=== PATIENT | female | born 1955 | race Caucasian/White ===

== ENCOUNTER → 2017-01-16 | Outpatient (CLI) | payer OTHER ==
[~2017-01-16] MED LIST: ASPEC81 PO; PRLSR20 PO
[2017-01-16 13:58] LABS: BASO % 0.3 %; BASO ABS # 0.02 K/uL (0-0.2); COMPLETE YES; EOS % 1.7 %; HEMATOCRIT 41.2 % (37-47); IG% 0.1 %; LYMPH % 28.3 %; MEAN CELL VOLUME 89.2 fL (80-100); MEAN CORPUSCULAR HEMOGLOBIN 29.4 pg (25-34); MEAN PLATELET VOLUME 10.7 fL (7.4-10.4); MONO % 8.8 %; NEUT % 60.8 %; PLATELET COUNT 146 K/uL (130-400); RED BLOOD COUNT 4.62 M/uL (4.2-5.4); WHITE BLOOD COUNT 7.06 K/uL (4.8-10.8)
[2017-01-16 14:14] LABS: ALT/SGPT 18 U/L (12-78); BLOOD UREA NITROGEN 13 mg/dl (7-18); BUN/CREATININE RATIO 19.7 (10-20); CALCIUM 9.4 mg/dl (8.5-10.1); CARBON DIOXIDE 29 mmol/L (21-32); CHLORIDE 108 mmol/L (98-107); CHOLESTEROL 155 mg/dl (0-200); CREATININE 0.66 mg/dl (0.60-1.20); GLUCOSE 87 mg/dl (70-99); POTASSIUM 4.2 mmol/L (3.5-5.1); SODIUM 144 mmol/L (136-145); TRIGLYCERIDES 206 mg/dl (0-150); VERY LOW DENSITY LIPOPROT CALC 41 mg/dl
[2017-01-16 14:24] LABS: ALB/GLOB RATIO 0.9 (0.9-2)
[2017-01-16 14:25] LABS: ALKALINE PHOSPHATASE 122 U/L (45-117); AST/SGOT 14 U/L (15-37); CHOLESTEROL/HDL RATIO 3.9; HDL CHOLESTEROL 40 mg/dl; LDL CHOLESTEROL CALCULATED 74 mg/dl
== END | disposition home or self-care (01) ==
LOC: C.LABBC 09:15
PROVIDERS: ATTEND Physician Assistant Medical
DX: E55.9 Vitamin D deficiency, unspecified (principal); I10 Essential (primary) hypertension; K21.9 Gastro-esophageal reflux disease without esophagitis; E78.5 Hyperlipidemia, unspecified

== ENCOUNTER → 2017-08-09 | Outpatient (CLI) | payer OTHER ==
--- NOTE | 2017-08-10 15:22 | MAMMOGRAPHY REPORT ---
BILATERAL DIGITAL SCREENING MAMMOGRAM TOMOSYNTHESIS WITH CAD: 08/09/2017 CLINICAL HISTORY: Routine screening. Patient has no complaints. TECHNIQUE: Breast tomosynthesis in addition to standard 2D mammography was performed. Current study was also evaluated with a Computer Aided Detection (CAD) system. COMPARISON: Comparison is made to exams dated: 08/05/2015 mammogram, 08/08/2016 mammogram, 4 mammogram, 07/03/2011 mammogram, 07/22/2013 mammogram, and 06/23/2010 mammogram - [facility]. BREAST COMPOSITION: There are scattered areas of fibroglandular density in both breasts. FINDINGS: No suspicious masses, calcifications, or areas of architectural distortion are noted in ei ther breast. There has been no significant interval change compared to prior exams. IMPRESSION: ACR BI-RADS CATEGORY 1: NEGATIVE There is no mammographic evidence of malignancy. A 1 year screening mammogram is recommended. The pa tient will receive written notification of the results. Approximately 10% of breast cancers are not detected with mammography. A negative mammographic report should not delay biopsy if a clinically suggestive mass is present. Kelly Maya M.D. ah/:08/09/2017 14:48:29 Performance Management Consultant: Alysia MOLINA(Dereje)(M), [facility] letter sent: Normal 1/2 BI-RADS Code: ACR BI-RADS Category 1: Negative
== END | disposition home or self-care (01) ==
LOC: C.MAMM 10:55
PROVIDERS: ATTEND Physician Assistant Medical
DX: Z12.31 Encounter for screening mammogram for malignant neoplasm of breast (principal)

== ENCOUNTER → 2017-08-09 | Outpatient (CLI) | payer OTHER ==
--- NOTE | 2017-08-09 14:19 | DIAGNOSTIC IMAGING REPORT ---
CHEST 2 VIEWS ROUTINE HISTORY: Short of breath. COMPARISON: Chest 10/31/2009. FINDINGS: The lungs are hyperexpanded with apical predominant emphysematous changes. No pleural effusions. No pneumothorax. The heart is normal in size. Bibasilar interstitial thickening may be due to vascular crowding from the emphysema. However, this is slightly progressed. No focal lung consolidations to suggest pneumonia. No evidence for pulmonary edema. IMPRESSION: 1. Emphysema. 2. Progression of the bibasilar interstitial thickening. This could be due to vascular crowding from the emphysema or possibly an atypical pneumonitis. Electronically signed by: Alexis Anderson M.D. 08/09/2017 2:18 PM Dictated Date/Time: 08/09/2017 2:15 PM
== END | disposition home or self-care (01) ==
LOC: C.RAD1850 14:00
PROVIDERS: ATTEND Internal Medicine
DX: J43.9 Emphysema, unspecified (principal); J84.9 Interstitial pulmonary disease, unspecified

== ENCOUNTER → 2017-08-20 | Outpatient (CLI) | payer OTHER ==
[2017-08-20 10:55] LABS: BLOOD UREA NITROGEN 8 mg/dl (7-18); BUN/CREATININE RATIO 12.2 (10-20); CALCIUM 9.4 mg/dl (8.5-10.1); CARBON DIOXIDE 25 mmol/L (21-32); CHLORIDE 107 mmol/L (98-107); CREATININE 0.69 mg/dl (0.60-1.20); GLUCOSE 91 mg/dl (70-99); POTASSIUM 3.7 mmol/L (3.5-5.1); SODIUM 139 mmol/L (136-145)
== END | disposition home or self-care (01) ==
LOC: C.LABBC 08:28
PROVIDERS: ATTEND Physician Assistant Medical
DX: I10 Essential (primary) hypertension (principal)

== ENCOUNTER → 2018-02-04 | Outpatient (CLI) | payer OTHER ==
[2018-02-04 14:17] LABS: ALBUMIN 3.7 gm/dl (3.4-5.0); ALT/SGPT 18 U/L (12-78); AST/SGOT 13 U/L (15-37); BLOOD UREA NITROGEN 13 mg/dl (7-18); CALCIUM 9.5 mg/dl (8.5-10.1); CARBON DIOXIDE 27 mmol/L (21-32); CHOLESTEROL 120 mg/dl (0-200); CREATININE 0.73 mg/dl (0.60-1.20); GLUCOSE 83 mg/dl (70-99); POTASSIUM 4.2 mmol/L (3.5-5.1); SODIUM 140 mmol/L (136-145)
[2018-02-04 14:20] LABS: ALKALINE PHOSPHATASE 120 U/L (45-117); LDL CHOLESTEROL CALCULATED 50 mg/dl; TOTAL PROTEIN 7.6 gm/dl (6.4-8.2)
== END | disposition home or self-care (01) ==
LOC: C.LABBC 10:41
PROVIDERS: ATTEND Nurse Practitioner Adult Health
DX: E78.5 Hyperlipidemia, unspecified (principal); I10 Essential (primary) hypertension; E55.9 Vitamin D deficiency, unspecified; R25.2 Cramp and spasm

== ENCOUNTER 2022-09-13 05:09 | Inpatient (IN) ==
--- NOTE | 2022-09-05 13:42 | Anesthesiology Consultation ---
Date of Service September 05, 2022 Assessment & Plan (1) Encounter for pre-operative examination: - COVID positive 07/25/22, now at acceptable interval to proceed with surgery. Chart Review Chart Review: Acceptable Risk for Surgery and Patient NOT seen in Pre Admission Testing History Surgery Operation Date: 09/13/22 07:30 Proposed Procedures p Femoral to Femoral Bypass Graft - Howie Anderson MD s Angiogram Left Lower Extremity - Howie Anderson MD Height/Weight Height: 5 ft 7 in Weight: 72.575 kg Allergies Allergy/AdvReac Type Severity Reaction Status Date / Time No Known Allergies Allergy Unknown Verified 09/05/22 11:18 Medications Home Medications Medication Instructions Recorded Confirmed Last Taken aspirin 81 mg tablet,delayed 81 mg PO QAM 02/07/19 09/05/22 07/21/22 08:00 release cholecalciferol (vitamin D3) 125 5,000 unit PO QAM 02/07/19 09/05/22 07/24/22 08:00 mcg (5,000 unit) tablet (Vitamin D3) hydrochlorothiazide 12.5 mg tablet 12.5 mg PO QAM 02/14/22 09/05/22 07/24/22 08:00 metoprolol succinate 50 mg 50 mg PO QAM 02/14/22 09/05/22 07/24/22 08:00 tablet,extended release 24 hr omeprazole 20 mg capsule,delayed 20 mg PO QAM 02/14/22 09/05/22 07/25/22 06:00 release telmisartan 40 mg tablet (Micardis) 40 mg PO QAM 02/14/22 09/05/22 07/24/22 08:00 atorvastatin 10 mg tablet 10 mg PO HS #90 tabs 07/14/22 09/05/22 07/24/22 21:00 albuterol sulfate 90 mcg/actuation 1 inh inhalation QID PRN Shortness 07/25/22 09/05/22 Unknown aerosol inhaler (Ventolin HFA) Of Breath fluticasone 500 mcg-salmeterol 50 1 inh inhalation BID 07/25/22 09/05/22 07/25/22 06:00 mcg/dose blistr powdr for inhalation (Advair Diskus) Past Medical History Medical History (Updated 09/05/22 @ 11:40 by Felicia L [place], RN) Carotid bruit < 50% stenosis ICAs bilat 06/2021 doppler COPD (chronic obstructive pulmonary disease) maintenance inhaler use daily; rescue inhaler prn GERD (gastroesophageal reflux disease) controlled, stable per pt History of angiography 05/12/22 @ [facility] Dr. Rosario History of COVID-19 07/25/22 PCR @ [facility] (tested for procedure)--asymptomatic--no symptoms now Hyperlipidemia Hypertension controlled, stable per pt Tobacco dependence due to cigarettes Tubular adenoma of colon removed Past Family History Family History Sister Colonic polyp Mother Lung cancer, Onset Age: 82 Father No problems noted. Other No family history of adverse response to anesthesia Denies family history of Ovarian cancer Prostate cancer Myocardial infarction Breast cancer Colorectal cancer Past Surgical History Surgical History (Updated 09/05/22 @ 11:39 by Felicia Teran RN) History of appendectomy History of bilateral tubal ligation History of colonoscopy last 02/2022 @ [facility] History of tooth extraction History of wisdom tooth extraction Social History Smoking Status: Current every day smoker tobacco type: cigarettes Smoking cigarettes per day: 10 a day (advised) Do You Dip or Chew Tobacco: No Hx Alcohol Use: Yes Alcohol type: beer alcohol intake frequency: holidays/special occasions only Hx Substance Use: No substance use type: does not use Lab Results Anesthesia Preop Results Results Anesthesia Widget: WBC 6.48 K/ul (4.8-10.8) 09/04/22 Hgb 12.4 g/dl (12.0-16.0) 09/04/22 Hct 35.7 % (34.1-44.9) 09/04/22 Plt 178 K/uL (130-400) 09/04/22 Na 134 mmol/L (136-145) L 09/04/22 K 3.6 mmol/L (3.5-5.1) 09/04/22 Cl 100 mmol/L (98-107) 09/04/22 CO2 23 mmol/L (21-32) 09/04/22 BUN 12 mg/dl (6-23) 09/04/22 Creat 0.92 mg/dl (0.6-1.2) 09/04/22 Glucose Level 95 mg/dl (70-99(Fasting)) 09/04/22 PT 10.5 Seconds (9.0-12.0) 09/04/22 PTT 29.9 Seconds (21.0-31.0) 09/04/22 INR 1.0 (0.9-1.1) 09/04/22 COVID-19 PCR POSITIVE (Negative) A* 07/25/22 SARS-CoV-2, RNA, NAAT POSITIVE (NEGATIVE) A* 07/25/22 Blood Type B Positive 07/25/22 Antibody Screen NEGATIVE 07/25/22 Testing Electrocardiogram Date: 06/30/22 NSR, rate 70 bpm Chest X-Ray Date: 06/30/22 No acute chest disease. Other Testing Carotid doppler 06/27/21 < 50% stenosis ICAs bilat
[2022-09-13] MEDS ORDERED: SODIUM CHLORIDE 0.9% 1000ML IV SCH (06:00)
[2022-09-13] MEDS ORDERED: ceFAZolin 2000MG 2,000 MG/15 ML SYR IV SCH (06:00)
[2022-09-13 06:36] LABS: BUN Creatinine Ratio 15.4 (10-20); Calcium 9.6 mg/dl (8.5-10.1); Creatinine Clr Calc Pharmacy 65.5 ml/min; Est GFR (African American) 76.2 ml/min; Est GFR (Non-African American) 65.7 ml/min
[2022-09-13] MEDS ORDERED: HYDROmorphone INJ 1 MG/ML SYRINGE IV PRN (07:00)
[2022-09-13] MEDS ORDERED: fentaNYL citrate 100 MCG/2 ML VIAL IV PRN (07:00)
[2022-09-13] MEDS ORDERED: ATROPINE SULFATE 0.1 MG/ML 10ML SYR IV PRN (07:00)
[2022-09-13] MEDS ORDERED: ePHEDrine sulfate 50 MG/ML AMP IV PRN (07:00)
[2022-09-13] MEDS ORDERED: ONDANSETRON INJ 2 MG/ML 2 ML VIAL IV PRN ×2 (07:00→15:07)
[2022-09-13] MEDS ORDERED: ALBUTEROL HFA INHALER 8.5 GM INH ONE ×7 (07:08→07:17)
[2022-09-13] MEDS ORDERED: MIDAZOLAM HCL 1 MG/ML 2ML VIAL ONE (07:09)
[2022-09-13] MEDS ORDERED: fentaNYL citrate 100 MCG/2 ML VIAL ONE (07:09)
[2022-09-13] MEDS ORDERED: SUGAMMADEX SODIUM 200 MG/2 ML VIAL IV ONE (07:14)
[2022-09-13] MEDS ORDERED: GELATIN SPONGE SZ 100 ONE (07:16)
[2022-09-13] MEDS ORDERED: HEPARIN (PORCINE) 1000 UNIT/ML 10 ML (CATH LAB USE ONLY) ONE (07:16)
[2022-09-13] MEDS ORDERED: ceFAZolin 330 MG/ML 1 GM VIAL ONE (07:16)
[2022-09-13] MEDS ORDERED: THROMBIN FOR SOLN 20000 UNIT KIT ONE (07:17)
--- NOTE | 2022-09-13 07:37 | History & Physical Report ---
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 I have discussed the risks options and benefits of the procedure with the patient. The patient understands the risks options and benefits and agrees to the procedure. 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 Yarbrough is a 67-year-old female who for the last few months has been having significant claudication left lower extremity. She is able to walk 50 to 60 feet before having to rest due to significant pain in her left thigh and calf. It comes as a cramping pain that stops her from walking. She also says her last few weeks she has developed pain in her left leg that comes on at night. She has to stand up and put pressure on her leg to relieve the pain. She claims that her left leg also goes numb at that time when she is has the rest pain in bed. She denies any ulcerations of her left lower extremity. She does have a history of vascular disease in her family. 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 She denies any cardiac problems. Denies any chest pain or shortness of breath. She recently underwent arteriography which revealed a left external iliac artery and left common femoral artery occlusion. There is also a significant tight stenosis of her left profundofemoral artery. Allergies Allergy/AdvReac Type Severity Reaction Status Date / Time No Known Allergies Allergy Unknown Verified 09/13/22 05:43 Home Medications Medication Instructions Recorded Confirmed Type aspirin 81 mg tablet,delayed 81 mg PO QAM 02/07/19 09/13/22 History release cholecalciferol (vitamin D3) 125 5,000 unit PO QAM 02/07/19 09/13/22 History mcg (5,000 unit) tablet (Vitamin D3) hydrochlorothiazide 12.5 mg tablet 12.5 mg PO QAM 02/14/22 09/13/22 History metoprolol succinate 50 mg 50 mg PO QAM 02/14/22 09/13/22 History tablet,extended release 24 hr omeprazole 20 mg capsule,delayed 20 mg PO QAM 02/14/22 09/13/22 History release telmisartan 40 mg tablet (Micardis) 40 mg PO QAM 02/14/22 09/13/22 History atorvastatin 10 mg tablet 10 mg PO HS #90 tabs 07/14/22 09/13/22 Rx albuterol sulfate 90 mcg/actuation 1 inh inhalation QID PRN Shortness 07/25/22 09/13/22 History aerosol inhaler (Ventolin HFA) Of Breath fluticasone 500 mcg-salmeterol 50 1 inh inhalation BID 07/25/22 09/13/22 History mcg/dose blistr powdr for inhalation (Advair Diskus) Past Med/Surg History Medical History Carotid bruit < 50% stenosis ICAs bilat 06/2021 doppler COPD (chronic obstructive pulmonary disease) maintenance inhaler use daily; rescue inhaler prn GERD (gastroesophageal reflux disease) controlled, stable per pt History of angiography 05/12/22 @ [facility] Dr. Rosario History of COVID-19 07/25/22 PCR @ [facility] (tested for procedure)--asymptomatic--no symptoms now Hyperlipidemia Hypertension controlled, stable per pt Tobacco dependence due to cigarettes Tubular adenoma of colon removed Surgical History History of appendectomy History of bilateral tubal ligation History of colonoscopy last 02/2022 @ [facility] History of tooth extraction History of wisdom tooth extraction Family History Sister Colonic polyp Mother Lung cancer, Onset Age: 82 Father No problems noted. Other No family history of adverse response to anesthesia Denies family history of Ovarian cancer Prostate cancer Myocardial infarction Breast cancer Colorectal cancer Social History Smoking Status: Current every day smoker Tobacco Type: Cigarettes Cigarettes Per Day: 10 a day (advised); Second Hand Exposure: No; Do You Dip or Chew Tobacco: No; Tobacco Cessation Education Requested by Patient: No Hx Alcohol Use: Yes Alcohol type: beer Alcohol Intake Frequency: Monthly or Less Alcohol Intake Frequency Comment: social gatherings Hx Substance Use: No Preferred Language: Emirati Communication Ability: Effective Visual Impairment: Limited Hearing Ability: Normal Mail List Librarian Required: No Beliefs That Will Affect Care: None marital status: Single Current Living Situation: Alone current occupational status: retired How many Children do You have: 2 Other Information That Helps Us Care for You: No Feels Safe at Home: Yes Safety Concerns: Feels Safe At This Time Childhood Exposure to Second-Hand Smoke: Yes caffeine: Yes (coffee and soda ) Dental Care, Regularly: No Physical Activity Frequency: Daily Seatbelt Use: always Sunscreen Use: No (not out in sun very often) Assistive Devices: Denture - Upper, Denture - Lower and Glasses Review of Systems All systems reviewed & are unremarkable except as noted in HPI & below Physical Exam Physical Exam: On physical exam the patient is awake alert oriented x3. She is in no apparent distress. Head neck within normal limits. Lungs are clear to auscultation. Heart had a regular rate and rhythm. No murmurs are appreciated. Abdominal exam is benign. No abnormal dilatation was appreciated. Vascular exam reveals radials carotids and supratemporal arteries +2 bilaterally. There is no carotid bruits. Femorals are +2 on the right and pedal's are +1 on the right. I cannot appreciate a left femoral or left pedal pulses. She does have decreased capillary refill in left foot and normal capillary refill on the right. Neurologic exam grossly intact. Results & Data ([facility]) Vital Signs (Past 12 Hours) Vital Signs Temp Pulse Resp BP Pulse Ox O2 Del Method 09/13/22 05:49 36.8 C 90 18 148/72 H 93 Room Air
[2022-09-13] MEDS ORDERED: HYDROmorphone INJ 2 MG/ML SYR/VIAL ONE (08:13)
[2022-09-13] MEDS ORDERED: DEXAMETHASONE SOD INJ 4 MG/ML VIAL ONE (09:23)
[2022-09-13] MEDS ORDERED: LARYING-O-JET KIT (LTA) ONE (09:23)
[2022-09-13] MEDS ORDERED: PROPOFOL IV EMULSION 10 MG/ML 20 ML VIAL IV ONE (09:23)
[2022-09-13] MEDS ORDERED: ROCURONIUM BROMIDE 10 MG/ML 5 ML VIAL IV ONE (09:23)
[2022-09-13] MEDS ORDERED: ONDANSETRON INJ 2 MG/ML 2 ML VIAL ONE (09:23)
[2022-09-13] MEDS ORDERED: LIDOCAINE 2% MPF LOCAL 5 ML VIAL INFIL ONE (09:23)
[2022-09-13] MEDS ORDERED: PHENYLEPHRINE HCL 10 MG/ML VIAL ONE (09:23)
[2022-09-13] MEDS ORDERED: HEPARIN SOD (PORCINE) 1000 UNIT/ML ONE ×2 (09:24→09:56)
[2022-09-13] MEDS ORDERED: SURGICEL ABSORB HEMOSTAT 2IN X 14IN TOP ONE (09:43)
[2022-09-13] MEDS ORDERED: VISIPAQUE IV ONE (10:26)
[2022-09-13] MEDS ORDERED: PROTAMINE SULFATE 10 MG/ML 5 ML VIAL IV ONE (11:11)
[2022-09-13] MEDS ORDERED: ePHEDrine sulfate 50 MG/ML AMP ONE ×2 (11:11)
--- NOTE | 2022-09-13 11:37 | Post Operative Brief Note ---
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
--- NOTE | 2022-09-13 11:47 | Procedure Note ---
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 I identified the patient and participated in the time-out.: Yes Procedure Operation Date: 09/13/22 08:00 Actual Procedures p Left Common Femoral Endarterectomy with Bovine Patch, Femoral to Femoral Bypass with Graft(Not Applicable) - Howie Anderson MD s Left Lower Extremity Arteriogram(Left) - Howie Anderson MD Surgeon Howie Anderson MD Machine Paint Mixer MD Tonja Estimated Blood Loss 75 Findings See Below patent femoral to femoral bypass with left DP signal present at end of case Specimens none Anesthesia Type General Complications none Disposition Accompanied Patient To Recovery: No Disposition: Recovery Room Indications This is a 67 yr old female with left lower extremity claudication and rest pain. She has an occluded left iliac system therefore was consented for a right to left femoral to femoral bypass Description of Procedure The patient was brought to the operating room. She was placed supine on the table with arm extended. A surgical time out was performed to identify the patient, procedure, indication, allergies, and equipment needed. Anesthesia team then placed an ET tube and stabilized the patient with general anesthesia. The patient was prepped from umbilicus to knees bilaterally. The was patient was draped in a sterile manner. First the right groin had an 12 cm vertical incision made over the femoral artery with an 10 blade. Hemostasis was achieved with Bovie electrocautery. Then using sharp and blunt dissection the femoral sheath was entered and the right SOLAR TECHNICIAN, SFA, and profunda were identified. Then 6000U of heparin was given. The SOLAR TECHNICIAN was clamped with a small [place] clamp, the SFA with an angled DeBakey clamp, and the profunda with a small profunda clamp. The an arteriotomy in the SOLAR TECHNICIAN was made with an 11 blade and extended proximally and distally onto the SFA. Then a femoral endarterectomy was performed using a [place] elevated until there were clean endpoints proximally at the SOLAR TECHNICIAN and distally into the SFA. Then the arteriotomy was closed with a bovine carotid patch with a 5-0 Prolene in a standard vascular anastomosis. Prior to completing the anastomosis the arteries were flushed and back bleed to de-air the vessels. The vessels were unclamped. The anastomosis required a 6-0 Prolene repair suture on the medial side and then Surgicel was applied. The groin was packed with an antibiotic solution soaked lap pad. Then the left groin had an 12 cm vertical incision made over the femoral artery with an 10 blade. Hemostasis was achieved with Bovie electrocautery. Then using sharp and blunt dissection the femoral sheath was entered and the left SOLAR TECHNICIAN, SFA, and profunda were identified. Then 6000U of heparin was given. The SOLAR TECHNICIAN was clamped with an angled DeBakey, the SFA with an angled DeBakey clamp, and the profunda with a small profunda clamp. The arteriotomy was made in the SOLAR TECHNICIAN bifurcation with an 11 bladed and extended distally onto the SFA. The a 6Fr sheath was inserted into the left SOLAR TECHNICIAN bifurcation using a J wire. Angiograms of the left lower extremity were performed which demonstrated a patent SFA and popliteal with an AT occlusion and PT as the main runoff to the foot. The sheath was removed. Next a tunnel in the soft tissue superior to the pubis tubercle was make from one groin to the other and an 8mm ringed PTFE graft was placed into the tunnel. The patient was given 4000U of heparin and the right SOLAR TECHNICIAN, SFA, and Profunda were re-clamped. An arteriotomy was made on the patch and the graft was cut to match. The juarez of the graft did extend over the origin of the profunda onto the SFA. The graft was sewn onto the artery in standard vascular fashion using a CV5 Goretex suture. Prior to completing the anastomosis the arteries were flushed and back bleed to de-air the vessels. The other limb of the graft was clamped. Then Surgicel was applied. Attention was turned to the left side were the graft was cut to length after rings were removed. The graft was sewn onto the previously made arteriotomy with a CV5 Goretex suture in standard vascular fashion. Prior to completing the anastomosis the arteries were flushed and back bleed to de-air the vessels. The vessel and graft were unclamped. The anasto mosis required a 5-0 Prolene repair suture on the superior edge of the anastomosis and then Surgicel was applied. Hemostasis was achieved. Then both groins with closed with a running 2-0 Vicryl layer, then 3-0 Vicryl in a running fashion and then skin eneida. Privina wound vac were applied to both groins. The patient tolerated to procedure well and was taken to the PACU for recovery. Dr. Anderson was present and scrubbed for the entire procedure. I attest to the content of the Intraoperative Record and any orders documented therein. Any exceptions are noted below.
[2022-09-13 12:26] LABS: Basophils # (auto) 0.02 K/uL (0-0.2); Basophils % (auto) 0.3 %; Eosinophils # (auto) 0.02 K/uL (0-0.50); Eosinophils % (auto) 0.3 %; Hematocrit (blood only) 31.9 % (34.1-44.9); Hemoglobin 10.7 g/dl (12.0-16.0); Immature Granulocytes # (auto) 0.05 K/uL (0.00-0.02); Immature Granulocytes % (auto) 0.8 %; Lymphocytes # (auto) 0.64 K/uL (1.2-3.4); Lymphocytes % (auto) 10.4 %; Mean Corpuscular Hemoglobin 31.1 pg (25.0-34.0); Mean Corpuscular Hgb Conc 33.5 g/dL (32.0-36.0); Mean Corpuscular Volume 92.7 fL (80.0-100.0); Monocytes # (auto) 0.08 K/uL (0.24-0.82); Monocytes % (auto) 1.3 %; Neutrophils # (auto) 5.36 K/uL (1.4-6.5); Neutrophils % (auto) 86.9 %; Platelet Count 146 K/uL (130-400); RDW Coefficient of Variation 14.6 % (11.5-14.5); RDW Standard Deviation 49.3 fL (36.4-46.3); Red Blood Count 3.44 M/uL (3.93-5.22); White Blood Count 6.17 K/ul (4.8-10.8)
[2022-09-13 12:49] LABS: BUN Creatinine Ratio 13.3 (10-20); Calcium 8.5 mg/dl (8.5-10.1); Creatinine Clr Calc Pharmacy 56.7 ml/min; Est GFR (African American) 64.1 ml/min; Est GFR (Non-African American) 55.3 ml/min; Potassium 4.2 mmol/L (3.5-5.1)
--- NOTE | 2022-09-13 13:09 | Anesthesiology Progress Note ---
Date of Service September 13, 2022 Anesthesia Post Procedure Vital Signs Vital Signs: Temp Pulse Pulse Resp BP BP Pulse Ox 09/13/22 12:50 74 19 123/77 127/44 L 92 09/13/22 12:40 69 20 118/76 92 09/13/22 12:30 78 16 126/45 L 92 09/13/22 12:20 78 20 124/44 L 92 09/13/22 12:10 88 20 117/45 L 95 09/13/22 12:00 36.8 C 89 16 131/49 L 93 09/13/22 05:49 36.8 C 90 18 148/72 H 93 O2 Del Method O2 Flow Rate 09/13/22 12:50 Nasal Cannula 2 09/13/22 12:40 Nasal Cannula 2 09/13/22 12:30 Nasal Cannula 2 09/13/22 12:20 Nasal Cannula 2 09/13/22 12:10 Oxymask 5 09/13/22 12:00 Oxymask 5 09/13/22 05:49 Room Air Transfer of Care Handoff Completed per policy Notes Mental Status: alert / awake / arousable and participated in evaluation Patient Amnestic to Procedure: Yes Nausea / Vomiting: adequately controlled Pain: adequately controlled Airway Patency, RR, SpO2: stable & adequate BP & HR: stable & adequate Hydration State: stable & adequate Anesthetic Complications: no major complications apparent and Pt Satisfied with anesthetic care
[2022-09-13] MEDS ORDERED: LACTATED RINGER'S 1,000 ML IV SCH (15:07)
[2022-09-13] MEDS ORDERED: MoRPHine SULFATE 4 MG/ML 1 ML CARP\\VIAL IV PRN (15:07)
[2022-09-13] MEDS ORDERED: oxyCODONE/ACETAMINOPHEN 5mg/325mg TAB PO PRN (15:07)
[2022-09-13] MEDS ORDERED: ALBUTEROL HFA 8 GM INHALER INH PRN (15:07)
[2022-09-13] MEDS: ceFAZolin 2000MG 2,000 MG/15 ML SYR IV SCH (16:21)
--- NOTE | 2022-09-13 16:41 | Critical Care Consultation ---
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 Anderson Monitor H&H Pain medication Start statin and Plavix tomorrow --Hypertension Continue with blood pressure medication -- Dyslipidemia On atorvastatin -- GERD Continue with pantoprazole -- COPD On Advair 500-50 at home Currently on Breo Would recommend the patient to be on Anoro/Stiolto on a daily basis rather than Advair. Can be addressed by primary care/pulmonology as an outpatient --Prophylaxis VTE: None GI: Pantoprazole Lines: Peripheral Diet: Low-sodium Plan: Monitor H&H Pain management Please note the above document was generated using voice recognition software. It may contain grammatical, syntax or spelling errors.Any formal questions or concerns about the content, text or information contained within the body of this dictation should be directly addressed to the provider for clarification. History of Present Illness Attending Physician: Howie Anderson MD History of Present Illness 67-year-old female came to the hospital to have femorofemoral bypass Past medical history: Peripheral vascular disease, dyslipidemia, hypertension, GERD Patient in the ICU for further care At the time of examination patient was not in any respiratory distress Her map was in the 70s, systolic blood pressure in the 110s Denies any chest pain, no shortness of breath No nausea vomiting. Patient just had dinner prior to me seeing her. Denies any abdominal pain. No headache, no blurry vision Social history: Greater than [id number] smoking history, currently smoking 10 cigarettes a day. Allergies Allergy/AdvReac Type Severity Reaction Status Date / Time No Known Allergies Allergy Unknown Verified 09/13/22 05:43 Home Medications Medication Instructions Recorded Confirmed Type aspirin 81 mg tablet,delayed 81 mg PO QAM 02/07/19 09/13/22 History release cholecalciferol (vitamin D3) 125 5,000 unit PO QAM 02/07/19 09/13/22 History mcg (5,000 unit) tablet (Vitamin D3) hydrochlorothiazide 12.5 mg tablet 12.5 mg PO QAM 02/14/22 09/13/22 History metoprolol succinate 50 mg 50 mg PO QAM 02/14/22 09/13/22 History tablet,extended release 24 hr omeprazole 20 mg capsule,delayed 20 mg PO QAM 02/14/22 09/13/22 History release telmisartan 40 mg tablet (Micardis) 40 mg PO QAM 02/14/22 09/13/22 History atorvastatin 10 mg tablet 10 mg PO HS #90 tabs 07/14/22 09/13/22 Rx albuterol sulfate 90 mcg/actuation 1 inh inhalation QID PRN Shortness 07/25/22 09/13/22 History aerosol inhaler (Ventolin HFA) Of Breath fluticasone 500 mcg-salmeterol 50 1 inh inhalation BID 07/25/22 09/13/22 History mcg/dose blistr powdr for inhalation (Advair Diskus) Patient History Medical History Carotid bruit < 50% stenosis ICAs bilat 06/2021 doppler COPD (chronic obstructive pulmonary disease) maintenance inhaler use daily; rescue inhaler prn GERD (gastroesophageal reflux disease) controlled, stable per pt History of angiography 05/12/22 @ [facility] Dr. Rosario History of COVID-19 07/25/22 PCR @ [facility] (tested for procedure)--asymptomatic--no symptoms now Hyperlipidemia Hypertension controlled, stable per pt Tobacco dependence due to cigarettes Tubular adenoma of colon removed Surgical History History of appendectomy History of bilateral tubal ligation History of colonoscopy last 02/2022 @ [facility] History of tooth extraction History of wisdom tooth extraction Family History Sister Colonic polyp Mother Lung cancer, Onset Age: 82 Father No problems noted. Other No family history of adverse response to anesthesia Denies family history of Ovarian cancer Prostate cancer Myocardial infarction Breast cancer Colorectal cancer Social History Smoking Status: Current every day smoker Tobacco Type: Cigarettes Cigarettes Per Day: 10 a day (advised); Second Hand Exposure: No; Do You Dip or Chew Tobacco: No; Tobacco Cessation Education Requested by Patient: No Hx Alcohol Use: Yes Alcohol type: beer Alcohol Intake Frequency: Monthly or Less Alcohol Intake Frequency Comment: social gatherings Hx Substance Use: No Preferred Language: Upper Sorbian Communication Ability: Effective Visual Impairment: Limited Hearing Ability: Normal 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 Beliefs That Will Affect Care: None marital status: Single Current Living Situation: Alone current occupational status: retired How many Children do You have: 2 Other Information That Helps Us Care for You: No Feels Safe at Home: Yes Safety Concerns: Feels Safe At This Time Childhood Exposure to Second-Hand Smoke: Yes caffeine: Yes (coffee and soda ) Dental Care, Regularly: No Physical Activity Frequency: Daily Seatbelt Use: always Sunscreen Use: No (not out in sun very often) Assistive Devices: Denture - Upper, Denture - Lower and Glasses Review of Systems Review of Systems: All systems reviewed & are unremarkable except as noted in HPI & below Physical Exam Physical Exam: Constitutional: No acute distress HEENT: EOMI, PERRLA Respiratory system: Decreased antibiotic, no wheeze, rhonchi, mild crackles bilateral lower lobes CVS: S1-S2 positive, no murmurs or gallops Abdomen: Soft, nontender, nondistended, positive bowel sounds x4 Extremities: +2 pulses bilaterally radialis, no cyanosis, no edema, +2 pulses left dorsalis pedis, +1 right dorsalis pedis, wound VAC in place bilateral groin Neuro: Awake alert oriented x3 Psych: Normal mood and affect G/U: Positive Temple Skin: no rashes, warm and dry Lymphatic: no cervical or axillary lymphadenopathy Results & Data Results & Data ([facility]) Vital Signs (Past 12 Hours) Vital Signs Temp Pulse Pulse Pulse Resp BP BP 09/13/22 15:00 66 15 113/58 L 09/13/22 15:26 09/13/22 15:07 36.4 C L 09/13/22 15:07 09/13/22 13:50 61 16 09/13/22 13:20 36.9 C 64 12 09/13/22 12:50 74 19 123/77 09/13/22 12:40 69 20 09/13/22 12:30 78 16 09/13/22 12:20 78 20 09/13/22 12:10 88 20 09/13/22 12:00 36.8 C 89 16 09/13/22 05:49 36.8 C 90 18 BP Pulse Ox Pulse Ox O2 Del Method O2 Del Method O2 Flow Rate 09/13/22 15:00 90 Room Air 09/13/22 15:26 90 Room Air 09/13/22 15:07 09/13/22 15:07 Room Air 09/13/22 13:50 114/39 L 96 Nasal Cannula 2 09/13/22 13:20 121/41 L 94 Nasal Cannula 2 09/13/22 12:50 127/44 L 92 Nasal Cannula 2 09/13/22 12:40 118/76 92 Nasal Cannula 2 09/13/22 12:30 126/45 L 92 Nasal Cannula 2 09/13/22 12:20 124/44 L 92 Nasal Cannula 2 09/13/22 12:10 117/45 L 95 Oxymask 5 09/13/22 12:00 131/49 L 93 Oxymask 5 09/13/22 05:49 148/72 H 93 Room Air Laboratory Results 09/13/22 12:20 09/13/22 12:20 Coding Level of Care Code 93629 Inpt Consult Level 4 Diagnoses Atherosclerosis of artery of extremity with rest pain I70.229 HTN (hypertension) I10 Hyperlipidemia E78.5 Acid reflux K21.9 Peripheral arterial disease I73.9 Tobacco dependence due to cigarettes F17.210 COPD (chronic obstructive pulmonary disease) J44.9
[2022-09-13] MEDS: ATORVASTATIN 10 MG TAB PO SCH (20:06)
[2022-09-14] MEDS: ceFAZolin 2000MG 2,000 MG/15 ML SYR IV SCH (00:21)
[2022-09-14 06:11] LABS: Basophils # (auto) 0.01 K/uL (0-0.2); Basophils % (auto) 0.1 %; Eosinophils # (auto) 0.01 K/uL (0-0.50); Eosinophils % (auto) 0.1 %; Hematocrit (blood only) 28.8 % (34.1-44.9); Hemoglobin 9.8 g/dl (12.0-16.0); Immature Granulocytes # (auto) 0.04 K/uL (0.00-0.02); Immature Granulocytes % (auto) 0.5 %; Lymphocytes # (auto) 1.37 K/uL (1.2-3.4); Lymphocytes % (auto) 17.7 %; Mean Corpuscular Hemoglobin 30.4 pg (25.0-34.0); Mean Corpuscular Volume 89.4 fL (80.0-100.0); Mean Platelet Volume 9.2 fL (9.4-12.3); Monocytes # (auto) 0.46 K/uL (0.24-0.82); Neutrophils # (auto) 5.84 K/uL (1.4-6.5); Neutrophils % (auto) 75.6 %; Platelet Count 155 K/uL (130-400); RDW Coefficient of Variation 14.3 % (11.5-14.5); Red Blood Count 3.22 M/uL (3.93-5.22); White Blood Count 7.73 K/ul (4.8-10.8)
[2022-09-14 06:29] LABS: BUN Creatinine Ratio 18.3 (10-20); Calcium 8.8 mg/dl (8.5-10.1); Creatinine Clr Calc Pharmacy 83.9 ml/min; Est GFR (African American) 102.9 ml/min; Est GFR (Non-African American) 88.8 ml/min; Potassium 4.4 mmol/L (3.5-5.1)
--- NOTE | 2022-09-14 07:53 | Critical Care Progress Note ---
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 Anderson Monitor H&H Pain medication Start statin and Plavix tomorrow --Hypertension Continue with blood pressure medication -- Dyslipidemia On atorvastatin -- GERD Continue with pantoprazole -- COPD On Advair 500-50 at home Currently on Breo Would recommend the patient to be on Anoro/Stiolto on a daily basis rather than Advair. Can be addressed by primary care/pulmonology as an outpatient --Prophylaxis VTE: None GI: Pantoprazole Lines: Peripheral Diet: Low-sodium Plan: In/out: Positive 489, urine output 1930 H&H is stable. Arterial line and Temple has been discontinued Patient hemodynamically stable. Disposition as per vascular surgery Please note the above document was generated using voice recognition software. It may contain grammatical, syntax or spelling errors.Any formal questions or concerns about the content, text or information contained within the body of this dictation should be directly addressed to the provider for clarification. Admission and Anticipated Discharge Date Admission Date: September 13, 2022 Subjective Patient seen and examined at bedside. No acute distress, no adverse events overnight. Denies any abdominal pain, mild burning around the groin area. No nausea or vomiting, fair appetite No chest pain, no shortness of breath, no cough Review of Systems Review of Systems: All systems reviewed & are unremarkable except as noted in Subjective Physical Exam Physical Exam: Constitutional: No acute distress HEENT: EOMI, PERRLA Respiratory system: Decreased antibiotic, no wheeze, minimal rhonchi on the left side, mild crackles bilateral lower lobes CVS: S1-S2 positive, no murmurs or gallops Abdomen: Soft, nontender, nondistended, positive bowel sounds x4 Extremities: +2 pulses bilaterally radialis, no cyanosis, no edema, +2 pulses left dorsalis pedis, +1 right dorsalis pedis, wound VAC in place bilateral groin Neuro: Awake alert oriented x3 Psych: Normal mood and affect G/U: No Temple Skin: no rashes, warm and dry Lymphatic: no cervical or axillary lymphadenopathy Results & Data Results & Data ([facility]) Vital Signs (Past 12 Hours) Vital Signs Temp Pulse Resp BP Pulse Ox Pulse Ox O2 Del Method 09/14/22 07:45 84 23 119/64 91 09/14/22 07:30 23 93 09/14/22 07:15 67 20 94 09/14/22 07:00 63 22 96 09/14/22 07:00 124/59 L 09/13/22 20:00 36.6 C 09/14/22 00:00 36.6 C 09/14/22 06:00 63 16 122/53 L 92 09/14/22 05:00 54 L 15 118/53 L 89 L 09/14/22 04:00 56 L 15 111/50 L 89 L 09/14/22 03:00 61 17 119/53 L 89 L 09/14/22 02:00 59 L 17 115/55 L 90 09/14/22 01:00 71 21 108/55 L 91 09/14/22 00:00 58 L 15 115/55 L 89 L 09/13/22 23:00 60 16 111/50 L 88 L 09/14/22 06:23 36.6 C 09/13/22 23:59 91 Room Air 09/13/22 22:00 56 L 15 124/62 93 09/13/22 22:58 56 L 09/13/22 21:00 56 L 17 117/55 L 90 09/13/22 20:00 60 18 112/57 L 92 09/13/22 21:20 91 Room Air Laboratory Results 09/14/22 05:51 09/14/22 05:51 Coding Level of Care Code 32364 Subseq Hosp Care Lvl 2 Diagnoses Atherosclerosis of artery of extremity with rest pain I70.229 HTN (hypertension) I10 Hyperlipidemia E78.5 Acid reflux K21.9 Peripheral arterial disease I73.9 Tobacco dependence due to cigarettes F17.210 COPD (chronic obstructive pulmonary disease) J44.9
[2022-09-14] MEDS: hydroCHLOROthiazide 25 MG TAB PO SCH (07:55)
[2022-09-14] MEDS: METOPROLOL SUCC 50MG EXT REL TAB PO SCH (07:57)
[2022-09-14] MEDS: TELMISARTAN 40 MG TAB PO SCH (07:57)
[2022-09-14] MEDS: PANTOprazole 40 MG TAB PO SCH (07:58)
[2022-09-14] MEDS: ASPIRIN 81 MG ECTAB PO SCH (07:58)
[2022-09-14] MEDS: CHOLECALCIFEROL 5,000 UNITS 125 MCG TAB PO SCH (07:58)
[2022-09-14] MEDS: FLUTICASONE/VILANTEROL 100/25MCG 14 PUFFS/INHALER INH SCH (07:59)
[2022-09-14] MEDS: ENOXAPARIN INJ 30 MG/0.3 ML SYR SQ SCH ×2 (08:54→20:05)
[2022-09-14] MEDS: MICONAZOLE NITRATE POWDER 43 GM EXT SCH ×2 (11:00→20:07)
--- NOTE | 2022-09-14 15:24 | Surgery Progress Note ---
Date of Service September 14, 2022 Assessment & Plan (1) S/P femoral-femoral bypass surgery: Plan: Patient doing extremely well. Will transfer to floor. Admission and Anticipated Discharge Date Admission Date: September 13, 2022 Subjective Patient complains of pins and needles in her medial thighs. Feet feel great. Walked the unit this am. Physical Exam Constitutional: WD/WN, vitals as above Respiratory: normal respiratory effort; no respiratory distress Cardiovascular: Rate/Rhythm: regular rate and regular rhythm Vessels: dorsalis pedis pulses present Extremities: normal capillary refill Musculoskeletal: no cyanosis or clubbing, extremities motor strength 5/5 Skin: + incision (pervena in place in both groins) Psychiatric: Orientation: alert and oriented x 3 Results & Data ([facility]) Vital Signs (Past 12 Hours) Vital Signs Temp Pulse Resp BP Pulse Ox Pulse Ox O2 Del Method 09/14/22 14:25 121/60 09/14/22 14:25 66 20 90 09/14/22 14:00 67 22 91 09/14/22 13:00 75 22 92 09/14/22 12:00 75 21 94 09/14/22 11:00 24 91 09/14/22 10:15 130/60 09/14/22 10:15 77 22 90 09/14/22 10:00 73 22 90 09/14/22 09:38 131/65 09/14/22 09:38 91 H 24 90 09/14/22 09:20 86 26 H 90 09/14/22 09:20 118/67 09/14/22 09:00 85 20 09/14/22 08:00 78 25 H 90 09/14/22 08:00 124/56 L 09/14/22 07:49 119/64 09/14/22 07:49 81 24 91 09/14/22 08:00 91 09/14/22 08:00 Room Air 09/14/22 08:00 85 09/14/22 07:45 84 23 119/64 91 09/14/22 07:30 23 93 09/14/22 07:15 67 20 94 09/14/22 07:00 63 22 96 09/14/22 07:00 124/59 L 09/14/22 06:00 63 16 122/53 L 92 09/14/22 05:00 54 L 15 118/53 L 89 L 09/14/22 04:00 56 L 15 111/50 L 89 L 09/14/22 06:23 36.6 C O2 Del Method 09/14/22 14:25 09/14/22 14:25 09/14/22 14:00 09/14/22 13:00 09/14/22 12:00 09/14/22 11:00 09/14/22 10:15 09/14/22 10:15 09/14/22 10:00 09/14/22 09:38 09/14/22 09:38 09/14/22 09:20 09/14/22 09:20 09/14/22 09:00 09/14/22 08:00 09/14/22 08:00 09/14/22 07:49 09/14/22 07:49 09/14/22 08:00 Room Air 09/14/22 08:00 09/14/22 08:00 09/14/22 07:45 09/14/22 07:30 09/14/22 07:15 09/14/22 07:00 09/14/22 07:00 09/14/22 06:00 09/14/22 05:00 09/14/22 04:00 09/14/22 06:23
[2022-09-14] MEDS: ATORVASTATIN 10 MG TAB PO SCH (20:05)
--- NOTE | 2022-09-15 07:42 | Surgery Progress Note ---
Date of Service September 15, 2022 Assessment & Plan (1) S/P femoral-femoral bypass surgery: Plan: Doing well D\C home today. Admission and Anticipated Discharge Date Admission Date: September 13, 2022 Subjective Patient without complaints. Ambulating will. Physical Exam Constitutional: WD/WN, vitals as above Respiratory: normal respiratory effort; no respiratory distress Cardiovascular: Rate/Rhythm: regular rate and regular rhythm Vessels: dorsalis pedis pulses present Extremities: normal capillary refill Skin: + incision (dressing in place) Psychiatric: Orientation: alert and oriented x 3 Results & Data ([facility]) Vital Signs (Past 12 Hours) Vital Signs Temp Pulse Resp BP Pulse Ox O2 Del Method 09/15/22 04:00 36.5 C 66 18 129/61 90 Room Air 09/14/22 20:11 36.5 C 58 L 18 132/57 L 93 Room Air
[2022-09-15] MEDS: ENOXAPARIN INJ 30 MG/0.3 ML SYR SQ SCH (08:06)
[2022-09-15] MEDS: ASPIRIN 81 MG ECTAB PO SCH (08:06)
[2022-09-15] MEDS: hydroCHLOROthiazide 25 MG TAB PO SCH (08:07)
[2022-09-15] MEDS: FLUTICASONE/VILANTEROL 100/25MCG 14 PUFFS/INHALER INH SCH (08:07)
[2022-09-15] MEDS: MICONAZOLE NITRATE POWDER 43 GM EXT SCH (08:07)
[2022-09-15] MEDS: PANTOprazole 40 MG TAB PO SCH (08:07)
[2022-09-15] MEDS: TELMISARTAN 40 MG TAB PO SCH (08:07)
[2022-09-15] MEDS: METOPROLOL SUCC 50MG EXT REL TAB PO SCH (08:07)
[2022-09-15] MEDS: CHOLECALCIFEROL 5,000 UNITS 125 MCG TAB PO SCH (08:07)
--- NOTE | 2022-09-18 12:02 | Discharge Summary ---
Date of Service September 18, 2022 Admission HPI Per Admitting Provider Ms. Yarbrough is a 67-year-old female who for the last few months has been having significant claudication left lower extremity. She is able to walk 50 to 60 feet before having to rest due to significant pain in her left thigh and calf. It comes as a cramping pain that stops her from walking. She also says her last few weeks she has developed pain in her left leg that comes on at night. She has to stand up and put pressure on her leg to relieve the pain. She claims that her left leg also goes numb at that time when she is has the rest pain in bed. She denies any ulcerations of her left lower extremity. She does have a history of vascular disease in her family. 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 She denies any cardiac problems. Denies any chest pain or shortness of breath. She recently underwent arteriography which revealed a left external iliac artery and left common femoral artery occlusion. There is also a significant tight stenosis of her left profundofemoral artery. Admission Exam Per Admitting Provider On physical exam the patient is awake alert oriented x3. She is in no apparent distress. Head neck within normal limits. Lungs are clear to auscultation. Heart had a regular rate and rhythm. No murmurs are appreciated. Abdominal exam is benign. No abnormal dilatation was appreciated. Vascular exam reveals radials carotids and supratemporal arteries +2 bilaterally. There is no carotid bruits. Femorals are +2 on the right and pedal's are +1 on the right. I cannot appreciate a left femoral or left pedal pulses. She does have decreased capillary refill in left foot and normal capillary refill on the right. Neurologic exam grossly intact. Principal Diagnosis Left iliac artery occluson Discharge Exam Constitutional WD/WN, vitals as above Respiratory normal respiratory effort; no respiratory distress Cardiovascular Rate/Rhythm: regular rate and regular rhythm Vessels: dorsalis pedis pulses present Extremities: normal capillary refill Musculoskeletal no cyanosis or clubbing, extremities motor strength 5/5 Skin + incision (dressing in place) Psychiatric Orientation: alert and oriented x 3 Discharge Data Allergies Allergy/AdvReac Type Severity Reaction Status Date / Time No Known Allergies Allergy Unknown Verified 09/13/22 05:43 Consultations 09/13/22 15:07 Consult Nuclear Waste Process Operator Routine Procedures Performed Operation Date: 09/13/22 08:00 Actual Procedures p Left Common Femoral Endarterectomy with Bovine Patch, Femoral to Femoral Bypass with Graft(Not Applicable) - Howie Anderson MD s Left Lower Extremity Arteriogram(Left) - Howie Anderson MD Ordered Studies 09/13/22 07:22 EV angio LE LT Routine Hospital Course (1) S/P femoral-femoral bypass surgery: Doing well D\C home today. Total Time Total Time Spent Total Time Spent (In Minutes): 0 Discharge Plan Discharge Items Patient Disposition: Home - Self-Care Reason For Visit: Left Lower Extremity ILiac and Common Femoral Randee Discharge Diagnosis: Left common femoral artery and iliac artery occlusion Activity: Per Instructions section Non-emergency contact: Surgeon Call non-emergency contact if: your temperature is above 101.5, your wound has increased redness, your wound has increased drainage and your wound pain has increased Follow-up/Referrals: Radu Pisano DO [Primary Care Provider] - 09/25/22 11:30 am Diet: Heart Healthy Addtl Attending Provider Instructions: ACTIVITY RECOMMENDATIONS: Remove dressing next sunday or sunday. replace with 4x4's if any drainage. SPECIAL CARE INSTRUCTIONS: Call your doctor if: * Temperature above 101 degrees * Pain not relieved by pain medicine ordered * There is increased drainage or redness from any incision * You have any unanswered questions or concerns. Call [phone] to schedule a follow up appointment if one not already scheduled. Pending Studies at Discharge: No Stand-Alone Forms: My [facility] Citelighter, Smoking Cessation Medications and DC Order Prescriptions: New oxycodone-acetaminophen [Percocet] 5-325 mg tablet 1 tab PO Q6H PRN (Reason: pain) Qty: 20 0RF Continued atorvastatin 10 mg tablet 10 mg PO HS Qty: 90 3RF Rx Instructions: TAKE 1 TABLET BY MOUTH AT BEDTIME aspirin 81 mg Tablet,Delayed Release (Dr/Ec) 81 mg PO QAM cholecalciferol (vitamin D3) [Vitamin D3] 5,000 unit Tablet 5,000 unit PO QAM metoprolol succinate 50 mg tablet extended release 24 hr 50 mg PO QAM Rx Instructions: TAKE 1 TABLET BY MOUTH EVERY MORNING telmisartan [Micardis] 40 mg tablet 40 mg PO QAM omeprazole 20 mg capsule,delayed release(DR/EC) 20 mg PO QAM Rx Instructions: TAKE 1 CAPSULE BY MOUTH EVERY MORNING hydrochlorothiazide 12.5 mg tablet 12.5 mg PO QAM fluticasone propion-salmeterol [Advair Diskus] 500-50 mcg/dose blister with device 1 inh inhalation BID albuterol sulfate [Ventolin HFA] 90 mcg/actuation HFA aerosol inhaler 1 inh inhalation QID PRN (Reason: Shortness Of Breath) Rx Instructions: INHALE 1 INHALATION 4 TIMES A DAY Discharge Orders: Discharge Order (Routine); Ordered 09/15/22 Ordered By: Howie Anderson Admission Data Admit Date/Time: 09/13/22 07:37 Attending Provider: Howie Anderson Admit Provider: Howie Anderson Primary Care Provider: Radu Pisano Other Providers: Zak Sullivan ; Radu Plascencia ; Tico Nunez ; Baljit Spencer ; Doug Avery ; Estuardo Penny ; Deb Limon ; Jesu Johnson ; Hoa Keating Other Interventions: Discharge Summary Assessment (RN) Last Done: 09/15/22 08:22
== END 2022-09-15 08:57 | disposition home or self-care (01) | DRG 253 ==
LOC: ASU 05:09 → 1E 07:37

== ENCOUNTER 2024-02-06 12:09 | Inpatient (IN) ==
[2024-02-06 12:49] LABS: Basophils # (auto) 0.02 K/uL (0.00-0.20); Basophils % (auto) 0.4 %; Eosinophils # (auto) 0.02 K/uL (0.00-0.50); Eosinophils % (auto) 0.4 %; Hematocrit (blood only) 41.8 % (37.0-47.0); Hemoglobin 13.1 g/dl (12.0-16.0); Immature Granulocytes # (auto) 0.03 K/uL (0.01-0.20); Immature Granulocytes % (auto) 0.7 %; Lymphocytes # (auto) 0.87 K/uL (1.20-3.40); Lymphocytes % (auto) 19.3 %; Mean Corpuscular Hemoglobin 28.5 pg (25.0-34.0); Mean Corpuscular Hgb Conc 31.3 g/dL (32.0-36.0); Mean Corpuscular Volume 91.1 fL (80.0-100.0); Mean Platelet Volume 10.7 fL (9.4-12.4); Monocytes # (auto) 0.21 K/uL (0.11-0.59); Monocytes % (auto) 4.7 %; Neutrophils # (auto) 3.35 K/uL (1.40-6.50); Neutrophils % (auto) 74.5 %; Platelet Count 142 K/uL (130-400); RDW Coefficient of Variation 15.5 % (11.5-14.5); RDW Standard Deviation 51.6 fL (36.4-46.3); Red Blood Count 4.59 M/uL (4.20-5.40)
[2024-02-06 13:13] LABS: Partial Thromboplastin Ratio 1.2; Partial Thromboplastin Time 34 Seconds (21-31); Prothrombin Time 10.8 Seconds (9.0-12.0)
--- NOTE | 2024-02-06 13:16 | XRay Report ---
XR chest 1V not portable HISTORY: 68 years-old Female Chest pain, nonspecific COMPARISON: 06/30/2022 TECHNIQUE: PA view of the chest FINDINGS: Cardiomediastinal and hilar silhouettes are within normal limits. Atherosclerosis of the aorta. Mild chronic interstitial coarsening. No pneumothorax, pleural effusion or pulmonary edema. The bones appe ar intact. IMPRESSION: No acute process. ACT 112: Negative or not required by law. The above report was generated using voice recognition software. It may contain grammatical, syntax o r spelling errors. Electronically signed by: Amandeep Erazo M.D. 02/06/2024 1:14 PM
[2024-02-06 13:33] LABS: Albumin Level 4.1 gm/dl (3.4-5.0); Bilirubin,Total 0.4 mg/dl (0.2-1.0); Calcium 8.8 mg/dl (8.6-10.3); Potassium 3.8 mmol/L (3.5-5.1)
[2024-02-06 13:38] LABS: Troponin I High Sensitivity 13.7 pg/ml (0-14)
[2024-02-06 13:39] LABS: Albumin Globulin Ratio 1.3 (0.9-2); BUN Creatinine Ratio 11.1 (10-20); Creatinine Clr Calc Pharmacy 20.2 ml/min; Globulin 3.2 gm/dl (2.5-4.0); Total Protein 7.3 gm/dl (6.0-8.3)
--- NOTE | 2024-02-06 16:32 | Electrocardiogram Report ---
Test Reason : Blood Pressure : / mmHG Vent. Rate : 077 BPM Atrial Rate : 077 BPM P-R Int : 156 ms QRS Dur : 078 ms QT Int : 402 ms P-R-T Axes : 058 068 066 degrees QTc Int : 454 ms Normal sinus rhythm Low voltage QRS Nonspecific ST abnormality Abnormal ECG When compared with ECG of 23-DEC-2022 11:54, (unconfirmed) No significant change was found Confirmed by Ezio Wakefield ([id number]) on 02/06/2024 4:32:33 PM Referred By: Confirmed By:Ezio Wakefield
--- NOTE | 2024-02-06 17:12 | Emergency Department Note ---
Impression & Plan CHET (acute kidney injury), HTN (hypertension), Acute neck pain ED Provider Note NAME: CARROLL CLAROS AGE: 68 SEX: F : 1955 ARRIVES VIA: Walk-In INFORMANT: Patient ED PROVIDER(S): Eddie Lozano DO CHIEF COMPLAINT: Lightheaded HPI: Patient is a 68-year-old female who presents ER for feeling like she was going to pass out. She denies any headache but admits to some mild left neck pain in the back. It is worse on palpation as well as movement. She denies any chest pain or shortness of breath. No belly pain, nausea, vomiting, or diarrhea. No dysuria, urgency, or frequency. She has not been eating or drinking less. No other exacerbating or remitting factors. ADDITIONAL HISTORY OBTAINED: Additional history of time from friend who is present at bedside who notes that this all started earlier this morning Chronic Medical/Social Conditions Affecting Care: Per HPI PAST MEDICAL HISTORY:See Below PAST SURGICAL HISTORY:See Below FAMILY HISTORY:See Below SOCIAL HISTORY:See Below HOME MEDICATIONS:See Below ALLERGIES:See Below VITALS:See Below PHYSICAL EXAMINATION: GENERAL: Sitting up in bed, alert, well appearing, well nourished, no distress, non-toxic EYE EXAM: normal conjunctiva. PERRL and EOM's grossly intact. OROPHARYNX: no exudate, no erythema, lips, buccal mucosa, and tongue normal and mucous membranes are moist NECK: supple, no nuchal rigidity, no adenopathy, tender in the left lateral cervical paraspinal region. No erythema or induration LUNGS: Clear to auscultation. Normal chest wall mechanics HEART: no murmurs, S1 normal and S2 normal ABDOMEN: abdomen soft, non-tender, normo-active bowel sounds, no masses, no rebound or guarding. BACK: Back is symmetrical on inspection and there is no deformity, no midline tenderness, no CVA tenderness. SKIN: no rashes and no bruising UPPER EXTREMITIES: upper extremities are grossly normal. LOWER EXTREMITIES: No pitting edema. NEURO EXAM: Normal sensorium, cranial nerves II-XII intact, normal speech, no weakness of arms, no weakness of legs. No drift. Finger to nose intact. Gross sensation intact. MEDICAL DECISION MAKING: Patient is a 68-year-old female who presents ER for above-stated complaint. IV was established blood work was obtained. Labs show mild leukopenia 4.5. No significant anemia. INR unremarkable. BMP with a creatinine of 2.5 up from baseline of 1. There is mild acidosis combination with this. Mild hypomag. LFTs bilirubin was unremarkable. Troponin was negative. Patient denies any nausea vomiting or diarrhea. She denies any other significant changes. She was given IV fluids. Updated bedside. Discussed with the hospitalist admitted for further workup of her CHET. Consults/Care Managements Discussions: Per [facility] Triage Nursing notes reviewed. Limited review of prior medical records performed Vital Signs: reviewed and remarkable for hypertension Differential diagnosis: Differential diagnosis includes etiologies such as vasovagal event, infection, hypoglycemia, electrolyte abnormalities, cardiac sources, intracerebral event, toxicologic, neurologic, as well as others were entertained. ER treatment provided: See below Diagnostics interpreted by me include EKG and cardiac monitoring as listed below: -Cardiac Monitoring: An order was placed for continuous cardiac monitoring. The monitor shows a rate of 60 with sinus rhythm. -ECG: Sinus rhythm rate 77 Normal axis No PVCs QTc 454 -Laboratory studies:Interpreted by me as stated above in MDM and shown below. Imaging studies: Xrays: As interpreted by me: Portable AP upright 1 view of the chest shows no focal CTs show: Renal ultrasound was unremarkable Procedures:none Critical Care: None Past Med/Surg History Medical History (Updated 02/06/24 @ 22:03 by Eddie Lozano DO) History of angiography 05/12/22 @ [facility] Dr. Rosario History of COVID-19 07/25/22 PCR @ [facility] (tested for procedure)--asymptomatic--no symptoms now History of colon polyps Tobacco dependence due to cigarettes COPD (chronic obstructive pulmonary disease) Tubular adenoma of colon removed Carotid bruit < 50% stenosis ICAs bilat 06/2021 doppler GERD (gastroesophageal reflux disease) Hypertension controlled, stable per pt Hyperlipidemia Surgical History Hx of vascular surgery History of bilateral tubal ligation History of appendectomy History of colonoscopy last 02/2022, repeat 10 yrs History of tooth extraction History of wisdom tooth extraction Family History Sister Colonic polyp Mother Lung cancer, Onset Age: 82 Father No problems noted. Other No family history of adverse response to anesthesia Denies family history of Ovarian cancer Prostate cancer Myocardial infarction Breast cancer Colorectal cancer Social History Smoking Status: Current every day smoker Tobacco Type: Cigarettes Cigarettes Per Day: 10 a day (advised); Second Hand Exposure: No; Do You Dip or Chew Tobacco: No; Hx Alcohol Use: Yes Alcohol type: beer Alcohol Intake Frequency: Monthly or Less Alcohol Intake Frequency Comment: social gatherings Hx Substance Use: No Preferred Language: Greenlandic Communication Ability: Effective Visual Impairment: Limited Hearing Ability: Normal Leak Detection Engineer Required: No Beliefs That Will Affect Care: None marital status: Single Current Living Situation: Alone current occupational status: retired How many Children do You have: 2 Feels Safe at Home: Yes Childhood Exposure to Second-Hand Smoke: Yes caffeine: Yes (coffee and soda ) Dental Care, Regularly: No Physical Activity Frequency: Daily Seatbelt Use: always Sunscreen Use: No (not out in sun very often) Assistive Devices: None Allergies Allergies Allergy/AdvReac Type Severity Reaction Status Date / Time No Known Allergies Allergy Unknown Verified 12/11/23 13:34 Home Meds Home Medications Medication Instructions Recorded Confirmed aspirin 81 mg tablet,delayed 81 mg PO QAM 02/07/19 02/06/24 release cholecalciferol (vitamin D3) 125 5,000 unit PO QAM 02/07/19 02/06/24 mcg (5,000 unit) tablet (Vitamin D3) Previous Rx's Medication Instructions Recorded albuterol sulfate 90 mcg/actuation 1 inh inhalation QID PRN Shortness 05/31/23 aerosol inhaler (Ventolin HFA) Of Breath #8.5 grams atorvastatin 10 mg tablet 10 mg PO HS #90 tabs 09/26/23 hydrochlorothiazide 12.5 mg tablet 12.5 mg PO QAM #90 tabs 10/02/23 omeprazole 20 mg capsule,delayed 20 mg PO QAM #90 caps 10/02/23 release telmisartan 40 mg tablet (Micardis) 40 mg PO QAM #90 tabs 10/09/23 fluticasone fur. 100 mcg-umeclid 1 inh inhalation DAILY #28 ea 10/11/23 62.5 mcg-vilant 25 mcg inhalat.powder (Trelegy Ellipta) metoprolol succinate 50 mg 50 mg PO QAM #90 tabs 10/11/23 tablet,extended release 24 hr allopurinol 100 mg tablet 100 mg PO DAILY #90 tabs 11/29/23 Results & Data (ED) Vital Signs Vital Signs - 24 hr 02/06/24 12:14 02/06/24 15:38 02/06/24 17:00 Temperature 36.7 C 36.8 C Temperature Source Skin Skin Pulse Rate - Lying Pulse Rate - Sitting Pulse Rate - Standing Pulse Rate 81 Pulse Rate [Left Finger] 83 62 Pulse Rate from SpO2 Sensor Pulse Rhythm [Left Finger] Regular Pulse Strength [Left Finger] Normal Respiratory Rate 18 16 18 Respiratory Effort / Characteristics Non-Labored Non-Labored Spontaneous Respiratory Depth Normal Normal Respiratory Pattern Regular Blood Pressure - Lying Blood Pressure - Sitting Blood Pressure- Standing Blood Pressure 105/62 Blood Pressure [Right Arm] 92/60 L 114/64 Blood Pressure Mean 76 Blood Pressure Mean [Right Arm] 70 80 Blood Pressure Position [Right Arm] Sitting Pulse Oximetry 97 99 98 Oxygen Delivery Method Room Air Room Air Room Air Oxygen Flow Rate Sepsis Recent Fever Within 48 Hours No Sepsis New/Unexplained Change in Mental Status No Sepsis Action Taken by Nursing No Action Required 02/06/24 17:28 02/06/24 18:30 02/06/24 18:50 Temperature Temperature Source Pulse Rate - Lying Pulse Rate - Sitting Pulse Rate - Standing Pulse Rate 65 60 60 Pulse Rate [Left Finger] Pulse Rate from SpO2 Sensor 61 Pulse Rhythm [Left Finger] Pulse Strength [Left Finger] Respiratory Rate 15 17 Respiratory Effort / Characteristics Respiratory Depth Respiratory Pattern Blood Pressure - Lying Blood Pressure - Sitting Blood Pressure- Standing Blood Pressure 117/61 Blood Pressure [Right Arm] Blood Pressure Mean 79 Blood Pressure Mean [Right Arm] Blood Pressure Position [Right Arm] Pulse Oximetry 89 L 90 Oxygen Delivery Method Room Air Nasal Cannula Oxygen Flow Rate 3 Sepsis Recent Fever Within 48 Hours Sepsis New/Unexplained Change in Mental Status Sepsis Action Taken by Nursing 02/06/24 19:00 02/06/24 20:30 02/06/24 21:00 Temperature Temperature Source Pulse Rate - Lying 74 Pulse Rate - Sitting 72 Pulse Rate - Standing 71 Pulse Rate Pulse Rate [Left Finger] 69 62 Pulse Rate from SpO2 Sensor Pulse Rhythm [Left Finger] Pulse Strength [Left Finger] Respiratory Rate 16 18 Respiratory Effort / Characteristics Respiratory Depth Respiratory Pattern Blood Pressure - Lying 141/66 H Blood Pressure - Sitting 132/57 L Blood Pressure- Standing 97/61 L Blood Pressure Blood Pressure [Right Arm] 117/61 147/55 H Blood Pressure Mean Blood Pressure Mean [Right Arm] 79 85 Blood Pressure Position [Right Arm] Pulse Oximetry 98 91 Oxygen Delivery Method Nasal Cannula Oxygen Flow Rate 2 Sepsis Recent Fever Within 48 Hours Sepsis New/Unexplained Change in Mental Status Sepsis Action Taken by Nursing 02/06/24 21:11 Temperature Temperature Source Pulse Rate - Lying Pulse Rate - Sitting Pulse Rate - Standing Pulse Rate 69 Pulse Rate [Left Finger] Pulse Rate from SpO2 Sensor Pulse Rhythm [Left Finger] Pulse Strength [Left Finger] Respiratory Rate Respiratory Effort / Characteristics Respiratory Depth Respiratory Pattern Blood Pressure - Lying Blood Pressure - Sitting Blood Pressure- Standing Blood Pressure Blood Pressure [Right Arm] Blood Pressure Mean Blood Pressure Mean [Right Arm] Blood Pressure Position [Right Arm] Pulse Oximetry Oxygen Delivery Method Oxygen Flow Rate Sepsis Recent Fever Within 48 Hours Sepsis New/Unexplained Change in Mental Status Sepsis Action Taken by Nursing Laboratory Data 02/06/24 12:30 02/06/24 12:30 Lab Results 02/06/24 Range/Units 12:30 WBC 4.50 L (4.8-10.8) K/ul RBC 4.59 (4.20-5.40) M/uL Hgb 13.1 (12.0-16.0) g/dl Hct 41.8 (37.0-47.0) % MCV 91.1 (80.0-100.0) fL MCH 28.5 (25.0-34.0) pg MCHC 31.3 L (32.0-36.0) g/dL RDW Std Deviation 51.6 H (36.4-46.3) fL RDW Coeff of Rosemarie 15.5 H (11.5-14.5) % Plt Count 142 (130-400) K/uL MPV 10.7 (9.4-12.4) fL Immature Gran % (Auto) 0.7 % Neut % (Auto) 74.5 % Lymph % (Auto) 19.3 % Storey % (Auto) 4.7 % Eos % (Auto) 0.4 % Baso % (Auto) 0.4 % Neut # (Auto) 3.35 (1.40-6.50) K/uL Lymph # (Auto) 0.87 L (1.20-3.40) K/uL Storey # (Auto) 0.21 (0.11-0.59) K/uL Eos # (Auto) 0.02 (0.00-0.50) K/uL Baso # (Auto) 0.02 (0.00-0.20) K/uL Immature Gran # (Auto) 0.03 (0.01-0.20) K/uL PT 10.8 (9.0-12.0) Seconds INR 1.0 (0.9-1.1) APTT 34 H (21-31) Seconds PTT Ratio 1.2 Sodium 133 L (136-145) mmol/L Potassium 3.8 (3.5-5.1) mmol/L Chloride 101 (98-107) mmol/L Carbon Dioxide 19 L (21-32) mmol/L Anion Gap 13 H (3-11) BUN 28 H (6-23) mg/dl Creatinine 2.53 H (0.6-1.2) mg/dl Est Cr Clr Drug Dosing 20.2 ml/min Est GFR ( Amer) 22.0 ml/min Est GFR (Non-Af Amer) 19.0 ml/min BUN/Creatinine Ratio 11.1 (10-20) Glucose 93 (70-99(Fasting)) mg/dl Calcium 8.8 (8.6-10.3) mg/dl Magnesium 1.6 L (1.7-2.4) mg/dl Total Bilirubin 0.4 (0.2-1.0) mg/dl AST 27 (13-39) U/L ALT 12 (7-52) U/L Alkaline Phosphatase 129 H (34-104) U/L Troponin I High Sens 13.7 (0-14) pg/ml Total Protein 7.3 (6.0-8.3) gm/dl Albumin 4.1 (3.4-5.0) gm/dl Globulin 3.2 (2.5-4.0) gm/dl Albumin/Globulin Ratio 1.3 (0.9-2) Administered Medications Lactated Ringer's (Lr) 1,000 mls @ 125 mls/hr IV .Q8H [place] Stop: 02/07/24 19:44 Last Admin: 02/06/24 21:08 Dose: 125 mls/hr Documented By: SKM Discontinued Medications Sodium Chloride (Nss) 1,000 mls @ 999 mls/hr IV .Q1H1M ONE Stop: 02/06/24 18:06 Last Infusion: 02/06/24 18:50 Dose: Infused Documented By: Admin: 02/06/24 17:27 Dose: 999 mls/hr Documented By: CORKY Lactated Ringer's (Lr) 500 mls @ 999 mls/hr IV .Q31M ONE Stop: 02/06/24 20:02 Last Infusion: 02/06/24 21:07 Dose: Infused Documented By: Admin: 02/06/24 20:35 Dose: 999 mls/hr Documented By: DILLON Imaging Data Radiologist's Impression: Chest X-Ray 02/06/24 12:19 XR chest 1V not portable HISTORY: 68 years-old Female Chest pain, nonspecific COMPARISON: 06/30/2022 TECHNIQUE: PA view of the chest FINDINGS: Cardiomediastinal and hilar silhouettes are within normal limits. Atherosclerosis of the aorta. Mild chronic interstitial coarsening. No pneumothorax, pleural effusion or pulmonary edema. The bones appear intact. IMPRESSION: No acute process. ACT 112: Negative or not required by law. The above report was generated using voice recognition software. It may contain grammatical, syntax or spelling errors. Electronically signed by: Amandeep Erazo M.D. 02/06/2024 1:14 PM Renal Ultrasound 02/06/24 17:06 RENAL ULTRASOUND HISTORY: Acute kidney injury. COMPARISON: None. FINDINGS: Right kidney: 8.3 cm. No hydronephrosis. Normal corticomedullary differentiation. Mild cortical thinning. Left kidney: 10.7 cm. No hydronephrosis. Normal corticomedullary differentiation. Mild cortical thinning. Bladder: The bladder is decompressed and not well evaluated. The bilateral ureteral jets were not identified. IMPRESSION: No hydronephrosis. ACT 112: Negative or not required by law. Electronically signed by: Alexis Anderson M.D. 02/06/2024 6:26 PM Discharge Plan Visit Data Chief Complaint: Syncope (Near Syncope) Stated Complaint: DIZZINESS ED Provider: Eddie Lozano Discharge Problem: CHET (acute kidney injury), HTN (hypertension), Acute neck pain Forms Stand Alone Forms: [place] Prescriptions Prescriptions: No Action albuterol sulfate [Ventolin HFA] 90 mcg/actuation HFA aerosol inhaler 1 inh inhalation QID PRN (Reason: Shortness Of Breath) Qty: 8.5 3RF Rx Instructions: INHALE 1 INHALATION 4 TIMES A DAY atorvastatin 10 mg tablet 10 mg PO HS Qty: 90 3RF Rx Instructions: TAKE 1 TABLET BY MOUTH AT BEDTIME hydrochlorothiazide 12.5 mg tablet 12.5 mg PO QAM Qty: 90 3RF omeprazole 20 mg capsule,delayed release(DR/EC) 20 mg PO QAM Qty: 90 3RF Rx Instructions: TAKE 1 CAPSULE BY MOUTH EVERY MORNING telmisartan [Micardis] 40 mg tablet 40 mg PO QAM Qty: 90 3RF allopurinol 100 mg tablet 100 mg PO DAILY Qty: 90 3RF Trelegy Ellipta 100-62.5-25 mcg blister with device 1 inh inhalation DAILY Qty: 28 2RF metoprolol succinate 50 mg tablet extended release 24 hr 50 mg PO QAM Qty: 90 3RF Rx Instructions: TAKE 1 TABLET BY MOUTH EVERY MORNING aspirin 81 mg Tablet,Delayed Release (Dr/Ec) 81 mg PO QAM cholecalciferol (vitamin D3) [Vitamin D3] 5,000 unit Tablet 5,000 unit PO QAM Referrals Referrals: Radu Pisano DO [Primary Care Provider] - Discharge Problem: HTN (hypertension) Qualifiers: Hypertension type: unspecified Qualified Code(s): I10 - Essential (primary) hypertension
[2024-02-06] MEDS: SODIUM CHLORIDE 0.9% 1,000 ML IV ONE (17:27)
--- NOTE | 2024-02-06 17:32 | History & Physical Report ---
Date of Service February 06, 2024 Assessment & Plan (1) HCET (acute kidney injury): Plan: Patient came in for multiple episodes of dizziness/near syncope on 02/05 BUN 28, creatinine 2.53 (baseline 1.10), EGFR at 19 Hold hydrochlorothiazide, telmisartan Avoid nephrotoxic agents where possible Renal ultrasound revealed no hydronephrosis IVF resuscitation with NSS 1000 mL + LR 500 mL + LR at 150mL/hr x 2 Suspect could be secondary to HCTZ or current medications And CBC, BMP (2) Near syncope: Plan: Dizziness/near syncope on 02/05, always in the setting of standing/exertion No history of recent falls, fainting, or injuries to head or neck Orthostatic vital signs ordered, pending Fall precautions PT/OT consulted (3) Gout: Plan: Left olecranon bursitis aspiration revealed Recently started on allopurinol at the end of November Given this is her only new medication, will hold allopurinol for now (4) Hyperlipidemia: Plan: Continue atorvastatin (5) HTN (hypertension): Plan: Continue metoprolol (6) COPD (chronic obstructive pulmonary disease): Plan: Patient does not use supplemental oxygen at home Supplemental oxygen as needed to titrate oxygen between SpO2 89-92% (7) S/P femoral-femoral bypass surgery: Plan Disposition: Obs -admit to [facility] telemetry DNR/DNI Regular diet VTE PPx: Teds History of Present Illness Chief Complaint: Syncope (Near syncope) Primary Care Provider: Radu Pisano DO Wen is a pleasant 68-year-old female with PMH of COPD, tobacco use, PAD, s/p femoral to femoral bypass surgery, hyperlipidemia, HTN, gout, acid reflux. She presented for multiple episodes of lightheadedness that started around 0830 on 02/05. Patient was getting out of the shower this morning, and reports she had to sit due to lightheadedness. She put her head down, and the lightheadedness subsided after 4 minutes. She then drove to work, and noticed that the more she was on her feet, more often she will feel lightheaded and feel like she was going to pass out. No falls or LOC. No recent injuries to the head or neck. She reports she was feeling fine yesterday. She took all of her regular morning medications today; denies any recent change in medications. She reports that the most recent change in medication was being placed on allopurinol for gout in November. She reports she has been on the hydrochlorothiazide for extended period of time. Patient is unsure why she takes baby aspirin daily, but denies history of heart stents. No history of migraines, vertigo, CVA, or PR. No recent changes in diet; patient reports she drinks plenty water. She does not use supplemental oxygen at home. She is a current tobacco cigarette smoker, but has recently cut back to 4 cigarettes/week. She reports that she got up and showered patient vitals are stable at time of admission. ED course: NSS 1000 mL IV ROS: Patient endorses lightheadedness movements, dry cough (ongoing; which patient attributes to smoking), and multiple episodes of near syncope. Patient denies fever, chills, night-sweats, new body aches, dizziness like the room was spinning, changes in vision/hearing, fainting, falling, facial droop, slurred speech, unilateral deficits, chest pain, SOB, chest palpitations, pleuritic CP, abdominal pain, N/V/D, constipation, change in urinary/bowel habits, blood in the urine/stool, or N/T in arms or legs. Allergies Allergy/AdvReac Type Severity Reaction Status Date / Time No Known Allergies Allergy Unknown Verified 12/11/23 13:34 Home Medications Medication Instructions Recorded Confirmed Type aspirin 81 mg tablet,delayed 81 mg PO QAM 02/07/19 02/06/24 History release cholecalciferol (vitamin D3) 125 5,000 unit PO QAM 02/07/19 02/06/24 History mcg (5,000 unit) tablet (Vitamin D3) albuterol sulfate 90 mcg/actuation 1 inh inhalation QID PRN Shortness 05/31/23 02/06/24 Rx aerosol inhaler (Ventolin HFA) Of Breath #8.5 grams atorvastatin 10 mg tablet 10 mg PO HS #90 tabs 09/26/23 02/06/24 Rx hydrochlorothiazide 12.5 mg tablet 12.5 mg PO QAM #90 tabs 10/02/23 02/06/24 Rx omeprazole 20 mg capsule,delayed 20 mg PO QAM #90 caps 10/02/23 02/06/24 Rx release telmisartan 40 mg tablet (Micardis) 40 mg PO QAM #90 tabs 10/09/23 02/06/24 Rx fluticasone fur. 100 mcg-umeclid 1 inh inhalation DAILY #28 ea 10/11/23 02/06/24 Rx 62.5 mcg-vilant 25 mcg inhalat.powder (Trelegy Ellipta) metoprolol succinate 50 mg 50 mg PO QAM #90 tabs 10/11/23 02/06/24 Rx tablet,extended release 24 hr allopurinol 100 mg tablet 100 mg PO DAILY #90 tabs 11/29/23 02/06/24 Rx Past Med/Surg History Medical History (Updated 02/06/24 @ 17:55 by Alexis Manley PA-C) History of angiography 05/12/22 @ [facility] Dr. Rosario History of COVID-19 07/25/22 PCR @ [facility] (tested for procedure)--asymptomatic--no symptoms now History of colon polyps Tobacco dependence due to cigarettes COPD (chronic obstructive pulmonary disease) Tubular adenoma of colon removed Carotid bruit < 50% stenosis ICAs bilat 06/2021 doppler GERD (gastroesophageal reflux disease) Hypertension controlled, stable per pt Hyperlipidemia Surgical History Hx of vascular surgery History of bilateral tubal ligation History of appendectomy History of colonoscopy last 02/2022, repeat 10 yrs History of tooth extraction History of wisdom tooth extraction Family History Sister Colonic polyp Mother Lung cancer, Onset Age: 82 Father No problems noted. Other No family history of adverse response to anesthesia Denies family history of Ovarian cancer Prostate cancer Myocardial infarction Breast cancer Colorectal cancer Social History Smoking Status: Current every day smoker Tobacco Type: Cigarettes Cigarettes Per Day: 10 a day (advised); Second Hand Exposure: No; Do You Dip or Chew Tobacco: No; Hx Alcohol Use: Yes Alcohol type: beer Alcohol Intake Frequency: Monthly or Less Alcohol Intake Frequency Comment: social gatherings Hx Substance Use: No Preferred Language: Filipino Communication Ability: Effective Visual Impairment: Limited Hearing Ability: Normal Customer Account Administrator Required: No Beliefs That Will Affect Care: None marital status: Single Current Living Situation: Alone current occupational status: retired How many Children do You have: 2 Feels Safe at Home: Yes Childhood Exposure to Second-Hand Smoke: Yes caffeine: Yes (coffee and soda ) Dental Care, Regularly: No Physical Activity Frequency: Daily Seatbelt Use: always Sunscreen Use: No (not out in sun very often) Assistive Devices: None Review of Systems Review of Systems: See HPI above Physical Exam Physical Exam: General: no acute distress; pleasant affect; non-toxic appearing; well- nourished; cooperative; SpO2 98% on 3L NC HEENT: normocephalic, atraumatic; no scleral icterus; PERRLA; moist mucus membrane; vision and hearing grossly intact Neck: supple; no lymphadenopathy; trachea midline Skin: warm, dry without signs of tenting; no cyanosis; no rashes, bruising, lesions, or erythema noted CV: chest wall NTP; RRR; S1/S2 normal; no murmurs/rubs/gallops; pulses intact and symmetric at radial, DP, and PT Lungs: no acute respiratory distress; symmetrical chest wall expansion; clear breath sounds across all lung harris w/o adventitious sounds; no wheezing ABD: Soft, NTP; BS present; no rebound/guarding; no distention; negative CVA tenderness MSK: no tics or fasciculations; no edema noted in the LEs b/l, nonerythematous Neuro: A&Ox3; normal mood and affect; fluent speech; no facial droop; no focal deficits; sensation grossly intact in the LEs b/l Results & Data Results & Data Vital Signs (Past 12 Hours) Vital Signs Temp Pulse Pulse Resp BP BP Pulse Ox 02/06/24 17:28 65 02/06/24 17:00 62 18 114/64 98 02/06/24 15:38 36.8 C 83 16 92/60 L 99 02/06/24 12:14 36.7 C 81 18 105/62 97 O2 Del Method 02/06/24 17:28 02/06/24 17:00 Room Air 02/06/24 15:38 Room Air 02/06/24 12:14 Room Air Laboratory Results Abnormal lab results 02/06/24 Range/Units 12:30 WBC 4.50 L (4.8-10.8) K/ul MCHC 31.3 L (32.0-36.0) g/dL RDW Std Deviation 51.6 H (36.4-46.3) fL RDW Coeff of Rosemarie 15.5 H (11.5-14.5) % Lymph # (Auto) 0.87 L (1.20-3.40) K/uL APTT 34 H (21-31) Seconds Sodium 133 L (136-145) mmol/L Carbon Dioxide 19 L (21-32) mmol/L Anion Gap 13 H (3-11) BUN 28 H (6-23) mg/dl Creatinine 2.53 H (0.6-1.2) mg/dl Alkaline Phosphatase 129 H (34-104) U/L Diagnostic Findings Chest X-Ray 02/06/24 12:19 XR chest 1V not portable HISTORY: 68 years-old Female Chest pain, nonspecific COMPARISON: 06/30/2022 TECHNIQUE: PA view of the chest FINDINGS: Cardiomediastinal and hilar silhouettes are within normal limits. Atherosclerosis of the aorta. Mild chronic interstitial coarsening. No pneumothorax, pleural effusion or pulmonary edema. The bones appear intact. IMPRESSION: No acute process. ACT 112: Negative or not required by law. The above report was generated using voice recognition software. It may contain grammatical, syntax or spelling errors. Electronically signed by: Amandeep Erazo M.D. 02/06/2024 1:14 PM ECG Additional Comments: ECG revealed NSR at 77bpm; QTc 454 Code Status & VTE Plan Code Status DNR/DNI VTE Prophylaxis Plan VTE Prophylaxis will be ordered: Yes Supervising Physician Co-Signing Physician Notes Patient seen and examined, chart reviewed, case discussed with Alexis Manley and I agree with the assessment and plan as above except as otherwise noted Labs and images reviewed 68-year-old female with a history of hypertension, femoral bypass surgery, COPD, tobacco dependence, PAD with lightheadedness/presyncope without syncope and with no chest pain. In the ER she has an CHET and appears volume contracted. Renal ultrasound shows no hydronephrosis or obstruction. She is on hydrochlorothiazide and telmisartan at baseline, was hypotensive to the 90s on admission. Suspect combination of iatrogenic from blood pressure meds with prerenal CHET. ARB and thiazide held. Fluids given as above, blood pressure normalized following this. Will trend creatinine every morning. No signs of infection, no UTI symptoms, no leukocytosis. If blood pressure remains well- controlled, would discontinue thiazide. At bedside assessment mucous membranes are tacky, BP has improved to 110-120, lungs are clear, heart rate is regular. Agree with assessment management above. PG Care Time/CCT Total # of Minutes Spent Total Time Spent with Patient: Total time spent is greater than 50% in coordination of care (as documented) at patient's floor/unit and/or counseling patient: Coding [place] [address] INT INP/OBS CARE 2/55MIN Patient Type Established History Comprehensive Exam Comprehensive Medical Decision Making Moderate Complexity Diagnoses CHET (acute kidney injury) N17.9 Near syncope R55 Gout M10.9 Hyperlipidemia E78.5 HTN (hypertension) I10 COPD (chronic obstructive pulmonary disease) J44.9 S/P femoral-femoral bypass surgery Z95.828
--- NOTE | 2024-02-06 18:27 | Ultrasound Report ---
RENAL ULTRASOUND HISTORY: Acute kidney injury. COMPARISON: None. FINDINGS: Right kidney: 8.3 cm. No hydronephrosis. Normal corticomedullary differentiation. Mild cortical thinn ing. Left kidney: 10.7 cm. No hydronephrosis. Normal corticomedullary differentiation. Mild cortical thinn ing. Bladder: The bladder is decompressed and not well evaluated. The bilateral ureteral jets were not sima ntified. IMPRESSION: No hydronephrosis. ACT 112: Negative or not required by law. Electronically signed by: Alexis Anderson M.D. 02/06/2024 6:26 PM
[2024-02-06] MEDS: LACTATED RINGER'S 500 ML IV ONE (20:35)
[2024-02-06] MEDS: LACTATED RINGER'S 1,000 ML IV SCH (21:08)
[2024-02-06 21:17] LABS: Magnesium 1.6 mg/dl (1.7-2.4)
[2024-02-06] MEDS ORDERED: ALBUTEROL HFA 8 GM INHALER INH PRN (22:09)
[2024-02-06] MEDS ORDERED: ONDANSETRON INJ 2 MG/ML 2 ML VIAL IV PRN (22:09)
[2024-02-06] MEDS ORDERED: ACETAMINOPHEN 325 MG TAB PO PRN (22:09)
[2024-02-06] MEDS ORDERED: PNEUMOCOCCAL VACCINE (PCV20) 20-VAL CONJ-DIP CRM/PF 0.5 ML SYR IM ONE (22:37)
[2024-02-06] MEDS: ATORVASTATIN 10 MG TAB PO SCH (23:15)
[2024-02-07 04:25] LABS: Eosinophils # (auto) 0.02 K/uL (0.00-0.50); Eosinophils % (auto) 0.5 %; Hematocrit (blood only) 35.4 % (37.0-47.0); Hemoglobin 11.7 g/dl (12.0-16.0); Immature Granulocytes # (auto) 0.02 K/uL (0.01-0.20); Immature Granulocytes % (auto) 0.5 %; Lymphocytes # (auto) 0.71 K/uL (1.20-3.40); Lymphocytes % (auto) 18.6 %; Mean Corpuscular Hemoglobin 28.9 pg (25.0-34.0); Mean Corpuscular Hgb Conc 33.1 g/dL (32.0-36.0); Mean Corpuscular Volume 87.4 fL (80.0-100.0); Mean Platelet Volume 10.6 fL (9.4-12.4); Monocytes # (auto) 0.21 K/uL (0.11-0.59); Monocytes % (auto) 5.5 %; Neutrophils # (auto) 2.86 K/uL (1.40-6.50); Neutrophils % (auto) 74.9 %; Platelet Count 109 K/uL (130-400); RDW Standard Deviation 48.4 fL (36.4-46.3); Red Blood Count 4.05 M/uL (4.20-5.40); White Blood Count 3.82 K/ul (4.8-10.8)
[2024-02-07 04:37] LABS: BUN Creatinine Ratio 18.9 (10-20); Calcium 8.4 mg/dl (8.6-10.3); Creatinine Clr Calc Pharmacy 38.7 ml/min; Est GFR (African American) 48.3 ml/min; Est GFR (Non-African American) 41.6 ml/min; Potassium 4.1 mmol/L (3.5-5.1)
--- OUTSIDE RECORDS SUMMARY | 2024-02-07 06:16 | External Medical Summary | Continuity of Care Document ---
Author Name Unknown Organization [facility] [address] [facility] Address [address] [place], [place] [id number] Care Team Providers Care Coin Box Inspector Name Role Phone Radu Pisano Primary Care Physician [phone] Encounter [facility] [id number] Date(s): 01/08/24 - 01/08/24 [facility] [address], [address] [place] [address] [phone] Encounter Diagnosis Aortoiliac occlusive disease(Discharge Diagnosis) - 01/08/24 Carotid bruit(Discharge Diagnosis) - 01/08/24 Discharge Disposition: Home or Self Care Attending Physician: MD Anderson Eugene J Referring Physician: DO Pisano Brian R Allergies, Adverse Reactions, Alerts No Known Allergies Assessment and Plan Extracted from: Title:Clinical Document Author:ROSA M Holly Lynn Date:01/08/24 [facility] OUTPATIENT NOTE Name: CARROLL CLAROS Patient Number: [id number] : 1955 Date of Service: 01/08/2024 Chief Complaint: _Follow-up for aortoiliac disease HPI: _Ms. Claros is an elderly female presents to Dr. Anderson vascular surgery clinic today for a 6-month follow-up visit regarding her history of aortoiliac occlusive disease. As you may remember the patient is status post left common femoral artery endarterectomy and right to left femorofemoral bypass performed in August 2022. She has done well postoperatively with no recurrence of symptoms. She continues to deny any symptoms of claudication, rest pain, nonhealing wounds or ulcerations, discoloration of the feet or toes. She states she is able to ambulate is much as she wishes with no problems. Of note she also denies any symptoms of cerebrovascular insufficiency including amaurosis, unilateral extremity weakness numbness or tingling, difficulty speaking or swallowing, facial droop, sudden onset confusion, other complaints. Her aortoiliac ultrasound performed prior to today's appointment demonstrates a widely patent right to left femorofemoral bypass with good inflow and outflow of the bypass. Her bilateral ABIs are 1.1. Current Home Meds: (Last Updated 01/07 12:49) albuterol (Albuterol (Eqv-ProAir HFA) 90 mcg/inh inhalation aerosol) aspirin (aspirin 81 mg oral delayed release tablet) 81 mg PO Daily atorvastatin (atorvastatin 10 mg oral tablet) 10 mg PO Daily cholecalciferol (cholecalciferol 125 mcg (5000 intl units) oral tablet) 125 mcg PO Daily fluticasone/umeclidinium/vilanterol (Trelegy Ellipta 100 mcg-62.5 mcg-25 mcg/inh inhalation powder) 1 puff inhaled Daily hydroCHLOROthiazide (hydroCHLOROthiazide 12.5 mg oral tablet) 12.5 mg PO Daily metoprolol (Metoprolol Succinate ER 50 mg oral tablet, extended release) 50 mg PO Daily omeprazole (omeprazole 20 mg oral delayed release capsule) 20 mg PO Daily telmisartan (telmisartan 40 mg oral tablet) 40 mg PO Daily Allergies and Sensitivities: NKA Past Medical History: Problems: Carotid bruit Aortoiliac occlusive disease S/P femoral-femoral bypass surgery Tobacco user Occlusion of left iliac artery OBJECTIVE Vitals: Last Updated 01/08/24 12:55 Date Temp BP Location Pulse RR SpO2 Pain 01/08/24 120/64 Right Arm 01/08/24 0 01/08/24 126/60 Left Arm 72 93 Vital Signs are the last 3 documented. No Orthostatic Data Available Height and Weight: Last Updated 07/02/23 13:18 Date BMI Wt(kg) Wt(lb) Method Ht(cm) (ft-in) Method 07/02/23 76.5 168 Standing Scale 01/04/23 73 161 Standing Scale 06/29/22 76.4 168 Standing Scale Heights and Weights are the last 3 documented. Physical Exam Constitutional: In general patient is a healthy-appearing well-nourished well-developed elderly female in no distress. She is alert and oriented without any focal deficits. Her right carotid does demonstrate a bruit. Her left does not. Her heart is regular with murmur. Her lungs are decreased but clear. Her abdomen is soft nontender, active bowel sounds in all 4 quadrants. Her femoral surgical sites are well-healed. She does have +2 femoral pulses. Her lower extremity DP and PT pulses are +2. She has brisk capillary refill to toes and no sign of distal ischemia. She has no edema. ASSESSMENT: _ PLAN: _ 1 ) _aortoiliac occlusive disease, history of left common femoral artery endarterectomy and right to left femorofemoral bypass graft Patient is overall doing well since being seen here 6 months ago. She is asymptomatic and her ultrasound demonstrates a widely patent bypass. She has palpable distal pulses. We would like to reevaluate this in 1 year with a new ultrasound prior to that office visit. She is advised to call with any other questions or concerns. 2 ) _right carotid bruit Patient does have a notable right carotid bruit on exam today, and states that she did have an ultrasound performed of her carotid arteries but is unable to remember how long ago that occurred. She states it was "years ago." She is asymptomatic, but we recommend that she undergo a carotid ultrasound as I am unable to locate any recent records of a carotid ultrasound. This will occur in the next few weeks at her convenience. We will call her with those results to make further recommendations. She is agreeable to this plan. Thank you for letting us participate in the care of this patient. Addendum by ROSA M Holly Lynn on January 08, 2024 16:03 EDT I have personally spent_25__ minutes p erforming hjuu-ht-[id number] and wjt-nsmw-nr-face activities on this date of service.Time does not include separately reported services. Activities Include: x__ review of the medical record x__ obtaining a history _x_ physical exam/evaluation __ review labs _x_ review radiology reports _x_ counseling/educating patient/family/caregiver __ discussion/referral to other healthcare professional _x_ documenting care in the medical record __ independent interpretation of results _x_ communication of results to patient/family/caregiver _x_ coordination of care Medications Albuterol (Eqv-ProAir HFA) 90 mcg/inh inhalation aerosol Start: 06/29/22 9:10:00 EDT Start Date: 06/29/22 Status: Ordered aspirin 81 mg oral delayed release tablet Start: 06/29/22 9:10:00 EDT, 1 tab, PO, Daily Start Date: 06/29/22 Status: Ordered atorvastatin 10 mg oral tablet Start: 06/29/22 9:10:00 EDT, 1 tab, PO, Daily Start Date: 06/29/22 Status: Ordered cholecalciferol 125 mcg (5000 intl units) oral tablet Start: 06/29/22 9:10:00 EDT, 1 tab, PO, Daily Start Date: 06/29/22 Status: Ordered hydroCHLOROthiazide 12.5 mg oral tablet Start: 06/29/22 9:10:00 EDT, 1 tab, PO, Daily Start Date: 06/29/22 Status: Ordered Metoprolol Succinate ER 50 mg oral tablet, extended release Start: 06/29/22 9:10:00 EDT, 1 tab, PO, Daily Start Date: 06/29/22 Status: Ordered omeprazole 20 mg oral delayed release capsule Start: 06/29/22 9:10:00 EDT, 1 cap, PO, Daily Start Date: 06/29/22 Status: Ordered telmisartan 40 mg oral tablet Start: 06/29/22 9:11:00 EDT, 1 tab, PO, Daily Start Date: 06/29/22 Status: Ordered Trelegy Ellipta 100 mcg-62.5 mcg-25 mcg/inh inhalation powder Start: 07/02/23 13:15:00 EDT, 1 puff, inhaled, Daily Start Date: 07/02/23 Status: Ordered Mental Status 01/08/24 Barriers to Learning one year None evide nt Mandatory Health Literacy Documentation Yes Health Literacy Communication Barriers N ever Primary Language Danish Problem List Condition Confirmation Course Effective Dates Status Health St atus Informant Carotid bruit Confirmed Active S/P femoral-femoral bypass surgery Confirmed Active Occlusion of left iliac artery Confirmed Active Aortoiliac occlusive disease Confirmed Active Tobacco user Confirmed Active Diagnosis Diagnosis Type Effective Dates Health Status Clinical Service Informant Aortoiliac occlusive disease Discharge Diagnosis 01/08/24 Carotid bruit Discharge Diagnosis 01/08/24 Procedures Procedure Date Related Diagnosis Body Site Status l common femoral endarterect shannon with bovine patch, and right to left fem fem bpg, and lle angio without intervention 09/13/22 Completed Colonoscopy 1 08/25/15 Completed Colonoscopy 2 12/08/14 Completed Colonoscopy 3, 4, 5 08/24/14 Compl eted 1Colo to cecum--AC polyp site noted and path inflammation, small polyp TC adenoma removed. repeat colo [address] Stephen COLO AC polyp 23 mm resected and clipped, hepatic flexure lesion 4 cm resected and clipped, diverticulosis, hemorrhoids. He recommended repeat colo 6 months. 3COLO to cecum----hep flex large sessile polyp too large to remove by me --tattoo and cold bx, polyp50 cm snared and 3 clips placed, polyp 40 cm snared, sigmoid polyp snared, rectal polyps times two hot bx. Recommend referral for endoscopic mucosal resection at [facility] 4path hep flex tub adenoma, 50 cm tub adenoma, 40 cm hyerplastic, sigmoid tub adenoma, rectum hyperplastic 5recommend go to [facility] for EMR of polyp and repeat colonoscopy at [facility] 1 year. Vital Signs Most recent to oldest [Reference Range]: 1 2 Heart Rate 72 bpm (01/08/24 12:50 PM) Blood Pressure 120/64mmHg (01/08/24 12:55 PM) 126/60mmHg (01/08/24 12:50 PM) Cuff Pulse Pressure 56 mmHg (01/08/24 12:55 PM) 66 mmHg (01/08/24 12:50 PM) BP Location # 1 Right Arm (01/08/24 12:55 PM) Left Arm (01/08/24 12:50 PM) Social History Social History Type Response Tobacco Current every day sm oker, Cigarettes, Started age 27 Years. Smoking Status [facility] Sex Female [facility] Outpt Note * ROSA M Holly Lynn: PERFORM Event Display: [facility] Outpt Note Authored Date: [id number] [facility] OUTPATIENT NOTE Name: CARROLL CLAROS Patient Number: [id number] : 1955 Date of Service: 01/08/2024 Chief Complaint: _Follow-up for aortoiliac disease HPI: _Ms. Claros is an elderly female presents to Dr. Anderson vascular surgery clinic today for a 6-month follow-up visit regarding her history of aortoiliac occlusive disease. As you may remember thepatient is status post left common femoral artery endarterectomy and right to left femorofemoral bypass performed in August 2022. She has done well postoperatively with no recurrence of symptoms. She continues to deny any symptoms of claudication, rest pain, nonhealing wounds or ulcerations, discoloration of the feet or toes. She states she is able to ambulate is much as she wishes with no problems. Of note she also denies any symptoms of cerebrovascular insufficiency including amaurosis, unil ateral extremity weakness numbness or tingling, difficulty speaking or swallowing, facial droop, sudden onset confusion, other complaints. Her aortoiliac ultrasound performed prior to today's appointment demonstrates a widely patent rightto left femorofemoral bypass with good inflow and outflow of the bypass. Her bilateral ABIs are 1.1. Current Home Meds: (Last Updated 01/07 12:49) albuterol (Albuterol (Eqv-ProAir HFA) 90 mcg/inh inhalation aerosol) aspirin (aspirin 81 mg oral delayed release tablet) 81 mg PO Daily atorvastatin (atorvastatin 10 mg oral tablet) 10 mg PO Daily cholecalciferol (cholecalciferol 125 mcg (5000 intl units) oral tablet) 125 mcg PO Daily fluticasone/umeclidinium/vilanterol (Trelegy Ellipta 100 mcg-62.5 mcg-25 mcg/inh inhalation powder)1 puff inhaled Daily hydroCHLOROthiazide (hydroCHLOROthiazide 12.5 mg oral tablet) 12.5 mg PO Daily metoprolol (Metoprolol Succinate ER 50 mg oral tablet, extended release) 50 mg PO Daily omeprazole (omeprazole 20 mg oral delayed release capsule) 20 mg PO Daily telmisartan (telmisartan 40 mg oral tablet) 40 mg PO Daily Allergies and Sensitivities: NKA Past Medical History: Problems: Carotid bruit Aortoiliac occlusive disease S/P femoral-femoral bypass surgery Tobacco user Occlusion of left iliac artery OBJECTIVE Vitals: Last Updated 01/08/24 12:55 Date Temp BP Location Pulse RR SpO2 Pain 01/08/24 120/64 Right Arm 01/08/24 0 01/08/24 126/60 Left Arm 72 93 Vital Signs are the last 3 documented. No Orthostatic Data Available Height and Weight: Last Updated 07/02/23 13:18 Date BMI Wt(kg) Wt(lb) Method Ht(cm) (ft-in) Method 07/02/23 76.5 168 Standing Scale 01/04/23 73 161 Standing Scale 06/29/22 76.4 168 Standing Scale Heights and Weights are the last 3 documented. Physical Exam Constitutional: In general patient is a healthy-appearing well-nourished well- developed elderly female in no distress. She is alert and oriented without any focal deficits. Her right carotid does demonstrate a bruit. Her left does not. Her heart is regular with murmur. Her lungs are decreased but clear. Her abdomen is soft nontender, active bowel sounds in all 4 quadrants. Her femoral surgical sites are well-healed. She does have +2 femoral pulses. Her lower extremity DP and PT pulses are +2. She has brisk capillary refill to toes and no sign of distal ischemia. She has no edema. ASSESSMENT: _ PLAN: _ 1 ) _aortoiliac occlusive disease, history of left common femoral artery endarterectomy and right to left femorofemoral bypass graft Patient is overall doing well since being seen here 6 months ago. She is asymptomatic and her ultrasound demonstrates a widely patent bypass. She has palpable distal pulses. We would like to reevaluate this in 1 year with a new ultrasound prior to that office visit. She is advised to call with any other questions or concerns. 2 ) _right carotid bruit Patient does have a notable right carotid bruit on exam today, and states that she did have an ultrasound performed of her carotid arteries but is unable to remember how long ago that occurred. She states it was "years ago." She is asymptomatic, but we recommend that she undergo a carotid ultrasound as I am unable to locate any recent records of a carotid ultrasound. This will occur in the next few weeks at her convenience. We will call her with those results to make further recommendations. She is agreeable to this plan. Thank you for letting us participate in the care of this patient. Electronic Signature on File Electronically Reviewed/Signed by: Sarah Holly PA-C Author Signature Dt/Tm:01/08/2024 02:23 PM [facility] [place], [address] [place] [address] * ROSA M Holly Lynn: PERFORM Event Display: [facility] Outpt Note Authored Date: [id number] I have personally spent_25__ minutes performing [id number]-ai-iicf and zcz-lcds-kf-face activities on this date of service.Time does not include separately reported services. Activities Include: x__ review of the medical record x__ obtaining a history _x_ physical exam/evaluation __ review labs _x_ review radiology reports _x_ counseling/educating patient/family/caregiver __ discussion/referral to other healthcare professional _x_ documenting care in the medical record __ independent interpretation of results _x_ communication of results to patient/family/caregiver _x_ coordination of care Electronic Signature on File CC: Radu Pisano DO [facility] [email or web address] [facility] [address] [place] [address] * Electronically Reviewed/Signed by: Sarah Holly PA-C Author Signature Dt/Tm:01/08/2024 04:03 PM [facility] [place] [address] [place] Patient Care team information Care Team Personnel Name: ROSA M Holly Lynn Position: Physician As400 Administrator Exempt - Vasc Surg Member Role: Lifetime Relationship Address: Address: [address] [place] [address] [place] Name: DO Pisano Brian R Position: Referring Member Role: Primary Care Provider Address: Address: [facility] [employer] [facility] [address] [place] [address] [place] Care Team Related Persons Name: SRUTHI FUNEZ Address: home [address] [place] [phone]
--- OUTSIDE RECORDS SUMMARY | 2024-02-07 06:16 | External Medical Summary | Continuity of Care Document ---
Author Name Unknown Organization [facility] [id number] Address [address] [place], [place] [id number] Care Team Providers Care Elephant Tamer Name Role Phone Radu Pisano Primary Care Physician [phone] [id number] Date(s): 01/04/24 - 01/04/[address], [address] [place] [address] [phone] Discharge Disposition: Home or Self Care Attending Physician: MD Anderson Eugene J Referring Physician: DO Pisano Brian R Allergies, Adverse Reactions, Alerts No Known Allergies Medications Albuterol (Eqv-ProAir HFA) 90 mcg/inh inhalation [...] inhaled, Daily Start Date: 07/02/23 Status: Ordered Problem List Condition Confirmation Course Effective Dates Status Health St atus Informant S/P femoral-femoral bypass surgery Confirmed Active Occlusion of left iliac artery Confirmed Active Tobacco user Confirmed Active Procedures Procedure Date Related Diagnosis Body Site [...] Recommend referral for endoscopic mucosal resection at [facility] 4path hep flex tub adenoma, 50 cm tub adenoma, 40 cm hyerplastic, sigmoid tub adenoma, rectum hyperplastic 5recommend go to [facility] for EMR of polyp and repeat colonoscopy at [facility] 1 year. Social History Social History Type Response Tobacco Current every day sm oker, Cigarettes, Started age 27 Years. Smoking Status Current every day he jacob smoker Sex Female Patient Care team information Care Team Personnel Name: ROSA M Holly Lynn Position: Physician Internal Medicine Veterinary Technician Exempt - Vasc Surg Member Role: Lifetime Relationship Address: Address: [address] [place] [address] Name: DO Pisano Brian R Position: Referring Member Role: Primary Care Provider Address: Address: [facility] [address] [place] [address] [place] Care Team Related Persons Name: SRUTHI FUNEZ Address: home [address] [place] [address] [place] [phone]
--- OUTSIDE RECORDS SUMMARY | 2024-02-07 06:16 | External Medical Summary | Continuity of Care Document ---
Author Name Unknown Organization [facility] [address] Address [address] [place], [place] [id number] Care Team Providers Care Claims Correspondence Clerk Name Role Phone Radu Pisano Primary Care Physician [phone] [id number] Date(s): 01/04/24 - 01/04/[address], [address] [place] [address] [phone] Discharge Disposition: Home or Self Care Attending [...] Recommend referral for endoscopic mucosal resection at [place] 4path hep flex tub adenoma, 50 cm tub adenoma, 40 cm hyerplastic, sigmoid tub adenoma, rectum hyperplastic 5recommend go to [place] for EMR of polyp and repeat colonoscopy at [facility] 1 year. Social History Social History Type Response Tobacco Current every day sm oker, Cigarettes, Started age 27 Years. Smoking Status Current every day he jacob smoker Sex Female Patient Care team information Care Team Personnel Name: ROSA M Holly Lynn Position: Physician Algology Teacher Exempt - Vasc Surg Member Role: Lifetime Relationship Address: Address: [address] [place] [address] Name: DO Pisano Brian R Position: Referring Member Role: Primary Care Provider Address: Address: [facility] [address] [place] [address] [place] Care Team Related Persons Name: SRUTHI FUNEZ Address: home [address] [place] [address] [place] [phone]
[2024-02-07] MEDS: METOPROLOL SUCC 50MG EXT REL TAB PO SCH (09:05)
[2024-02-07] MEDS: PANTOprazole 40 MG TAB PO SCH (09:08)
[2024-02-07] MEDS: ASPIRIN 81 MG ECTAB PO SCH (09:08)
[2024-02-07] MEDS: FLUTICASONE FUROATE 100MCG 14 PUFFS/INHALER INH SCH (09:09)
[2024-02-07] MEDS: UMECLIDINIUM/VILANTEROL 62.5/25MCG 7 PUFFS/INHALER INH SCH (09:09)
[2024-02-07 11:05] LABS: Magnesium 1.1 mg/dl (1.7-2.4)
[2024-02-07] MEDS: MAGNESIUM SULFATE / D5W 1 GM/100 ML BAG IV SCH (12:44)
[2024-02-07 16:47] LABS: Influenza A virus by PCR Positive (Neg); Influenza B virus by PCR Negative (Neg); RSV by PCR Negative (Neg); SARS CoV2 RNA(COVID-19) Ceph NEGATIVE (Negative)
[2024-02-07] MEDS: OSELTAMIVIR PHOSPHATE SUSP 30 MG/5 ML UDP PO SCH (20:00)
[2024-02-07] MEDS: OSELTAMIVIR PHOSPHATE SUSP 30 MG/5 ML UDP PO STA (20:05)
--- NOTE | 2024-02-07 20:29 | Hospitalist Progress Note ---
Date of Service February 07, 2024 Assessment & Plan (1) Influenza A: Plan: with her increasing cough, presenting illness, leukopenia and thrombocytopenia, etc I advised viral testing. obtained COVID/flu/RSV test -- returned positive for fluA. start tamiflu 75mg BID x 5 days -- she is at high risk of flu complications. droplet precautions. supportive care. avoid steroids if possible. (2) Pancytopenia: Plan: suspect 2nd to viral suppression from #1 serial CBC (3) CHET (acute kidney injury): Plan: Peak creatinine 2.53 Baseline Cr 1.1 Today's Cr 1.3 improving suspect prerenal CHET from low BP (was 90s systolic upon arrival), illness (brewing fluA infection), etc STOP hydrochlorothiazide - would not resume at any point moving forward with low mag, low Na, recent gout issues, etc HOLD telmisartan Renal ultrasound - no hydronephrosis Cont IVF Repeat BMP am (4) Near syncope: Plan: 2nd to volume contraction from illness Improving s/p IVF (5) Gout: Plan: Left olecranon bursitis - s/p aspiration earlier this year; crystal analysis + for gout crystals Started on allopurinol at the end of November HCTZ could be driving some of her gout issues and for this & other reasons HCTZ being stopped (6) Hyperlipidemia: Plan: Continue atorvastatin (7) HTN (hypertension): Plan: Continue metoprolol (8) COPD (chronic obstructive pulmonary disease): Plan: with probable exacerbation in the setting of fluA infection NC O2, inhalers, nebs, etc will need formal 2-step at time of discharge (9) S/P femoral-femoral bypass surgery: Plan: noted cont asa, statin (10) Tobacco dependence due to cigarettes: Plan: nicoderm patch if desired by patient (11) Hypomagnesemia: Plan: severe level 1.1 today 2nd to HCTZ use along with poor oral intake replace IV repeat mag level am (12) Hyponatremia: Plan: 133 yesterday 131 today has been mildly low intermittently since 2021 consider urine osm and urine Na current hyponatremia 2nd to volume contraction -- see above Plan change observation to full admission status PT, OT evals add lovenox or heparin SC tomorrow if she does not d/c to home Admission and Anticipated Discharge Date Admission Date: February 06, 2024 Subjective patient resting in bed comfortably reports that the dizziness/lightheadedness is much better appetite ok states she usually has a daily cough but the cough has been worse over the last few days has some baseline dyspnea on exertion as well has never been on oxygen before has COPD but does not follow with pulmonary no recent vomiting or diarrhea reports her fluid intake had been fine at home Review of Systems Review of Systems: gen - no fevers or chills; some fatigue cv - no chest pain or orthopnea pulm - no dyspnea at rest GI - no abd pain Physical Exam Physical Exam: gen - looks tired but otherwise NAD, resting comfortably in bed mouth - mmm neck - no JVD heart - heart tones distant, RRR, s1 s2, no obvious murmur lungs - mild wheezing b/l, minimal dry rales bases, no increased work of breathing abd - soft NT ND BS+ ext - pulses 2+ b/l, no edema psych - a/o x 3 musculo - olecrenon bursal fluid present on left, no redness or warmth or tenderness Results & Data Results & Data Vital Signs (Past 12 Hours) Vital Signs Temp Pulse Pulse Resp BP BP Pulse Ox 02/07/24 19:41 36.7 C 71 18 92/52 L 96 02/07/24 19:29 69 02/07/24 16:01 36.8 C 76 19 100/62 95 02/07/24 11:38 36.8 C 69 20 121/64 97 O2 Del Method O2 Flow Rate 02/07/24 19:41 Nasal Cannula 4 02/07/24 19:29 02/07/24 16:01 Nasal Cannula 4 02/07/24 11:38 Nasal Cannula 4 Laboratory Results Laboratory Results - last 24 hr 02/07/24 02/07/24 03:32 16:00 WBC 3.82 L RBC 4.05 L Hgb 11.7 L Hct 35.4 L MCV 87.4 MCH 28.9 MCHC 33.1 RDW Std Deviation 48.4 H RDW Coeff of Rosemarie 15.0 H Plt Count 109 L MPV 10.6 Immature Gran % (Auto) 0.5 Neut % (Auto) 74.9 Lymph % (Auto) 18.6 [place] % (Auto) 5.5 Eos % (Auto) 0.5 Baso % (Auto) 0.0 Neut # (Auto) 2.86 Lymph # (Auto) 0.71 L [place] # (Auto) 0.21 Eos # (Auto) 0.02 Baso # (Auto) 0.00 Immature Gran # (Auto) 0.02 Sodium 131 L Potassium 4.1 Chloride 103 Carbon Dioxide 21 Anion Gap 7 BUN 25 H Creatinine 1.32 H D Est Cr Clr Drug Dosing 38.7 Est GFR ( Amer) 48.3 Est GFR (Non-Af Amer) 41.6 BUN/Creatinine Ratio 18.9 Glucose 95 Calcium 8.4 L Magnesium 1.1 L SARS-CoV-2 (PCR) NEGATIVE Influenza Type A (PCR) Positive A Influenza Type B (PCR) Negative RSV (RT-PCR) Negative PG Care Time/CCT Total # of Minutes Spent Total Time Spent with Patient: Total time spent is greater than 50% in coordination of care (as documented) at patient's floor/unit and/or counseling patient: Coding Level of Care Code 33863 SUB INP/OBS CARE 3/50MIN Diagnoses Influenza A J10.1 Pancytopenia D61.818 CHET (acute kidney injury) N17.9 Near syncope R55 Gout M10.9 Hyperlipidemia E78.5 HTN (hypertension) I10 Hypertension type: unspecified COPD (chronic obstructive pulmonary disease) J44.9 S/P femoral-femoral bypass surgery Z95.828 Tobacco dependence due to cigarettes F17.210 Hypomagnesemia E83.42 Hyponatremia E87.1 (7) HTN (hypertension) Hypertension type: unspecified Qualified Code(s): I10 - Essential (primary) hypertension
[2024-02-08 08:53] LABS: BUN Creatinine Ratio 15.5 (10-20); Creatinine Clr Calc Pharmacy 58.1 ml/min; Est GFR (Non-African American) 60.4 ml/min; Magnesium 1.8 mg/dl (1.7-2.4); Potassium 4.4 mmol/L (3.5-5.1)
[2024-02-08 09:23] LABS: Basophils # (auto) 0.01 K/uL (0.00-0.20); Basophils % (auto) 0.3 %; Eosinophils # (auto) 0.01 K/uL (0.00-0.50); Eosinophils % (auto) 0.3 %; Hematocrit (blood only) 33.4 % (37.0-47.0); Hemoglobin 10.9 g/dl (12.0-16.0); Immature Granulocytes # (auto) 0.01 K/uL (0.01-0.20); Immature Granulocytes % (auto) 0.3 %; Lymphocytes # (auto) 0.96 K/uL (1.20-3.40); Lymphocytes % (auto) 32.3 %; Mean Corpuscular Hemoglobin 28.8 pg (25.0-34.0); Mean Corpuscular Hgb Conc 32.6 g/dL (32.0-36.0); Mean Corpuscular Volume 88.1 fL (80.0-100.0); Mean Platelet Volume 10.8 fL (9.4-12.4); Monocytes # (auto) 0.21 K/uL (0.11-0.59); Monocytes % (auto) 7.1 %; Neutrophils # (auto) 1.77 K/uL (1.40-6.50); Neutrophils % (auto) 59.7 %; Platelet Count 86 K/uL (130-400); Platelet Estimate Decreased (Normal); RDW Coefficient of Variation 15.2 % (11.5-14.5); Red Blood Count 3.79 M/uL (4.20-5.40); White Blood Count 2.97 K/ul (4.8-10.8)
--- NOTE | 2024-02-08 20:00 | Hospitalist Progress Note ---
Date of Service February 08, 2024 Assessment & Plan (1) Influenza A: Plan: tested + for such on 02/06. day #2 of 5 of Tamiflu. cont droplet precautions. supportive care. avoid steroids at this time - no significant wheezing/bronchospasm. pancytopenia likely 2nd to flu infection. should recover within the next week or so. (2) Pancytopenia: Plan: suspect 2nd to viral suppression from #1 wbc count, platelets mildly worse today but can be followed no neutropenia at this time repeat cbc w/ diff in am (3) CHET (acute kidney injury): Plan: Peak creatinine 2.53 Baseline Cr 1.1 Today's Cr 0.9 CHET resolved suspect prerenal from low BP (was 90s systolic upon arrival), illness (brewing fluA infection), etc STOP hydrochlorothiazide - would not resume at any point moving forward with low mag, low Na, recent gout issues, etc HOLD telmisartan BPs still low-normal at times - lower AM meto succ from 50mg to 25mg Renal ultrasound - no hydronephrosis Repeat BMP am IV fluids have been stopped (4) Near syncope: Plan: 2nd to volume contraction from illness had severe orthostasis hospital day #1 BPs improved s/p IV fluids dizziness resolved (5) Gout: Plan: Left olecranon bursitis - s/p aspiration earlier this year; crystal analysis + for gout crystals Started on allopurinol at the end of November 2023 HCTZ could have been driving some of her gout issues and for this & other reasons HCTZ being stopped Left elbow not painful or actively inflamed at this time (6) Hyperlipidemia: Plan: Continue atorvastatin (7) HTN (hypertension): Plan: Continue metoprolol but lower dose from 50mg/day to 25mg/day STOPPED HCTZ Hold ARB (8) COPD (chronic obstructive pulmonary disease): Plan: with mild exacerbation in the setting of fluA infection NC O2, inhalers, nebs, etc defer on steroids for now will need formal 2-step at time of discharge - attempts to wean off O2 have not been successful has not seen pulmonary - [place] [facility] [place] for [place]FTs and for ongoing routine care needs tobacco cessation natasha obtain echo - check PA pressures, RV function, etc (9) S/P femoral-femoral bypass surgery: Plan: noted cont asa, statin (10) Tobacco dependence due to cigarettes: Plan: nicoderm patch if desired by patient (11) Hypomagnesemia: Plan: severe level was 1.1 2nd to HCTZ use along with poor oral intake replaced IV and now normal HCTZ to not be resumed moving forward (12) Hyponatremia: Plan: stable at 133 has been mildly low intermittently since 2021 - likely due to HCTZ usage consider urine osm and urine Na current hyponatremia was 2nd to volume contraction s/p IV fluids repeat BMP am for stability Plan PT, OT evals add heparin 5000 BID for DVT proph progressing home this weekend?? Admission and Anticipated Discharge Date Admission Date: February 07, 2024 Subjective tele overnight wnl she continues to require O2 with taking it off her sats drop she feels better today "I would have never have thought I have the flu" cough stable no dyspnea at rest mild DYER - baseline appetite fair-good dizziness resolved anxious to go home Review of Systems Review of Systems: gen - no rigors or chills cv - no chest pain, no orthopnea pulm - no significant sputum GI - no nausea, emesis, diarrhea or abd pain Physical Exam Physical Exam: gen - looks better today, NAD, just occasional cough mouth - mmm neck - no JVD heart - heart tones distant, RRR, s1 s2, 1/6 MARY LSB lungs - minimal wheezing b/l, minimal dry rales bases, no increased work of breathing abd - soft NT ND BS+ ext - pulses 2+ b/l, no edema psych - a/o x 3 musculo - olecrenon bursal fluid present on left, no redness; full active ROM of L elbow noted Results & Data Results & Data Vital Signs (Past 12 Hours) Vital Signs Temp Pulse Pulse Resp BP Pulse Ox O2 Del Method 02/08/24 19:34 37.7 C H 72 18 103/53 L 96 Nasal Cannula 02/08/24 15:49 60 02/08/24 11:15 36.4 C L 62 19 105/56 L 98 Nasal Cannula 02/08/24 08:09 37.2 C 72 18 121/65 98 Nasal Cannula 02/08/24 08:00 Nasal Cannula O2 Flow Rate 02/08/24 19:34 3 02/08/24 15:49 02/08/24 11:15 4 02/08/24 08:09 4 02/08/24 08:00 3.5 Laboratory Results Laboratory Results - last 24 hr 02/08/24 07:14 WBC 2.97 L RBC 3.79 L Hgb 10.9 L Hct 33.4 L MCV 88.1 MCH 28.8 MCHC 32.6 RDW Std Deviation 49.0 H RDW Coeff of Rosemarie 15.2 H Plt Count 86 L MPV 10.8 Immature Gran % (Auto) 0.3 Neut % (Auto) 59.7 Lymph % (Auto) 32.3 [place] % (Auto) 7.1 Eos % (Auto) 0.3 Baso % (Auto) 0.3 Neut # (Auto) 1.77 Lymph # (Auto) 0.96 L [place] # (Auto) 0.21 Eos # (Auto) 0.01 Baso # (Auto) 0.01 Immature Gran # (Auto) 0.01 Platelet Estimate Decreased L Sodium 133 L Potassium 4.4 Chloride 102 Carbon Dioxide 26 Anion Gap 5 BUN 15 Creatinine 0.97 D Est Cr Clr Drug Dosing 58.1 Est GFR ( Amer) 70.0 Est GFR (Non-Af Amer) 60.4 BUN/Creatinine Ratio 15.5 Glucose 85 Calcium 8.0 L Magnesium 1.8 PG Care Time/CCT Total # of Minutes Spent Total Time Spent with Patient: Total time spent is greater than 50% in coordination of care (as documented) at patient's floor/unit and/or counseling patient: Coding Level of Care Code 27508 SUB INP/OBS CARE 3/50MIN Diagnoses Influenza A J10.1 Pancytopenia D61.818 CHET (acute kidney injury) N17.9 Near syncope R55 Gout M10.9 Hyperlipidemia E78.5 HTN (hypertension) I10 Hypertension type: unspecified COPD (chronic obstructive pulmonary disease) J44.9 S/P femoral-femoral bypass surgery Z95.828 Tobacco dependence due to cigarettes F17.210 Hypomagnesemia E83.42 Hyponatremia E87.1 (7) HTN (hypertension) Hypertension type: unspecified Qualified Code(s): I10 - Essential (primary) hypertension
[2024-02-09 06:20] LABS: Eosinophils # (auto) 0.02 K/uL (0.00-0.50); Eosinophils % (auto) 0.6 %; Hematocrit (blood only) 32.7 % (37.0-47.0); Hemoglobin 10.6 g/dl (12.0-16.0); Immature Granulocytes # (auto) 0.03 K/uL (0.01-0.20); Immature Granulocytes % (auto) 0.9 %; Lymphocytes # (auto) 0.93 K/uL (1.20-3.40); Lymphocytes % (auto) 27.7 %; Mean Corpuscular Hemoglobin 28.5 pg (25.0-34.0); Mean Corpuscular Hgb Conc 32.4 g/dL (32.0-36.0); Mean Corpuscular Volume 87.9 fL (80.0-100.0); Mean Platelet Volume 10.7 fL (9.4-12.4); Monocytes # (auto) 0.24 K/uL (0.11-0.59); Monocytes % (auto) 7.1 %; Neutrophils # (auto) 2.14 K/uL (1.40-6.50); Neutrophils % (auto) 63.7 %; Platelet Count 88 K/uL (130-400); RDW Standard Deviation 48.6 fL (36.4-46.3); Red Blood Count 3.72 M/uL (4.20-5.40); White Blood Count 3.36 K/ul (4.8-10.8)
[2024-02-09 06:44] LABS: BUN Creatinine Ratio 17.4 (10-20); Calcium 7.9 mg/dl (8.6-10.3); Creatinine Clr Calc Pharmacy 65.6 ml/min; Est GFR (Non-African American) 69.9 ml/min; Potassium 3.9 mmol/L (3.5-5.1)
[2024-02-09] MEDS: METOPROLOL SUCC 25MG EXT REL TAB PO SCH (08:38)
--- NOTE | 2024-02-09 12:12 | XCELERA ---
[id number]
--- NOTE | 2024-02-09 15:25 | Discharge Summary ---
Date of Service February 09, 2024 Admission HPI Per Admitting Provider Wen is a pleasant 68-year-old female with PMH of COPD, tobacco use, PAD, s/p femoral to femoral bypass surgery, hyperlipidemia, HTN, gout, acid reflux. She presented for multiple episodes of lightheadedness that started around 0830 on 02/05. Patient was getting out of the shower this morning, and reports she had to sit due to lightheadedness. She put her head down, and the lightheadedness subsided after 4 minutes. She then drove to work, and noticed that the more she was on her feet, more often she will feel lightheaded and feel like she was going to pass out. No falls or LOC. No recent injuries to the head or neck. She reports she was feeling fine yesterday. She took all of her regular morning medications today; denies any recent change in medications. She reports that the most recent change in medication was being placed on allopurinol for gout in November. She reports she has been on the hydrochlorothiazide for extended period of time. Patient is unsure why she takes baby aspirin daily, but denies history of heart stents. No history of migraines, vertigo, CVA, or UT. No recent changes in diet; patient reports she drinks plenty water. She does not use supplemental oxygen at home. She is a current tobacco cigarette smoker, but has recently cut back to 4 cigarettes/week. She reports that she got up and showered patient vitals are stable at time of admission. Principal Diagnosis Influenza A, COPD in mild exacerbation, hypoxia Discharge Exam PHYSICAL EXAMINATION Last 24h vital signs reviewed, see documentation in flowsheet General: comfortable appearing, no distress, sitting on edge of bed, in street clothes HEENT: Normocephalic, atraumatic, pupils round and equal, sclerae anicteric, no conjunctival injection, moist mucus membranes Lungs: Normal respiratory effort. Clear to auscultation bilaterally. No RRW Heart: Regular rate and rhythm, no murmurs. No JVD Abdomen: Soft, nontender, nondistended. Bowel sounds present. Extremities: Warm, dry, well-perfused. No extremity edema. Neuro: Alert and oriented x 4, face symmetric, moves 4 extremities well Psych: Normal affect and behavior Discharge Data Allergies Allergy/AdvReac Type Severity Reaction Status Date / Time No Known Allergies Allergy Unknown Verified 12/11/23 13:34 Consultations 02/06/24 17:12 ED Decision to Admit Stat Ordered Studies 02/06/24 17:06 US Renal Bladder [US renal/blad retro comp] Stat Chest X-Ray 02/06/24 12:19 XR chest 1V not portable HISTORY: 68 years-old Female Chest pain, nonspecific COMPARISON: 06/30/2022 TECHNIQUE: PA view of the chest FINDINGS: Cardiomediastinal and hilar silhouettes are within normal limits. Atherosclerosis of the aorta. Mild chronic interstitial coarsening. No pneumothorax, pleural effusion or pulmonary edema. The bones appear intact. IMPRESSION: No acute process. ACT 112: Negative or not required by law. The above report was generated using voice recognition software. It may contain grammatical, syntax or spelling errors. Electronically signed by: Amandeep Erazo M.D. 02/06/2024 1:14 PM Renal Ultrasound 02/06/24 17:06 RENAL ULTRASOUND HISTORY: Acute kidney injury. COMPARISON: None. FINDINGS: Right kidney: 8.3 cm. No hydronephrosis. Normal corticomedullary differentiation. Mild cortical thinning. Left kidney: 10.7 cm. No hydronephrosis. Normal corticomedullary differentiation. Mild cortical thinning. Bladder: The bladder is decompressed and not well evaluated. The bilateral ureteral jets were not identified. IMPRESSION: No hydronephrosis. ACT 112: Negative or not required by law. Electronically signed by: Alexis Anderson M.D. 02/06/2024 6:26 PM 02/09/24 04:54 02/09/24 04:54 Hospital Course (1) Influenza A: tested + for such on 02/06. treating with Tamiflu 5-day course and improving avoid steroids at this time - no significant wheezing/bronchospasm. remained hypoxic and she was set up with 2 L home oxygen at rest and 3 L with exertion. Unclear whether this will completely resolve with improvement in influenza and mild COPD exacerbation or whether she actually has some chronic hypoxia baseline (2) COPD (chronic obstructive pulmonary disease): with mild exacerbation in the setting of fluA infection not wheezing, steroids were not given, treated with bronchodilators has not seen pulmonary - [place] [facility] [place] for PFTs and for ongoing routine care counseled tobacco cessation TTE was virtually normal only with mild tricuspid regurgitation (3) Pancytopenia: pancytopenia likely 2nd to flu infection, slightly improved 02/08. should recover within the next week or so. recommend repeat CBC upon primary care follow-up (4) CHET (acute kidney injury): Peak creatinine 2.53 Baseline Cr 1.1 Today's Cr 0.8 CHET resolved suspect prerenal from low BP (was 90s systolic upon arrival), illness (brewing fluA infection), etc STOP hydrochlorothiazide - would not resume at any point moving forward with low mag, low Na, recent gout issues, etc HOLD telmisartan - resume in primary care if renal function remains normal on repeat chemistry panel Renal ultrasound - no hydronephrosis (5) Near syncope: 2nd to volume contraction from illness had severe orthostasis hospital day #1 BPs improved s/p IV fluids dizziness resolved (6) Gout: Left olecranon bursitis - s/p aspiration earlier this year; crystal analysis + for gout crystals Started on allopurinol at the end of November 2023 HCTZ could have been driving some of her gout issues and for this & other reasons HCTZ being stopped Left elbow not painful or actively inflamed at this time (7) Hyperlipidemia: Continue atorvastatin (8) HTN (hypertension): Continue metoprolol STOPPED HCTZ Hold ARB (9) S/P femoral-femoral bypass surgery: noted cont asa, statin (10) Tobacco dependence due to cigarettes: nicoderm patch if desired by patient (11) Hypomagnesemia: severe level was 1.1 2nd to HCTZ use along with poor oral intake replaced IV and now normal HCTZ to not be resumed moving forward (12) Hyponatremia: stable at 133 has been mildly low intermittently since 2021 - likely due to HCTZ usage consider urine osm and urine Na current hyponatremia was 2nd to volume contraction s/p IV fluids Total Time Total Time Spent Total Time Spent (In Minutes): I personally spent: 40 minutes today on clinical care activities including: reviewing chart notes and vital signs reviewing labs reviewing studies discussion with career resource technician and respiratory therapist, ordering home oxygen examining and counseling the patient writing orders, discharge prescriptions and instructions documentation Discharge Plan Discharge Items Patient Disposition: Home - Self-Care Reason For Visit: DIZZINESS, PRE-SYNCOPE, CHET Discharge Diagnosis: Influenza A Activity: Resume your previous activity Non-emergency contact: Primary Care Provider Call non-emergency contact if: you have any medication questions, your symptoms worsen and you have a fever Follow-up/Referrals: Radu Pisano, [Primary Care Provider] - Diet: Regular Addtl Attending Provider Instructions: You were treated for influenza A "Flu" on top of smoking / COPD has caused your oxygen level to be low We arranged home oxygen - 2L at rest and 3L with exertion Follow up with Dr. Pisano, ideally within 1-2 weeks. It would probably be helpful for him to order lung function testing once you are recovered from influenza. Your heart Echo was virtually normal - you just had a mildly leaky tricuspid valve - this is too mild to cause any symptoms We strongly recommend smoking cessation - smoking causes continuous decline in lung function which levels out if you quit - so it is never too late to quit -try nicotine replacement (patches, gum, or lozenges) first -if that is difficult talk to Dr. Pisano about other medications that can aid in quitting NEVER smoke around oxygen equipment - that can cause fire and severe edmonds you were dehydrated with low blood electrolytes and acute kidney injury (resolving) related to flu and exacerbated by some of your medications STOP taking HCTZ HOLD telmisartan until restarted by Dr. Pisano Ask him to check your labs: CBC (blood count) and Chemistry panel (kidney function and electrolytes) when you follow up It was a pleasure taking care of you in the hospital Arpita Hopson MD Stand-Alone Forms: My [facility], Smoking Cessation Medications and DC Order Prescriptions: New oseltamivir [Tamiflu] 75 mg Capsule 75 mg PO BID Qty: 5 0RF Continued albuterol sulfate [Ventolin HFA] 90 mcg/actuation HFA aerosol inhaler 1 inh inhalation QID PRN (Reason: Shortness Of Breath) Qty: 8.5 3RF Rx Instructions: INHALE 1 INHALATION 4 TIMES A DAY atorvastatin 10 mg tablet 10 mg PO HS Qty: 90 3RF Rx Instructions: TAKE 1 TABLET BY MOUTH AT BEDTIME omeprazole 20 mg capsule,delayed release(DR/EC) 20 mg PO QAM Qty: 90 3RF Rx Instructions: TAKE 1 CAPSULE BY MOUTH EVERY MORNING allopurinol 100 mg tablet 100 mg PO DAILY Qty: 90 3RF Trelegy Ellipta 100-62.5-25 mcg blister with device 1 inh inhalation DAILY Qty: 28 2RF metoprolol succinate 50 mg tablet extended release 24 hr 50 mg PO QAM Qty: 90 3RF Rx Instructions: TAKE 1 TABLET BY MOUTH EVERY MORNING aspirin 81 mg Tablet,Delayed Release (Dr/Ec) 81 mg PO QAM cholecalciferol (vitamin D3) [Vitamin D3] 5,000 unit Tablet 5,000 unit PO QAM Held telmisartan [Micardis] 40 mg tablet 40 mg PO QAM Qty: 90 3RF Hold Instructions: Resume on 02/23/24. until restarted by your doctor Discontinued hydrochlorothiazide 12.5 mg tablet 12.5 mg PO QAM Qty: 90 3RF Discharge Orders: Discharge Order (Routine); Ordered 02/09/24 Ordered By: Arpita Hopson Admission Data Admit Date/Time: 02/07/24 20:30 Attending Provider: Arpita Hopson Admit Provider: Theo Buenrostro Primary Care Provider: Radu Pisano Other Providers: Theo Buenrostro Other Interventions: Discharge Summary Assessment (RN) Last Done: 02/09/24 12:46 Coding Level of Care Code 81313 INP/OBS DISCH >30 MIN Diagnoses Influenza A J10.1 COPD (chronic obstructive pulmonary disease) J44.9 Pancytopenia D61.818 CHET (acute kidney injury) N17.9 Near syncope R55 Gout M10.9 Hyperlipidemia E78.5 HTN (hypertension) I10 Hypertension type: unspecified S/P femoral-femoral bypass surgery Z95.828 Tobacco dependence due to cigarettes F17.210 Hypomagnesemia E83.42 Hyponatremia E87.1
[2024-02-09] MEDS ORDERED: OSELTAMIVIR PHOSPHATE 75 MG CAP PO SCH (21:00)
== END 2024-02-09 13:56 | disposition home or self-care (01) | DRG 683 ==
LOC: ED 12:09 → EDINP 12:09 → SUATTDRO 19:32 → 2W 22:10 → SUATTDRO 02-07 20:30

== ENCOUNTER 2025-01-21 13:58 | Inpatient (IN) ==
[2025-01-21] MEDS: OPTIRAY 320 125ml IV ONE (14:31)
--- NOTE | 2025-01-21 14:36 | CT Scan Report ---
CT head/brain wo con CLINICAL HISTORY: Stroke alert. TECHNIQUE: Multiple axial CT images of the head were obtained without contrast. Sagittal and coronal reconstructions were done. A dose lowering technique was utilized adhering to the principles of ALARA . CT DOSE: 547.75 mGy.cm COMPARISON: None FINDINGS: There is no intra-axial or extra-axial fluid collection, hemorrhage, or mass. There is an a pepe of encephalomalacia in the right posterior parietal lobe without mass effect. It has appearance o f an old stroke. The ventricles and sulci are age-appropriate with no midline shift. The bone windows are negative. 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 This could be confirmed with a n MRI in the appropriate clinical content. No evidence of hemorrhage. ACT 112: Negative or not required by law. The above report was generated using voice recognition software. It may contain grammatical, syntax o r spelling errors. Electronically signed by: Arielle Johnson M.D. 01/21/2025 2:33 PM
[2025-01-21] MEDS: LORazepam 2 MG/1 ML VIAL ONE (14:41)
--- NOTE | 2025-01-21 14:49 | CT Scan Report ---
CTA ANGIOGRAPHY OF THE HEAD CLINICAL HISTORY: neuro deficit, acute stroke suspected. Syncope. COMPARISON STUDY: MRI of the brain October 31, 2019. TECHNIQUE: Helical axial images of the head were obtained following uneventful intravenous administr ation of 115 cc of Optiray. Sagittal and coronal reconstructions were viewed as well as maximal inten sity projections on an independent 3-D workstation. Automated exposure control was utilized for the study. A dose lowering technique was utilized adhering to the principles of ALARA. FINDINGS: Please note that the head CT will be reported separately. No acute intracranial hemorrhage, midline shift or mass effect is present. Ventricular system is unremarkable. Basal cisterns are fuentes nt. A focus of encephalomalacia within the right parietal lobe is new since MRI of October 31, 2009. This favors an old infarct. The bilateral M1, M2, A1 and A2 segments are patent. There is moderate ca lcified atherosclerotic plaque within the cavernous carotids which results in mild stenosis. No vesse l occlusion is identified within the intracranial circulation. The left vertebral artery is dominant. Basilar artery is patent. There is persistence of the left posterior cerebral artery. IMPRESSION: No intracranial vessel occlusion. No intracranial aneurysm. ACT 112: Negative or not required by law. Electronically signed by: Garrick Hernández M.D. 01/21/2025 2:47 PM
--- NOTE | 2025-01-21 14:50 | CT Scan Report ---
CT angio neck with con CLINICAL HISTORY: neuro deficit, acute stroke suspected. COMPARISON STUDY: Chest CT of 08/12/2024 TECHNIQUE: Following the IV administration of 115 of Optiray, CT angiogram of the neck was performed from the aortic arch to the skull base. Images are reviewed in the axial, sagittal, and coronal plane s. 3-D MIPS images are created and assessed. IV contrast was administered without complication. All m easurements were calculated based on NASCET criteria. A dose lowering technique was utilized adherin g to the principles of ALARA. CT DOSE: 445.57 mGy.cm FINDINGS: Suspicious pulmonary nodules at the left lung apex are stable. Please see the prior chest C T report. There are scattered atherosclerotic calcifications. There are carotid bulb calcifications. No signifi cant narrowing or occlusion seen at the common or internal carotid arteries bilaterally. There is mil d narrowing at the origin of the vertebral arteries bilaterally. No significant narrowing or occlusio n seen at the vertebral arteries. Basilar artery visualized portion is patent. There is a stable tiny nodule at the left thyroid lobe. There is moderate lower cervical degenerative disc disease. IMPRESSION: Diffuse atherosclerotic calcification with no significant arterial narrowing or occlusion seen at the neck. ACT 112: Negative or not required by law. The above report was generated using voice recognition software. It may contain grammatical, syntax o r spelling errors. Electronically signed by: Ayo Carver M.D. 01/21/2025 2:48 PM
[2025-01-21 15:01] LABS: Base Excess VBG -1.7 mEq/L; HCO3 VBG 27 mmol/L; Oxygen Saturation VBG 67.6 %; PCO2 VBG 59 mmHg (38-50); PO2 VBG 43 mmHg; pH VBG 7.26 (7.36-7.41)
[2025-01-21 15:07] LABS: Hemoglobin 14.2 g/dl (12.0-16.0); Mean Corpuscular Hgb Conc 32.3 g/dL (32.0-36.0); Platelet Count 181 K/uL (130-400); RDW Coefficient of Variation 13.2 % (11.5-14.5); Red Blood Count 4.89 M/uL (4.20-5.40); White Blood Count 16.24 K/ul (4.8-10.8)
[2025-01-21 15:24] LABS: Albumin Globulin Ratio 1.3 (0.9-2); Albumin Level 3.9 gm/dl (3.4-5.0); Bilirubin,Total 0.5 mg/dl (0.2-1.0); Calcium 9.7 mg/dl (8.6-10.3); Creatinine Clr Calc Pharmacy 50.9 ml/min; Globulin 3.1 gm/dl (2.5-4.0); Magnesium 1.7 mg/dl (1.7-2.4); Potassium 3.8 mmol/L (3.5-5.1)
[2025-01-21] MEDS: LABETALOL HCL IV 5 MG/ML 20ML IV STA (15:24)
[2025-01-21] MEDS: SODIUM CHLORIDE 0.9% 500 ML IV ONE (15:29)
[2025-01-21 15:30] LABS: Troponin I High Sensitivity 39.6 pg/ml (0-14)
[2025-01-21 15:34] LABS: Partial Thromboplastin Ratio 0.8; Partial Thromboplastin Time 22 Seconds (21-31); Prothrombin Time 10.9 Seconds (9.0-12.0)
[2025-01-21 15:39] LABS: Basophils # (auto) 0.02 K/uL (0.00-0.20); Basophils % (auto) 0.1 %; Immature Granulocytes # (auto) 0.06 K/uL (0.01-0.20); Immature Granulocytes % (auto) 0.4 %; Lymphocytes # (auto) 0.81 K/uL (1.20-3.40); Monocytes # (auto) 0.57 K/uL (0.11-0.59); Monocytes % (auto) 3.5 %; Neutrophils # (auto) 14.78 K/uL (1.40-6.50)
[2025-01-21 15:49] LABS: Adenovirus PCR Not Detected (NotDetected); Bordetella parapertussis PCR Not Detected (NotDetected); Bordetella pertussis PCR Not Detected (NotDetected); Chlamydia pneumoniae PCR Not Detected (NotDetected); Coronavirus 229E PCR Not Detected (NotDetected); Coronavirus CoV-2 (COVID19)PCR Not Detected (NotDetected); Coronavirus HKU1 PCR Not Detected (NotDetected); Coronavirus NL63 PCR Not Detected (NotDetected); Coronavirus OC43PCR Not Detected (NotDetected); Human Metapneumovirus PCR Not Detected (NotDetected); Influenza A PCR Not Detected (NotDetected); Influenza B PCR Not Detected (NotDetected); Mycoplasma pneumoniae PCR Not Detected (NotDetected); Parainfluenza Virus 1 PCR Not Detected (NotDetected); Parainfluenza Virus 2 PCR Not Detected (NotDetected); Parainfluenza Virus 3 PCR Not Detected (NotDetected); Parainfluenza Virus 4 PCR Not Detected (NotDetected); Respiratory Syncytial VirusPCR Not Detected (NotDetected); Rhinovirus/Enterovirus PCR Not Detected (NotDetected)
--- NOTE | 2025-01-21 15:49 | XRay Report ---
XR chest 1V portable CLINICAL HISTORY: neuro deficit, acute stroke suspected COMPARISON STUDY: 02/06/2024 FINDINGS: Single view portable chest demonstrates no significant interval change allowing for technic al differences. There is no focal airspace opacity or pleural effusion. There is no pneumothorax. The heart and pulmonary vascularity are unremarkable. IMPRESSION: Stable exam; no acute process ACT 112: Negative or not required by law. Electronically signed by: Arielle Johnson M.D. 01/21/2025 3:48 PM
[2025-01-21] MEDS: SODIUM CHLORIDE 0.9% 1,000 ML IV SCH (16:00)
--- NOTE | 2025-01-21 16:31 | Emergency Department Note ---
Impression & Plan Altered mental status, CVA (cerebral vascular accident), COPD (chronic obstructive pulmonary disease), Acute hypoxic respiratory failure, Hypercarbia, Elevated troponin, Tobacco abuse, Hypertension ED Provider Note ED Provider Note NAME: CARROLL CLAROS AGE:69 SEX: Female : 1955 ARRIVES VIA: EMS INFORMANT: EMS ED PROVIDER(s): Kerri Craft DO CHIEF COMPLAINT: Altered mental status, found down HPI: This is a 69-year-old female brought in by EMS after she was found on the floor of her residence by her sister who went to check on her after not hearing from her in 2 days. Sister called 911 upon arrival reporting to EMS that she was lying on the floor and could not answer her appropriately. EMS called to make the patient a stroke alert prehospital. Patient was taken immediately to CAT scan and then back to the patient room. I did evaluate the patient when she was placed in the patient room. She would localize pain, would open eyes and look around spontaneously however not to command, but otherwise not follow any commands and cannot provide any additional history. She was noted to be hypoxic and placed on oxygen via nonrebreather. Patient appeared stiff in bilateral upper extremities and jaw, due to concern for possible seizure as CTs had not been read yet, patient was given 1 mg of Ativan. Patient's sisters arrived to bedside shortly after she was placed on a regular patient room. They state the last time they saw her in her usual state of health was 3 days ago. They states she does smoke and is supposed to wear oxygen at night. They deny that she has recently been sick with that there have been any new medications. No prior hx of stroke in the patient. Sister present is the POA. PAST MEDICAL HISTORY:See Below PAST SURGICAL HISTORY:See Below FAMILY HISTORY:See Below SOCIAL HISTORY:See Below HOME MEDICATIONS:See Below ALLERGIES:See Below VITALS:See Below PHYSICAL EXAMINATION: GENERAL: well nourished, no distress, non-toxic EYE EXAM: normal conjunctiva, PERRLA, conjugate gaze, patient opens eyes spontaneously with darting gaze however will not open eyes to voice command or look toward the person talking, no startle response OROPHARYNX: no exudate, no erythema, lips, buccal mucosa, and tongue normal and mucous membranes are dry NECK: supple, no nuchal rigidity, no adenopathy, non-tender LUNGS: Clear to auscultation. Normal chest wall mechanics, no w/r/r HEART: no murmurs, S1 normal and S2 normal ABDOMEN: abdomen soft, non-tender, normo-active bowel sounds, no masses, no rebound or guarding. BACK: Back is symmetrical on inspection and there is no deformity, no midline tenderness, no CVA tenderness. SKIN: no rashes, petechiae, orbruising UPPER EXTREMITIES: upper extremities are grossly normal.nml pulses b/l. No evidence of trauma or deformity. LOWER EXTREMITIES: No pitting edema. nml pulses b/l. No evidence of trauma or deformity. NEURO EXAM: Localizes pain, eyes open spontaneously and then close, she will not open them to command. She will not follow commands to squeeze hands, patient with upgoing Babinski's bilaterally, initially bilateral upper extremities seemed stiff and flexed Vital Signs: reviewed and remarkable Differential Diagnosis: ischemic Stroke, hemorrhagic stroke, bells palsy, mass, neoplasm, migraine headache, seizure, subarachnoid hemorrhage, TIA, transient global amnesia, medication ADR, as well as others were considered MEDICAL DECISION MAKING: This is a 69 yo female who presents to the ER via EMS after a stroke alert was called prehospital. She was taken directly to CT. Upon arrival in the room, patient noted to be minimall responsive and noted to be hypoxia. She would try to localize painful stimuli however only seemed to move her right arm. She was placed on a NRB and oxygen improved. Labs drawn and sent, IV established, EKG and CXR performed and interpreted at bedside, and patient placed on telemetry. She was started on IVF additionally. Family came to bedside and I discussed with them her presentation, medical hx, and their knowledge of recent events. One of her sisters present is her POA. We did discuss code status given critical condition and she stated she would prefer to be DNR/DNI. I spoke with [facility] after learning that her last known well was 3 days ago. He intended to perform a brief bedside evaluation/consult and agreed with plan for further stroke evaluation during admission and addition of asa/plavix pending radiology findings. Patient re-evaluated numerous times and family updated several times. VS stable. Patient noted to have elevated WBC and lactic acid. Stable renal function. I suspect mildly elevated troponin due to demand from hypoxia. VBG with mild acidemia and hypercarbia. Nursing staff had noted neurology never logged into the computer in the room so I recontacted them to update them on CT reads, concern for possible seizure like activity and ask them to evaluate her. Second neurologist stated there had a been difficulty logging in and so that wasn't completed but he didn't feel it was necessary at this time. He recommended keppra 1 gm as a precaution and eval by neuro here with likely eeg in addition to her cva evaluation. Case discussed with hospitalist team. Several labs/tests still pending. After their evaluation they requested patient be placed in the ICU and critical care physician was concerned for need for continuous EEG monitoring. I did attempt to contact [facility] neurolog[facility] again to seek there opinion as they had never performed an exam and they declined to speak with me regarding the case any further. I contacted Dr. Juan who recommended stat EEG and advised this could be performed and that he felt patient less likely in subclinical status epilepticus at this time. technology infusion specialist was contacted and called in and he contacted me again with results. Hospitalist team updated further. I suspect patient sustained a cva leading to syncope vs fall and prolonged downtime also resulted in dehydration and likely prolonged hypoxia given hx of COPD possibly leading to encephalopathy. Possible occult infection not entirely excluded as other labs still pending at this time. Consultation(s): 1518: Discussed with [facility]. 1640: Discussed with Dr. Patricio, [facility]. 1645: Discussed with PAOLA and Dr. Hahn, [facility] hospitalist team, for additional evaluation and mgmt. CK, UA, and repeat lactic acid pending at time of discussion. 1750: Discussed with Dr. Juan after [facility] declined to speak with me again regarding the patient. States the tech can be called in for a STAT EEG and he can read it to determine if she is in subclinical status epilepticus. 175: Discussed with [facility] hospitalist team. 1844: Updated Dr. Hahn. 1949: Discussed with Dr. Juan. Discussed the EEG results. ER Treatment Provided: See below Diagnostics Interpreted By Me: -ECG: Normal sinus at 88, normal axis, normal intervals, no acute ST/T wave changes -Cardiac Monitoring: An order was placed for continuous cardiac monitoring. The monitor shows a rate of 78 with normal sinus rhythm. -Laboratory studies: As stated above and show below. -Imaging studies: X-ray Chest: A single view study of the chest was reviewed and was negative for cardiomegaly, focal infiltrate, effusion, pulmonary edema, or wide mediastinum. Triage Nursing Note Reviewed Prior/Outside Records Reviewed Critical Care: Critical care of 78 min performed to assess and manage high likelihood of life-threatening cva and altered mental status, involving labs and imaging performed with assessment to evaluate ams diagnosis with frequent reassessment. This time includes bedside time, treatment discussions with patient/family/consultants, documentation time and excludes procedure time. 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 Rosario History of COVID-19 07/25/22 PCR @ [facility] (tested for procedure)--asymptomatic--no symptoms now History of colon polyps Tubular adenoma of colon removed Carotid bruit < 50% stenosis ICAs bilat 06/2021 doppler GERD (gastroesophageal reflux disease) Hypertension controlled, stable per pt Hyperlipidemia Surgical History Hx of vascular surgery History of bilateral tubal ligation History of appendectomy History of colonoscopy last 02/2022, repeat 10 yrs History of tooth extraction History of wisdom tooth extraction Family History Sister Colonic polyp Mother Lung cancer, Onset Age: 82 Father No problems noted. Other No family history of adverse response to anesthesia Denies family history of Ovarian cancer Prostate cancer Myocardial infarction Breast cancer Colorectal cancer Social History Smoking Status: Current every day smoker Tobacco Type: Cigarettes Age Started Using Tobacco: 16; packs per day: 0.5; Cigarettes Per Day: 8; Second Hand Exposure: No; Do You Dip or Chew Tobacco: No; Hx Alcohol Use: Yes Alcohol type: beer Alcohol Intake Frequency: Monthly or Less Alcohol Intake Frequency Comment: social gatherings Hx Substance Use: No Preferred Language: Persian Communication Ability: Effective Visual Impairment: Limited Hearing Ability: Normal Underwriting Account Representative Required: No Beliefs That Will Affect Care: None marital status: Single Current Living Situation: Alone current occupational status: retired How many Children do You have: 2 Other Information That Helps Us Care for You: No Feels Safe at Home: Yes Safety Concerns: Feels Safe At This Time Childhood Exposure to Second-Hand Smoke: Yes Diet: regular caffeine: Yes (coffee and soda ) Dental Care, Regularly: No Physical Activity Frequency: Daily Seatbelt Use: always Sunscreen Use: No (not out in sun very often) Assistive Devices: Denture - Upper, Denture - Lower and Glasses Allergies Allergies Allergy/AdvReac Type Severity Reaction Status Date / Time No Known Allergies Allergy Unknown Verified 01/21/25 14:17 Home Meds Home Medications Medication Instructions Recorded Confirmed aspirin 81 mg tablet,delayed 81 mg PO UD 02/07/19 01/21/25 release cholecalciferol (vitamin D3) 125 5,000 unit PO QAM 02/07/19 01/21/25 mcg (5,000 unit) tablet (Vitamin D3) Previous Rx's Medication Instructions Recorded Portable Oxygen #1 ea 02/15/24 albuterol sulfate 90 mcg/actuation 2 inh inhalation QID PRN Shortness 02/15/24 aerosol inhaler (Ventolin HFA) Of Breath #8.5 grams Flutter Valve #1 ea 08/14/24 fluticasone fur. 100 mcg-umeclid 1 inh inhalation DAILY #28 ea 08/14/24 62.5 mcg-vilant 25 mcg inhalat.powder (Trelegy Ellipta) guaifenesin 600 mg tablet, 600 mg PO BID PRN congestion #60 08/14/24 extended release 12 hr (Mucinex) tabs atorvastatin 10 mg tablet 10 mg PO HS #90 tabs 09/10/24 allopurinol 100 mg tablet 100 mg PO DAILY #90 tabs 09/22/24 hydrochlorothiazide 12.5 mg tablet 12.5 mg PO QAM #90 tabs 09/22/24 omeprazole 20 mg capsule,delayed 20 mg PO QAM #90 caps 09/22/24 release Results & Data (ED) Vital Signs Vital Signs - 24 hr 01/21/25 14:35 01/21/25 14:40 01/21/25 14:49 Temperature 36.9 C Temperature Source Axillary Pulse Rate 86 Pulse Rate [Apical] 83 Pulse Rhythm [Apical] Pulse Strength [Apical] Respiratory Rate 29 H 22 Respiratory Effort / Characteristics Non-Labored Respiratory Depth Normal Respiratory Pattern Regular Blood Pressure 148/124 H Blood Pressure [Left Arm] 188/70 H Blood Pressure Mean 132 Blood Pressure Mean [Left Arm] 109 Blood Pressure Position [Left Arm] Sitting Pulse Oximetry 78 L 99 100 Oxygen Delivery Method Room Air Non-rebreather Non-rebreather Oxygen Flow Rate 10 10 Sepsis Recent Fever Within 48 Hours No Sepsis New/Unexplained Change in Mental Status N/A Sepsis Action Taken by Nursing No Action Required 01/21/25 15:23 01/21/25 15:24 01/21/25 16:00 Temperature Temperature Source Pulse Rate 84 83 Pulse Rate [Apical] 84 Pulse Rhythm [Apical] Pulse Strength [Apical] Respiratory Rate 28 H Respiratory Effort / Characteristics Respiratory Depth Respiratory Pattern Blood Pressure 167/112 H 153/100 H Blood Pressure [Left Arm] 167/112 H Blood Pressure Mean Blood Pressure Mean [Left Arm] 130 Blood Pressure Position [Left Arm] Pulse Oximetry 100 Oxygen Delivery Method Non-rebreather Oxygen Flow Rate 10 Sepsis Recent Fever Within 48 Hours Sepsis New/Unexplained Change in Mental Status Sepsis Action Taken by Nursing 01/21/25 16:05 01/21/25 17:00 01/21/25 18:17 Temperature Temperature Source Pulse Rate 75 Pulse Rate [Apical] 87 Pulse Rhythm [Apical] Regular Pulse Strength [Apical] Normal Respiratory Rate 28 H Respiratory Effort / Characteristics Respiratory Depth Normal Respiratory Pattern Blood Pressure Blood Pressure [Left Arm] 196/110 H 190/88 H Blood Pressure Mean Blood Pressure Mean [Left Arm] 138 122 Blood Pressure Position [Left Arm] Lying Pulse Oximetry 98 Oxygen Delivery Method Nasal Cannula Oxygen Flow Rate 4 Sepsis Recent Fever Within 48 Hours Sepsis New/Unexplained Change in Mental Status Sepsis Action Taken by Nursing Laboratory Data 01/22/25 04:50 01/22/25 04:50 Lab Results 01/21/25 01/21/25 01/21/25 Range/Units 14:50 14:51 17:49 WBC 16.24 H (4.8-10.8) K/ul RBC 4.89 (4.20-5.40) M/uL Hgb 14.2 (12.0-16.0) g/dl Hct 44.0 (37.0-47.0) % MCV 90.0 (80.0-100.0) fL MCH 29.0 (25.0-34.0) pg MCHC 32.3 (32.0-36.0) g/dL RDW Std Deviation 44.0 (36.4-46.3) fL RDW Coeff of Rosemarie 13.2 (11.5-14.5) % Plt Count 181 (130-400) K/uL MPV 11.0 (9.4-12.4) fL Immature Gran % (Auto) 0.4 % Neut % (Auto) 91.0 % Lymph % (Auto) 5.0 % Austin % (Auto) 3.5 % Eos % (Auto) 0.0 % Baso % (Auto) 0.1 % Neut # (Auto) 14.78 H (1.40-6.50) K/uL Lymph # (Auto) 0.81 L (1.20-3.40) K/uL Austin # (Auto) 0.57 (0.11-0.59) K/uL Eos # (Auto) 0.00 (0.00-0.50) K/uL Baso # (Auto) 0.02 (0.00-0.20) K/uL Immature Gran # (Auto) 0.06 (0.01-0.20) K/uL PT 10.9 (9.0-12.0) Seconds INR 1.0 (0.9-1.1) APTT 22 (21-31) Seconds PTT Ratio 0.8 VBG pH 7.26 L 7.27 L (7.36-7.41) VBG pCO2 59 H 64 H (38-50) mmHg VBG pO2 43 67 mmHg VBG HCO3 27 29 mmol/L VBG O2 Saturation 67.6 92.8 % VBG Base Excess -1.7 0.9 mEq/L Sodium 139 (136-145) mmol/L Potassium 3.8 (3.5-5.1) mmol/L Chloride 101 (98-107) mmol/L Carbon Dioxide 28 (21-32) mmol/L Anion Gap 10 (3-11) BUN 11 (6-23) mg/dl Creatinine 1.00 (0.6-1.2) mg/dl Est Cr Clr Drug Dosing 50.9 ml/min eGFR 61.36 BUN/Creatinine Ratio 11.0 (10-20) Glucose 111 H (70-99(Fasting)) mg/dl Lactate 4.7 H* 1.3 (0.4-2.0) mmol/L Calcium 9.7 (8.6-10.3) mg/dl Magnesium 1.7 (1.7-2.4) mg/dl Total Bilirubin 0.5 (0.2-1.0) mg/dl AST 18 (13-39) U/L ALT 8 (7-52) U/L Alkaline Phosphatase 115 H (34-104) U/L Total Creatine Kinase 231 H (26-192) U/L Troponin I High Sens 39.6 H 132.5 H* D (0-14) pg/ml Total Protein 7.0 (6.0-8.3) gm/dl Albumin 3.9 (3.4-5.0) gm/dl Globulin 3.1 (2.5-4.0) gm/dl Albumin/Globulin Ratio 1.3 (0.9-2) Procalcitonin 0.02 (0-0.5) ng/ml Adenovirus (PCR) Not Detected (NotDetected) B. pertussis DNA (PCR) Not Detected (NotDetected) B.parapertussis DNA PCR Not Detected (NotDetected) C. pneumoniae DNA (PCR) Not Detected (NotDetected) Coronavirus OC43 (PCR) Not Detected (NotDetected) Coronavirus HKU1 (PCR) Not Detected (NotDetected) Coronavirus 229E (PCR) Not Detected (NotDetected) SARS-CoV-2 (PCR) Not Detected (NotDetected) Coronavirus NL63 (PCR) Not Detected (NotDetected) Human Metapneumovir PCR Not Detected (NotDetected) Influenza Type A (PCR) Not Detected (NotDetected) Influenza Type B (PCR) Not Detected (NotDetected) M. pneumoniae (PCR) Not Detected (NotDetected) Parainfluenza 1 (PCR) Not Detected (NotDetected) Parainfluenza 2 (PCR) Not Detected (NotDetected) Parainfluenza 3 (PCR) Not Detected (NotDetected) Parainfluenza 4 (PCR) Not Detected (NotDetected) RSV (PCR) Not Detected (NotDetected) Entero/Rhino (PCR) Not Detected (NotDetected) Blood Type B Positive Antibody Screen NEGATIVE Administered Medications Gadobutrol (Gadobutrol 65ml Vial) 6 ml IV ONCE ONE Stop: 01/22/25 12:14 Last Admin: 01/22/25 12:13 Dose: 6 ml Documented By: JOY Lactated Ringer's (Lr) 1,000 mls @ 75 mls/hr IV .[id number] [facility] Stop: 01/22/25 23:44 Last Admin: 01/22/25 00:04 Dose: 75 mls/hr Documented By: CIERA Acetaminophen (Ofirmev) 1,000 mg in 100 mls @ 400 mls/hr IV Q8H PRN PRN Reason: Fever or pain Stop: 01/25/25 04:45 Last Infusion: 01/22/25 05:44 Dose: Infused Documented By: Admin: 01/22/25 05:18 Dose: 400 mls/hr Documented By: CIERA Pantoprazole Sodium (Protonix) 40 mg in 10 mls @ 5 mls/min IV DAILY [facility] Stop: 02/21/25 10:29 Last Admin: 01/22/25 11:27 Dose: 5 mls/min Documented By: SHAUNA Levetiracetam (Levetiracetam 500 Mg/5 Ml Vial) 500 mg IV Q12H [facility] Stop: 02/21/25 05:59 Last Admin: 01/22/25 05:20 Dose: 500 mg Documented By: CIERA Miscellaneous (Icu Protocol For Hyperglycemia) 1 each N/A Q6 [facility] Stop: 01/23/25 21:22 Last Admin: 01/22/25 05:33 Dose: Not Given Documented By: Admin: 01/22/25 00:12 Dose: Not Given Documented By: Admin: 01/21/25 21:59 Dose: Not Given Documented By: CIERA Miscellaneous (Remove Nicoderm Patch) 1 each N/A DAILY@0859 [facility] Stop: 02/21/25 08:58 Last Admin: 01/22/25 09:29 Dose: Not Given Documented By: SHAUNA Miscellaneous (Icu Electrolyte Replacement Protocol) 1 each N/A BID@06,18 [facility]; Protocol Stop: 01/29/25 05:59 Last Admin: 01/22/25 06:10 Dose: 1 each Documented By: CIERA Nicotine (Nicotine 7 Mg/24 Hr Tdsy) 1 patch TD QAM [facility] Stop: 02/21/25 08:59 Last Admin: 01/22/25 09:28 Dose: 1 patch Documented By: SHAUNA Ondansetron HCl (Ondansetron Inj 2 Mg/Ml 2 Ml Vial) 4 mg IV Q6H PRN PRN Reason: Nausea And Vomiting Stop: 02/21/25 04:45 Last Admin: 01/22/25 05:17 Dose: 4 mg Documented By: CIERA Discontinued Medications Acetaminophen (Acetaminophen 1000 Mg/100 Ml Iv) Confirm Administered Dose 1,000 mg IV .STK-MED ONE Stop: 01/21/25 21:41 Last Admin: 01/21/25 22:34 Dose: Not Given Documented By: CIERA Albuterol (Albut/Ipratrop 3mg/0.5mg Neb 3 Ml Vial) 3 ml NEB QIDR [facility]; Protocol Stop: 02/21/25 06:59 Last Admin: 01/22/25 07:21 Dose: 3 ml Documented By: KATELYNN Sodium Chloride (Nss) 1,000 mls @ 125 mls/hr IV .Q8H [facility] Stop: 01/22/25 15:14 Last Admin: 01/22/25 00:11 Dose: Not Given Documented By: Infusion: 01/21/25 23:58 Dose: Infused Documented By: Admin: 01/21/25 16:00 Dose: 125 mls/hr Documented By: AMBER Sodium Chloride (Nss) 500 mls @ 999 mls/hr IV .Q31M ONE Stop: 01/21/25 15:41 Last Infusion: 01/21/25 16:11 Dose: Infused Documented By: Admin: 01/21/25 15:29 Dose: 999 mls/hr Documented By: AMBER Ceftriaxone Sodium (Rocephin) 2,000 mg in 50 mls @ 100 mls/hr IV NOW STA Stop: 01/21/25 20:51 Last Infusion: 01/21/25 23:23 Dose: Infused Documented By: Admin: 01/21/25 22:11 Dose: 100 mls/hr Documented By: CIERA Acetaminophen (Ofirmev) 1,000 mg in 100 mls @ 400 mls/hr IV NOW STA Stop: 01/21/25 21:39 Last Infusion: 01/21/25 22:34 Dose: Infused Documented By: Admin: 01/21/25 21:44 Dose: 400 mls/hr Documented By: CIERA Magnesium Sulfate/Dextrose (Magnesium Sulfate / D5w) 1 gm in 100 mls @ 50 mls/hr IV Q2H [facility] Stop: 01/22/25 04:14 Last Infusion: 01/22/25 04:08 Dose: Infused Documented By: Admin: 01/22/25 02:05 Dose: 50 mls/hr Documented By: Infusion: 01/22/25 02:05 Dose: Infused Documented By: Admin: 01/22/25 00:42 Dose: 50 mls/hr Documented By: CIERA Potassium Chloride (K Chuckie / Wtr) 10 meq in 100 mls @ 100 mls/hr IV Q1H [facility]; Protocol Stop: 01/22/25 09:59 Last Infusion: 01/22/25 10:33 Dose: Infused Documented By: [facility] Admin: 01/22/25 09:28 Dose: 100 mls/hr Documented By: Infusion: 01/22/25 09:17 Dose: Infused Documented By: Admin: 01/22/25 08:17 Dose: 100 mls/hr Documented By: Infusion: 01/22/25 08:17 Dose: Infused Documented By: Admin: 01/22/25 07:17 Dose: 100 mls/hr Documented By: Infusion: 01/22/25 07:10 Dose: Infused Documented By: Admin: 01/22/25 06:10 Dose: 100 mls/hr Documented By: CIERA Ioversol (Optiray 320 125ml) 115 ml IV ONCE ONE Stop: 01/21/25 14:32 Last Admin: 01/21/25 14:31 Dose: 115 ml Documented By: NATHALIA Labetalol HCl (Labetalol Hcl Iv 5 Mg/Ml 20ml) 5 mg IV NOW STA Stop: 01/21/25 15:12 Last Admin: 01/21/25 15:24 Dose: 5 mg Documented By: AMBER Labetalol HCl (Labetalol Hcl Iv 5 Mg/Ml 20ml) 5 mg IV NOW STA Stop: 01/22/25 03:34 Last Admin: 01/22/25 03:49 Dose: 5 mg Documented By: CIERA Labetalol HCl (Labetalol Hcl Iv 5 Mg/Ml 20ml) 5 mg IV NOW STA Stop: 01/22/25 05:04 Last Admin: 01/22/25 05:15 Dose: 5 mg Documented By: CIERA Levetiracetam (Levetiracetam 500 Mg/5 Ml Vial 1000mg) 1,000 mg IV NOW ONE Stop: 01/21/25 17:01 Last Admin: 01/21/25 18:02 Dose: 1,000 mg Documented By: QGV Lorazepam (Lorazepam 2 Mg/1 Ml Vial) Confirm Administered Dose 2 mg .ROUTE .STK- MED ONE Stop: 01/21/25 14:34 Last Admin: 01/21/25 14:41 Dose: 1 mg Documented By: OLGA LIDIA Imaging Data Radiologist's Impression: Chest X-Ray 01/21/25 00:00 XR chest 1V portable CLINICAL HISTORY: neuro deficit, acute stroke suspected COMPARISON STUDY: 02/06/2024 FINDINGS: Single view portable chest demonstrates no significant interval change allowing for technical differences. There is no focal airspace opacity or pleural effusion. There is no pneumothorax. The heart and pulmonary vascularity are unremarkable. IMPRESSION: Stable exam; no acute process ACT 112: Negative or not required by law. Electronically signed by: Arielle Johnson M.D. 01/21/2025 3:[address] 01/21/25 14:20 CT head/brain wo con CLINICAL HISTORY: Stroke alert. TECHNIQUE: Multiple axial CT images of the head were obtained without contrast. Sagittal and coronal reconstructions were done. A dose lowering technique was utilized adhering to the principles of ALARA. CT DOSE: 547.75 mGy.cm COMPARISON: None FINDINGS: There is no intra-axial or extra-axial fluid collection, hemorrhage, or mass. There is an area of encephalomalacia in the right posterior parietal lobe without mass effect. It has appearance of an old stroke. The ventricles and sulci are age-appropriate with no midline shift. The bone windows are negative. IMPRESSION: Right posterior parietal lobe encephalomalacia having the appearance of an old or late subacute stroke due to the lack of any surrounding edema or mass effect. This could be confirmed with an MRI in the appropriate clinical content. No evidence of hemorrhage. ACT 112: Negative or not required by law. The above report was generated using voice recognition software. It may contain grammatical, syntax or spelling errors. Electronically signed by: Arielle Johnson M.D. 01/21/2025 2:33 PM Head CTA 01/21/25 14:21 CTA ANGIOGRAPHY OF THE HEAD CLINICAL HISTORY: neuro deficit, acute stroke suspected. Syncope. COMPARISON STUDY: MRI of the brain October 31, 2019. TECHNIQUE: Helical axial images of the head were obtained following uneventful intravenous administration of 115 cc of Optiray. Sagittal and coronal reconstructions were viewed as well as maximal intensity projections on an independent 3-D workstation. Automated exposure control was utilized for the study. A dose lowering technique was utilized adhering to the principles of ALARA. FINDINGS: Please note that the head CT will be reported separately. No acute intracranial hemorrhage, midline shift or mass effect is present. Ventricular system is unremarkable. Basal cisterns are patent. A focus of encephalomalacia within the right parietal lobe is new since MRI of October 31, 2009. This favors an old infarct. The bilateral M1, M2, A1 and A2 segments are patent. There is moderate calcified atherosclerotic plaque within the cavernous carotids which results in mild stenosis. No vessel occlusion is identified within the intracranial circulation. The left vertebral artery is dominant. Basilar artery is patent. There is persistence of the left posterior cerebral artery. IMPRESSION: No intracranial vessel occlusion. No intracranial aneurysm. ACT 112: Negative or not required by law. Electronically signed by: Garrick Hernández M.D. 01/21/2025 2:47 PM Neck CTA 01/21/25 14:21 CT angio neck with con CLINICAL HISTORY: neuro deficit, acute stroke suspected. COMPARISON STUDY: Chest CT of 08/12/2024 TECHNIQUE: Following the IV administration of 115 of Optiray, CT angiogram of the neck was performed from the aortic arch to the skull base. Images are reviewed in the axial, sagittal, and coronal planes. 3-D MIPS images are created and assessed. IV contrast was administered without complication. All measurements were calculated based on NASCET criteria. A dose lowering technique was utilized adhering to the principles of ALARA. CT DOSE: 445.57 mGy.cm FINDINGS: Suspicious pulmonary nodules at the left lung apex are stable. Please see the prior chest CT report. There are scattered atherosclerotic calcifications. There are carotid bulb calcifications. No significant narrowing or occlusion seen at the common or internal carotid arteries bilaterally. There is mild narrowing at the origin of the vertebral arteries bilaterally. No significant narrowing or occlusion seen at the vertebral arteries. Basilar artery visualized portion is patent. There is a stable tiny nodule at the left thyroid lobe. There is moderate lower cervical degenerative disc disease. IMPRESSION: Diffuse atherosclerotic calcification with no significant arterial narrowing or occlusion seen at the neck. ACT 112: Negative or not required by law. The above report was generated using voice recognition software. It may contain grammatical, syntax or spelling errors. Electronically signed by: Ayo Carver M.D. 01/21/2025 2:48 PM Discharge Plan Visit Data Chief Complaint: Stroke Alert Stated Complaint: stroke ED Provider: Kerri Craft Discharge Problem: Altered mental status, CVA (cerebral vascular accident), COPD (chronic obstructive pulmonary disease), Acute hypoxic respiratory failure, Hypercarbia, Elevated troponin, Tobacco abuse, Hypertension Patient Disposition: Admitted As Inpatient Discharge Instructions Interventions: ED Discharge Assessment Last Done: 01/21/25 20:39
--- NOTE | 2025-01-21 16:38 | History & Physical Report ---
Date of Service January 21, 2025 Assessment & Plan (1) Seizure-like activity: (2) CVA (cerebral vascular accident): Plan This pt is a 69-year-old female who presented after being found unresponsive by her sister on 01/21. Patient was found on her back in the bathroom foaming at the mouth with head/neck jerking. #Seizure Suspected seizure caused by subacute CVA seen on head CT Brain MRI deferred as patient is currently too unstable for MRI EEG negative for status epilepticus Lactate 4.7 -> 1.3 on arrival Total creatinine kinase level elevated at [address] Neuro-checks q2h Strict n.p.o. Lorazepam 2 mg IV PRN for acute seizure-like activity Keppra load with 1 g IV Keppra maintenance 500 mg IV BID Continuous telemetry monitoring Neurology consult appreciated #Subacute CVA Head CT on arrival revealed right posterior parietal lobe encephalomalacia having the appearance of an old or late subacute stroke Head CTA revealed no acute findings Neck CTA revealed diffuse atherosclerotic calcification without occlusion/narrowing P.R. aspirin while NPO AM fasting lipid panel and A1c Speech therapy consult appreciated #Acute hypoxic respiratory failure SpO2 78% on RA on arrival Placed on nonrebreather 10L and patient's SpO2 is now currently 100% VB.26/59/43/27 Trend VBG Titrate supplemental oxygen Continuous pulse oximetry #Leukocytosis Leukocytosis at 16.24 on arrival; afebrile CXR without acute findings UA ordered, pending Blood Cx drawn in the ED Unclear source as unable to obtain history from patient Empiric ceftriaxone 200mg IV x 1 #Elevated troponin Trop 39 -> 132; trend to peak Continuous telemetry monitoring Disposition: Admit to ICU VTE PPx: Defer to ICU History of Present Illness Chief Complaint: Unresponsive episode, stroke alert Primary Care Provider: NO PCP Wen is a 69-year-old female with PMH of COPD, alpha 1 antitrypsin deficiency, gout, HTN, HLD, tobacco use, and PAD s/p femoral-femoral bypass surgery. She presented via EMS on 01/21 following an unresponsive episode. Patient lives alone. She is currently nonverbal, and does not respond to commands or questions. History is provided by patient's sisters Cassia and Valery at the bedside. Last known well: Patient responded to a family group chat yesterday on 01/20 at 1330. Normally, their family has dinner every night, and the patient responded to her family group chat that she "could not make it, because she was working". This text was coherent. Patient sister, who lives across the street, went over to check on her today as she was not responding to her calls, and found the patient lying on her bathroom floor on her back. The patient was unresponsive, and her head was shaking/jerking. She was also foaming at the mouth. No loss of urinary continence or tongue biting. Patient sister called 911, and when they got her up into a recliner, her breathing worsened. Patient does use up on oxygen as needed, and so her sister put her on supplemental oxygen. No prior history of seizures or strokes. Patient was made a stroke alert on ED arrival. Per family, they had a grandfather who had a stroke, but no family history of seizures. Patient was hypoxic at 78% on room air on arrival; SpO2 is now 100% on 10L nonrebreather. ED course: NSS 1500 mL IV Labetalol 5 mg IV Lorazepam 2 mg IV Unable to obtain ROS at this time. Allergies Allergy/AdvReac Type Severity Reaction Status Date / Time No Known Allergies Allergy Unknown Verified 01/21/25 14:17 Home Medications Medication Instructions Recorded Confirmed Type aspirin 81 mg tablet,delayed 81 mg PO UD 02/07/19 01/21/25 History release cholecalciferol (vitamin D3) 125 5,000 unit PO QAM 02/07/19 01/21/25 History mcg (5,000 unit) tablet (Vitamin D3) Portable Oxygen #1 ea 02/15/24 11/11/24 Rx albuterol sulfate 90 mcg/actuation 2 inh inhalation QID PRN Shortness 02/15/24 01/21/25 Rx aerosol inhaler (Ventolin HFA) Of Breath #8.5 grams Flutter Valve #1 ea 08/14/24 11/11/24 Rx fluticasone fur. 100 mcg-umeclid 1 inh inhalation DAILY #28 ea 08/14/24 01/21/25 Rx 62.5 mcg-vilant 25 mcg inhalat.powder (Trelegy Ellipta) guaifenesin 600 mg tablet, 600 mg PO BID PRN congestion #60 08/14/24 01/21/25 Rx extended release 12 hr (Mucinex) tabs atorvastatin 10 mg tablet 10 mg PO HS #90 tabs 09/10/24 01/21/25 Rx allopurinol 100 mg tablet 100 mg PO DAILY #90 tabs 09/22/24 01/21/25 Rx hydrochlorothiazide 12.5 mg tablet 12.5 mg PO QAM #90 tabs 09/22/24 01/21/25 Rx omeprazole 20 mg capsule,delayed 20 mg PO QAM #90 caps 09/22/24 01/21/25 Rx release Past Med/Surg History Problem List Palliative care by specialist Discussion about advance care planning held with family member Weakness generalized Left hemiplegia Hypertension (Acute) Tobacco abuse (Acute) Elevated troponin (Acute) Hypercarbia (Acute) Acute hypoxic respiratory failure (Acute) COPD (chronic obstructive pulmonary disease) (Acute) Left hemiparesis NSTEMI (non-ST elevated myocardial infarction) UTI (urinary tract infection) Seizure-like activity CVA (cerebral vascular accident) (Acute) Altered mental status (Acute) Gout (~11/06/23) Confirmed with aspiration of olecranon bursa 11/06/2023 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 Rosario History of COVID-19 07/25/22 PCR @ [facility] (tested for procedure)--asymptomatic--no symptoms now History of colon polyps Tubular adenoma of colon removed Carotid bruit < 50% stenosis ICAs bilat 06/2021 doppler GERD (gastroesophageal reflux disease) Hypertension controlled, stable per pt Hyperlipidemia Surgical History Hx of vascular surgery History of bilateral tubal ligation History of appendectomy History of colonoscopy last 02/2022, repeat 10 yrs History of tooth extraction History of wisdom tooth extraction Family History Sister Colonic polyp Mother Lung cancer, Onset Age: 82 Father No problems noted. Other No family history of adverse response to anesthesia Denies family history of Ovarian cancer Prostate cancer Myocardial infarction Breast cancer Colorectal cancer Social History Smoking Status: Current every day smoker Tobacco Type: Cigarettes Age Started Using Tobacco: 16; packs per day: 0.5; Cigarettes Per Day: 8; Second Hand Exposure: No; Do You Dip or Chew Tobacco: No; Hx Alcohol Use: Yes Alcohol type: beer Alcohol Intake Frequency: Monthly or Less Alcohol Intake Frequency Comment: social gatherings Hx Substance Use: No Preferred Language: [place] Communication Ability: Effective Visual Impairment: Limited Hearing Ability: Normal Quarter Doper Required: No Beliefs That Will Affect Care: None marital status: Single Current Living Situation: Alone current occupational status: retired How many Children do You have: 2 Other Information That Helps Us Care for You: No Feels Safe at Home: Yes Safety Concerns: Feels Safe At This Time Childhood Exposure to Second-Hand Smoke: Yes Diet: regular caffeine: Yes (coffee and soda ) Dental Care, Regularly: No Physical Activity Frequency: Daily Seatbelt Use: always Sunscreen Use: No (not out in sun very often) Assistive Devices: None and Oxygen - Continuous Review of Systems Review of Systems: See HPI above Physical Exam Physical Exam: General: no acute distress; lethargic; nonresponsive to questions; non-toxic appearing; family bedside; frail appearing; SpO2 100% on 8 L Non-rebreather HEENT: normocephalic, atraumatic; no scleral icterus; PERRLA; right-sided lateral gaze bilaterally; vision and hearing grossly intact Neck: supple; no lymphadenopathy; trachea midline Skin: warm, dry without signs of tenting; no cyanosis; no rashes, bruising, lesions, or erythema noted CV: chest wall NTP; RRR; S1/S2 normal; no murmurs/rubs/gallops; pulses intact and symmetric at radial, DP, and PT Lungs: no acute respiratory distress; symmetrical chest wall expansion; clear breath sounds across all lung harris w/o adventitious sounds; no wheezing ABD: Soft, NTP; BS present; no rebound/guarding; no distention MSK: no tics or fasciculations; no edema noted in the LEs b/l, nonerythematous; unable to assess back hand strength Neuro: Not responsive to questioning, stimulation, or commands; Babinski reflex intact bilaterally; positive pronator drift; unable to assess speech; unable to assess sensation Results & Data Results & Data Vital Signs (Past 12 Hours) Vital Signs Temp Pulse Pulse Resp BP BP Pulse Ox 01/21/25 16:05 75 01/21/25 16:00 83 153/100 H 01/21/25 15:24 84 167/112 H 01/21/25 15:23 84 28 H 167/112 H 100 01/21/25 14:49 83 22 188/70 H 100 01/21/25 14:40 99 01/21/25 14:35 36.9 C 86 29 H 148/124 H 78 L O2 Del Method O2 Flow Rate 01/21/25 16:05 01/21/25 16:00 01/21/25 15:24 01/21/25 15:23 Non-rebreather 10 01/21/25 14:49 Non-rebreather 10 01/21/25 14:40 Non-rebreather 10 01/21/25 14:35 Room Air Laboratory Results Abnormal lab results 01/21/25 01/21/25 Range/Units 14:51 17:49 WBC 16.24 H (4.8-10.8) K/ul Neut # (Auto) 14.78 H (1.40-6.50) K/uL Lymph # (Auto) 0.81 L (1.20-3.40) K/uL VBG pH 7.26 L 7.27 L (7.36-7.41) VBG pCO2 59 H 64 H (38-50) mmHg Glucose 111 H (70-99(Fasting)) mg/dl Lactate 4.7 H* (0.4-2.0) mmol/L Alkaline Phosphatase 115 H (34-104) U/L Total Creatine Kinase 231 H (26-192) U/L Troponin I High Sens 39.6 H 132.5 H* D (0-14) pg/ml Diagnostic Findings Chest X-Ray 01/21/25 00:00 XR chest 1V portable CLINICAL HISTORY: neuro deficit, acute stroke suspected COMPARISON STUDY: 02/06/2024 FINDINGS: Single view portable chest demonstrates no significant interval change allowing for technical differences. There is no focal airspace opacity or pleural effusion. There is no pneumothorax. The heart and pulmonary vascularity are unremarkable. IMPRESSION: Stable exam; no acute process ACT 112: Negative or not required by law. Electronically signed by: Arielle Johnson M.D. 01/21/2025 3:[address] 01/21/25 14:20 CT head/brain wo con CLINICAL HISTORY: Stroke alert. TECHNIQUE: Multiple axial CT images of the head were obtained without contrast. Sagittal and coronal reconstructions were done. A dose lowering technique was utilized adhering to the principles of ALARA. CT DOSE: 547.75 mGy.cm COMPARISON: None FINDINGS: There is no intra-axial or extra-axial fluid collection, hemorrhage, or mass. There is an area of encephalomalacia in the right posterior parietal lobe without mass effect. It has appearance of an old stroke. The ventricles and sulci are age-appropriate with no midline shift. The bone windows are negative. IMPRESSION: Right posterior parietal lobe encephalomalacia having the appearance of an old or late subacute stroke due to the lack of any surrounding edema or mass effect. This could be confirmed with an MRI in the appropriate clinical content. No evidence of hemorrhage. ACT 112: Negative or not required by law. The above report was generated using voice recognition software. It may contain grammatical, syntax or spelling errors. Electronically signed by: Arielle Johnson M.D. 01/21/2025 2:33 PM Head CTA 01/21/25 14:21 CTA ANGIOGRAPHY OF THE HEAD CLINICAL HISTORY: neuro deficit, acute stroke suspected. Syncope. COMPARISON STUDY: MRI of the brain October 31, 2019. TECHNIQUE: Helical axial images of the head were obtained following uneventful intravenous administration of 115 cc of Optiray. Sagittal and coronal reconstructions were viewed as well as maximal intensity projections on an independent 3-D workstation. Automated exposure control was utilized for the study. A dose lowering technique was utilized adhering to the principles of ALARA. FINDINGS: Please note that the head CT will be reported separately. No acute intracranial hemorrhage, midline shift or mass effect is present. Ventricular system is unremarkable. Basal cisterns are patent. A focus of encephalomalacia within the right parietal lobe is new since MRI of October 31, 2009. This favors an old infarct. The bilateral M1, M2, A1 and A2 segments are patent. There is moderate calcified atherosclerotic plaque within the cavernous carotids which results in mild stenosis. No vessel occlusion is identified within the intracranial circulation. The left vertebral artery is dominant. Basilar artery is patent. There is persistence of the left posterior cerebral artery. IMPRESSION: No intracranial vessel occlusion. No intracranial aneurysm. ACT 112: Negative or not required by law. Electronically signed by: Garrick Hernández M.D. 01/21/2025 2:47 PM Neck CTA 01/21/25 14:21 CT angio neck with con CLINICAL HISTORY: neuro deficit, acute stroke suspected. COMPARISON STUDY: Chest CT of 08/12/2024 TECHNIQUE: Following the IV administration of 115 of Optiray, CT angiogram of the neck was performed from the aortic arch to the skull base. Images are reviewed in the axial, sagittal, and coronal planes. 3-D MIPS images are created and assessed. IV contrast was administered without complication. All measurements were calculated based on NASCET criteria. A dose lowering technique was utilized adhering to the principles of ALARA. CT DOSE: 445.57 mGy.cm FINDINGS: Suspicious pulmonary nodules at the left lung apex are stable. Please see the prior chest CT report. There are scattered atherosclerotic calcifications. There are carotid bulb calcifications. No significant narrowing or occlusion seen at the common or internal carotid arteries bilaterally. There is mild narrowing at the origin of the vertebral arteries bilaterally. No significant narrowing or occlusion seen at the vertebral arteries. Basilar artery visualized portion is patent. There is a stable tiny nodule at the left thyroid lobe. There is moderate lower cervical degenerative disc disease. IMPRESSION: Diffuse atherosclerotic calcification with no significant arterial narrowing or occlusion seen at the neck. ACT 112: Negative or not required by law. The above report was generated using voice recognition software. It may contain grammatical, syntax or spelling errors. Electronically signed by: Ayo Carver M.D. 01/21/2025 2:48 PM ECG Additional Comments: ECG revealed sinus rhythm with occasional PVCs at 88 bpm; QTc 481 Code Status & VTE Plan Code Status DNR/DNI (discussed with patient's family - 2 sisters - at bedside) Critical Care Time Critical Care Time: Yes Total Critical Care Time: 90 Supervising Physician Co-Signing Physician Notes Attending Attestation & Admit Note: Pt seen/examined, chart reviewed, admit care plan d/w JOB Manley. I also discussed plan of care with ED physician Kerri Craft as well as Dr Familia Penny, motor vehicle or caravan salesperson. I agree w/ the kay components of Mr Manley's documentation. 69yo female with COPD, alpha 1 antitrypsin deficiency, gout, HTN, HLD, ongoing tobacco use, and PAD s/p femoral-femoral bypass surgery. She presented via EMS on 01/21 following an unresponsive episode at home. She was found by her sister in the bathroom at the pt's home. She was, by report, foaming at the mouth. EMS was summoned, and upon their arrival was hypoxic & given supplemental O2 then brought to [facility]. During her ER stay she was unresponsive and not responding to voice or following commands. CT head showed suspected right-sided parietal CVA - possibly subacute. There was concerns for seizure in the setting of the suspected CVA and ativan x 1 was given. Stroke alert was called and [facility] evaluated the patient. They advised loading with Keppra IV for suspected seizure and performing typical stroke w/u. Due to severely altered mental status, concern for seizure(s), etc I reached out to Dr Penny from ICU. He advised transfer to tertiary care if status epilepticus was suspected as we do not perform continuous EEG monitoring. Mr Manley subsequently spoke with on-call neuro at [facility] - Dr Jerry Juan - and Dr Juan ordered STAT EEG. Tech came and performed such -- EEG did NOT show status or seizure focus (I spoke personally with Dr Juan). Given no status epilepticus the team felt comfortable admitting Ms Yarbrough to ICU. PMH/PSH/allergies/meds/sochx - reviewed from the chart hypertensive, afebrile (while in the ER) gen - unresponsive to name being called; no response to sternal rub; opens eyes spontaneously but does not follow commands; no obvious seizure activity eyes - PERRL neck - no JVD heart - RRR, s1 s2 lungs - CTA b/l abd - soft, no signs of trauma, no apparent tenderness ext - no edema, pulses b/l feet 2+ neuro - no posturing, no obvious facial droop; ?left-sided hemiparesis, did seem to move right arm periodically however; tone increased all 4 exts; +babinski b/l labs reviewed imaging reviewed EKG - NSR, PVCs, no ST segments EEG - verbal report from neuro - no status epilepticus, no seizure focus; severe slowing A/P: 1. suspected right MCA territory stroke 2. suspected seizure(s) in the setting of #1 3. severely altered mental status - metabolic/toxic factors could all be at play (post-CVA, post-seizure, ativan, etc) 4. acute hypoxic/hypercapnic resp failure 5. COPD/tobacco abuse 6. HTN 7. leukocytosis admit to ICU care d/w Dr Penny and with ICU FLOWER care d/w Dr Juan care d/w Dr Craft cont IV keppra allow permissive HTN in the setting of suspected acute CVA (I suspect it is acute rather than subacute as patient was well about 24 hours prior to the events based on info from her sisters) consider BIPAP for hypercapnia serial labs MRI brain when more stable to confirm stroke, etc formal neuro consult empiric abx in setting of leukocytosis - source? patient critically ill, and considerable critical care coordination performed in the ER about 90 minutes of critical care time between myself & Mr Manley performed (seizure management, stroke care, etc) Miki Hahn MD PG Care Time/CCT Total # of Minutes Spent Total Time Spent with Patient: Total time spent is greater than 50% in coordination of care (as documented) at patient's floor/unit and/or counseling patient: Critical Care Time: Yes Total Critical Care Time: 90 Coding Level of Care Code Established Pt None Patient Type Established Medical Decision Making High Complexity Diagnoses Seizure-like activity R56.9 CVA (cerebral vascular accident) I63.9 Additional Codes Critical Care Time - Critical Care Time: Yes ([id number])
[2025-01-21] MEDS ORDERED: LORazepam 2 MG/1 ML VIAL IV ONE (17:00)
[2025-01-21] MEDS ORDERED: LORazepam 2 MG/1 ML VIAL IV PRN (17:03)
[2025-01-21 17:56] LABS: Base Excess VBG 0.9 mEq/L; HCO3 VBG 29 mmol/L; Oxygen Saturation VBG 92.8 %; PCO2 VBG 64 mmHg (38-50); PO2 VBG 67 mmHg; pH VBG 7.27 (7.36-7.41)
[2025-01-21] MEDS: levETIRAcetam 500 MG/5 ML VIAL **1000mg IV ONE (18:02)
--- NOTE | 2025-01-21 18:04 | Electroencephalogram ---
EEG Procedure Note Date of Service January 21, 2025 Start / End Times Start Time: 1900 End Time: 1920 Referring Physician Alexis Manley PA-C History 69 year old with new onset seizure activity Home Medication List Medication Instructions Recorded Confirmed Type aspirin 81 mg tablet,delayed 81 mg PO UD 02/07/19 01/21/25 History release cholecalciferol (vitamin D3) 125 5,000 unit PO QAM 02/07/19 01/21/25 History mcg (5,000 unit) tablet (Vitamin D3) Portable Oxygen #1 ea 02/15/24 11/11/24 Rx albuterol sulfate 90 mcg/actuation 2 inh inhalation QID PRN Shortness 02/15/24 01/21/25 Rx aerosol inhaler (Ventolin HFA) Of Breath #8.5 grams Flutter Valve #1 ea 08/14/24 11/11/24 Rx fluticasone fur. 100 mcg-umeclid 1 inh inhalation DAILY #28 ea 08/14/24 01/21/25 Rx 62.5 mcg-vilant 25 mcg inhalat.powder (Trelegy Ellipta) guaifenesin 600 mg tablet, 600 mg PO BID PRN congestion #60 08/14/24 01/21/25 Rx extended release 12 hr (Mucinex) tabs atorvastatin 10 mg tablet 10 mg PO HS #90 tabs 09/10/24 01/21/25 Rx allopurinol 100 mg tablet 100 mg PO DAILY #90 tabs 09/22/24 01/21/25 Rx hydrochlorothiazide 12.5 mg tablet 12.5 mg PO QAM #90 tabs 09/22/24 01/21/25 Rx omeprazole 20 mg capsule,delayed 20 mg PO QAM #90 caps 09/22/24 01/21/25 Rx release Inpatient Medication List Sodium Chloride (Nss) 1,000 mls @ 125 mls/hr IV .Q8H [place] Stop: 01/22/25 15:14 Last Admin: 01/21/25 16:00 Dose: 125 mls/hr Documented By: AMBER Discontinued Medications Sodium Chloride (Nss) 500 mls @ 999 mls/hr IV .Q31M ONE Stop: 01/21/25 15:41 Last Infusion: 01/21/25 16:11 Dose: Infused Documented By: Admin: 01/21/25 15:29 Dose: 999 mls/hr Documented By: AMBER Ioversol (Optiray 320 125ml) 115 ml IV ONCE ONE Stop: 01/21/25 14:32 Last Admin: 01/21/25 14:31 Dose: 115 ml Documented By: NATHALIA Labetalol HCl (Labetalol Hcl Iv 5 Mg/Ml 20ml) 5 mg IV NOW STA Stop: 01/21/25 15:12 Last Admin: 01/21/25 15:24 Dose: 5 mg Documented By: AMBER Lorazepam (Lorazepam 2 Mg/1 Ml Vial) Confirm Administered Dose 2 mg .ROUTE .STK- MED ONE Stop: 01/21/25 14:34 Last Admin: 01/21/25 14:41 Dose: 1 mg Documented By: OLGA LIDIA Description This is a 21 electrode EEG with a single channel dedicated to limited EKG. The electrodes were placed in accordance with the International 10-20 system. Interpretation The predominant background activity consists of a irregular mixture of lower amplitude 6-7 Hz activity admixed with bursts of higher amplitude 4-5 Hz activity, seen throughout all head regions. Photic stimulation was performed and elicited no change in the background activity and no abnormal responses were seen. Hyperventilation was not pe rformed. A minimal amount of muscle and movement artifact activity contaminated the recording, and did not hinder interpretation to any significant degree. Throughout the recording the patient had spontaneous eye opening and staring but would not follow commands.Her eyelids fluttered but there was no electrocerebral accompaniment with movements. Their were periodic single generalized sharps without aftergoing slow waves consistent with IV artifact. The motion picture camera lens technician stimulated the patient's limbs and she withdrew but there was no background changes. Throughout the waking portion of the recording, no focal abnormalities or potentially epileptogenic discharges were seen. In summary, this EEG was abnormal showing moderate to significant generalized slowing of the background.. No focal abnormalities or potentially epileptogenic discharges were seen. Clinical Correlation The absence of potentially epileptogenic activity does not exclude a seizure disorder, since interictally, EEGs can be normal. However, this recording is not indicative of an ongoing seizure state. Therefore this recording is not consistent with "subclinical staus epilepticus" [facility] EEG Procedure Codes Indication for Procedure (1) Seizure-like activity: Neurology Neurology: 49780 EEG include record awake & drowsy
[2025-01-21 20:40] LABS: Appearance Urine Cloudy (Clear); Bacteria Urine Automated 4+ (None Seen); Bilirubin Urine Negative (Negative); Blood Urine 2+ (Negative); Cast Urine Automated 0-2 /lpf (0-2); Color Urine Yellow; Epithelial Cell Urine Auto 0-2 /hpf (0-2); Glucose Urine UA Negative (Negative); Ketones Urine Negative (Negative); Leukocyte Esterase Urine 2+ (Negative); Nitrite Urine Negative (Negative); Protein Urine 3+ (Negative); Specific Gravity Urine 1.033 (1.000-1.030); Urobilinogen Urine Negative (Negative); WBC Urine Automated >50 /hpf (0-5)
[2025-01-21] MEDS ORDERED: ALBUT/IPRATROP 3MG/0.5MG NEB 3 ML VIAL NEB PRN (21:25)
[2025-01-21] MEDS: ACETAMINOPHEN 1,000 MG/100 ML VIAL IV STA (21:44)
[2025-01-21] MEDS: ICU Protocol for HYPERglycemia SCH (21:59)
[2025-01-21] MEDS: cefTRIAXone SODIUM 2,000 MG/50 ML BAG IV STA (22:11)
[2025-01-21] MEDS: ACETAMINOPHEN 1000 MG/100 ML IV IV ONE (22:34)
--- NOTE | 2025-01-21 23:16 | Procedure Note ---
Procedure Note Date of Service January 21, 2025 Lumbar Puncture Indication: Encephalitis vs Meningitis. Verbal consent was obtained after the risks and benefits were explained, including but not limited to headache, bleeding/clotting, scarring, infection, pain, and bone/joint/nerve damage. Consent obtained from sister, Oriana. At this time, the risks of the procedure are less than the risks of NOT performing the procedure. A time out was taken and the correct patient and site identified. The patient was placed in the L lateral decubitus position and the back was prepped with betadine and draped in the standard fashion. The L3 intervertebral space was identified, anesthetized locally with 1% lidocaine without epinephrine, and the spinal needle was inserted through the skin with the bevel parallel to the dural fibers. The needle was carefully advanced into the lumbar cistern and 4 tubes of clear CSF were obtained. The patient had a coughing fit and was generally uncooperative with the procedure. RBC expected. The stylet was replaced and the needle was removed. A bandaid was placed and the patient was placed in the supine position. The patient tolerated the procedure well and there were no complications. Opening pressure: 13cm H2O [facility] [place] Procedure Codes (Charges) Lumbar Puncture Lumbar Puncture, Diagnostic: 77184 Lumbar Puncture, Diagnostic Coding CPT Codes Lumbar Puncture - Lumbar Puncture, Diagnostic: 57638 Lumbar Puncture, Diagnostic ([id number]) Additional Codes Date of Service (PG.SURGERY)
--- NOTE | 2025-01-21 23:45 | Critical Care Consultation ---
Date of Consultation January 21, 2025 Assessment & Plan (1) Seizure-like activity: (2) Altered mental status: (3) UTI (urinary tract infection): (4) NSTEMI (non-ST elevated myocardial infarction): Plan Reason Critically Ill: 1. Acute encephalopathy, unknown etiology. Post-ictal vs metabolic/infection vs CVA 2. Seizure, new onset 3. Rule out encephalitis/meningitis 4. UTI 5. Respiratory acidosis in setting of COPD and sedative agents 6. NSTEMI, likely demand / type II Neuro - CAM ICU: negative NIHSS 32 RASS GOAL 0 Avoid sedating Rx Nicotine patch Keppra maintenance, seizure precautions Neurology consultation, appreciate recommendations MRI when clinical condition improves Addendum: LP with CSF studies pending Cardiac - MAP goal > 65mmHg Home ASA tomorrow TTE 2023 LVEF 55-60% Admit EKG sinus with PVCs, prolonged QTc Respiratory - Sees Dr. Limon as OP, on Trelegy Albuterol PRN, DuoNeb SpO2 88-92% HOB 30, aspiration precautions IS/Flutter as clinically feasible GI - Diet: NPO SUP: N/A Bowel regimen: Tomorrow if able to take PO RENAL/LYTES - Replete electrolytes as indicated Temple for accurate I/Os, likely remove in AM per protocol Maintain net even to net negative ENDO - BG 140-180 per SCCM guidelines ISS if needed while inpatient HEME - No acute concerns ID - BC x2 pending, UC pending, procalcitonin pending, MRSA negative Empiric ceftriaxone 1g Q24H with positive UA Addendum: If initial CSF studies suspicious for infection will increase ceftriaxone to high dose and acyclovir, steroid, and consider vancomycin and ampicillin. LINES/TUBES/DRAINS - PIV x2 Temple (Day #1) DVT PROPHYLAXIS - Enoxaparin in AM I have personally spent 40 minutes of critical care time in the direct management of this patient. This is a life/limb threatening event. This includes time spent evaluating patient, direct bedside care, chart review, placing orders, interpretation of diagnostic studies, discussion with consultants, patient, and family members, as well as other required patient management activities. This time is exclusive of all separately billable procedures, and teaching time and separate from and in addition to any other critical care service time. Thank you for allowing us to participate in the care of this patient. Please refer to my attending physician's documentation for any further recommendations. Supervising Physician Co-Signing Physician Notes Patient seen and examined. EMR reviewed. Discussed with critical care FLOWER as well as hospitalist. Agree with assessment plan as noted. For additional details please refer to my progress note from 01/22/2025 History of Present Illness Reason for Consultation: Encephalopathy Requesting Physician: Selma Attending Physician: Miki Hahn MD History of Present Illness Ms. Wen Yarbrough is a 69YOF with a history of COPD on QHS O2, alpha anti-trypsin deficiency, HTN/HLD, gout, tobacco use disorder, PAD s/p fem-fem bypass who presented to [facility] from home on the evening of 01/21/2025 due to an episode of unresponsiveness. The patient lives alone, LKW 1330 on 01/20/2025. Her sister went to check on her this afternoon and found Wen on the bathroom floor, unresponsive with shaking/jerking movements suspicious for seizure activity. Her SpO2 on EMS arrival was 78%, improved with NRB. On arrival to ED patient was nonverbal, not responding to commands. R gaze preference. Due to possible seizure activity she received 2mg of Ativan, Keppra 1g. Also received 5mg Labetalol, and NSS 1.5L. CT imaging was negative for LVO, but did show old vs late subacute infarct of R parietal lobe with encephalomalacia noted. Spot EEG negative for epileptiform activity. Laboratory studies revealed leukocytosis with neutrophil predominance, mild respiratory acidosis, LA 4.7 --> 1.3, mild troponin and CK elevation. UA 4+ bacteria and 2+ LE, negative nitrite. She received 2g ceftriaxone empirically. Admitted to ICU for continuation of care. Patient seen in ED B07. She awakens to voice, does not track or follow commands. AF. Hemodynamically able. On 2L NC. R gaze preference. Sister at bedside. All questions answered to apparent satisfaction. ROS unable to be obtained due to mentation. Addendum 2345: Patient developed fever > 38.5C. Given her presenting symptoms now with fever, will perform LP to rule out encephalitis and meningitis. Sister has been verbally consented for the procedure. Allergies Allergy/AdvReac Type Severity Reaction Status Date / Time No Known Allergies Allergy Unknown Verified 01/21/25 14:17 Home Medications Medication Instructions Recorded Confirmed Type aspirin 81 mg tablet,delayed 81 mg PO UD 02/07/19 01/21/25 History release cholecalciferol (vitamin D3) 125 5,000 unit PO QAM 02/07/19 01/21/25 History mcg (5,000 unit) tablet (Vitamin D3) Portable Oxygen #1 ea 02/15/24 11/11/24 Rx albuterol sulfate 90 mcg/actuation 2 inh inhalation QID PRN Shortness 02/15/24 01/21/25 Rx aerosol inhaler (Ventolin HFA) Of Breath #8.5 grams Flutter Valve #1 ea 08/14/24 11/11/24 Rx fluticasone fur. 100 mcg-umeclid 1 inh inhalation DAILY #28 ea 08/14/24 01/21/25 Rx 62.5 mcg-vilant 25 mcg inhalat.powder (Trelegy Ellipta) guaifenesin 600 mg tablet, 600 mg PO BID PRN congestion #60 08/14/24 01/21/25 Rx extended release 12 hr (Mucinex) tabs atorvastatin 10 mg tablet 10 mg PO HS #90 tabs 09/10/24 01/21/25 Rx allopurinol 100 mg tablet 100 mg PO DAILY #90 tabs 09/22/24 01/21/25 Rx hydrochlorothiazide 12.5 mg tablet 12.5 mg PO QAM #90 tabs 09/22/24 01/21/25 Rx omeprazole 20 mg capsule,delayed 20 mg PO QAM #90 caps 09/22/24 01/21/25 Rx release Patient History Medical History CHET (acute kidney injury) Vitamin D deficiency History of angiography History of COVID-19 History of colon polyps Tubular adenoma of colon Carotid bruit GERD (gastroesophageal reflux disease) Hypertension Hyperlipidemia Surgical History Hx of vascular surgery History of bilateral tubal ligation History of appendectomy History of colonoscopy History of tooth extraction History of wisdom tooth extraction Family History Sister Colonic polyp Mother Lung cancer, Onset Age: 82 Father No problems noted. Other No family history of adverse response to anesthesia Denies family history of Ovarian cancer Prostate cancer Myocardial infarction Breast cancer Colorectal cancer Social History (System 01/21/25 @ 14:17 by Savi Cruz) Smoking Status: Current every day smoker Tobacco Type: Cigarettes Age Started Using Tobacco: 16; packs per day: 0.5; Cigarettes Per Day: 8; Second Hand Exposure: No; Do You Dip or Chew Tobacco: No; Hx Alcohol Use: Yes Alcohol type: beer Alcohol Intake Frequency: Monthly or Less Alcohol Intake Frequency Comment: social gatherings Hx Substance Use: No Preferred Language: Spanish Communication Ability: Effective Visual Impairment: Limited Hearing Ability: Normal Supervisor Parking Lot Required: No Beliefs That Will Affect Care: None marital status: Single Current Living Situation: Alone current occupational status: retired How many Children do You have: 2 Other Information That Helps Us Care for You: No Feels Safe at Home: Yes Safety Concerns: Feels Safe At This Time Childhood Exposure to Second-Hand Smoke: Yes Diet: regular caffeine: Yes (coffee and soda ) Dental Care, Regularly: No Physical Activity Frequency: Daily Seatbelt Use: always Sunscreen Use: No (not out in sun very often) Assistive Devices: Denture - Upper, Denture - Lower and Glasses Review of Systems Review of Systems: Unobtainable due to cognitive status Physical Exam Constitutional: + frail appearing; no acute distress Eyes: + anicteric sclerae and PERRL ENMT: external ear and nose normal, oropharynx normal Neck: trachea midline, no thyromegaly Respiratory: Distant wheezing, no rales, rhonchi Cardiovascular: RRR, no murmur, no edema Gastrointestinal (Abdomen): normal bowel sounds, soft, nontender, no hepatosplenomegaly Skin: Bruising R upper back and sacral area. No open wounds or skin tears Neurologic: Moves arms spontaneously Response to pain normal No obvious facial droop Results & Data Results & Data Vital Signs (Past 12 Hours) Vital Signs Temp Pulse Pulse Resp BP BP Pulse Ox 01/21/25 21:42 38.4 C H 77 26 H 95 01/21/25 21:33 140/72 01/21/25 21:23 01/21/25 20:31 76 25 H 167/73 H 98 01/21/25 20:07 76 01/21/25 20:00 78 28 H 166/66 H 97 01/21/25 18:17 190/88 H 01/21/25 17:00 87 28 H 196/110 H 98 01/21/25 16:05 75 01/21/25 16:00 83 153/100 H 01/21/25 15:24 84 167/112 H 01/21/25 15:23 84 28 H 167/112 H 100 01/21/25 14:49 83 22 188/70 H 100 01/21/25 14:40 99 01/21/25 14:35 36.9 C 86 29 H 148/124 H 78 L Pulse Ox O2 Del Method O2 Del Method O2 Flow Rate O2 Flow Rate 01/21/25 21:42 01/21/25 21:33 01/21/25 21:23 95 Nasal Cannula 2 01/21/25 20:31 Nasal Cannula 4 01/21/25 20:07 01/21/25 20:00 Nasal Cannula 4 01/21/25 18:17 01/21/25 17:00 Nasal Cannula 4 01/21/25 16:05 01/21/25 16:00 01/21/25 15:24 01/21/25 15:23 Non-rebreather 10 01/21/25 14:49 Non-rebreather 10 01/21/25 14:40 Non-rebreather 10 01/21/25 14:35 Room Air Laboratory Results Reviewed Diagnostic Findings Reviewed Medications Administered See [facility] Coding Level of Care Code 27721 CRITICAL CARE 1ST 30-74M Diagnoses Seizure-like activity R56.9 Altered mental status R41.82 UTI (urinary tract infection) N39.0 NSTEMI (non-ST elevated myocardial infarction) I21.4 Time Spent (min) 40
[2025-01-21 23:52] LABS: CSF Glucose 80 mg/dl (40-70)
[2025-01-21 23:57] LABS: Appearance CSF Slightly Hazy; CSF Count Tube # 3; CSF Xanthrochromic No xanthochromia; Color CSF Colorless; Red Blood Cell CSF Manual 1250 (0); White Blood Cell CSF Manual 1 (0-5)
[2025-01-22] MEDS: LACTATED RINGER'S 1,000 ML IV SCH (00:04)
[2025-01-22 00:06] LABS: CSF Chemistry Tube # 1
[2025-01-22 00:34] LABS: Base Excess VBG 3.5 mEq/L; HCO3 VBG 29 mmol/L; Oxygen Saturation VBG < 60.0 %; PCO2 VBG 47 mmHg (38-50); PO2 VBG 29 mmHg
[2025-01-22] MEDS: MAGNESIUM SULFATE / D5W 1 GM/100 ML BAG IV SCH (00:42)
[2025-01-22 00:51] LABS: Cryptococcus neoformans/ga PCR Not Detected (NotDetected); Cytomegalovirus PCR Not Detected (NotDetected); Enterovirus PCR Not Detected (NotDetected); Escherichia coli K1 PCR Not Detected (NotDetected); Haemophilius influenzae PCR Not Detected (NotDetected); Herpes Simplex Virus 1 PCR Not Detected (NotDetected); Herpes Simplex Virus 2 PCR Not Detected (NotDetected); Human Herpes Virus 6 PCR Not Detected (NotDetected); Human Parechovirus PCR Not Detected (NotDetected); Listeria monocytogenes PCR Not Detected (NotDetected); Neisseria meningitidis PCR Not Detected (NotDetected); Streptococcus agalactiae PCR Not Detected (NotDetected); Streptococcus pneumoniae PCR Not Detected (NotDetected); Varicella Zoster Virus PCR Not Detected (NotDetected)
[2025-01-22 01:06] LABS: Troponin I High Sensitivity 191.4 pg/ml (0-14)
--- OUTSIDE RECORDS SUMMARY | 2025-01-22 02:58 | External Medical Summary | Continuity of Care Document ---
Author Name Unknown Organization [facility] [address] [facility] Address [address] [place], [place] [id number] Care Team Providers Care Conveyor Console Operator Name Role Phone Aliya Radu R Primary Care Physician [phone] [id number] Date[facility]s): 12/30/24 - 12/30/24 [facility] [address], [address] [place] [address] [phone] Discharge Disposition: Home or Self Care Attending Physician: ROSA M Holly Lynn Referring Physician: ROSA M Holly Lynn Encounter Type: Clinic Allergies, Adverse Reactions, Alerts No Known Allergies Medications Albuterol (Eqv-ProAir HFA) 90 mcg/inh inhalation aerosol Start: 06/29/22 9:10:00 AM EDT Start Date: 06/29/22 Status: Ordered Repeat number: 1 aspirin 81 mg oral delayed release tablet Start: 06/29/22 9:10:00 AM EDT, 1 tab, PO, Daily Start Date: 06/29/22 Status: Ordered Repeat number: 1 atorvastatin 10 mg oral tablet Start: 06/29/22 9:10:00 AM EDT, 1 tab, PO, Daily Start Date: 06/29/22 Status: Ordered Repeat number: 1 cholecalciferol 125 mcg (5000 intl units) oral tablet Start: 06/29/22 9:10:00 AM EDT, 1 tab, PO, Daily Start Date: 06/29/22 Status: Ordered Repeat number: 1 hydroCHLOROthiazide 12.5 mg oral tablet Start: 06/29/22 9:10:00 AM EDT, 1 tab, PO, Daily Start Date: 06/29/22 Status: Ordered Repeat number: 1 Metoprolol Succinate ER 50 mg oral tablet, extended release Start: 06/29/22 9:10:00 AM EDT, 1 tab, PO, Daily Start Date: 06/29/22 Status: Ordered Repeat number: 1 omeprazole 20 mg oral delayed release capsule Start: 06/29/22 9:10:00 AM EDT, 1 cap, PO, Daily Start Date: 06/29/22 Status: Ordered Repeat number: 1 telmisartan 40 mg oral tablet Start: 06/29/22 9:11:00 AM EDT, 1 tab, PO, Daily Start Date: 06/29/22 Status: Ordered Repeat number: 1 Trelegy Ellipta 100 mcg-62.5 mcg-25 mcg/inh inhalation powder Start: 07/02/23 1:15:00 PM EDT, 1 puff, inhaled, Daily Start Date: 07/02/23 Status: Ordered Repeat number: 1 Problem List Condition Confirmation Course Effective Dates Status Health St atus Informant Carotid bruit Confirmed Active S/P femoral-femoral bypass surgery Confirmed Active 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 Results Radiology Reports * Exam Date Time Procedure Performing Provider Status 12/30/24 9:57 AM VL Ankle-Brachial Index-Complete Mary Anne Pringle; Final Notes: (VL Ankle-Brachial Index-Complete) Reason For Exam: aiod VL Ankle-Brachial Index-Complete [facility] FINAL REPORT Name: CARROLL CLAROS : 1955 Visit: [id number] Date: 30 Dec 2024 TYPE OF TEST: Peripheral Arterial Testing REASON FOR TEST Left iliac artery occlusion, Right to Left Fem-Fem bypass graft INTERPRETATION/FINDINGS Resting ankle/brachial indices and multilevel Doppler waveforms obtained of the bilateral lower extremities: 1. Doppler waveforms obtained in the bilateral common femoral, superficial femoral, popliteal, anterior tibial, posterior tibial and peroneal arteries demonstrate biphasic waveforms suggesting no evidence of significant arterial occlusive disease bilaterally. 2. The right distal anterior tibial artery flow is retrograde, but still biphasic, suggesting a more proximal anterior tibial artery occlusion with adequate reperfusion. 3. The right ankle/brachial index is 0.86 (mildly reduced). 4. The left ankle/brachial index is 0.91 (normal). Compared to the previous study performed 01/04/2024, both ankle/brachial pressures have decreased, the right from 1.14 to 0.86 and the left from 1.21 to 0.90, and there is a 12 mmHg difference in brachial systolic pressures (R<L). IMPRESSION/COMMENTS I have personally reviewed the data relevant to the interpretation of this study. TECHNOLOGIST: Mary Anne Nova , RD, RVT PHYSICIAN: Howie Anderson M.D. Signed: 12/31/2024 09:45 AM Final Dictated by:MD Anderson Eugene J Dictated DT/TM:12/31/2024 9:45 Signed by:MD Anderson Eugene J Signed (Electronic Signature):12/31/2024 9:45 a Transcribed by:NOE Social History Social History Type Response Tobacco Current every day sm oker, Cigarettes, Started age 27 Years. Smoking Status Current every day li ght smoker Sex Female Sex Representation Female (finding) Patient Care team information Care Team Personnel Name: ROSA M Holly Lynn Position: Physician Car Porter Exempt - Vasc Surg Member Role: Lifetime Relationship Address: [facility] [address] [place] [address] [place] Telecom: [phone] Name: DO Pisano Brian R Position: Referring Member Role: Primary Care Provider Address: Alyce Gonzalez [facility] [address] [place] [address] Telecom: [phone] Care Team Related Persons Name: SRUTHI FUNEZ Insurance Providers Guarantor name: CARROLL CLAROS Health Plan Information #: 1 Payer: [employer] Member Number: [id number] Policy Number: NA Group Number: [id number] Health Plan Information #: 2 Payer: [employer] Member Number: [id number] Policy Number: NA Group Number: NA Health Plan Information #: 3 Payer: MEDICARE Member Number: NA Policy Number: NA Group Number: NA
--- OUTSIDE RECORDS SUMMARY | 2025-01-22 02:58 | External Medical Summary | Continuity of Care Document ---
Author Name Unknown Organization [facility] [address] [facility] Address [address] [place], [place] [id number] Care Team Providers Care Exercise Scientist Name Role Phone Radu Pisano Primary Care Physician [phone] Encounter [facility] [id number] Date(s): 01/12/25 - 01/12/25 [facility] [address], [address] [place] [address] [phone] Encounter Diagnosis Aortoiliac occlusive disease(Discharge Diagnosis) - 01/12/25 Discharge Disposition: Home or Self Care Attending Physician: MD Anderson Eugene J Referring Physician: DO Pisano Brian R Encounter Type: Clinic Allergies, Adverse Reactions, Alerts [...] Date: 07/02/23 Status: Ordered Repeat number: 1 Mental Status 01/12/25 Barriers to Learning one year None evide nt Mandatory Health Literacy Documentation Yes Health Literacy Communication Barriers N ever Primary Language Armenian Problem List Condition Confirmation Course Effective Dates Status Health St atus Informant Carotid bruit Confirmed Active S/P femoral-femoral bypass surgery Confirmed Active 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 Vital Signs Most recent to oldest [Reference Range]: 1 2 Heart Rate 68 bpm (01/12/25 1:09 PM) Blood Pressure 142/70mmHg (01/12/25 1:10 PM) 150/68mmHg (01/12/25 1:09 PM) Cuff Pulse Pressure 82 mmHg (01/12/25 1:09 PM) BP Location # 1 Right Arm (01/12/25 1:10 PM) Left Arm (01/12/25 1:09 PM) Social History Social History Type Response Tobacco Current every day sm oker, Cigarettes, Started age 27 Years. Smoking Status Current every day li ght smoker Sex Female Sex Representation Female (finding) Patient Care team information Care Team Personnel Name: ROSA M Holly Lynn Position: Physician Baby Attendant Exempt - Vasc Surg Member Role: Lifetime Relationship Address: [address] [place] [address] Telecom: [phone] Name: DO Pisano Brian R Position: Referring Member Role: Primary Care Provider Address: [facility] [address] Telecom: [phone] Care Team Related Persons Name: SRUTHI FUNEZ Insurance Providers Guarantor name: CARROLL CLAROS Health Plan Information #: 1 Payer: [employer] Member Number: [id number] Policy Number: NA Group Number: [id number] Health Plan Information #: 2 Payer: [employer] Member Number: [id number] Policy Number: NA Group Number: NA Health Plan Information #: 3 Payer: MEDICARE Member Number: NA Policy Number: NA Group Number: NA
--- OUTSIDE RECORDS SUMMARY | 2025-01-22 02:58 | External Medical Summary | Continuity of Care Document ---
Author Name Unknown Organization [facility] [address] [facility] Address [address] [place], [place] [id number] Care Team Providers Care Toxicologist Name Role Phone Aliya Radu R Primary Care Physician [phone] [facility]counter [facility] [id number] Date(s): 12/30/24 - 12/30/24 [facility] [address], [address] [place] [address] [phone] Discharge Disposition: Home or Self Care Attending [...] Recommend referral for endoscopic mucosal resection at [place] 4path hep flex tub adenoma, 50 cm tub adenoma, 40 cm hyerplastic, sigmoid tub adenoma, rectum hyperplastic 5recommend go to [facility] for EMR of polyp and repeat colonoscopy at [place] 1 year. Results Radiology Reports * Exam Date Time Procedure Performing Provider Status 12/30/24 9:56 AM VL Aortoiliac Duplex Complete Mary Anne Nova; Final Notes: (VL Aortoiliac Duplex Complete) Reason For Exam: aiod, fem fem VL Aortoiliac Duplex Complete [facility] FINAL REPORT Name: CARROLL CLAROS : 1955 Visit: [id number] Date: 30 Dec 2024 TYPE OF TEST: Aorto-Iliac Duplex REASON FOR TEST Iliac artery occlusion, Right to Left Fem-Fem bypass graft INTERPRETATION/FINDINGS Arterial duplex imaging performed of the abdominal aorta, right iliac arteries and right to left fem-fem bypass graft: 1. The abdominal aorta is within normal limits; no aneurysm or hemodynamically significant stenosis identified. 2. Known occlusion of the left iliac arteries. 3. No hemodynamically significant stenosis identified in the right common iliac or proximal internal iliac arteries. 4. Elevated flow velocities (PSV 489 cm/sec) at the distal right external iliac artery, suggestive of a 50-74% stenosis of the graft inflow. Biphasic flow is insonated distally. 5. Patent right common femoral to left common femoral artery prosthetic bypass graft with no evidence of stenosis at the proximal anatomosis, throughout the graft or at the distal anastomosis. Graft velocities are as follows: Inflow: 111 cm/sec Dist: 64.1 cm/sec Prox Anast: 64.1 cm/sec Dist Anast: 70.1 cm/sec Prox: 70.8 cm/sec Outflow: 67.6 cm/sec Mid: 84.5 cm/sec Compared to the previous study performed 01/04/2024, bypass graft inflow stenosis appears to be a new finding. IMPRESSION/COMMENTS I have personally reviewed the data relevant to the interpretation of this study. TECHNOLOGIST: Mary Anne Nova , [facility], [facility] PHYSICIAN: Howie Anderson M.D. Signed: 12/31/2024 09:46 AM Final Dictated by:MD Anderson Eugene J Dictated DT/TM:12/31/2024 9:46 Signed by:MD Anderson Eugene J Signed (Electronic Signature):12/31/2024 9:46 a Transcribed by:EJS Social History Social History Type Response Tobacco Current every day sm oker, Cigarettes, Started age 27 Years. 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 Member Role: Lifetime Relationship Address: [address] [place] [address] Telecom: [phone] Name: DO Pisano Brian R Position: Referring Member Role: Primary Care Provider Address: [facility] [address] Telecom: [phone] Care Team Related Persons Name: SRUTHI FUNEZ Insurance Providers Guarantor name: CARROLL CLAROS Health Plan Information #: 1 Payer: [employer] Member Number: [id number] Policy Number: NA Group Number: [id number] Health Plan Information #: 2 Payer: [employer] Member Number: [id number] Policy Number: NA Group Number: NA Health Plan Information #: 3 Payer: MEDICARE Member Number: NA Policy Number: NA Group Number: NA
[2025-01-22] MEDS: LABETALOL HCL IV 5 MG/ML 20ML IV STA ×2 (03:49→05:15)
[2025-01-22] MEDS ORDERED: ACETAMINOPHEN 1,000 MG/100 ML VIAL IV PRN (04:46)
[2025-01-22 05:15] LABS: Basophils # (auto) 0.03 K/uL (0.00-0.20); Basophils % (auto) 0.2 %; Hematocrit (blood only) 42.1 % (37.0-47.0); Hemoglobin 13.8 g/dl (12.0-16.0); Immature Granulocytes % (auto) 0.5 %; Lymphocytes # (auto) 2.59 K/uL (1.20-3.40); Lymphocytes % (auto) 13.6 %; Mean Corpuscular Hemoglobin 29.2 pg (25.0-34.0); Mean Corpuscular Hgb Conc 32.8 g/dL (32.0-36.0); Mean Platelet Volume 11.1 fL (9.4-12.4); Monocytes # (auto) 1.58 K/uL (0.11-0.59); Monocytes % (auto) 8.3 %; Neutrophils # (auto) 14.68 K/uL (1.40-6.50); Neutrophils % (auto) 77.4 %; Platelet Count 182 K/uL (130-400); RDW Coefficient of Variation 13.2 % (11.5-14.5); RDW Standard Deviation 43.3 fL (36.4-46.3); Red Blood Count 4.73 M/uL (4.20-5.40); White Blood Count 18.98 K/ul (4.8-10.8)
[2025-01-22] MEDS: ONDANSETRON INJ 2 MG/ML 2 ML VIAL IV PRN (05:17)
[2025-01-22] MEDS: ACETAMINOPHEN 1,000 MG/100 ML VIAL IV PRN (05:18)
[2025-01-22] MEDS: levETIRAcetam 500 MG/5 ML VIAL IV SCH (05:20)
[2025-01-22 05:31] LABS: BUN Creatinine Ratio 14.7 (10-20); Calcium 9.9 mg/dl (8.6-10.3); Chol HDL Ratio 3.3 (0-5); Creatinine Clr Calc Pharmacy 48.9 ml/min; Magnesium 2.3 mg/dl (1.7-2.4); Phosphorus 3.8 mg/dl (2.5-4.9); Potassium 3.6 mmol/L (3.5-5.1)
--- NOTE | 2025-01-22 05:44 | Electrocardiogram Report ---
Test Reason : Blood Pressure : */* mmHG Vent. Rate : 88 BPM Atrial Rate : 88 BPM P-R Int : 156 ms QRS Dur : 84 ms QT Int : 398 ms P-R-T Axes : 61 67 57 degrees QTcB Int : 481 ms Poor data quality, interpretation may be adversely affected Sinus rhythm with occasional Premature ventricular complexes Possible Left atrial enlargement Nonspecific ST and T wave abnormality Prolonged QT Abnormal ECG When compared with ECG of 06-Feb-2024 12:21, Premature ventricular complexes are now Present Confirmed by Edgar Clay ([id number]) on 01/22/2025 5:43:46 AM Referred By: REFERRED SELF Confirmed By: Edgar Clay
[2025-01-22] MEDS: ICU ELECTROLYTE REPLACEMENT PROTOCOL SCH (06:10)
[2025-01-22] MEDS: POTASSIUM CHLORIDE / WTR 10 MEQ/100 ML PLCT IV SCH (06:10)
[2025-01-22] MEDS: ALBUT/IPRATROP 3MG/0.5MG NEB 3 ML VIAL NEB SCH (07:21)
[2025-01-22 07:26] LABS: Estimated Average Glucose 91 mg/dl; Hemoglobin A1C 4.8 % (4.5-5.6)
--- NOTE | 2025-01-22 08:13 | Critical Care Progress Note ---
Date of Service January 22, 2025 Assessment & Plan (1) Seizure-like activity: (2) Altered mental status: (3) UTI (urinary tract infection): (4) NSTEMI (non-ST elevated myocardial infarction): Plan Reason Critically Ill: 69-year-old female with history of COPD found altered at home. Etiology unclear 24-hour events: Patient presented to the emergency room. EEG was performed. She was admitted to the ICU. Lumbar puncture performed. Imaging studies unrevealing Recommendations: Neuro -altered mental status: EEG performed yesterday showed some slowing but no obvious seizure activity. CT of the head showed age-indeterminate strokes. Will send for MRI of the brain with contrast. LP bloody but unrevealing for source. Doubt SAH but will follow-up with MRI. Check ammonia. Check thyroid studies. Electrolytes demonstrate no acute abnormality to account for the patient's symptoms. May need additional EEG monitoring. Currently loaded on [employer]. Defer long-term antiepileptics to neurology as formal neurology consultation is pending. Cardiac -hemodynamically stable. Mild elevation in troponin nonspecific. Given potential stroke so low blood pressure to run somewhat higher. Respiratory -severe COPD. Yesterday hypercarbic respiratory failure which is now resolved with need for noninvasive positive pressure ventilation. GI -keep n.p.o. pending improvement in mental status. PPI RENAL: Proteinuria and hematuria identified but renal indices normal. Electrolytes unremarkable. ICU electrolyte replacement protocol will be initiated. ENDO - glycemic control per protocol HEME -leukocytosis but no acute issues ID -leukocytosis. Day #2 Rocephin for presumptive UTI. Calcitonin undetectable. LINES/TUBES/DRAINS - PIV x2 [place] (Day #1) DVT PROPHYLAXIS - SCDs I have personally spent 35 minutes of critical care time in the direct management of this patient. This is a life/limb threatening event. This includes time spent evaluating patient, direct bedside care, chart review, placing orders, interpretation of diagnostic studies, discussion with consultants, patient, and family members, as well as other required patient management activities. This time is exclusive of all separately billable procedures, and teaching time and separate from and in addition to any other critical care service time. Thank you for allowing us to participate in the care of this patient. Admission and Anticipated Discharge Date Admission Date: January 21, 2025 Subjective Patient seen and examined. EMR reviewed. Discussed with critical care [facility]OWER overnight as well as with bedside critical care nurse and on multidisciplinary rounds. Patient remains altered. LP was performed last night with results noted below. Her NIH remains around 20. She is fairly flaccid on the left. She does occasionally open eyes to commands but is not reliably following commands Review of Systems Review of Systems: Unobtainable due to reduced consciousness Physical Exam Constitutional: + ill appearing and + thin Neck: trachea midline, no thyromegaly Respiratory: normal respiratory effort, lungs clear to auscultation Cardiovascular: RRR, no murmur, no edema Gastrointestinal (Abdomen): normal bowel sounds, soft, nontender, no hepatosplenomegaly Musculoskeletal: Extremities: extremities normal to inspection Skin: no rashes, warm and dry Neurologic: Does move the right side. No significant movement on the left. Babinski upgoing bilaterally without clonus. Pupils are reactive Lymphatic: no cervical lymphadenopathy Results & Data Results & Data Vital Signs (Past 12 Hours) Vital Signs Temp Pulse Pulse Resp BP BP Pulse Ox 01/22/25 08:00 01/22/25 07:24 65 01/22/25 07:21 58 L 22 94 01/22/25 06:16 171/79 H 01/22/25 06:15 37.6 C H 62 27 H 95 01/22/25 06:00 37.6 C H 57 L 16 94 01/22/25 05:57 37.6 C H 66 26 H 94 01/22/25 05:45 169/69 H 01/22/25 05:45 169/69 H 01/22/25 05:32 63 169/68 H 01/22/25 05:31 169/68 H 01/22/25 05:27 37.7 C H 58 L 12 92 01/22/25 05:18 37.7 C H 67 16 95 01/22/25 05:16 177/95 H 01/22/25 05:16 177/95 H 01/22/25 05:16 177/95 H 01/22/25 05:15 37.7 C H 71 13 95 01/22/25 05:15 71 177/95 H 01/22/25 05:09 37.7 C H 72 15 95 01/22/25 05:00 194/68 H 01/22/25 05:00 194/68 H 01/22/25 04:48 37.7 C H 70 14 95 01/22/25 04:46 170/86 H 01/22/25 04:42 37.7 C H 66 30 H 95 01/22/25 04:39 37.7 C H 71 19 94 01/22/25 04:12 37.6 C H 64 25 H 96 01/22/25 04:01 77 152/73 H 01/22/25 03:51 37.7 C H 66 93 01/22/25 03:49 69 182/79 H 01/22/25 03:48 37.7 C H 70 95 01/22/25 03:46 182/79 H 01/22/25 03:45 37.7 C H 72 22 94 01/22/25 03:30 192/78 H 01/22/25 03:30 192/78 H 01/22/25 03:30 192/78 H 01/22/25 03:30 37.7 C H 68 96 01/22/25 03:18 37.7 C H 66 25 H 95 01/22/25 03:18 172/62 H 01/22/25 03:18 172/62 H 01/22/25 03:18 172/62 H 01/22/25 03:10 192/66 H 01/22/25 03:10 192/66 H 01/22/25 03:10 192/66 H 01/22/25 03:09 37.7 C H 72 33 H 93 01/22/25 03:01 192/68 H 01/22/25 03:01 192/68 H 01/22/25 02:54 37.8 C H 65 22 95 01/22/25 02:42 37.8 C H 78 30 H 95 01/22/25 02:31 182/70 H 01/22/25 02:09 37.8 C H 69 30 H 95 01/22/25 02:01 164/82 H 01/22/25 02:01 164/82 H 01/22/25 01:57 37.9 C H 75 32 H 97 01/22/25 01:54 37.9 C H 71 22 92 01/22/25 01:30 37.9 C H 62 21 96 01/22/25 01:15 178/66 H 01/22/25 01:03 37.9 C H 76 25 H 96 01/22/25 00:57 38.0 C H 71 26 H 96 01/22/25 00:46 166/64 H 01/22/25 00:42 37.9 C H 70 24 95 01/22/25 00:41 162/97 H 01/22/25 00:41 162/97 H 01/22/25 00:30 38.0 C H 76 27 H 94 01/22/25 00:22 159/73 H 01/22/25 00:11 148/65 H 01/22/25 00:03 37.9 C H 78 30 H 97 01/22/25 00:01 163/74 H 01/22/25 00:01 163/74 H 01/22/25 00:00 37.9 C H 82 22 96 01/22/25 00:00 73 01/21/25 23:50 183/77 H 01/21/25 23:50 183/77 H 01/21/25 23:45 37.9 C H 68 19 97 01/21/25 23:41 173/66 H 01/21/25 23:41 173/66 H 01/21/25 23:34 165/53 H 01/21/25 23:33 38.0 C H 73 17 98 01/21/25 23:26 132/106 H 01/21/25 23:15 38.0 C H 79 26 H 97 01/21/25 23:03 76 16 92 01/21/25 22:39 38.2 C H 81 32 H 96 01/21/25 22:03 38.3 C H 78 20 94 01/21/25 22:01 108/73 01/21/25 22:01 108/73 01/21/25 21:57 38.4 C H 72 30 H 95 01/21/25 21:42 38.4 C H 77 26 H 95 01/21/25 21:33 140/72 01/21/25 21:30 01/21/25 21:23 71 01/21/25 21:23 01/21/25 20:31 76 25 H 167/73 H 98 Pulse Ox O2 Del Method O2 Del Method O2 Flow Rate O2 Flow Rate 01/22/25 08:00 Nasal Cannula 01/22/25 07:24 01/22/25 07:21 Nasal Cannula 2 01/22/25 06:16 01/22/25 06:15 01/22/25 06:00 01/22/25 05:57 01/22/25 05:45 01/22/25 05:45 01/22/25 05:32 01/22/25 05:31 01/22/25 05:27 01/22/25 05:18 01/22/25 05:16 01/22/25 05:16 01/22/25 05:16 01/22/25 05:15 01/22/25 05:15 01/22/25 05:09 01/22/25 05:00 01/22/25 05:00 01/22/25 04:48 01/22/25 04:46 01/22/25 04:42 01/22/25 04:39 01/22/25 04:12 01/22/25 04:01 01/22/25 03:51 01/22/25 03:49 01/22/25 03:48 01/22/25 03:46 01/22/25 03:45 01/22/25 03:30 01/22/25 03:30 01/22/25 03:30 01/22/25 03:30 01/22/25 03:18 01/22/25 03:18 01/22/25 03:18 01/22/25 03:18 01/22/25 03:10 01/22/25 03:10 01/22/25 03:10 01/22/25 03:09 01/22/25 03:01 01/22/25 03:01 01/22/25 02:54 01/22/25 02:42 01/22/25 02:31 01/22/25 02:09 01/22/25 02:01 01/22/25 02:01 01/22/25 01:57 01/22/25 01:54 01/22/25 01:30 01/22/25 01:15 01/22/25 01:03 01/22/25 00:57 01/22/25 00:46 01/22/25 00:42 01/22/25 00:41 01/22/25 00:41 01/22/25 00:30 01/22/25 00:22 01/22/25 00:11 01/22/25 00:03 01/22/25 00:01 01/22/25 00:01 01/22/25 00:00 01/22/25 00:00 01/21/25 23:50 01/21/25 23:50 01/21/25 23:45 01/21/25 23:41 01/21/25 23:41 01/21/25 23:34 01/21/25 23:33 01/21/25 23:26 01/21/25 23:15 01/21/25 23:03 01/21/25 22:39 01/21/25 22:03 01/21/25 22:01 01/21/25 22:01 01/21/25 21:57 01/21/25 21:42 01/21/25 21:33 01/21/25 21:30 Nasal Cannula 2 01/21/25 21:23 01/21/25 21:23 95 Nasal Cannula 2 01/21/25 20:31 Nasal Cannula 4 Laboratory Results Lumbar puncture: RBCs 1250 White blood cells 1 Glucose 80 Total protein 59 PCR negative Critical Care Results & Data Vital Signs (Past 12 Hours) Vital Signs Temp Pulse Pulse Resp BP BP Pulse Ox 01/22/25 08:00 01/22/25 07:24 65 01/22/25 07:21 58 L 22 94 01/22/25 06:16 171/79 H 01/22/25 06:15 37.6 C H 62 27 H 95 01/22/25 06:00 37.6 C H 57 L 16 94 01/22/25 05:57 37.6 C H 66 26 H 94 01/22/25 05:45 169/69 H 01/22/25 05:45 169/69 H 01/22/25 05:32 63 169/68 H 01/22/25 05:31 169/68 H 01/22/25 05:27 37.7 C H 58 L 12 92 01/22/25 05:18 37.7 C H 67 16 95 01/22/25 05:16 177/95 H 01/22/25 05:16 177/95 H 01/22/25 05:16 177/95 H 01/22/25 05:15 37.7 C H 71 13 95 01/22/25 05:15 71 177/95 H 01/22/25 05:09 37.7 C H 72 15 95 01/22/25 05:00 194/68 H 01/22/25 05:00 194/68 H 01/22/25 04:48 37.7 C H 70 14 95 01/22/25 04:46 170/86 H 01/22/25 04:42 37.7 C H 66 30 H 95 01/22/25 04:39 37.7 C H 71 19 94 01/22/25 04:12 37.6 C H 64 25 H 96 01/22/25 04:01 77 152/73 H 01/22/25 03:51 37.7 C H 66 93 01/22/25 03:49 69 182/79 H 01/22/25 03:48 37.7 C H 70 95 01/22/25 03:46 182/79 H 01/22/25 03:45 37.7 C H 72 22 94 01/22/25 03:30 192/78 H 01/22/25 03:30 192/78 H 01/22/25 03:30 192/78 H 01/22/25 03:30 37.7 C H 68 96 01/22/25 03:18 37.7 C H 66 25 H 95 01/22/25 03:18 172/62 H 01/22/25 03:18 172/62 H 01/22/25 03:18 172/62 H 01/22/25 03:10 192/66 H 01/22/25 03:10 192/66 H 01/22/25 03:10 192/66 H 01/22/25 03:09 37.7 C H 72 33 H 93 01/22/25 03:01 192/68 H 01/22/25 03:01 192/68 H 01/22/25 02:54 37.8 C H 65 22 95 01/22/25 02:42 37.8 C H 78 30 H 95 01/22/25 02:31 182/70 H 01/22/25 02:09 37.8 C H 69 30 H 95 01/22/25 02:01 164/82 H 01/22/25 02:01 164/82 H 01/22/25 01:57 37.9 C H 75 32 H 97 01/22/25 01:54 37.9 C H 71 22 92 01/22/25 01:30 37.9 C H 62 21 96 01/22/25 01:15 178/66 H 01/22/25 01:03 37.9 C H 76 25 H 96 01/22/25 00:57 38.0 C H 71 26 H 96 01/22/25 00:46 166/64 H 01/22/25 00:42 37.9 C H 70 24 95 01/22/25 00:41 162/97 H 01/22/25 00:41 162/97 H 01/22/25 00:30 38.0 C H 76 27 H 94 01/22/25 00:22 159/73 H 01/22/25 00:11 148/65 H 01/22/25 00:03 37.9 C H 78 30 H 97 01/22/25 00:01 163/74 H 01/22/25 00:01 163/74 H 01/22/25 00:00 37.9 C H 82 22 96 01/22/25 00:00 73 01/21/25 23:50 183/77 H 01/21/25 23:50 183/77 H 01/21/25 23:45 37.9 C H 68 19 97 01/21/25 23:41 173/66 H 01/21/25 23:41 173/66 H 01/21/25 23:34 165/53 H 01/21/25 23:33 38.0 C H 73 17 98 01/21/25 23:26 132/106 H 01/21/25 23:15 38.0 C H 79 26 H 97 01/21/25 23:03 76 16 92 01/21/25 22:39 38.2 C H 81 32 H 96 01/21/25 22:03 38.3 C H 78 20 94 01/21/25 22:01 108/73 01/21/25 22:01 108/73 01/21/25 21:57 38.4 C H 72 30 H 95 01/21/25 21:42 38.4 C H 77 26 H 95 01/21/25 21:33 140/72 01/21/25 21:30 01/21/25 21:23 71 01/21/25 21:23 01/21/25 20:31 76 25 H 167/73 H 98 Pulse Ox O2 Del Method O2 Del Method O2 Flow Rate O2 Flow Rate 01/22/25 08:00 Nasal Cannula 01/22/25 07:24 01/22/25 07:21 Nasal Cannula 2 01/22/25 06:16 01/22/25 06:15 01/22/25 06:00 01/22/25 05:57 01/22/25 05:45 01/22/25 05:45 01/22/25 05:32 01/22/25 05:31 01/22/25 05:27 01/22/25 05:18 01/22/25 05:16 01/22/25 05:16 01/22/25 05:16 01/22/25 05:15 01/22/25 05:15 01/22/25 05:09 01/22/25 05:00 01/22/25 05:00 01/22/25 04:48 01/22/25 04:46 01/22/25 04:42 01/22/25 04:39 01/22/25 04:12 01/22/25 04:01 01/22/25 03:51 01/22/25 03:49 01/22/25 03:48 01/22/25 03:46 01/22/25 03:45 01/22/25 03:30 01/22/25 03:30 01/22/25 03:30 01/22/25 03:30 01/22/25 03:18 01/22/25 03:18 01/22/25 03:18 01/22/25 03:18 01/22/25 03:10 01/22/25 03:10 01/22/25 03:10 01/22/25 03:09 01/22/25 03:01 01/22/25 03:01 01/22/25 02:54 01/22/25 02:42 01/22/25 02:31 01/22/25 02:09 01/22/25 02:01 01/22/25 02:01 01/22/25 01:57 01/22/25 01:54 01/22/25 01:30 01/22/25 01:15 01/22/25 01:03 01/22/25 00:57 01/22/25 00:46 01/22/25 00:42 01/22/25 00:41 01/22/25 00:41 01/22/25 00:30 01/22/25 00:22 01/22/25 00:11 01/22/25 00:03 01/22/25 00:01 01/22/25 00:01 01/22/25 00:00 01/22/25 00:00 01/21/25 23:50 01/21/25 23:50 01/21/25 23:45 01/21/25 23:41 01/21/25 23:41 01/21/25 23:34 01/21/25 23:33 01/21/25 23:26 01/21/25 23:15 01/21/25 23:03 01/21/25 22:39 01/21/25 22:03 01/21/25 22:01 01/21/25 22:01 01/21/25 21:57 01/21/25 21:42 01/21/25 21:33 01/21/25 21:30 Nasal Cannula 2 01/21/25 21:23 01/21/25 21:23 95 Nasal Cannula 2 01/21/25 20:31 Nasal Cannula 4 Lab & Micro Results (Past 24 Hours) RBC 4.73 M/uL (4.20-5.40) 01/22/25 WBC 18.98 K/ul (4.8-10.8) H 01/22/25 Hgb 13.8 g/dl (12.0-16.0) 01/22/25 Hct 42.1 % (37.0-47.0) 01/22/25 MCV 89.0 fL (80.0-100.0) 01/22/25 MCH 29.2 pg (25.0-34.0) 01/22/25 MCHC 32.8 g/dL (32.0-36.0) 01/22/25 RDW Standard Deviation 43.3 fL (36.4-46.3) 01/22/25 RDW Coefficient of Variation 13.2 % (11.5-14.5) 01/22/25 Plt Count 182 K/uL (130-400) 01/22/25 MPV 11.1 fL (9.4-12.4) 01/22/25 Neutrophils (%) (Auto) 77.4 % 01/22/25 Lymphocytes (%) (Auto) 13.6 % 01/22/25 Monocytes # (Auto) 1.58 K/uL (0.11-0.59) H 01/22/25 Eosinophils # (Auto) 0.00 K/uL (0.00-0.50) 01/22/25 Immature Granulocyte % (Auto) 0.5 % 01/22/25 Neutrophils # (Auto) 14.68 K/uL (1.40-6.50) H 01/22/25 Lymphocytes # (Auto) 2.59 K/uL (1.20-3.40) 01/22/25 Monocytes # (Auto) 1.58 K/uL (0.11-0.59) H 01/22/25 Eosinophils # (Auto) 0.00 K/uL (0.00-0.50) 01/22/25 Basophils # (Auto) 0.03 K/uL (0.00-0.20) 01/22/25 Immature Granulocyte # (Auto) 0.10 K/uL (0.01-0.20) 5 Na 142 mmol/L (136-145) 01/22/25 K 3.6 mmol/L (3.5-5.1) 01/22/25 Cl 101 mmol/L (98-107) 01/22/25 CO2 32 mmol/L (21-32) 01/22/25 Anion Gap 9 (3-11) 01/22/25 BUN 14 mg/dl (6-23) 01/22/25 Creatinine 0.95 mg/dl (0.6-1.2) 01/22/25 BUN/Creatinine Ratio 14.7 (10-20) 01/22/25 Glu 120 mg/dl (70-99(Fasting)) H 01/22/25 Ca 9.9 mg/dl (8.6-10.3) 01/22/25 Phosphorus Level 3.8 mg/dl (2.5-4.9) 01/22/25 Total Bilirubin 0.5 mg/dl (0.2-1.0) 01/21/25 AST 18 U/L (13-39) 01/21/25 ALT 8 U/L (7-52) 01/21/25 Alkaline Phosphatase 115 U/L (34-104) H 01/21/25 TP 7.0 gm/dl (6.0-8.3) 01/21/25 Albumin 3.9 gm/dl (3.4-5.0) 01/21/25 Globulin 3.1 gm/dl (2.5-4.0) 01/21/25 Albumin/Globulin Ratio 1.3 (0.9-2) 01/21/25 Mg 2.3 mg/dl (1.7-2.4) 01/22/25 04:50 Calcium Level 9.9 mg/dl (8.6-10.3) 01/22/25 04:50 Prothromb Time International Ratio 1.0 (0.9-1.1) 01/21/25 14:5 1 Venous Blood pH 7.40 (7.36-7.41) 01/22/25 00:19 Venous Blood Partial Pressure CO2 47 mmHg (38-50) 01/22/25 00:1 9 Venous Blood Partial Pressure O2 29 mmHg 01/22/25 00:19 Venous Blood HCO3 29 mmol/L 01/22/25 00:19 Venous Blood Base Excess 3.5 mEq/L 01/22/25 00:19 Venous Blood Oxygen Saturation < 60.0 % 01/22/25 00:19 Microbiology 01/21/25 23:20 Gram Stain - Final Cerebral Spinal Fluid Diagnostic Findings (Past 24 Hours) Chest X-Ray 01/21/25 00:00 XR chest 1V portable CLINICAL HISTORY: neuro deficit, acute stroke suspected COMPARISON STUDY: 02/06/2024 FINDINGS: Single view portable chest demonstrates no significant interval change allowing for technical differences. There is no focal airspace opacity or pleural effusion. There is no pneumothorax. The heart and pulmonary vascularity are unremarkable. IMPRESSION: Stable exam; no acute process ACT 112: Negative or not required by law. Electronically signed by: Arielle Johnson M.D. 01/21/2025 3:[address] 01/21/25 14:20 CT head/brain wo con CLINICAL HISTORY: Stroke alert. TECHNIQUE: Multiple axial CT images of the head were obtained without contrast. Sagittal and coronal reconstructions were done. A dose lowering technique was utilized adhering to the principles of ALARA. CT DOSE: 547.75 mGy.cm COMPARISON: None FINDINGS: There is no intra-axial or extra-axial fluid collection, hemorrhage, or mass. There is an area of encephalomalacia in the right posterior parietal lobe without mass effect. It has appearance of an old stroke. The ventricles and sulci are age-appropriate with no midline shift. The bone windows are negative. IMPRESSION: Right posterior parietal lobe encephalomalacia having the appearance of an old or late subacute stroke due to the lack of any surrounding edema or mass effect. This could be confirmed with an MRI in the appropriate clinical content. No evidence of hemorrhage. ACT 112: Negative or not required by law. The above report was generated using voice recognition software. It may contain grammatical, syntax or spelling errors. Electronically signed by: Arielle Johnson M.D. 01/21/2025 2:33 PM Head CTA 01/21/25 14:21 CTA ANGIOGRAPHY OF THE HEAD CLINICAL HISTORY: neuro deficit, acute stroke suspected. Syncope. COMPARISON STUDY: MRI of the brain October 31, 2019. TECHNIQUE: Helical axial images of the head were obtained following uneventful intravenous administration of 115 cc of Optiray. Sagittal and coronal reconstructions were viewed as well as maximal intensity projections on an independent 3-D workstation. Automated exposure control was utilized for the study. A dose lowering technique was utilized adhering to the principles of ALARA. FINDINGS: Please note that the head CT will be reported separately. No acute intracranial hemorrhage, midline shift or mass effect is present. Ventricular system is unremarkable. Basal cisterns are patent. A focus of encephalomalacia within the right parietal lobe is new since MRI of October 31, 2009. This favors an old infarct. The bilateral M1, M2, A1 and A2 segments are patent. There is moderate calcified atherosclerotic plaque within the cavernous carotids which results in mild stenosis. No vessel occlusion is identified within the intracranial circulation. The left vertebral artery is dominant. Basilar artery is patent. There is persistence of the left posterior cerebral artery. IMPRESSION: No intracranial vessel occlusion. No intracranial aneurysm. ACT 112: Negative or not required by law. Electronically signed by: Garrick Hernández M.D. 01/21/2025 2:47 PM Neck CTA 01/21/25 14:21 CT angio neck with con CLINICAL HISTORY: neuro deficit, acute stroke suspected. COMPARISON STUDY: Chest CT of 08/12/2024 TECHNIQUE: Following the IV administration of 115 of Optiray, CT angiogram of the neck was performed from the aortic arch to the skull base. Images are reviewed in the axial, sagittal, and coronal planes. 3-D MIPS images are created and assessed. IV contrast was administered without complication. All measurements were calculated based on NASCET criteria. A dose lowering technique was utilized adhering to the principles of ALARA. CT DOSE: 445.57 mGy.cm FINDINGS: Suspicious pulmonary nodules at the left lung apex are stable. Please see the prior chest CT report. There are scattered atherosclerotic calcifications. There are carotid bulb calcifications. No significant narrowing or occlusion seen at the common or internal carotid arteries bilaterally. There is mild narrowing at the origin of the vertebral arteries bilaterally. No significant narrowing or occlusion seen at the vertebral arteries. Basilar artery visualized portion is patent. There is a stable tiny nodule at the left thyroid lobe. There is moderate lower cervical degenerative disc disease. IMPRESSION: Diffuse atherosclerotic calcification with no significant arterial narrowing or occlusion seen at the neck. ACT 112: Negative or not required by law. The above report was generated using voice recognition software. It may contain grammatical, syntax or spelling errors. Electronically signed by: Ayo Carver M.D. 01/21/2025 2:48 PM I & O Totals 24 Hours 01/21/25 01/22/25 01/23/25 06:59 06:59 06:59 Intake Total 2119.167 / 2119.167 100 / 100 Output Total 675 / 675 Balance 1444.167 / 1444.167 100 / 100 Cumulative 01/21/25 13:54 thru 01/22/25 07:10 Intake Total 2219.167 Output Total 675 Balance 1544.167 RT Ventilator Mngmt (Last Documented) Ventilator Ordered Settings Respiratory Rate 22 01/22/25 07:21 Ventilator - PT Measurements Respiratory Rate 22 End-Tidal CO2 21 Coding Level of Care Code 55059 CRITICAL CARE 1ST 30-74M Diagnoses Seizure-like activity R56.9 Altered mental status R41.82 UTI (urinary tract infection) N39.0 NSTEMI (non-ST elevated myocardial infarction) I21.4
[2025-01-22] MEDS ORDERED: ASPIRIN 300 MG SUPP PR SCH (09:00)
[2025-01-22] MEDS: NICOTINE 7 MG/24 HR TDSY TD SCH (09:28)
--- NOTE | 2025-01-22 09:47 | Neurology Consultation ---
Date of Consultation January 22, 2025 Assessment & Plan (1) CVA (cerebral vascular accident): (2) Seizure-like activity: (3) HTN (hypertension): Plan This patient likely suffered a large stroke 2 to 3 days ago. It involves the right parietal head region (middle cerebral artery distribution most likely) and results in left arm greater than leg weakness, and possible left homonymous hemianopsia. She has been somewhat obtunded although is rejecting and responding much better today than yesterday. She has some head and eye deviation to the right which is secondary to the stroke. Interestingly, she has hyperreflexia in all 4 limbs and bilateral upgoing toes. There was seizure-like activity yesterday and she was placed on levetiracetam. She has had no obvious seizure activity over the last 12 hours. The patient came in quite hypoxic and has known pulmonary issues. She also has hypertension and is a cigarette smoker. Overall, her clinical picture seems much worse than 1 would expect for even a moderate-sized right parietal stroke. If there is edema or the stroke involves the brainstem this may account for the obtundation/mental status changes. She could still be postictal and have some leftover Ativan affect that she is starting to come around from. Also, the hypoxia and pulmonary issues could have made her more unresponsive than she would have been otherwise. Patient had fever but the lumbar puncture is not consistent with a meningitis or meningoencephalitis. The elevated protein is nonspecific and may be secondary to the large stroke. She likely has a urinary tract infection. Recommendations: 1. MRI of the brain to evaluate extent of the stroke. 2. Continue levetiracetam 500 mg IV every 12 hours 3. Continue 81 mg aspirin daily. 4. Consider CT angiography of the head and neck 5. Awaiting echocardiogram 6. Physical, occupational, and speech therapy consults. 7. Control blood pressure as you are doing, aiming for a mean arterial pressure of approximately 95-100. 8. Given her total cholesterol of 150, I would not consider her a high-dose statin candidate. I would proceed with "medium" doses. 9. Antibiotic and infection treatment will be left to the hospitalist and ICU team 10. Awaiting final CSF, blood, and urine cultures. 11. According to the chart, the patient does not have a PCPshe should be given a PCP. Overall, I spent a total of 90 minutes with this case including review of records, review of CT films, direct evaluation of the patient at bedside, report generation, and discussion of the case with the patient and RN at bedside, and Dr. Penny including differential diagnosis and treatment options. History of Present Illness Reason for Consultation: Patient is a 69-year-old, who I was asked to see at the request of Alexis Manley PA-C, for neurologic evaluation regarding stroke versus seizure (versus other) Requesting Physician: Alexis Manley PA-C. Attending Physician: Theo Buenrostro MD History of Present Illness This patient has a history of COPD, multiple pulmonary nodules, bronchiectasis, chronic respiratory failure with hypoxia, and alpha-1 antitrypsin deficiency (carrier) requiring O2 at night. She also has a history of hypertension and gout. She has no prior history of stroke or seizures. Patient was on 81 mg aspirin, atorvastatin 10 mg daily, and hydrochlorothiazide 12.5 mg daily. The patient was found on the floor in her residence on January 21. Patient lives alone was found by her sister since the patient was not responding to calls. She was on the bathroom floor on her back unresponsive with her head shaking and jerking with foaming at the mouth. There was no loss of urine or tongue biting. EMS found her hypoxic and put on oxygen. Patient arrived to the emergency room January 21 at 1435 with a temperature of 36.9, pulse 86 and regular, respiratory rate 29, blood pressure 148/124 and pO2 78%. On examination she was largely unresponsive and not following commands, but she did open her eyes spontaneously and would grimace and localize pain. They noted upgoing toes bilaterally and her upper extremities initially were bilaterally very stiff. CBC showed an elevated white count of 16 with elevated neutrophils. She was hypercarbic on blood gas at 64. CHEM profile was unremarkable although glucose was 128. Alk phos was elevated at 115 and total CK was 231. Troponin was elevated at 132. Bio fire was unremarkable. Urinalysis showed increase white cells and it was cloudy. Patient was given 1 mg of Ativan IV at 1441 because of her history of seizure activity and presentation. She was given 1 g of IV levetiracetam also. Chest x-ray was unremarkable for acute changes. CT scan of the head showed encephalomalacia as/subacute changes in the right posterior parietal head region. This was age-indeterminate but probably suba cute. There was possible edema in this area but there was no shift of midline. I reviewed these films. Because of her unresponsive state a stat EEG was performed and it was very slow and irregular with no obvious focal findings or potentially epileptogenic discharges (patient was not in subclinical status) Because of a temp of 38 5 later on January 21, she underwent a lumbar puncture with an opening pressure 130. Was 1 white cell and 1250 red cells. Fluid was clear and colorless. Glucose was 80 (serum 120) and protein 59.6 (normal 15-45). CSF bio fire was unremarkable. Gram stain was negative. The patient was put on IV Rocephin following the lumbar puncture. Overnight the patient was stable with no further issues. On 2 L of oxygen she maintains at 93 and above. Triglycerides were 151 and total cholesterol 150. CBC this morning showed white count of 18 and a CHEM profile that was unremarkable. This morning, patient's temperature was 30 7.6C with a blood pressure of 171/79 pulse of 65. Respiratory rate is 22. Allergies Allergy/AdvReac Type Severity Reaction Status Date / Time No Known Allergies Allergy Unknown Verified 01/21/25 14:17 Home Medications Medication Instructions Recorded Confirmed Type aspirin 81 mg tablet,delayed 81 mg PO UD 02/07/19 01/21/25 History release cholecalciferol (vitamin D3) 125 5,000 unit PO QAM 02/07/19 01/21/25 History mcg (5,000 unit) tablet (Vitamin D3) Portable Oxygen #1 ea 02/15/24 11/11/24 Rx albuterol sulfate 90 mcg/actuation 2 inh inhalation QID PRN Shortness 02/15/24 01/21/25 Rx aerosol inhaler (Ventolin HFA) Of Breath #8.5 grams Flutter Valve #1 ea 08/14/24 11/11/24 Rx fluticasone fur. 100 mcg-umeclid 1 inh inhalation DAILY #28 ea 08/14/24 01/21/25 Rx 62.5 mcg-vilant 25 mcg inhalat.powder (Trelegy Ellipta) guaifenesin 600 mg tablet, 600 mg PO BID PRN congestion #60 08/14/24 01/21/25 Rx extended release 12 hr (Mucinex) tabs atorvastatin 10 mg tablet 10 mg PO HS #90 tabs 09/10/24 01/21/25 Rx allopurinol 100 mg tablet 100 mg PO DAILY #90 tabs 09/22/24 01/21/25 Rx hydrochlorothiazide 12.5 mg tablet 12.5 mg PO QAM #90 tabs 09/22/24 01/21/25 Rx omeprazole 20 mg capsule,delayed 20 mg PO QAM #90 caps 09/22/24 01/21/25 Rx release Patient History Medical History CHET (acute kidney injury) Vitamin D deficiency History of angiography 05/12/22 @ [facility] Dr. Rosario History of COVID-19 07/25/22 PCR @ [facility] (tested for procedure)--asymptomatic--no symptoms now History of colon polyps Tubular adenoma of colon removed Carotid bruit < 50% stenosis ICAs bilat 06/2021 doppler GERD (gastroesophageal reflux disease) Hypertension controlled, stable per pt Hyperlipidemia Surgical History Hx of vascular surgery History of bilateral tubal ligation History of appendectomy History of colonoscopy last 02/2022, repeat 10 yrs History of tooth extraction History of wisdom tooth extraction Family History Sister Colonic polyp Mother Lung cancer, Onset Age: 82 Father No problems noted. Other No family history of adverse response to anesthesia Denies family history of Ovarian cancer Prostate cancer Myocardial infarction Breast cancer Colorectal cancer Social History Smoking Status: Current every day smoker Tobacco Type: Cigarettes Age Started Using Tobacco: 16; packs per day: 0.5; Cigarettes Per Day: 8; Second Hand Exposure: No; Do You Dip or Chew Tobacco: No; Hx Alcohol Use: Yes Alcohol type: beer Alcohol Intake Frequency: Monthly or Le ss Alcohol Intake Frequency Comment: social gatherings Hx Substance Use: No Preferred Language: Romanian Communication Ability: Effective Visual Impairment: Limited Hearing Ability: Normal Boat Hop Required: No Beliefs That Will Affect Care: None marital status: Single Current Living Situation: Alone current occupational status: retired How many Children do You have: 2 Other Information That Helps Us Care for You: No Feels Safe at Home: Yes Safety Concerns: Feels Safe At This Time Childhood Exposure to Second-Hand Smoke: Yes Diet: regular caffeine: Yes (coffee and soda ) Dental Care, Regularly: No Physical Activity Frequency: Daily Seatbelt Use: always Sunscreen Use: No (not out in sun very often) Assistive Devices: Denture - Upper, Denture - Lower and Glasses Review of Systems Review of Systems: Unobtainable due to cognitive status Exam (Neuro) Physical Exam: The patient was lying in bed with her eyes closed with head and eyes directed to the right. She would open her eyes some spontaneously and did have some (minimal) spontaneous movement of the right side greater than left side. With loud voice she would open her eyes and sometimes make eye contact. Once when I asked her her name she faintly said the word "Wen". I could not get her to say any other words (although the nurse an hour and a half earlier had got her to say her name, her age and she has to question "what happened"). The patient would follow one-step commands on occasion squeezing her right hand and wiggling the right hand and right toes. She tended to have a right gaze preference and turning her head to the right but there was 1 time when I was on the left side of her body performing the exam where she turned her head and eyes slightly past midline to the left for a brief period of time. Pupils are 4 mm bilaterally reactive to light. With passive movement of the head, she had preserved oculocephalics but she would not bring her eyes fully to the left. No nystagmus was noted. Gaze was conjugate. There was no obvious facial droop and tongue was essentially midline. She would attempt to stick out her tongue when I asked her to and tended to go to the left. With eyes open she would blink to visual threat coming from the right side but she did not blink or respond to visual threat coming to the left side. Neck was supple without carotid bruits bilaterally. Heart was without murmur. The patient had slightly increased tone on the right arm and leg had moderately increased tone in the left arm and leg. She could squeeze and pull with the right upper extremity but individual muscle strength testing was not possible because she was not cooperative enough for that. She did not offer any resistance with muscle testing attempts in both legs or the left arm. She withdrew and grimaced to deep pain distally in all 4 limbs. She was delayed in her responses left upper extremity and quite quick in the right upper extremity and both legs. Reflexes were 3/4 in the biceps, triceps, brachioradialis, and quadriceps tendons bilaterally. Achilles tendon reflexes were 1/4 on the right and absent on the left. Toes were upgoing to plantar stimulation bilaterally. Results & Data Vital Signs (Past 12 Hours) Vital Signs Temp Pulse Pulse Resp BP Pulse Ox Pulse Ox 01/22/25 08:13 01/22/25 08:00 01/22/25 07:24 65 01/22/25 07:21 58 L 22 94 01/22/25 06:16 171/79 H 01/22/25 06:15 37.6 C H 62 27 H 95 01/22/25 06:00 37.6 C H 57 L 16 94 01/22/25 05:57 37.6 C H 66 26 H 94 01/22/25 05:45 169/69 H 01/22/25 05:45 169/69 H 01/22/25 05:32 63 169/68 H 01/22/25 05:31 169/68 H 01/22/25 05:27 37.7 C H 58 L 12 92 01/22/25 05:18 37.7 C H 67 16 95 01/22/25 05:16 177/95 H 01/22/25 05:16 177/95 H 01/22/25 05:16 177/95 H 01/22/25 05:15 37.7 C H 71 13 95 01/22/25 05:15 71 177/95 H 01/22/25 05:09 37.7 C H 72 15 95 01/22/25 05:00 194/68 H 01/22/25 05:00 194/68 H 01/22/25 04:48 37.7 C H 70 14 95 01/22/25 04:46 170/86 H 01/22/25 04:42 37.7 C H 66 30 H 95 01/22/25 04:39 37.7 C H 71 19 94 01/22/25 04:12 37.6 C H 64 25 H 96 01/22/25 04:01 77 152/73 H 01/22/25 03:51 37.7 C H 66 93 01/22/25 03:49 69 182/79 H 01/22/25 03:48 37.7 C H 70 95 01/22/25 03:46 182/79 H 01/22/25 03:45 37.7 C H 72 22 94 01/22/25 03:30 192/78 H 01/22/25 03:30 192/78 H 01/22/25 03:30 192/78 H 01/22/25 03:30 37.7 C H 68 96 01/22/25 03:18 37.7 C H 66 25 H 95 01/22/25 03:18 172/62 H 01/22/25 03:18 172/62 H 01/22/25 03:18 172/62 H 01/22/25 03:10 192/66 H 01/22/25 03:10 192/66 H 01/22/25 03:10 192/66 H 01/22/25 03:09 37.7 C H 72 33 H 93 01/22/25 03:01 192/68 H 01/22/25 03:01 192/68 H 01/22/25 02:54 37.8 C H 65 22 95 01/22/25 02:42 37.8 C H 78 30 H 95 01/22/25 02:31 182/70 H 01/22/25 02:09 37.8 C H 69 30 H 95 01/22/25 02:01 164/82 H 01/22/25 02:01 164/82 H 01/22/25 01:57 37.9 C H 75 32 H 97 01/22/25 01:54 37.9 C H 71 22 92 01/22/25 01:30 37.9 C H 62 21 96 01/22/25 01:15 178/66 H 01/22/25 01:03 37.9 C H 76 25 H 96 01/22/25 00:57 38.0 C H 71 26 H 96 01/22/25 00:46 166/64 H 01/22/25 00:42 37.9 C H 70 24 95 01/22/25 00:41 162/97 H 01/22/25 00:41 162/97 H 01/22/25 00:30 38.0 C H 76 27 H 94 01/22/25 00:22 159/73 H 01/22/25 00:11 148/65 H 01/22/25 00:03 37.9 C H 78 30 H 97 01/22/25 00:01 163/74 H 01/22/25 00:01 163/74 H 01/22/25 00:00 37.9 C H 82 22 96 01/22/25 00:00 73 01/21/25 23:50 183/77 H 01/21/25 23:50 183/77 H 01/21/25 23:45 37.9 C H 68 19 97 01/21/25 23:41 173/66 H 01/21/25 23:41 173/66 H 01/21/25 23:34 165/53 H 01/21/25 23:33 38.0 C H 73 17 98 01/21/25 23:26 132/106 H 01/21/25 23:15 38.0 C H 79 26 H 97 01/21/25 23:03 76 16 92 01/21/25 22:39 38.2 C H 81 32 H 96 01/21/25 22:03 38.3 C H 78 20 94 01/21/25 22:01 108/73 01/21/25 22:01 108/73 01/21/25 21:57 38.4 C H 72 30 H 95 01/21/25 21:42 38.4 C H 77 26 H 95 01/21/25 21:33 140/72 01/21/25 21:30 01/21/25 21:23 71 01/21/25 21:23 95 O2 Del Method O2 Del Method O2 Flow Rate O2 Flow Rate 01/22/25 08:13 Nasal Cannula 2 01/22/25 08:00 Nasal Cannula 01/22/25 07:24 01/22/25 07:21 Nasal Cannula 2 01/22/25 06:16 01/22/25 06:15 01/22/25 06:00 01/22/25 05:57 01/22/25 05:45 01/22/25 05:45 01/22/25 05:32 01/22/25 05:31 01/22/25 05:27 01/22/25 05:18 01/22/25 05:16 01/22/25 05:16 01/22/25 05:16 01/22/25 05:15 01/22/25 05:15 01/22/25 05:09 01/22/25 05:00 01/22/25 05:00 01/22/25 04:48 01/22/25 04:46 01/22/25 04:42 01/22/25 04:39 01/22/25 04:12 01/22/25 04:01 01/22/25 03:51 01/22/25 03:49 01/22/25 03:48 01/22/25 03:46 01/22/25 03:45 01/22/25 03:30 01/22/25 03:30 01/22/25 03:30 01/22/25 03:30 01/22/25 03:18 01/22/25 03:18 01/22/25 03:18 01/22/25 03:18 01/22/25 03:10 01/22/25 03:10 01/22/25 03:10 01/22/25 03:09 01/22/25 03:01 01/22/25 03:01 01/22/25 02:54 01/22/25 02:42 01/22/25 02:31 01/22/25 02:09 01/22/25 02:01 01/22/25 02:01 01/22/25 01:57 01/22/25 01:54 01/22/25 01:30 01/22/25 01:15 01/22/25 01:03 01/22/25 00:57 01/22/25 00:46 01/22/25 00:42 01/22/25 00:41 01/22/25 00:41 01/22/25 00:30 01/22/25 00:22 01/22/25 00:11 01/22/25 00:03 01/22/25 00:01 01/22/25 00:01 01/22/25 00:00 01/22/25 00:00 01/21/25 23:50 01/21/25 23:50 01/21/25 23:45 01/21/25 23:41 01/21/25 23:41 01/21/25 23:34 01/21/25 23:33 01/21/25 23:26 01/21/25 23:15 01/21/25 23:03 01/21/25 22:39 01/21/25 22:03 01/21/25 22:01 01/21/25 22:01 01/21/25 21:57 01/21/25 21:42 01/21/25 21:33 01/21/25 21:30 Nasal Cannula 2 01/21/25 21:23 01/21/25 21:23 Nasal Cannula 2 PG Care Time/CCT Total # of Minutes Spent Total Time Spent with Patient: Total time spent is greater than 50% in coordination of care (as documented) at patient's floor/unit and/or counseling patient: Coding Level of Care Code 70990 INT INP/OBS CARE MIN Diagnoses CVA (cerebral vascular accident) I63.9 Seizure-like activity R56.9 HTN (hypertension) I10 Hypertension type: unspecified Time Spent (min) 90 (3) HTN (hypertension) Hypertension type: unspecified Qualified Code(s): I10 - Essential (primary) hypertension
[2025-01-22] MEDS: PANTOprazole 40 MG in SYRINGE DAILY IV SCH (11:27)
--- NOTE | 2025-01-22 11:54 | Hospitalist Progress Note ---
Date of Service January 22, 2025 Assessment & Plan (1) Seizure-like activity: Plan: 69-year-old female who was found down and unresponsive with concern for seizure- like activity last known well 2-3 days prior who was transported to the ER. Suspected to have a parietal CVA with resulting seizure. Patient also had a leukocytosis and fever suspected to be due to UTI but for which meningitis was within the differential and LP was obtained. She was admitted to the ICU overnight, did not show further seizure-like activity following Keppra load and is pending MRIB #Subacute CVA CThead shows right posterior parietal lobe encephalomalacia and possible late subacute CVA. Patient's last known well was 01/19/2025, little over 2 days prior to admission CTA head/neck with diffuse atherosclerotic calcification without acute occlusion/narrowing Received NV aspirin on admission - MRI: Moderate size restricted diffusion in the right temporal and parietal lobes. Punctate T1 hyperintense focus of the right basal ganglia. Trace hemorrhage is not excluded. Short-term follow-up could be obtained. No mass effect. Old right parietal lobe infarct Reviewed with neurology. Encephalitis is less likely especially given presentation and LP. Suspect that this is all ischemic/stroke pathology. Recommend continuing rectal aspirin until able to tolerate oral antiplatelets. [place] [address], or ~systolic 180. Do not recommend permissive hypertension to 200 or greater at this time. Labetalol added. Appreciate recommendations. Echo pending. Waiting EKG is sinus Moderate dose statin when able to tolerate orals #Seizure Suspect provoked by CVA No history of prior seizures Spot EEG without evidence of status Lactate 4.7, normalized to 1.3 on recheck CK elevated consistent with seizure Keppra loaded, continue 500 mg IV twice daily Lorazepam 2 mg IV for acute seizure-like activity Neurology consulted Initially treated and evaluated for possible meningitis due to seizure-like activity, leukocytosis, and fever of 38.5. BSG elevated, total protein 59.6, no leukocytosis, PCR negative. LP with blood, DDx includes bloody tap versus SAH. Suspect Acute hypoxic, hypercapnic respiratory failure, history of COPD, tobacco use Chest x-ray unremarkable No wheezing on assessment VBG with pH 7.27/pCO2 64, normalized with NIV and subsequently transition to nasal cannula No evidence of pneumonia - CPAP qHS Leukocytosis, suspected UTI With leukocytosis of 16.24, afebrile Continue Rocephin Follow UCx LP results as noted Troponin elevation Troponin peaked at 191, downtrending on recheck EKG: Quality tracing but nonspecific changes, no territorial ST/T wave changes, QT prolonged at 481 Suspect demand Echo pending #CODE STATUS/goals of care Extensive discussion with patient and her Sister Oriana regarding her course and goals of care. Has advance directive and is DNR/DNI. Wen would not want mechanical ventilation under any circumstances even for declining respiratory status. Oriana and her sister have been familiar with a PEG tube and would consider this if Wen does not recover the ability to swallow safely although are not sure that they would want to pursue this. Will think about this and follow her progression. They have met with palliative care before for other family members and are interested in meeting with palliative care while admitted. (2) CVA (cerebral vascular accident): (3) UTI (urinary tract infection): (4) NSTEMI (non-ST elevated myocardial infarction): (5) Left hemiparesis: Admission and Anticipated Discharge Date Admission Date: January 21, 2025 Subjective Wen seen at the bedside in the morning, and on reassessmentIn the early afterno on with her sister Oriana at bedside. On initial morning assessment Wen is lethargic. Opens eyes and squeezes weakly with the right hand otherwise does not follow commands. On afternoon reassessment alert and it is is improved she is aware that she is in the hospital and her name is Wen. Is not oriented to year. Limited attention and tangential. Did discuss she has a stroke to which she expressed "but I need to go to work ", and was forgetful of having had a stroke in prior conversation after only a few minutes. Does senior art director with the right hand and is able to ankle dorsiflex/plantarflex her right foot. Has minimal activation of senior art director in the left hand, no muscle activation in the left leg and does not withdraw to thumb pinch/hallux pinch on the left side. Extensive discussion with patient and her Sister Oriana regarding her course and goals of care. Wen would not want mechanical ventilation under any circumstances even for declining respiratory status. Oriana and her sister have been familiar with a PEG tube and would consider this if Wen does not recover the ability to swallow safely although are not sure that they would want to pursue this. Will think about this and follow her progression. They have met with palliative care before for other family members and are interested in meeting with palliative care while admitted. Also reviewed with neurology, suspect stroke possibly worsened by underlying pulmonary status and hypoxia. Recommend rectal aspirin daily until able to tolerate p.o. and then can switch to aspirin/Plavix at that time. Low suspicion for encephalitis/infectious etiology. Physical Exam Physical Exam: General: Oriented to name and hospital. Not oriented to year Pulm: Diminished, slight crackles in the bases. Trace end expiratory wheeze Cardiac: RRR, -mrg. Radial pulses intact and symmetrical. Neuro/extremities: Right-sided gaze deviation. Pupils equal and reactive to light bilaterally. No relative afferent defect. Patient denies diplopia. Some left field neglect, patient does not respond to confrontation stimuli in the left field but does respond in the right. Left upper extremity flaccid. Minimal activation of finger flexion otherwise no movement on command. No left lower extremity movement on command. Right-sided senior art director, elbow flexion weak but intact. Ankle dorsiflexion/plantarflexion intact in right foot. Endorses sensation is intact and withdraws to thumb pinch on the right side, does not withdraw to thumb or held strings on the left. Difficult to ascertain sensation on the left due to patient engagement and cognitive status. Results & Data Results & Data Vital Signs (Past 12 Hours) Vital Signs Temp Pulse Pulse Resp BP Pulse Ox O2 Del Method 01/22/25 08:13 Nasal Cannula 01/22/25 08:00 Nasal Cannula 01/22/25 07:24 65 01/22/25 07:21 58 L 22 94 Nasal Cannula 01/22/25 06:16 171/79 H 01/22/25 06:15 37.6 C H 62 27 H 95 01/22/25 06:00 37.6 C H 57 L 16 94 01/22/25 05:57 37.6 C H 66 26 H 94 01/22/25 05:45 169/69 H 01/22/25 05:45 169/69 H 01/22/25 05:32 63 169/68 H 01/22/25 05:31 169/68 H 01/22/25 05:27 37.7 C H 58 L 12 92 01/22/25 05:18 37.7 C H 67 16 95 01/22/25 05:16 177/95 H 01/22/25 05:16 177/95 H 01/22/25 05:16 177/95 H 01/22/25 05:15 37.7 C H 71 13 95 01/22/25 05:15 71 177/95 H 01/22/25 05:09 37.7 C H 72 15 95 01/22/25 05:00 194/68 H 01/22/25 05:00 194/68 H 01/22/25 04:48 37.7 C H 70 14 95 01/22/25 04:46 170/86 H 01/22/25 04:42 37.7 C H 66 30 H 95 01/22/25 04:39 37.7 C H 71 19 94 01/22/25 04:12 37.6 C H 64 25 H 96 01/22/25 04:01 77 152/73 H 01/22/25 03:51 37.7 C H 66 93 01/22/25 03:49 69 182/79 H 01/22/25 03:48 37.7 C H 70 95 01/22/25 03:46 182/79 H 01/22/25 03:45 37.7 C H 72 22 94 01/22/25 03:30 192/78 H 01/22/25 03:30 192/78 H 01/22/25 03:30 192/78 H 01/22/25 03:30 37.7 C H 68 96 01/22/25 03:18 37.7 C H 66 25 H 95 01/22/25 03:18 172/62 H 01/22/25 03:18 172/62 H 01/22/25 03:18 172/62 H 01/22/25 03:10 192/66 H 01/22/25 03:10 192/66 H 01/22/25 03:10 192/66 H 01/22/25 03:09 37.7 C H 72 33 H 93 01/22/25 03:01 192/68 H 01/22/25 03:01 192/68 H 01/22/25 02:54 37.8 C H 65 22 95 01/22/25 02:42 37.8 C H 78 30 H 95 01/22/25 02:31 182/70 H 01/22/25 02:09 37.8 C H 69 30 H 95 01/22/25 02:01 164/82 H 01/22/25 02:01 164/82 H 01/22/25 01:57 37.9 C H 75 32 H 97 01/22/25 01:54 37.9 C H 71 22 92 01/22/25 01:30 37.9 C H 62 21 96 01/22/25 01:15 178/66 H 01/22/25 01:03 37.9 C H 76 25 H 96 01/22/25 00:57 38.0 C H 71 26 H 96 01/22/25 00:46 166/64 H 01/22/25 00:42 37.9 C H 70 24 95 01/22/25 00:41 162/97 H 01/22/25 00:41 162/97 H 01/22/25 00:30 38.0 C H 76 27 H 94 01/22/25 00:22 159/73 H 01/22/25 00:11 148/65 H 01/22/25 00:03 37.9 C H 78 30 H 97 01/22/25 00:01 163/74 H 01/22/25 00:01 163/74 H 01/22/25 00:00 37.9 C H 82 22 96 01/22/25 00:00 73 01/21/25 23:50 183/77 H 01/21/25 23:50 183/77 H 01/21/25 23:45 37.9 C H 68 19 97 01/21/25 23:41 173/66 H 01/21/25 23:41 173/66 H O2 Flow Rate 01/22/25 08:13 2 01/22/25 08:00 01/22/25 07:24 01/22/25 07:21 2 01/22/25 06:16 01/22/25 06:15 01/22/25 06:00 01/22/25 05:57 01/22/25 05:45 01/22/25 05:45 01/22/25 05:32 01/22/25 05:31 01/22/25 05:27 01/22/25 05:18 01/22/25 05:16 01/22/25 05:16 01/22/25 05:16 01/22/25 05:15 01/22/25 05:15 01/22/25 05:09 01/22/25 05:00 01/22/25 05:00 01/22/25 04:48 01/22/25 04:46 01/22/25 04:42 01/22/25 04:39 01/22/25 04:12 01/22/25 04:01 01/22/25 03:51 01/22/25 03:49 01/22/25 03:48 01/22/25 03:46 01/22/25 03:45 01/22/25 03:30 01/22/25 03:30 01/22/25 03:30 01/22/25 03:30 01/22/25 03:18 01/22/25 03:18 01/22/25 03:18 01/22/25 03:18 01/22/25 03:10 01/22/25 03:10 01/22/25 03:10 01/22/25 03:09 01/22/25 03:01 01/22/25 03:01 01/22/25 02:54 01/22/25 02:42 01/22/25 02:31 01/22/25 02:09 01/22/25 02:01 01/22/25 02:01 01/22/25 01:57 01/22/25 01:54 01/22/25 01:30 01/22/25 01:15 01/22/25 01:03 01/22/25 00:57 01/22/25 00:46 01/22/25 00:42 01/22/25 00:41 01/22/25 00:41 01/22/25 00:30 01/22/25 00:22 01/22/25 00:11 01/22/25 00:03 01/22/25 00:01 01/22/25 00:01 01/22/25 00:00 01/22/25 00:00 01/21/25 23:50 01/21/25 23:50 01/21/25 23:45 01/21/25 23:41 01/21/25 23:41 PG Care Time/CCT Total # of Minutes Spent Total Time Spent with Patient: Total time spent is greater than 50% in coordination of care (as documented) at patient's floor/unit and/or counseling patient: Coding Level of Care Code 62276 SUB INP/OBS CARE 3/50MIN Diagnoses Seizure-like activity R56.9 CVA (cerebral vascular accident) I63.9 UTI (urinary tract infection) N39.0 NSTEMI (non-ST elevated myocardial infarction) I21.4 Left hemiparesis G81.94
[2025-01-22] MEDS: GADOBUTROL 65ML VIAL IV ONE (12:13)
--- NOTE | 2025-01-22 13:14 | Magnetic Resonance Report ---
MRI OF THE BRAIN COMBO CLINICAL HISTORY: Altered mental status. Unresponsive. COMPARISON STUDY: MRI of the brain October 31, 2009. Head CT and CTA of the head January 31, 2025. TECHNIQUE: MRI of the brain was performed utilizing various T1 and T2-weighted sequences in the axial , sagittal, and coronal planes. Contrast-enhanced sequences were acquired following the administratio n of 6 cc of Gadavist. FINDINGS: This exam is mildly compromised by artifact. A focus of encephalomalacia within the right p arietal lobe represents an old infarct. There is restricted diffusion within the right insular cortex as well as additional portions of the right temporal lobe and right parietal lobe. Corresponding hyp ointensity is noted on the ADC map. There is also apparent mild restricted diffusion within the right thalamus. The thin cut coronal T2 sequence demonstrates corresponding gyral swelling with T2 hyperin tensity. There is no mass effect. There is a punctate 3 mm T1 hyperintense focus within the right bas al ganglia on axial T1-weighted sequence image 13 of 23. No abnormal enhancement is identified. The b genesis cisterns are patent. There are no extra-axial collections. Flow-voids for the major intracranial vessels are present. White matter T2 hyperintense foci suggest small vessel disease. IMPRESSION: 1. Moderate size focus of restricted diffusion within the cortex of the right temporal and parietal l obes with corresponding hypointensity on the ADC map and gyral swelling on the coronal T2 sequence. N o significant mass effect. An acute infarct is favored. Although less likely, other etiologies such a s encephalitis cannot be completely excluded given apparent restricted diffusion within the right nilda lamus. Findings could be correlated with CSF analysis from recent lumbar puncture. 2. Punctate T1 hyperintense focus within the right basal ganglia. This is of questionable significanc e although trace hemorrhage cannot be excluded. Short-term follow-up head CT could be obtained. 3. No intracranial mass or pathologic enhancement. 4. Old right parietal lobe infarct. ACT 112: Negative or not required by law. Electronically signed by: Garrick Hernández M.D. 01/22/2025 1:12 PM
--- NOTE | 2025-01-22 21:46 | Palliative Care Consultation ---
Date of Consultation January 22, 2025 Assessment & Plan (1) Altered mental status: (2) Left hemiplegia: (3) Weakness generalized: (4) Discussion about advance care planning held with family member: A 60min face to face ACP meeting was held with Wen's sisters Cassia/JUAN and Valery at bedside. Cassia lives next door and had been the one who found Wen. She is traumatized and deeply upset. She is aware this is a signif stroke and with Wen's extensive medical hx there are now limited recovery options. 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 She was always very vocal about her wishes for advanced illness and told her entire family she would not want life support and if she couldn't get back to 'living her normal life then she wouldn't want it.' we discussed prognosis is guarded but with the left hemiplegia, it is reasonable to expect she will need supportive care and likely SNF if she cannot be home with ATC caregiver support. Sisters note they can help but not ATC and there are also 3 brothers but they would not be able to engage in personal caregiving. She would not want SNF care/LTC. There would not be meaning in her life if she was not working at the job she loved with all the s ocial engagement that comes with it.Cassia notes, Wen would not want to live at the mercy of others caring for her and she would not want pity. She was proudly, if not fiercely independent. Her freedom, her autonomy and her ability to live life on her own terms were of utmost importance. She would not want PEG, JOSEPHINE, SNF etc. they reaffirm DNR/DNI.We agreed to see how she does next 2-3 days. Cassia is POA and SDM. She tells me pt has a living will that is already scanned in [facility]. We agreed to continue current care. no aggressive or invasive interventions. if she acutely declines, move to [facility] immediately. We will plan for follow up meeting Sunday, family plans to meet tonight or tomorrow for more discussion (5) Palliative care by specialist: Introduced Palliative Medicine and explained our role in patient's care. Patient and/or family were receptive to palliative services for goals of care discussions. Reviewed we are different from hospice, a home health nurse v isiting service. Plan As above. Thank you for allowing us to participate in the ongoing care of this patient. Please page with any additional concerns. Juan Miguel Bernardo DNP Director, Palliative Medicine History of Present Illness Reason for Consultation: urgent, new stroke Attending Physician: Theo Buenrostro MD History of Present Illness Wen is a 69yo female who was found down in her home by her sister who lives next door. She was found not breathing well, and seizing. EMS called, pt brought to ED, +stroke with signif hypoxia in field SpO2 was 70s. She has known COPD, smoking related. She has bronchiectasis. 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 Brain imaging confirms large stroke right temporal and parietal regions: MRI OF THE BRAIN COMBO CLINICAL HISTORY: Altered mental status. Unresponsive. COMPARISON STUDY: MRI of the brain October 31, 2009. Head CT and CTA of the head January 31, 2025. TECHNIQUE: MRI of the brain was performed utilizing various T1 and T2-weighted sequences in the axial, sagittal, and coronal planes. Contrast-enhanced sequences were acquired following the administration of 6 cc of Gadavist. FINDINGS: This exam is mildly compromised by artifact. A focus of encephalomalacia within the right parietal lobe represents an old infarct. There is restricted diffusion within the right insular cortex as well as additional portions of the right temporal lobe and right parietal lobe. Corresponding hypointensity is noted on the ADC map. There is also apparent mild restricted diffusion within the right thalamus. The thin cut coronal T2 sequence demonstrates corresponding gyral swelling with T2 hyperintensity. There is no mass effect. There is a punctate 3 mm T1 hyperintense focus within the right basal ganglia on axial T1-weighted sequence image 13 of 23. No abnormal enhancement is identified. The basal cisterns are patent. There are no extra- axial collections. Flow-voids for the major intracranial vessels are present. White matter T2 hyperintense foci suggest small vessel disease. IMPRESSION: 1. Moderate size focus of restricted diffusion within the cortex of the right temporal and parietal lobes with corresponding hypointensity on the ADC map and gyral swelling on the coronal T2 sequence. No significant mass effect. An acute infarct is favored. Although less likely, other etiologies such as encephalitis cannot be completely excluded given apparent restricted diffusion within the right thalamus. Findings could be correlated with CSF analysis from recent lumbar puncture. 2. Punctate T1 hyperintense focus within the right basal ganglia. This is of questionable significance although trace hemorrhage cannot be excluded. Short- term follow-up head CT could be obtained. 3. No intracranial mass or pathologic enhancement. 4. Old right parietal lobe infarct. Wen is a little more alert at times today but drifts off quickly. Sisters x2 at bedside. There are also 3 brothers. Her sister Oriana Noguera is SDM/POA Pt has a very clear advance directive - no CPR, no JOSPEHINE, no escalation/aggressive care, no feeding tubes, no SNF , no living in a dependent way is acceptable Allergies Allergy/AdvReac Type Severity Reaction Status Date / Time No Known Allergies Allergy Unknown Verified 01/21/25 14:17 Home Medications Medication Instructions Recorded Confirmed Type aspirin 81 mg tablet,delayed 81 mg PO UD 02/07/19 01/21/25 History release cholecalciferol (vitamin D3) 125 5,000 unit PO QAM 02/07/19 01/21/25 History mcg (5,000 unit) tablet (Vitamin D3) Portable Oxygen #1 ea 02/15/24 11/11/24 Rx albuterol sulfate 90 mcg/actuation 2 inh inhalation QID PRN Shortness 02/15/24 01/21/25 Rx aerosol inhaler (Ventolin HFA) Of Breath #8.5 grams Flutter Valve #1 ea 08/14/24 11/11/24 Rx fluticasone fur. 100 mcg-umeclid 1 inh inhalation DAILY #28 ea 08/14/24 01/21/25 Rx 62.5 mcg-vilant 25 mcg inhalat.powder (Trelegy Ellipta) guaifenesin 600 mg tablet, 600 mg PO BID PRN congestion #60 08/14/24 01/21/25 Rx extended release 12 hr (Mucinex) tabs atorvastatin 10 mg tablet 10 mg PO HS #90 tabs 09/10/24 01/21/25 Rx allopurinol 100 mg tablet 100 mg PO DAILY #90 tabs 09/22/24 01/21/25 Rx hydrochlorothiazide 12.5 mg tablet 12.5 mg PO QAM #90 tabs 09/22/24 01/21/25 Rx omeprazole 20 mg capsule,delayed 20 mg PO QAM #90 caps 09/22/24 01/21/25 Rx release Patient History Medical History CHET (acute kidney injury) Vitamin D deficiency History of angiography 05/12/22 @ [facility] Dr. Rosario History of COVID-19 07/25/22 PCR @ [facility] (tested for procedure)--asymptomatic--no symptoms now History of colon polyps Tubular adenoma of colon removed Carotid bruit < 50% stenosis ICAs bilat 06/2021 doppler GERD (gastroesophageal reflux disease) Hypertension controlled, stable per pt Hyperlipidemia Surgical History Hx of vascular surgery History of bilateral tubal ligation History of appendectomy History of colonoscopy last 02/2022, repeat 10 yrs History of tooth extraction History of wisdom tooth extraction Family History Sister Colonic polyp Mother Lung cancer, Onset Age: 82 Father No problems noted. Other No family history of adverse response to anesthesia Denies family history of Ovarian cancer Prostate cancer Myocardial infarction Breast cancer Colorectal cancer Social History Smoking Status: Current every day smoker Tobacco Type: Cigarettes Age Started Using Tobacco: 16; packs per day: 0.5; Cigarettes Per Day: 8; Second Hand Exposure: No; Do You Dip or Chew Tobacco: No; Hx Alcohol Use: Yes Alcohol type: beer Alcohol Intake Frequency: Monthly or Less Alcohol Intake Frequency Comment: social gatherings Hx Substance Use: No Preferred Language: Icelandic Communication Ability: Effective Visual Impairment: Limited Hearing Ability: Normal Word Processing Supervisor Required: No Beliefs That Will Affect Care: None marital status: Single Current Living Situation: Alone current occupational status: retired How many Children do You have: 2 Other Information That Helps Us Care for You: No Feels Safe at Home: Yes Safety Concerns: Feels Safe At This Time Childhood Exposure to Second-Hand Smoke: Yes Diet: regular caffeine: Yes (coffee and soda ) Dental Care, Regularly: No Physical Activity Frequency: Daily Seatbelt Use: always Sunscreen Use: No (not out in sun very often) Assistive Devices: None and Oxygen - Continuous Review of Systems Review of Systems: Unobtainable due to cognitive status Physical Exam Constitutional: + ill appearing, + thin, + altered menta l status, + frail appearing and + lethargic Eyes: + eyes dysmorphic and + anicteric sclera e ENMT: Mouth: + dry oral mucous membranes and + dental restorations Neck: normal visual inspection and trachea midline Respiratory: + uses accessory muscles, + cough (rattl ing) and symmetric chest movement Cardiovascular: Rate/Rhythm: + tachycardic and + irregularly irregular Heart Sounds: + murmur (heard best at RUSB) Gastrointestinal (Abdomen): Inspection/Auscultation: normal bowel sounds Musculoskeletal: Head/Neck/Chest: head atraumatic Skin: + turgor decreased, + dry skin and + pal tamera Neurologic: Speech / Cognition: + abnormal speech and + abnormal cognition Results & Data Vital Signs (Past 12 Hours) Vital Signs Temp Pulse Resp BP Pulse Ox 01/22/25 18:39 37.7 C H 70 26 H 97 01/22/25 18:30 177/65 H 01/22/25 18:24 59 L 21 98 01/22/25 18:21 58 L 23 97 01/22/25 18:00 184/73 H 01/22/25 17:57 55 L 25 H 98 01/22/25 17:42 55 L 23 97 01/22/25 17:30 37.6 C H 184/77 H 01/22/25 17:01 173/62 H 01/22/25 16:31 176/75 H 01/22/25 16:30 58 L 19 98 01/22/25 16:00 63 18 98 01/22/25 16:00 183/74 H 01/22/25 16:00 58 L 01/22/25 15:30 67 20 95 01/22/25 15:30 181/62 H 01/22/25 15:01 171/63 H 01/22/25 15:00 77 18 90 01/22/25 14:39 68 24 96 01/22/25 14:37 185/70 H 01/22/25 14:30 60 18 97 01/22/25 14:03 58 L 26 H 96 01/22/25 13:00 56 L 20 99 01/22/25 12:21 60 22 98 01/22/25 11:06 37.7 C H 70 92 01/22/25 11:01 177/89 H 01/22/25 10:45 37.6 C H 69 92 01/22/25 10:31 185/76 H 01/22/25 10:30 37.6 C H 73 94 01/22/25 10:00 37.6 C H 59 L 94 01/22/25 10:00 194/77 H Laboratory Results 01/22/25 01/22/25 01/22/25 Range/Units 18:20 14:46 08:54 WBC (4.8-10.8) K/ul RBC (4.20-5.40) M/uL Hgb (12.0-16.0) g/dl Hct (37.0-47.0) % MCV (80.0-100.0) fL MCH (25.0-34.0) pg MCHC (32.0-36.0) g/dL RDW Std Deviation (36.4-46.3) fL RDW Coeff of Rosemarie (11.5-14.5) % Plt Count (130-400) K/uL MPV (9.4-12.4) fL Immature Gran % (Auto) % Neut % (Auto) % Lymph % (Auto) % Mclean % (Auto) % Eos % (Auto) % Baso % (Auto) % Neut # (Auto) (1.40-6.50) K/uL Lymph # (Auto) (1.20-3.40) K/uL Mclean # (Auto) (0.11-0.59) K/uL Eos # (Auto) (0.00-0.50) K/uL Baso # (Auto) (0.00-0.20) K/uL Immature Gran # (Auto) (0.01-0.20) K/uL PT (9.0-12.0) Seconds INR (0.9-1.1) APTT (21-31) Seconds PTT Ratio VBG pH (7.36-7.41) VBG pCO2 (38-50) mmHg VBG pO2 mmHg VBG HCO3 mmol/L VBG O2 Saturation % VBG Base Excess mEq/L Sodium (136-145) mmol/L Potassium (3.5-5.1) mmol/L Chloride (98-107) mmol/L Carbon Dioxide (21-32) mmol/L Anion Gap (3-11) BUN (6-23) mg/dl Creatinine (0.6-1.2) mg/dl Est Cr Clr Drug Dosing ml/min eGFR BUN/Creatinine Ratio (10-20) Glucose (70-99(Fasting)) mg/dl POC Glucose 116 H 131 H (70-99) mg/dl Estimat Average Glucose mg/dl Hemoglobin A1c (4.5-5.6) % Lactate (0.4-2.0) mmol/L Calcium (8.6-10.3) mg/dl Phosphorus (2.5-4.9) mg/dl Magnesium (1.7-2.4) mg/dl Total Bilirubin (0.2-1.0) mg/dl AST (13-39) U/L ALT (7-52) U/L Alkaline Phosphatase (34-104) U/L Ammonia 33.0 (18-72) umol/L Total Creatine Kinase (26-192) U/L Troponin I High Sens (0-14) pg/ml Total Protein (6.0-8.3) gm/dl Albumin (3.4-5.0) gm/dl Globulin (2.5-4.0) gm/dl Albumin/Globulin Ratio (0.9-2) Triglycerides (0-150) mg/dl Cholesterol (0-200) mg/dl LDL Cholesterol, Calc mg/dl VLDL Cholesterol, Calc (0-30) mg/dl HDL Cholesterol mg/dl Cholesterol/HDL Ratio (0-5) Procalcitonin (0-0.5) ng/ml TSH 1.059 (0.300-4.500) uIu/ml Urine Color Urine Appearance (Clear) Urine pH (4.5-7.5) Ur Specific Baden (1.000-1.030) Urine Protein (Negative) Urine Glucose (UA) (Negative) Urine Ketones (Negative) Urine Blood (Negative) Urine Nitrite (Negative) Urine Bilirubin (Negative) Urine Urobilinogen (Negative) Ur Leukocyte Esterase (Negative) Urine WBC (Auto) (0-5) /hpf Urine RBC (Auto) (0-2) /hpf U Hyaline Cast (Auto) (0-2) /lpf U Epithel Cells (Auto) (0-2) /hpf Urine Bacteria (Auto) (None Seen) Urine Yeast (None Prsent) Fluid Comment CSF Appearance CSF Color Xanthrochromic CSF WBC (0-5) CSF RBC (0) CSF Cell Count Tube # CSF Chemistry Tube # CSF Glucose (40-70) mg/dl CSF Lactate CSF Total Protein (15-45) mg/dl CSF C.neoform/gat PCR (NotDetected) CSF CMV DNA (PCR) (NotDetected) CSF Enterovirus (PCR) (NotDetected) CSF E. coli K1 (PCR) (NotDetected) CSF H. influenzae (PCR) (NotDetected) CSF HSV I (PCR) (NotDetected) CSF HSV II (PCR) (NotDetected) CSF HHV 6 (PCR) (NotDetected) CSF L.monocytogenes PCR (NotDetected) CSF N. meningitidis PCR (NotDetected) CSF Parechovirus (PCR) (NotDetected) CSF S. agalactiae (PCR) (NotDetected) CSF S. pneumoniae (PCR) (NotDetected) CSF VZV DNA (PCR) (NotDetected) Nasal Screen MRSA (PCR) (Negative) Adenovirus (PCR) (NotDetected) B. pertussis DNA (PCR) (NotDetected) B.parapertussis DNA PCR (NotDetected) C. pneumoniae DNA (PCR) (NotDetected) Coronavirus OC43 (PCR) (NotDetected) Coronavirus HKU1 (PCR) (NotDetected) Coronavirus 229E (PCR) (NotDetected) SARS-CoV-2 (PCR) (NotDetected) Coronavirus NL63 (PCR) (NotDetected) Human Metapneumovir PCR (NotDetected) Influenza Type A (PCR) (NotDetected) Influenza Type B (PCR) (NotDetected) M. pneumoniae (PCR) (NotDetected) Parainfluenza 1 (PCR) (NotDetected) Parainfluenza 2 (PCR) (NotDetected) Parainfluenza 3 (PCR) (NotDetected) Parainfluenza 4 (PCR) (NotDetected) RSV (PCR) (NotDetected) Entero/Rhino (PCR) (NotDetected) Blood Type Antibody Screen 04/10/25 04/10/25 04/09/25 Range/Units 04:50 00:19 Unknown WBC 18.98 H (4.8-10.8) K/ul RBC 4.73 (4.20-5.40) M/uL Hgb 13.8 (12.0-16.0) g/dl Hct 42.1 (37.0-47.0) % MCV 89.0 (80.0-100.0) fL MCH 29.2 (25.0-34.0) pg MCHC 32.8 (32.0-36.0) g/dL RDW Std Deviation 43.3 (36.4-46.3) fL RDW Coeff of Rosemarie 13.2 (11.5-14.5) % Plt Count 182 (130-400) K/uL MPV 11.1 (9.4-12.4) fL Immature Gran % (Auto) 0.5 % Neut % (Auto) 77.4 % Lymph % (Auto) 13.6 % Mclean % (Auto) 8.3 % Eos % (Auto) 0.0 % Baso % (Auto) 0.2 % Neut # (Auto) 14.68 H (1.40-6.50) K/uL Lymph # (Auto) 2.59 (1.20-3.40) K/uL Mclean # (Auto) 1.58 H (0.11-0.59) K/uL Eos # (Auto) 0.00 (0.00-0.50) K/uL Baso # (Auto) 0.03 (0.00-0.20) K/uL Immature Gran # (Auto) 0.10 (0.01-0.20) K/uL PT (9.0-12.0) Seconds INR (0.9-1.1) APTT (21-31) Seconds PTT Ratio VBG pH 7.40 (7.36-7.41) VBG pCO2 47 (38-50) mmHg VBG pO2 29 mmHg VBG HCO3 29 mmol/L VBG O2 Saturation < 60.0 % VBG Base Excess 3.5 mEq/L Sodium 142 (136-145) mmol/L Potassium 3.6 (3.5-5.1) mmol/L Chloride 101 (98-107) mmol/L Carbon Dioxide 32 (21-32) mmol/L Anion Gap 9 (3-11) BUN 14 (6-23) mg/dl Creatinine 0.95 (0.6-1.2) mg/dl Est Cr Clr Drug Dosing 48.9 ml/min eGFR 65.26 BUN/Creatinine Ratio 14.7 (10-20) Glucose 120 H 116 H (70-99(Fasting)) mg/dl POC Glucose (70-99) mg/dl Estimat Average Glucose 91 mg/dl Hemoglobin A1c 4.8 (4.5-5.6) % Lactate (0.4-2.0) mmol/L Calcium 9.9 (8.6-10.3) mg/dl Phosphorus 3.8 (2.5-4.9) mg/dl Magnesium 2.3 (1.7-2.4) mg/dl Total Bilirubin (0.2-1.0) mg/dl AST (13-39) U/L ALT (7-52) U/L Alkaline Phosphatase (34-104) U/L Ammonia (18-72) umol/L Total Creatine Kinase (26-192) U/L Troponin I High Sens 144.5 H* D 191.4 H* D (0-14) pg/ml Total Protein (6.0-8.3) gm/dl Albumin (3.4-5.0) gm/dl Globulin (2.5-4.0) gm/dl Albumin/Globulin Ratio (0.9-2) Triglycerides 151 H (0-150) mg/dl Cholesterol 150 (0-200) mg/dl LDL Cholesterol, Calc 75 mg/dl VLDL Cholesterol, Calc 30 (0-30) mg/dl HDL Cholesterol 45 mg/dl Cholesterol/HDL Ratio 3.3 (0-5) Procalcitonin (0-0.5) ng/ml TSH (0.300-4.500) uIu/ml Urine Color Urine Appearance (Clear) Urine pH (4.5-7.5) Ur Specific Baden (1.000-1.030) Urine Protein (Negative) Urine Glucose (UA) (Negative) Urine Ketones (Negative) Urine Blood (Negative) Urine Nitrite (Negative) Urine Bilirubin (Negative) Urine Urobilinogen (Negative) Ur Leukocyte Esterase (Negative) Urine WBC (Auto) (0-5) /hpf Urine RBC (Auto) (0-2) /hpf U Hyaline Cast (Auto) (0-2) /lpf U Epithel Cells (Auto) (0-2) /hpf Urine Bacteria (Auto) (None Seen) Urine Yeast (None Prsent) Fluid Comment CSF Appearance CSF Color Xanthrochromic CSF WBC (0-5) CSF RBC (0) CSF Cell Count Tube # CSF Chemistry Tube # CSF Glucose (40-70) mg/dl CSF Lactate CSF Total Protein (15-45) mg/dl CSF C.neoform/gat PCR (NotDetected) CSF CMV DNA (PCR) (NotDetected) CSF Enterovirus (PCR) (NotDetected) CSF E. coli K1 (PCR) (NotDetected) CSF H. influenzae (PCR) (NotDetected) CSF HSV I (PCR) (NotDetected) CSF HSV II (PCR) (NotDetected) CSF HHV 6 (PCR) (NotDetected) CSF L.monocytogenes PCR (NotDetected) CSF N. meningitidis PCR (NotDetected) CSF Parechovirus (PCR) (NotDetected) CSF S. agalactiae (PCR) (NotDetected) CSF S. pneumoniae (PCR) (NotDetected) CSF VZV DNA (PCR) (NotDetected) Nasal Screen MRSA (PCR) Negative (Negative) Adenovirus (PCR) (NotDetected) B. pertussis DNA (PCR) (NotDetected) B.parapertussis DNA PCR (NotDetected) C. pneumoniae DNA (PCR) (NotDetected) Coronavirus OC43 (PCR) (NotDetected) Coronavirus HKU1 (PCR) (NotDetected) Coronavirus 229E (PCR) (NotDetected) SARS-CoV-2 (PCR) (NotDetected) Coronavirus NL63 (PCR) (NotDetected) Human Metapneumovir PCR (NotDetected) Influenza Type A (PCR) (NotDetected) Influenza Type B (PCR) (NotDetected) M. pneumoniae (PCR) (NotDetected) Parainfluenza 1 (PCR) (NotDetected) Parainfluenza 2 (PCR) (NotDetected) Parainfluenza 3 (PCR) (NotDetected) Parainfluenza 4 (PCR) (NotDetected) RSV (PCR) (NotDetected) Entero/Rhino (PCR) (NotDetected) Blood Type Antibody Screen 01/21/25 01/21/25 01/21/25 Range/Units 23:27 23:20 21:47 WBC (4.8-10.8) K/ul RBC (4.20-5.40) M/uL Hgb (12.0-16.0) g/dl Hct (37.0-47.0) % MCV (80.0-100.0) fL MCH (25.0-34.0) pg MCHC (32.0-36.0) g/dL RDW Std Deviation (36.4-46.3) fL RDW Coeff of Rosemarie (11.5-14.5) % Plt Count (130-400) K/uL MPV (9.4-12.4) fL Immature Gran % (Auto) % Neut % (Auto) % Lymph % (Auto) % Mclean % (Auto) % Eos % (Auto) % Baso % (Auto) % Neut # (Auto) (1.40-6.50) K/uL Lymph # (Auto) (1.20-3.40) K/uL Mclean # (Auto) (0.11-0.59) K/uL Eos # (Auto) (0.00-0.50) K/uL Baso # (Auto) (0.00-0.20) K/uL Immature Gran # (Auto) (0.01-0.20) K/uL PT (9.0-12.0) Seconds INR (0.9-1.1) APTT (21-31) Seconds PTT Ratio VBG pH (7.36-7.41) VBG pCO2 (38-50) mmHg VBG pO2 mmHg VBG HCO3 mmol/L VBG O2 Saturation % VBG Base Excess mEq/L Sodium (136-145) mmol/L Potassium (3.5-5.1) mmol/L Chloride (98-107) mmol/L Carbon Dioxide (21-32) mmol/L Anion Gap (3-11) BUN (6-23) mg/dl Creatinine (0.6-1.2) mg/dl Est Cr Clr Drug Dosing ml/min eGFR BUN/Creatinine Ratio (10-20) Glucose (70-99(Fasting)) mg/dl POC Glucose 128 H 130 H (70-99) mg/dl Estimat Average Glucose mg/dl Hemoglobin A1c (4.5-5.6) % Lactate (0.4-2.0) mmol/L Calcium (8.6-10.3) mg/dl Phosphorus (2.5-4.9) mg/dl Magnesium (1.7-2.4) mg/dl Total Bilirubin (0.2-1.0) mg/dl AST (13-39) U/L ALT (7-52) U/L Alkaline Phosphatase (34-104) U/L Ammonia (18-72) umol/L Total Creatine Kinase (26-192) U/L Troponin I High Sens (0-14) pg/ml Total Protein (6.0-8.3) gm/dl Albumin (3.4-5.0) gm/dl Globulin (2.5-4.0) gm/dl Albumin/Globulin Ratio (0.9-2) Triglycerides (0-150) mg/dl Cholesterol (0-200) mg/dl LDL Cholesterol, Calc mg/dl VLDL Cholesterol, Calc (0-30) mg/dl HDL Cholesterol mg/dl Cholesterol/HDL Ratio (0-5) Procalcitonin (0-0.5) ng/ml TSH (0.300-4.500) uIu/ml Urine Color Urine Appearance (Clear) Urine pH (4.5-7.5) Ur Specific Baden (1.000-1.030) Urine Protein (Negative) Urine Glucose (UA) (Negative) Urine Ketones (Negative) Urine Blood (Negative) Urine Nitrite (Negative) Urine Bilirubin (Negative) Urine Urobilinogen (Negative) Ur Leukocyte Esterase (Negative) Urine WBC (Auto) (0-5) /hpf Urine RBC (Auto) (0-2) /hpf U Hyaline Cast (Auto) (0-2) /lpf U Epithel Cells (Auto) (0-2) /hpf Urine Bacteria (Auto) (None Seen) Urine Yeast (None Prsent) Fluid Comment CSF Appearance Slightly Hazy CSF Color Colorless Xanthrochromic No xanthochromia CSF WBC 1 (0-5) CSF RBC 1250 (0) CSF Cell Count Tube # 3 CSF Chemistry Tube # 1 CSF Glucose 80 H (40-70) mg/dl CSF Lactate Pending CSF Total Protein 59.6 H (15-45) mg/dl CSF C.neoform/gat PCR Not Detected (NotDetected) CSF CMV DNA (PCR) Not Detected (NotDetected) CSF Enterovirus (PCR) Not Detected (NotDetected) CSF E. coli K1 (PCR) Not Detected (NotDetected) CSF H. influenzae (PCR) Not Detected (NotDetected) CSF HSV I (PCR) Not Detected (NotDetected) CSF HSV II (PCR) Not Detected (NotDetected) CSF HHV 6 (PCR) Not Detected (NotDetected) CSF L.monocytogenes PCR Not Detected (NotDetected) CSF N. meningitidis PCR Not Detected (NotDetected) CSF Parechovirus (PCR) Not Detected (NotDetected) CSF S. agalactiae (PCR) Not Detected (NotDetected) CSF S. pneumoniae (PCR) Not Detected (NotDetected) CSF VZV DNA (PCR) Not Detected (NotDetected) Nasal Screen MRSA (PCR) (Negative) Adenovirus (PCR) (NotDetected) B. pertussis DNA (PCR) (NotDetected) B.parapertussis DNA PCR (NotDetected) C. pneumoniae DNA (PCR) (NotDetected) Coronavirus OC43 (PCR) (NotDetected) Coronavirus HKU1 (PCR) (NotDetected) Coronavirus 229E (PCR) (NotDetected) SARS-CoV-2 (PCR) (NotDetected) Coronavirus NL63 (PCR) (NotDetected) Human Metapneumovir PCR (NotDetected) Influenza Type A (PCR) (NotDetected) Influenza Type B (PCR) (NotDetected) M. pneumoniae (PCR) (NotDetected) Parainfluenza 1 (PCR) (NotDetected) Parainfluenza 2 (PCR) (NotDetected) Parainfluenza 3 (PCR) (NotDetected) Parainfluenza 4 (PCR) (NotDetected) RSV (PCR) (NotDetected) Entero/Rhino (PCR) (NotDetected) Blood Type Antibody Screen 01/21/25 01/21/25 01/21/25 Range/Units 20:00 17:49 14:51 WBC 16.24 H (4.8-10.8) K/ul RBC 4.89 (4.20-5.40) M/uL Hgb 14.2 (12.0-16.0) g/dl Hct 44.0 (37.0-47.0) % MCV 90.0 (80.0-100.0) fL MCH 29.0 (25.0-34.0) pg MCHC 32.3 (32.0-36.0) g/dL RDW Std Deviation 44.0 (36.4-46.3) fL RDW Coeff of Rosemarie 13.2 (11.5-14.5) % Plt Count 181 (130-400) K/uL MPV 11.0 (9.4-12.4) fL Immature Gran % (Auto) 0.4 % Neut % (Auto) 91.0 % Lymph % (Auto) 5.0 % Mclean % (Auto) 3.5 % Eos % (Auto) 0.0 % Baso % (Auto) 0.1 % Neut # (Auto) 14.78 H (1.40-6.50) K/uL Lymph # (Auto) 0.81 L (1.20-3.40) K/uL Mclean # (Auto) 0.57 (0.11-0.59) K/uL Eos # (Auto) 0.00 (0.00-0.50) K/uL Baso # (Auto) 0.02 (0.00-0.20) K/uL Immature Gran # (Auto) 0.06 (0.01-0.20) K/uL PT 10.9 (9.0-12.0) Seconds INR 1.0 (0.9-1.1) APTT 22 (21-31) Seconds PTT Ratio 0.8 VBG pH 7.27 L 7.26 L (7.36-7.41) VBG pCO2 64 H 59 H (38-50) mmHg VBG pO2 67 43 mmHg VBG HCO3 29 27 mmol/L VBG O2 Saturation 92.8 67.6 % VBG Base Excess 0.9 -1.7 mEq/L Sodium 139 (136-145) mmol/L Potassium 3.8 (3.5-5.1) mmol/L Chloride 101 (98-107) mmol/L Carbon Dioxide 28 (21-32) mmol/L Anion Gap 10 (3-11) BUN 11 (6-23) mg/dl Creatinine 1.00 (0.6-1.2) mg/dl Est Cr Clr Drug Dosing 50.9 ml/min eGFR 61.36 BUN/Creatinine Ratio 11.0 (10-20) Glucose 111 H (70-99(Fasting)) mg/dl POC Glucose (70-99) mg/dl Estimat Average Glucose mg/dl Hemoglobin A1c (4.5-5.6) % Lactate 1.3 4.7 H* (0.4-2.0) mmol/L Calcium 9.7 (8.6-10.3) mg/dl Phosphorus (2.5-4.9) mg/dl Magnesium 1.7 (1.7-2.4) mg/dl Total Bilirubin 0.5 (0.2-1.0) mg/dl AST 18 (13-39) U/L ALT 8 (7-52) U/L Alkaline Phosphatase 115 H (34-104) U/L Ammonia (18-72) umol/L Total Creatine Kinase 231 H (26-192) U/L Troponin I High Sens 132.5 H* D 39.6 H (0-14) pg/ml Total Protein 7.0 (6.0-8.3) gm/dl Albumin 3.9 (3.4-5.0) gm/dl Globulin 3.1 (2.5-4.0) gm/dl Albumin/Globulin Ratio 1.3 (0.9-2) Triglycerides (0-150) mg/dl Cholesterol (0-200) mg/dl LDL Cholesterol, Calc mg/dl VLDL Cholesterol, Calc (0-30) mg/dl HDL Cholesterol mg/dl Cholesterol/HDL Ratio (0-5) Procalcitonin 0.02 (0-0.5) ng/ml TSH (0.300-4.500) uIu/ml Urine Color Yellow Urine Appearance Cloudy A (Clear) Urine pH 6.0 (4.5-7.5) Ur Specific Baden 1.033 H (1.000-1.030) Urine Protein 3+ H (Negative) Urine Glucose (UA) Negative (Negative) Urine Ketones Negative (Negative) Urine Blood 2+ H (Negative) Urine Nitrite Negative (Negative) Urine Bilirubin Negative (Negative) Urine Urobilinogen Negative (Negative) Ur Leukocyte Esterase 2+ H (Negative) Urine WBC (Auto) >50 H (0-5) /hpf Urine RBC (Auto) 3-5 H (0-2) /hpf U Hyaline Cast (Auto) 0-2 (0-2) /lpf U Epithel Cells (Auto) 0-2 (0-2) /hpf Urine Bacteria (Auto) 4+ H (None Seen) Urine Yeast Present A (None Prsent) Fluid Comment CSF Appearance CSF Color Xanthrochromic CSF WBC (0-5) CSF RBC (0) CSF Cell Count Tube # CSF Chemistry Tube # CSF Glucose (40-70) mg/dl CSF Lactate CSF Total Protein (15-45) mg/dl CSF C.neoform/gat PCR (NotDetected) CSF CMV DNA (PCR) (NotDetected) CSF Enterovirus (PCR) (NotDetected) CSF E. coli K1 (PCR) (NotDetected) CSF H. influenzae (PCR) (NotDetected) CSF HSV I (PCR) (NotDetected) CSF HSV II (PCR) (NotDetected) CSF HHV 6 (PCR) (NotDetected) CSF L.monocytogenes PCR (NotDetected) CSF N. meningitidis PCR (NotDetected) CSF Parechovirus (PCR) (NotDetected) CSF S. agalactiae (PCR) (NotDetected) CSF S. pneumoniae (PCR) (NotDetected) CSF VZV DNA (PCR) (NotDetected) Nasal Screen MRSA (PCR) (Negative) Adenovirus (PCR) (NotDetected) B. pertussis DNA (PCR) (NotDetected) B.parapertussis DNA PCR (NotDetected) C. pneumoniae DNA (PCR) (NotDetected) Coronavirus OC43 (PCR) (NotDetected) Coronavirus HKU1 (PCR) (NotDetected) Coronavirus 229E (PCR) (NotDetected) SARS-CoV-2 (PCR) (NotDetected) Coronavirus NL63 (PCR) (NotDetected) Human Metapneumovir PCR (NotDetected) Influenza Type A (PCR) (NotDetected) Influenza Type B (PCR) (NotDetected) M. pneumoniae (PCR) (NotDetected) Parainfluenza 1 (PCR) (NotDetected) Parainfluenza 2 (PCR) (NotDetected) Parainfluenza 3 (PCR) (NotDetected) Parainfluenza 4 (PCR) (NotDetected) RSV (PCR) (NotDetected) Entero/Rhino (PCR) (NotDetected) Blood Type B Positive Antibody Screen NEGATIVE 01/21/25 Range/Units 14:50 WBC (4.8-10.8) K/ul RBC (4.20-5.40) M/uL Hgb (12.0-16.0) g/dl Hct (37.0-47.0) % MCV (80.0-100.0) fL MCH (25.0-34.0) pg MCHC (32.0-36.0) g/dL RDW Std Deviation (36.4-46.3) fL RDW Coeff of Rosemarie (11.5-14.5) % Plt Count (130-400) K/uL MPV (9.4-12.4) fL Immature Gran % (Auto) % Neut % (Auto) % Lymph % (Auto) % Mclean % (Auto) % Eos % (Auto) % Baso % (Auto) % Neut # (Auto) (1.40-6.50) K/uL Lymph # (Auto) (1.20-3.40) K/uL Mclean # (Auto) (0.11-0.59) K/uL Eos # (Auto) (0.00-0.50) K/uL Baso # (Auto) (0.00-0.20) K/uL Immature Gran # (Auto) (0.01-0.20) K/uL PT (9.0-12.0) Seconds INR (0.9-1.1) APTT (21-31) Seconds PTT Ratio VBG pH (7.36-7.41) VBG pCO2 (38-50) mmHg VBG pO2 mmHg VBG HCO3 mmol/L VBG O2 Saturation % VBG Base Excess mEq/L Sodium (136-145) mmol/L Potassium (3.5-5.1) mmol/L Chloride (98-107) mmol/L Carbon Dioxide (21-32) mmol/L Anion Gap (3-11) BUN (6-23) mg/dl Creatinine (0.6-1.2) mg/dl Est Cr Clr Drug Dosing ml/min eGFR BUN/Creatinine Ratio (10-20) Glucose (70-99(Fasting)) mg/dl POC Glucose (70-99) mg/dl Estimat Average Glucose mg/dl Hemoglobin A1c (4.5-5.6) % Lactate (0.4-2.0) mmol/L Calcium (8.6-10.3) mg/dl Phosphorus (2.5-4.9) mg/dl Magnesium (1.7-2.4) mg/dl Total Bilirubin (0.2-1.0) mg/dl AST (13-39) U/L ALT (7-52) U/L Alkaline Phosphatase (34-104) U/L Ammonia (18-72) umol/L Total Creatine Kinase (26-192) U/L Troponin I High Sens (0-14) pg/ml Total Protein (6.0-8.3) gm/dl Albumin (3.4-5.0) gm/dl Globulin (2.5-4.0) gm/dl Albumin/Globulin Ratio (0.9-2) Triglycerides (0-150) mg/dl Cholesterol (0-200) mg/dl LDL Cholesterol, Calc mg/dl VLDL Cholesterol, Calc (0-30) mg/dl HDL Cholesterol mg/dl Cholesterol/HDL Ratio (0-5) Procalcitonin (0-0.5) ng/ml TSH (0.300-4.500) uIu/ml Urine Color Urine Appearance (Clear) Urine pH (4.5-7.5) Ur Specific Baden (1.000-1.030) Urine Protein (Negative) Urine Glucose (UA) (Negative) Urine Ketones (Negative) Urine Blood (Negative) Urine Nitrite (Negative) Urine Bilirubin (Negative) Urine Urobilinogen (Negative) Ur Leukocyte Esterase (Negative) Urine WBC (Auto) (0-5) /hpf Urine RBC (Auto) (0-2) /hpf U Hyaline Cast (Auto) (0-2) /lpf U Epithel Cells (Auto) (0-2) /hpf Urine Bacteria (Auto) (None Seen) Urine Yeast (None Prsent) Fluid Comment CSF Appearance CSF Color Xanthrochromic CSF WBC (0-5) CSF RBC (0) CSF Cell Count Tube # CSF Chemistry Tube # CSF Glucose (40-70) mg/dl CSF Lactate CSF Total Protein (15-45) mg/dl CSF C.neoform/gat PCR (NotDetected) CSF CMV DNA (PCR) (NotDetected) CSF Enterovirus (PCR) (NotDetected) CSF E. coli K1 (PCR) (NotDetected) CSF H. influenzae (PCR) (NotDetected) CSF HSV I (PCR) (NotDetected) CSF HSV II (PCR) (NotDetected) CSF HHV 6 (PCR) (NotDetected) CSF L.monocytogenes PCR (NotDetected) CSF N. meningitidis PCR (NotDetected) CSF Parechovirus (PCR) (NotDetected) CSF S. agalactiae (PCR) (NotDetected) CSF S. pneumoniae (PCR) (NotDetected) CSF VZV DNA (PCR) (NotDetected) Nasal Screen MRSA (PCR) (Negative) Adenovirus (PCR) Not Detected (NotDetected) B. pertussis DNA (PCR) Not Detected (NotDetected) B.parapertussis DNA PCR Not Detected (NotDetected) C. pneumoniae DNA (PCR) Not Detected (NotDetected) Coronavirus OC43 (PCR) Not Detected (NotDetected) Coronavirus HKU1 (PCR) Not Detected (NotDetected) Coronavirus 229E (PCR) Not Detected (NotDetected) SARS-CoV-2 (PCR) Not Detected (NotDetected) Coronavirus NL63 (PCR) Not Detected (NotDetected) Human Metapneumovir PCR Not Detected (NotDetected) Influenza Type A (PCR) Not Detected (NotDetected) Influenza Type B (PCR) Not Detected (NotDetected) M. pneumoniae (PCR) Not Detected (NotDetected) Parainfluenza 1 (PCR) Not Detected (NotDetected) Parainfluenza 2 (PCR) Not Detected (NotDetected) Parainfluenza 3 (PCR) Not Detected (NotDetected) Parainfluenza 4 (PCR) Not Detected (NotDetected) RSV (PCR) Not Detected (NotDetected) Entero/Rhino (PCR) Not Detected (NotDetected) Blood Type Antibody Screen Diagnostic Findings Chest X-Ray 01/21/25 00:00 XR chest 1V portable CLINICAL HISTORY: neuro deficit, acute stroke suspected COMPARISON STUDY: 02/06/2024 FINDINGS: Single view portable chest demonstrates no significant interval change allowing for technical differences. There is no focal airspace opacity or pleural effusion. There is no pneumothorax. The heart and pulmonary vascularity are unremarkable. IMPRESSION: Stable exam; no acute process ACT 112: Negative or not required by law. Electronically signed by: Arielle Johnson M.D. 01/21/2025 3:[address] 01/21/25 14:20 CT head/brain wo con CLINICAL HISTORY: Stroke alert. TECHNIQUE: Multiple axial CT images of the head were obtained without contrast. Sagittal and coronal reconstructions were done. A dose lowering technique was utilized adhering to the principles of ALARA. CT DOSE: 547.75 mGy.cm COMPARISON: None FINDINGS: There is no intra-axial or extra-axial fluid collection, hemorrhage, or mass. There is an area of encephalomalacia in the right posterior parietal lobe without mass effect. It has appearance of an old stroke. The ventricles and sulci are age-appropriate with no midline shift. The bone windows are negative. IMPRESSION: Right posterior parietal lobe encephalomalacia having the appearance of an old or late subacute stroke due to the lack of any surrounding edema or mass effect. This could be confirmed with an MRI in the appropriate clinical content. No evidence of hemorrhage. ACT 112: Negative or not required by law. The above report was generated using voice recognition software. It may contain grammatical, syntax or spelling errors. Electronically signed by: Arielle Johnson M.D. 01/21/2025 2:33 PM Head CTA 01/21/25 14:21 CTA ANGIOGRAPHY OF THE HEAD CLINICAL HISTORY: neuro deficit, acute stroke suspected. Syncope. COMPARISON STUDY: MRI of the brain October 31, 2019. TECHNIQUE: Helical axial images of the head were obtained following uneventful intravenous administration of 115 cc of Optiray. Sagittal and coronal reconstructions were viewed as well as maximal intensity projections on an independent 3-D workstation. Automated exposure control was utilized for the study. A dose lowering technique was utilized adhering to the principles of ALARA. FINDINGS: Please note that the head CT will be reported separately. No acute intracranial hemorrhage, midline shift or mass effect is present. Ventricular system is unremarkable. Basal cisterns are patent. A focus of encephalomalacia within the right parietal lobe is new since MRI of October 31, 2009. This favors an old infarct. The bilateral M1, M2, A1 and A2 segments are patent. There is moderate calcified atherosclerotic plaque within the cavernous carotids which results in mild stenosis. No vessel occlusion is identified within the intracranial circulation. The left vertebral artery is dominant. Basilar artery is patent. There is persistence of the left posterior cerebral artery. IMPRESSION: No intracranial vessel occlusion. No intracranial aneurysm. ACT 112: Negative or not required by law. Electronically signed by: Garrick Hernández M.D. 01/21/2025 2:47 PM Neck CTA 01/21/25 14:21 CT angio neck with con CLINICAL HISTORY: neuro deficit, acute stroke suspected. COMPARISON STUDY: Chest CT of 08/12/2024 TECHNIQUE: Following the IV administration of 115 of Optiray, CT angiogram of the neck was performed from the aortic arch to the skull base. Images are reviewed in the axial, sagittal, and coronal planes. 3-D MIPS images are created and assessed. IV contrast was administered without complication. All measurements were calculated based on NASCET criteria. A dose lowering technique was utilized adhering to the principles of ALARA. CT DOSE: 445.57 mGy.cm FINDINGS: Suspicious pulmonary nodules at the left lung apex are stable. Please see the prior chest CT report. There are scattered atherosclerotic calcifications. There are carotid bulb calcifications. No significant narrowing or occlusion seen at the common or internal carotid arteries bilaterally. There is mild narrowing at the origin of the vertebral arteries bilaterally. No significant narrowing or occlusion seen at the vertebral arteries. Basilar artery visualized portion is patent. There is a stable tiny nodule at the left thyroid lobe. There is moderate lower cervical degenerative disc disease. IMPRESSION: Diffuse atherosclerotic calcification with no significant arterial narrowing or occlusion seen at the neck. ACT 112: Negative or not required by law. The above report was generated using voice recognition software. It may contain grammatical, syntax or spelling errors. Electronically signed by: Ayo Carver M.D. 01/21/2025 2:48 PM Brain MRI 01/22/25 08:15 MRI OF THE BRAIN COMBO CLINICAL HISTORY: Altered mental status. Unresponsive. COMPARISON STUDY: MRI of the brain October 31, 2009. Head CT and CTA of the head January 31, 2025. TECHNIQUE: MRI of the brain was performed utilizing various T1 and T2-weighted sequences in the axial, sagittal, and coronal planes. Contrast-enhanced sequences were acquired following the administration of 6 cc of Gadavist. FINDINGS: This exam is mildly compromised by artifact. A focus of encephalomalacia within the right parietal lobe represents an old infarct. There is restricted diffusion within the right insular cortex as well as additional portions of the right temporal lobe and right parietal lobe. Corresponding hypointensity is noted on the ADC map. There is also apparent mild restricted diffusion within the right thalamus. The thin cut coronal T2 sequence demonstrates corresponding gyral swelling with T2 hyperintensity. There is no mass effect. There is a punctate 3 mm T1 hyperintense focus within the right basal ganglia on axial T1-weighted sequence image 13 of 23. No abnormal enhancement is identified. The basal cisterns are patent. There are no extra- axial collections. Flow-voids for the major intracranial vessels are present. White matter T2 hyperintense foci suggest small vessel disease. IMPRESSION: 1. Moderate size focus of restricted diffusion within the cortex of the right temporal and parietal lobes with corresponding hypointensity on the ADC map and gyral swelling on the coronal T2 sequence. No significant mass effect. An acute infarct is favored. Although less likely, other etiologies such as encephalitis cannot be completely excluded given apparent restricted diffusion within the right thalamus. Findings could be correlated with CSF analysis from recent lumbar puncture. 2. Punctate T1 hyperintense focus within the right basal ganglia. This is of questionable significance although trace hemorrhage cannot be excluded. Short- term follow-up head CT could be obtained. 3. No intracranial mass or pathologic enhancement. 4. Old right parietal lobe infarct. ACT 112: Negative or not required by law. Electronically signed by: Garrick Hernández M.D. 01/22/2025 1:12 PM PG Care Time/CCT Total # of Minutes Spent Total Time Spent with Patient: Total time spent is greater than 50% in coordination of care (as documented) at patient's floor/unit and/or counseling patient: I spent 140 minutes overall addressing this case: 20 min in medical data review/discussion with referring provider(s) and/or preparation for the visit inc data review and d/w primary team 20 min in direct interaction with the patient/exam 60 min in Advance Care Planning/Goals of Care discussions as detailed above in note (must be >16min) 20 min in subsequent review and synthesis of assessment and plan 20 min communicating with other providers regarding the karma padron's case: care mgt, primary, nursing Advanced Care Planning 29773 Advanced Care Planning 30 Min 92437 Advanced Care Planning Additional 30 [place] [address] IN/OBS CONSULT LVL 5,80M (25 - SIGNIFICANT, SEPARATELY IDENTIFIABLE ) Patient Type New Medical Decision Making High Complexity Diagnoses Altered mental status R41.82 Left hemiplegia G81.94 Weakness generalized R53.1 Discussion about advance care planning held with family member Z71.0 Palliative care by specialist Z51.5 Additional Codes Advanced Care Planning - 90417 Advanced Care Planning 30 Min: 52295 Advanced Care Planning 30 Min ([id number]) Advanced Care Planning - 56694 Advanced Care Planning Additional 30 Min: 47402 Advanced Care Planning Additional 30 Min ([id number]) Time Spent (min) 140 Comment [id number], [id number]
[2025-01-22] MEDS: cefTRIAXone SODIUM 1,000 MG/50 ML BAG IV SCH (22:13)
[2025-01-22] MEDS: ASPIRIN 300 MG SUPP PR SCH (22:14)
[2025-01-23] MEDS: LABETALOL HCL IV 5 MG/ML 20ML IV PRN (00:30)
[2025-01-23 06:24] LABS: BUN Creatinine Ratio 18.2 (10-20); Calcium 9.4 mg/dl (8.6-10.3); Creatinine Clr Calc Pharmacy 60.4 ml/min; Magnesium 1.6 mg/dl (1.7-2.4); Phosphorus 2.6 mg/dl (2.5-4.9); Potassium 3.9 mmol/L (3.5-5.1)
--- NOTE | 2025-01-23 07:31 | Critical Care Progress Note ---
Date of Service January 23, 2025 Assessment & Plan (1) Seizure-like activity: (2) Altered mental status: (3) UTI (urinary tract infection): (4) NSTEMI (non-ST elevated myocardial infarction): Plan Reason Critically Ill: 69-year-old female with history of COPD found altered at home. Etiology unclear 24-hour events: MRI completed revealing stroke. Palliative care consultation/discussion held with family. Patient has shown some neurological improvement. Recommendations: Neuro -stroke identified on MRI. The patient is clinically improved currently. Will initiate physical therapy and Occupational Therapy. Swallow evaluation pending this morning. Cardiac -await swallow evaluation. She became bradycardic with labetalol so may need to use medication such as GLORIA inhibitors or hydralazine for blood pressure control. Would target systolic blood pressure less than 170. Respiratory -severe COPD. Continue to wean oxygen as tolerated GI -keep n.p.o. pending swallow evaluation RENAL: Proteinuria and hematuria identified but renal indices normal. Electrolytes unremarkable. ICU electrolyte replacement protocol will be initiated. ENDO - glycemic control per protocol HEME -no current issues ID -leukocytosis. Day #3 Rocephin for presumptive UTI. Procalcitonin undetectable. Discontinue antibiotics after today's dose LINES/TUBES/DRAINS - PIV x2 [place] (Day #1) DVT PROPHYLAXIS - SCDs Patient's critical care issues are resolved. She can transfer to the floor. Critical care services will sign off. Feel free to contact us with questions or concerns Admission and Anticipated Discharge Date Admission Date: January 21, 2025 Subjective Patient seen and examined. EMR reviewed. Discussed with bedside critical care nurse in a multidisciplinary rounds. The patient is mobile for awake alert and interactive today. She is able to answer questions. She has some movement in her left lower extremity but still only 2 out of 5 movement on the left upper extremity. She denies any headache or vision changes. She has been mildly hypertensive Review of Systems Review of Systems: All systems reviewed & are unremarkable except as noted in Subjective Physical Exam Constitutional: + thin Neck: trachea midline, no thyromegaly Respiratory: normal respiratory effort, lungs clear to auscultation Cardiovascular: RRR, no murmur, no edema Gastrointestinal (Abdomen): normal bowel sounds, soft, nontender, no hepatosplenomegaly Musculoskeletal: Extremities: extremities normal to inspection Skin: no rashes, warm and dry Lymphatic: no cervical lymphadenopathy Results & Data Results & Data Vital Signs (Past 12 Hours) Vital Signs Pulse Resp BP Pulse Ox Pulse Ox O2 Del Method O2 Del Method 01/23/25 06:30 187/70 H 01/23/25 06:30 79 19 94 01/23/25 06:03 58 L 26 H 95 01/23/25 06:00 195/80 H 01/23/25 06:00 195/80 H 01/23/25 05:45 61 17 95 01/23/25 05:32 177/39 H 01/23/25 05:12 70 17 93 01/23/25 05:03 78 22 92 01/23/25 05:01 186/69 H 01/23/25 05:01 186/69 H 01/23/25 04:39 81 17 93 01/23/25 04:30 171/66 H 01/23/25 04:30 171/66 H 01/23/25 04:30 74 19 94 01/23/25 04:15 60 22 94 01/23/25 04:01 182/60 H 01/23/25 04:01 182/60 H 01/23/25 04:01 182/60 H 01/23/25 03:33 66 16 92 01/23/25 03:30 191/74 H 01/23/25 03:27 53 L 23 95 01/23/25 03:03 67 24 94 01/23/25 03:00 184/69 H 01/23/25 03:00 184/69 H 01/23/25 03:00 184/69 H 01/23/25 02:57 63 27 H 93 01/23/25 02:33 61 18 94 01/23/25 02:30 189/76 H 01/23/25 02:09 65 23 93 01/23/25 01:30 78 18 93 01/23/25 01:30 180/87 H 01/23/25 01:30 180/87 H 01/23/25 01:30 180/87 H 01/23/25 01:12 69 19 96 01/23/25 01:00 182/69 H 01/23/25 00:52 69 180/70 H 01/23/25 00:49 180/70 H 01/23/25 00:49 180/70 H 01/23/25 00:42 63 14 01/23/25 00:37 Nasal Cannula, Ambu-Bag 01/23/25 00:36 63 21 96 01/23/25 00:34 176/82 H 01/23/25 00:34 176/82 H 01/23/25 00:34 176/82 H 01/23/25 00:34 176/82 H 01/23/25 00:34 176/82 H 01/23/25 00:33 78 19 91 01/23/25 00:30 78 18 97 01/23/25 00:30 72 160/91 H 01/23/25 00:03 77 17 100 01/23/25 00:00 85 01/22/25 23:36 72 20 100 01/22/25 23:06 81 18 96 01/22/25 22:30 160/91 H 01/22/25 22:30 160/91 H 01/22/25 22:24 72 20 93 01/22/25 22:09 70 20 100 01/22/25 22:00 169/67 H 01/22/25 21:33 74 23 95 01/22/25 21:30 172/77 H 01/22/25 21:27 68 24 98 01/22/25 21:23 96 Nasal Cannula 01/22/25 21:09 71 26 H 95 01/22/25 20:48 74 21 91 01/22/25 20:30 171/72 H 01/22/25 20:27 83 21 98 01/22/25 20:03 66 17 100 01/22/25 20:00 174/72 H 01/22/25 20:00 174/72 H 01/22/25 19:57 67 24 100 01/22/25 19:54 64 21 99 O2 Flow Rate O2 Flow Rate 01/23/25 06:30 01/23/25 06:30 01/23/25 06:03 01/23/25 06:00 01/23/25 06:00 01/23/25 05:45 01/23/25 05:32 01/23/25 05:12 01/23/25 05:03 01/23/25 05:01 01/23/25 05:01 01/23/25 04:39 01/23/25 04:30 01/23/25 04:30 01/23/25 04:30 01/23/25 04:15 01/23/25 04:01 01/23/25 04:01 01/23/25 04:01 01/23/25 03:33 01/23/25 03:30 01/23/25 03:27 01/23/25 03:03 01/23/25 03:00 01/23/25 03:00 01/23/25 03:00 01/23/25 02:57 01/23/25 02:33 01/23/25 02:30 01/23/25 02:09 01/23/25 01:30 01/23/25 01:30 01/23/25 01:30 01/23/25 01:30 01/23/25 01:12 01/23/25 01:00 01/23/25 00:52 01/23/25 00:49 01/23/25 00:49 01/23/25 00:42 01/23/25 00:37 4 01/23/25 00:36 01/23/25 00:34 01/23/25 00:34 01/23/25 00:34 01/23/25 00:34 01/23/25 00:34 01/23/25 00:33 01/23/25 00:30 01/23/25 00:30 01/23/25 00:03 01/23/25 00:00 01/22/25 23:36 01/22/25 23:06 01/22/25 22:30 01/22/25 22:30 01/22/25 22:24 01/22/25 22:09 01/22/25 22:00 01/22/25 21:33 01/22/25 21:30 01/22/25 21:27 01/22/25 21:23 4 01/22/25 21:09 01/22/25 20:48 01/22/25 20:30 01/22/25 20:27 01/22/25 20:03 01/22/25 20:00 01/22/25 20:00 01/22/25 19:57 01/22/25 19:54 Critical Care Results & Data Vital Signs (Past 12 Hours) Vital Signs Pulse Resp BP Pulse Ox Pulse Ox O2 Del Method O2 Del Method 01/23/25 06:30 187/70 H 01/23/25 06:30 79 19 94 01/23/25 06:03 58 L 26 H 95 01/23/25 06:00 195/80 H 01/23/25 06:00 195/80 H 01/23/25 05:45 61 17 95 01/23/25 05:32 177/39 H 01/23/25 05:12 70 17 93 01/23/25 05:03 78 22 92 01/23/25 05:01 186/69 H 01/23/25 05:01 186/69 H 01/23/25 04:39 81 17 93 01/23/25 04:30 171/66 H 01/23/25 04:30 171/66 H 01/23/25 04:30 74 19 94 01/23/25 04:15 60 22 94 01/23/25 04:01 182/60 H 01/23/25 04:01 182/60 H 01/23/25 04:01 182/60 H 01/23/25 03:33 66 16 92 01/23/25 03:30 191/74 H 01/23/25 03:27 53 L 23 95 01/23/25 03:03 67 24 94 01/23/25 03:00 184/69 H 01/23/25 03:00 184/69 H 01/23/25 03:00 184/69 H 01/23/25 02:57 63 27 H 93 01/23/25 02:33 61 18 94 01/23/25 02:30 189/76 H 01/23/25 02:09 65 23 93 01/23/25 01:30 78 18 93 01/23/25 01:30 180/87 H 01/23/25 01:30 180/87 H 01/23/25 01:30 180/87 H 01/23/25 01:12 69 19 96 01/23/25 01:00 182/69 H 01/23/25 00:52 69 180/70 H 01/23/25 00:49 180/70 H 01/23/25 00:49 180/70 H 01/23/25 00:42 63 14 01/23/25 00:37 Nasal Cannula, Ambu-Bag 01/23/25 00:36 63 21 96 01/23/25 00:34 176/82 H 01/23/25 00:34 176/82 H 01/23/25 00:34 176/82 H 01/23/25 00:34 176/82 H 01/23/25 00:34 176/82 H 01/23/25 00:33 78 19 91 01/23/25 00:30 78 18 97 01/23/25 00:30 72 160/91 H 01/23/25 00:03 77 17 100 01/23/25 00:00 85 01/22/25 23:36 72 20 100 01/22/25 23:06 81 18 96 01/22/25 22:30 160/91 H 01/22/25 22:30 160/91 H 01/22/25 22:24 72 20 93 01/22/25 22:09 70 20 100 01/22/25 22:00 169/67 H 01/22/25 21:33 74 23 95 01/22/25 21:30 172/77 H 01/22/25 21:27 68 24 98 01/22/25 21:23 96 Nasal Cannula 01/22/25 21:09 71 26 H 95 01/22/25 20:48 74 21 91 01/22/25 20:30 171/72 H 01/22/25 20:27 83 21 98 01/22/25 20:03 66 17 100 01/22/25 20:00 174/72 H 01/22/25 20:00 174/72 H 01/22/25 19:57 67 24 100 01/22/25 19:54 64 21 99 O2 Flow Rate O2 Flow Rate 01/23/25 06:30 01/23/25 06:30 01/23/25 06:03 01/23/25 06:00 01/23/25 06:00 01/23/25 05:45 01/23/25 05:32 01/23/25 05:12 01/23/25 05:03 01/23/25 05:01 01/23/25 05:01 01/23/25 04:39 01/23/25 04:30 01/23/25 04:30 01/23/25 04:30 01/23/25 04:15 01/23/25 04:01 01/23/25 04:01 01/23/25 04:01 01/23/25 03:33 01/23/25 03:30 01/23/25 03:27 01/23/25 03:03 01/23/25 03:00 01/23/25 03:00 01/23/25 03:00 01/23/25 02:57 01/23/25 02:33 01/23/25 02:30 01/23/25 02:09 01/23/25 01:30 01/23/25 01:30 01/23/25 01:30 01/23/25 01:30 01/23/25 01:12 01/23/25 01:00 01/23/25 00:52 01/23/25 00:49 01/23/25 00:49 01/23/25 00:42 01/23/25 00:37 4 01/23/25 00:36 01/23/25 00:34 01/23/25 00:34 01/23/25 00:34 01/23/25 00:34 01/23/25 00:34 01/23/25 00:33 01/23/25 00:30 01/23/25 00:30 01/23/25 00:03 01/23/25 00:00 01/22/25 23:36 01/22/25 23:06 01/22/25 22:30 01/22/25 22:30 01/22/25 22:24 01/22/25 22:09 01/22/25 22:00 01/22/25 21:33 01/22/25 21:30 01/22/25 21:27 01/22/25 21:23 4 01/22/25 21:09 01/22/25 20:48 01/22/25 20:30 01/22/25 20:27 01/22/25 20:03 01/22/25 20:00 01/22/25 20:00 01/22/25 19:57 01/22/25 19:54 Lab & Micro Results (Past 24 Hours) No Data to Display Na 141 mmol/L (136-145) 01/23/25 K 3.9 mmol/L (3.5-5.1) 01/23/25 Cl 102 mmol/L (98-107) 01/23/25 CO2 33 mmol/L (21-32) H 01/23/25 Anion Gap 6 (3-11) 01/23/25 BUN 14 mg/dl (6-23) 01/23/25 Creatinine 0.77 mg/dl (0.6-1.2) 01/23/25 BUN/Creatinine Ratio 18.2 (10-20) 01/23/25 Glu 98 mg/dl (70-99(Fasting)) 01/23/25 Ca 9.4 mg/dl (8.6-10.3) 01/23/25 Phosphorus Level 2.6 mg/dl (2.5-4.9) 01/23/25 Mg 1.6 mg/dl (1.7-2.4) L 01/23/25 04:21 Calcium Level 9.4 mg/dl (8.6-10.3) 01/23/25 04:21 Microbiology 01/21/25 20:00 Urine Culture - Preliminary Urine,Straight Cath Klebsiella pneumoniae 01/21/25 21:25 Aerobic Blood Culture - Preliminary Blood No growth in Aerobic bottle after 24 hours. Anaerobic Blood Culture - Final 01/21/25 21:26 Aerobic Blood Culture - Preliminary Blood No growth in Aerobic bottle after 24 hours. Anaerobic Blood Culture - Preliminary No growth in Anaerobic bottle after 24 hours. Diagnostic Findings (Past 24 Hours) Brain MRI 01/22/25 08:15 MRI OF THE BRAIN COMBO CLINICAL HISTORY: Altered mental status. Unresponsive. COMPARISON STUDY: MRI of the brain October 31, 2009. Head CT and CTA of the head January 31, 2025. TECHNIQUE: MRI of the brain was performed utilizing various T1 and T2-weighted sequences in the axial, sagittal, and coronal planes. Contrast-enhanced sequences were acquired following the administration of 6 cc of Gadavist. FINDINGS: This exam is mildly compromised by artifact. A focus of encephalomalacia within the right parietal lobe represents an old infarct. There is restricted diffusion within the right insular cortex as well as additional portions of the right temporal lobe and right parietal lobe. Corresponding hypointensity is noted on the ADC map. There is also apparent mild restricted diffusion within the right thalamus. The thin cut coronal T2 sequence demonstrates corresponding gyral swelling with T2 hyperintensity. There is no mass effect. There is a punctate 3 mm T1 hyperintense focus within the right b genesis ganglia on axial T1-weighted sequence image 13 of . No abnormal enhancement is identified. The basal cisterns are patent. There are no extra- axial collections. Flow-voids for the major intracranial vessels are present. White matter T2 hyperintense foci suggest small vessel disease. IMPRESSION: 1. Moderate size focus of restricted diffusion within the cortex of the right temporal and parietal lobes with corresponding hypointensity on the ADC map and gyral swelling on the coronal T2 sequence. No significant mass effect. An acute infarct is favored. Although less likely, other etiologies such as encephalitis cannot be completely excluded given apparent restricted diffusion within the right thalamus. Findings could be correlated with CSF analysis from recent lumbar puncture. 2. Punctate T1 hyperintense focus within the right basal ganglia. This is of questionable significance although trace hemorrhage cannot be excluded. Short- term follow-up head CT could be obtained. 3. No intracranial mass or pathologic enhancement. 4. Old right parietal lobe infarct. ACT 112: Negative or not required by law. Electronically signed by: Garrick Hernández M.D. 01/22/2025 1:12 PM I & O Totals 24 Hours 01/22/25 01/23/25 01/24/25 06:59 06:59 06:59 Intake Total 2119.167 / 2119.167 2550 / 2550 Output Total 675 / 675 1355 / 1355 Balance 1444.167 / 3955.901 8174 / 1195 Cumulative 01/21/25 13:54 thru 01/23/25 06:00 Intake Total 4669.167 Output Total 2030 Balance 2639.167 RT Ventilator Mngmt (Last Documented) Ventilator Ordered Settings Respiratory Rate 19 01/23/25 06:30 Ventilator - PT Measurements Respiratory Rate 19 End-Tidal CO2 9 Coding Level of Care Code 10718 SUB INP/OBS CARE 3/50MIN Diagnoses Seizure-like activity R56.9 Altered mental status R41.82 UTI (urinary tract infection) N39.0 NSTEMI (non-ST elevated myocardial infarction) I21.4
[2025-01-23] MEDS: POTASSIUM CHLORIDE / WTR 10 MEQ/100 ML PLCT IV SCH (07:39)
[2025-01-23] MEDS: MAGNESIUM SULFATE / D5W 1 GM/100 ML BAG IV SCH (07:39)
[2025-01-23] MEDS: ALBUT/IPRATROP 3MG/0.5MG NEB 3 ML VIAL NEB PRN (08:20)
[2025-01-23] MEDS: LABETALOL HCL IV 5 MG/ML 20ML IV STA (08:51)
[2025-01-23] MEDS: CLOPIDOGREL BISULFATE 75 MG TAB PO SCH (10:25)
[2025-01-23] MEDS: ATORVASTATIN 20 MG TAB PO SCH (10:25)
[2025-01-23] MEDS: LOSARTAN POTASSIUM 25 MG TAB PO SCH (10:25)
--- NOTE | 2025-01-23 10:44 | Neurology Progress Note ---
Date of Service January 23, 2025 Assessment & Plan (1) CVA (cerebral vascular accident): (2) Seizure-like activity: (3) HTN (hypertension): Plan This patient suffered a large stroke up to 2 days prior to admission. Has resulted in left upper greater than lower extremity weakness and a significant left homonymous hemianopsia. She has left sided neglect as well. She cannot perform upper downgaze or move her eyes past midline to the left. There is no speech issue. Clinically she is markedly better today compared to yesterday. MRI of the brain shows acute stroke. It mostly involves the right parietal and temporal head regions (middle cerebral artery distribution most likely) as well as the right thalamus. However, there are no smaller lesions that I believe are likely real in the left thalamus and midbrain (or midbrain saul junction). This likely explains diffuse hyperreflexia and bilateral upgoing toes that was noted on exam. I suspect she had a global hypoxia that extended this stroke bilaterally and in multiple areas. There was seizure-like activity the day of admission and she was placed on levetiracetam. She has had no obvious seizure activity since admission. The patient came in quite hypoxic and has known pulmonary issues. She also has hypertension and is a cigarette smoker. Patient had fever but the lumbar puncture is not consistent with a meningitis or meningoencephalitis. The elevated protein is nonspecific and may be secondary to the large stroke. She likely has a urinary tract infection (Klebsiella). Recommendations: 1. Continue dual antiplatelet therapy with 81 mg aspirin and 75 mg clopidogrel daily. Do this for 3 weeks and then discontinue aspirin remaining on clopidogrel alone. 2. Continue levetiracetam 500 mg IV every 12 hours. This make be converted to p.o. when able to swallow. Remain on 500 mg levetiracetam twice daily in the short-term. 3. Awaiting echocardiogram 4. Physical, occupational, and speech therapy consults. Increase activity as able. She should be an excellent rehabilitation hospital candidate. She may need this as she likely will not be able to go home alone in the short-term. 5. Control blood pressure as you are doing, aiming for a mean arterial pressure of approximately 95-100. 6. Continue atorvastatin 20 mg daily. Given her total cholesterol of 150, she is not a high-dose statin candidate. 7. Antibiotic and infection treatment will be left to the hospitalist and ICU team 8. Awaiting final CSF, blood, and urine cultures. 9. This patient needs a PCP. Overall, I spent a total of 60 minutes with this case including review of records, review of MRI films, direct evaluation of the patient at bedside, report generation, and discussion of the case with the patient and RN at bedside, Dr. Hernández radiology, Dr. Mayberry, and Dr. Penny, including differential diagnosis and treatment options. Admission and Anticipated Discharge Date Admission Date: January 21, 2025 Subjective At 1000, patient was sitting up out of bed in chair, awake and alert, conversing with me in a very pleasant mood. Nursing reports no seizures or new events. She has been oxygenating well. Her blood pressure has been variable. Currently it is 175/72 (mean arterial pressure of 106). And her temperature is 37.7. CT angiography of the head and neck were largely unremarkable with no significant vascular stenoses MRI of the brain with particularly on the right including the right parietal, temporal, and thalamic areas. Although it is difficult to be certain, there may be additional areas of acute infarct although much smaller in nature in the left thalamus and in the midbrain. I reviewed these films with Dr. Hernández. CHEM profile was unremarkable. Results & Data Vital Signs (Past 12 Hours) Vital Signs Pulse Pulse Resp BP Pulse Ox O2 Del Method O2 Flow Rate 01/23/25 10:03 72 22 175/72 H 93 Nasal Cannula 4 01/23/25 09:50 69 159/78 H 01/23/25 09:47 159/78 H 01/23/25 09:42 75 20 91 01/23/25 09:33 63 19 92 01/23/25 09:30 193/67 H 01/23/25 09:27 70 23 92 01/23/25 09:19 173/67 H 01/23/25 09:15 70 16 95 01/23/25 09:10 61 185/83 H 01/23/25 09:06 65 26 H 100 01/23/25 09:00 185/83 H 01/23/25 08:54 52 L 19 100 01/23/25 08:46 187/70 H 01/23/25 08:45 66 21 95 01/23/25 08:38 Nasal Cannula 2 01/23/25 08:30 81 23 95 01/23/25 08:30 180/129 H 01/23/25 08:20 66 20 95 Nasal Cannula 4 01/23/25 08:09 72 20 96 01/23/25 08:01 176/74 H 01/23/25 08:00 63 01/23/25 08:00 Nasal Cannula 01/23/25 07:48 78 17 95 01/23/25 07:31 161/93 H 01/23/25 07:01 184/72 H 01/23/25 06:48 72 20 95 01/23/25 06:30 187/70 H 01/23/25 06:30 79 19 94 01/23/25 06:03 58 L 26 H 95 01/23/25 06:00 195/80 H 01/23/25 06:00 195/80 H 01/23/25 05:45 61 17 95 01/23/25 05:32 177/39 H 01/23/25 05:12 70 17 93 01/23/25 05:03 78 22 92 01/23/25 05:01 186/69 H 01/23/25 05:01 186/69 H 01/23/25 04:39 81 17 93 01/23/25 04:30 171/66 H 01/23/25 04:30 171/66 H 01/23/25 04:30 74 19 94 01/23/25 04:15 60 22 94 01/23/25 04:01 182/60 H 01/23/25 04:01 182/60 H 01/23/25 04:01 182/60 H 01/23/25 03:33 66 16 92 01/23/25 03:30 191/74 H 01/23/25 03:27 53 L 23 95 01/23/25 03:03 67 24 94 01/23/25 03:00 184/69 H 01/23/25 03:00 184/69 H 01/23/25 03:00 184/69 H 01/23/25 02:57 63 27 H 93 01/23/25 02:33 61 18 94 01/23/25 02:30 189/76 H 01/23/25 02:09 65 23 93 01/23/25 01:30 78 18 93 01/23/25 01:30 180/87 H 01/23/25 01:30 180/87 H 01/23/25 01:30 180/87 H 01/23/25 01:12 69 19 96 01/23/25 01:00 182/69 H 01/23/25 00:52 69 180/70 H 01/23/25 00:49 180/70 H 01/23/25 00:49 180/70 H 01/23/25 00:42 63 14 01/23/25 00:37 Nasal Cannula, Ambu-Bag 4 01/23/25 00:36 63 21 96 01/23/25 00:34 176/82 H 01/23/25 00:34 176/82 H 01/23/25 00:34 176/82 H 01/23/25 00:34 176/82 H 01/23/25 00:34 176/82 H 01/23/25 00:33 78 19 91 01/23/25 00:30 78 18 97 01/23/25 00:30 72 160/91 H 01/23/25 00:03 77 17 100 01/23/25 00:00 85 01/22/25 23:36 72 20 100 01/22/25 23:06 81 18 96 01/22/25 22:30 160/91 H 01/22/25 22:30 160/91 H Exam (Neuro) Physical Exam: The patient does not seem to be able to see anything to the left of midline in either eye. She tends to ignore the left side as well. Her eyes do not move past midline to the left and she has difficulty tracking objects. She can track all the way to the right but has trouble tracking up or down. The patient is pleasant and cooperative and has no obvious aphasia or dysarthria. Mood and affect seem normal and appropriate as well. There was no facial droop and tongue was midline. There was no facial weakness bilaterally including upper or lower. Palate raised well. Pupils were 4 mm bilaterally reactive to light. Sternocleidomastoid trapezius strength seem normal bilaterally. There is left-sided neglect of the upper extremity Neck was supple. Patient had drift and weakness in the left upper extremity. Strength is 4-/5 diffusely in the left upper extremity. The right upper extremity was 5/5 diffusely both proximally distally. Leg strength was 5/5 diffusely on the right and 4/5 on the left. There is decreased facility in the right hand. There were no abnormal involuntary movements noted. PG Care Time/CCT Total # of Minutes Spent Total Time Spent with Patient: Total time spent is greater than 50% in coordination of care (as documented) at patient's floor/unit and/or counseling patient: Coding Level of Care Code 15402 SUB INP/OBS CARE 350MIN Diagnoses CVA (cerebral vascular accident) I63.9 Seizure-like activity R56.9 HTN (hypertension) I10 Hypertension type: unspecified Time Spent (min) 60 (3) HTN (hypertension) Hypertension type: unspecified Qualified Code(s): I10 - Essential (primary) hypertension
[2025-01-23] MEDS: amLODIPine BESYLATE 5 MG TAB PO ONE (11:42)
--- NOTE | 2025-01-23 11:50 | Hospitalist Progress Note ---
Date of Service January 23, 2025 Assessment & Plan (1) Seizure-like activity: (2) CVA (cerebral vascular accident): Plan 69-year-old female who was found down and unresponsive with concern for seizure- like activity last known well 2-3 days prior who was transported to the ER. Suspected to have a parietal CVA with resulting seizure. Patient also had a leukocytosis and fever suspected to be due to UTI but for which meningitis was within the differential and LP was obtained. She was admitted to the ICU overnight, did not show further seizure-like activity following Keppra load. Patient is suspected overall to have sustained a CVA Right temporal/parietal/thalamic stroke with additional possible right basal ganglier/pontine CVA. No history of A-fib. No occlusion was seen on CTA. Patient is suspected to have had a severe event which was likely worsened by global anoxic injury due to both seizure and underlying hypoxic hypercapnic respiratory failure. Workup for encephalitis has been unremarkable. #Subacute CVA CThead shows right posterior parietal lobe encephalomalacia and possible late subacute CVA. Patient's last known well was 01/19/2025, little over 2 days prior to admission CTA head/neck with diffuse atherosclerotic calcification without acute occlusion/narrowing - MRI: Moderate size restricted diffusion in the right temporal and parietal lobes. Punctate T1 hyperintense focus of the right basal ganglia. Trace hemorrhage is not excluded. Short-term follow-up could be obtained. No mass effect. Old right parietal lobe infarct Reviewed with neurology. Encephalitis is less likely especially given presentation and LP. Suspect that this is all ischemic/stroke pathology. Recommend continuing rectal aspirin until able to tolerate oral antiplatelets. [place] [address], or ~systolic 180. Do not recommend permissive hypertension to 200 or greater at this time. Labetalol added. Appreciate recommendations[place] [address]. Patient was hypertensive and above goal 01/22 - 01/23 despite labetalol. Additional labetalol limited due to intermittent development of bradycardia. Patient has been started on an ARB. Was above goal on recheck, amlodipine initiated. Gradually lower blood pressure with eventual goal of less than 180 for discharge, caution and multiple medication adjustments in short time and risk of watershed if she drops precipitously. Hydralazine avoided if possible for this reason. If still above goal will add HCTZ 12.5 mg p.o. daily Discussed with neurology. Now she has passed a swallow study will continue on DAPT for 3 weeks and then switch to Plavix, atorvastatin (high dose deferred due to total cholesterol, reasonable to continue 20 mg dose). Continue Keppra. Bubble study pending. #Seizure Suspect provoked by CVA No history of prior seizures Spot EEG without evidence of status Lactate 4.7, normalized to 1.3 on recheck CK elevated consistent with seizure Keppra loaded, continue 500 mg IV twice daily Lorazepam 2 mg IV for acute seizure-like activity Acute hypoxic, hypercapnic respiratory failure, history of COPD, tobacco use Chest x-ray unremarkable No wheezing on assessment VBG with pH 7.27/pCO2 64, normalized with NIV and subsequently transition to nasal cannula At risk of but did not show evidence of aspiration pneumonia on admitting x- ray. Denies shortness of breath. Does have underlying severe COPD. No wheezing at time of assessment. Is on Rocephin for UTI - CPAP qHS loose Leukocytosis, suspected UTI With leukocytosis of 16.24, afebrile Continue Rocephin Follow UCx LP results as noted. CSF culture preliminarily with no growth to date. Blood cultures preliminarily with no growth to date. UCx positive for pansensitive Klebsiella. Troponin elevation Troponin peaked at 191, downtrending on recheck EKG: Quality tracing but nonspecific changes, no territorial ST/T wave changes, QT prolonged at 481 Suspect demand Last echo #CODE STATUS/goals of care DNR/DNI Seen by palliative care. Does not want PEG/NH/SNF, unfortunately he is likely to have increased care needs given to her significant left-sided and visual deficits. Will follow progression cautiously over the next few days and then evaluate for disposition. If she acutely declines, move to [facility] Admission and Anticipated Discharge Date Admission Date: January 21, 2025 Subjective Seen the bedside this morning. Much more awake and alert. She is oriented to year, month, hospital, [facility], and name. Pending speech evaluation at time of bedside visit. Denies headache. Does endorse decreased visual acuity without her glasses, but also has horizontal diplopia which is new since being in the hospital. Physical Exam Physical Exam: General: A&Ox3. NAD. Cooperative. HEENT/neuro: Atraumatic, normocephalic. Pupils reactive to light. Slight 1-2 mm increase in dilation of left eye compared to the right, both pupils reactive and without a relative afferent defect. At midline gaze patient does have some minimally disconjugate gaze and endorses horizontal diplopia. Tracking is intact to the right field of vision on confrontation with resolution of diplopia at 4 right peripheral vision, when crossing the midline patient stops tracking. No facial asymmetry or facial droop. Some increased speech delay but no overt aphasia. Left lower extremity strength slightly improved from prior. Is able to flex at the hip and minimally wiggle her left toes although requires significant encouragement to do this. Does not respond to left hallux pinch. Right ankle dorsiflexion/plantarflexion/hip flexion is intact. She minimally activates her distal fingertips on attempted hebrew teacher of the left hand otherwise no appreciable strength. Does not endorse sensation to soft touch in the left hand. Guitar Technician strength, elbow flexion, shoulder flexion is intact in the right upper extremity, and station soft touch is intact in the right hand Pulm: CTAB A&P. -wheezes, -rales, -rhonchi. Symmetrical chest rise. No increase in work of breathing. No respiratory distress. Cardiac: RRR, -mrg. Radial pulses intact and symmetrical. Abdominal: Nontender, nondistended, soft. BS present. Results & Data Results & Data Vital Signs (Past 12 Hours) Vital Signs Pulse Pulse Resp BP Pulse Ox O2 Del Method O2 Flow Rate 01/23/25 10:03 72 22 175/72 H 93 Nasal Cannula 4 01/23/25 09:50 69 159/78 H 01/23/25 09:47 159/78 H 01/23/25 09:42 75 20 91 01/23/25 09:33 63 19 92 01/23/25 09:30 193/67 H 01/23/25 09:27 70 23 92 01/23/25 09:19 173/67 H 01/23/25 09:15 70 16 95 01/23/25 09:10 61 185/83 H 01/23/25 09:06 65 26 H 100 01/23/25 09:00 185/83 H 01/23/25 08:54 52 L 19 100 01/23/25 08:46 187/70 H 01/23/25 08:45 66 21 95 01/23/25 08:38 Nasal Cannula 2 01/23/25 08:30 81 23 95 01/23/25 08:30 180/129 H 01/23/25 08:20 66 20 95 Nasal Cannula 4 01/23/25 08:09 72 20 96 01/23/25 08:01 176/74 H 01/23/25 08:00 63 01/23/25 08:00 Nasal Cannula 01/23/25 07:48 78 17 95 01/23/25 07:31 161/93 H 01/23/25 07:01 184/72 H 01/23/25 06:48 72 20 95 01/23/25 06:30 187/70 H 01/23/25 06:30 79 19 94 01/23/25 06:03 58 L 26 H 95 01/23/25 06:00 195/80 H 01/23/25 06:00 195/80 H 01/23/25 05:45 61 17 95 01/23/25 05:32 177/39 H 01/23/25 05:12 70 17 93 01/23/25 05:03 78 22 92 01/23/25 05:01 186/69 H 01/23/25 05:01 186/69 H 01/23/25 04:39 81 17 93 01/23/25 04:30 171/66 H 01/23/25 04:30 171/66 H 01/23/25 04:30 74 19 94 01/23/25 04:15 60 22 94 01/23/25 04:01 182/60 H 01/23/25 04:01 182/60 H 01/23/25 04:01 182/60 H 01/23/25 03:33 66 16 92 01/23/25 03:30 191/74 H 01/23/25 03:27 53 L 23 95 01/23/25 03:03 67 24 94 01/23/25 03:00 184/69 H 01/23/25 03:00 184/69 H 01/23/25 03:00 184/69 H 01/23/25 02:57 63 27 H 93 01/23/25 02:33 61 18 94 01/23/25 02:30 189/76 H 01/23/25 02:09 65 23 93 01/23/25 01:30 78 18 93 01/23/25 01:30 180/87 H 01/23/25 01:30 180/87 H 01/23/25 01:30 180/87 H 01/23/25 01:12 69 19 96 01/23/25 01:00 182/69 H 01/23/25 00:52 69 180/70 H 01/23/25 00:49 180/70 H 01/23/25 00:49 180/70 H 01/23/25 00:42 63 14 01/23/25 00:37 Nasal Cannula, Ambu-Bag 4 01/23/25 00:36 63 21 96 01/23/25 00:34 176/82 H 01/23/25 00:34 176/82 H 01/23/25 00:34 176/82 H 01/23/25 00:34 176/82 H 01/23/25 00:34 176/82 H 01/23/25 00:33 78 19 91 01/23/25 00:30 78 18 97 01/23/25 00:30 72 160/91 H 01/23/25 00:03 77 17 100 01/23/25 00:00 85 01/22/25 23:36 72 20 100 PG Care Time/CCT Total # of Minutes Spent Total Time Spent with Patient: Total time spent is greater than 50% in coordination of care (as documented) at patient's floor/unit and/or counseling patient: Coding Level of Care Code 21550 SUB INP/OBS CARE 3/50MIN Diagnoses Seizure-like activity R56.9 CVA (cerebral vascular accident) I63.9
--- NOTE | 2025-01-23 12:35 | Palliative Care Progress Note ---
Date of Service January 23, 2025 Assessment & Plan (1) Weakness generalized: (2) Left hemiplegia: (3) Palliative care by specialist: Plan Follow up with family planned for Sunday, Danielle will meet with them No changed to plan of care at present. Thank you for allowing us to participate in the ongoing care of this patient. Please page with any additional concerns. Juan Miguel Bernardo DNP Director, Palliative Medicine Admission and Anticipated Discharge Date Admission Date: January 21, 2025 Subjective Wen is more awake this morning. Oriented to self but not situation. Significant left-sided deficits. Did pass her speech therapy eval and is working physical therapy at the time of my visit. She is a two-person max assist to stand and is unable to pivot with her left lower extremity but can move her right fairly well. Review of Systems Review of Systems: All systems reviewed & are unremarkable except as noted in Subjective Physical Exam Physical Exam: Deferred, actively working with PT at the time of my visit Results & Data Vital Signs (Past 12 Hours) Vital Signs Temp Pulse Pulse Resp BP Pulse Ox O2 Del Method 01/23/25 11:35 37.3 C 66 22 96 Nasal Cannula 01/23/25 11:33 192/90 H 01/23/25 11:11 67 18 96 01/23/25 11:09 85 15 94 01/23/25 10:48 76 23 95 01/23/25 10:32 188/74 H 01/23/25 10:11 58 L 23 92 01/23/25 10:03 72 22 175/72 H 93 Nasal Cannula 01/23/25 09:50 69 159/78 H 01/23/25 09:47 159/78 H 01/23/25 09:42 75 20 91 01/23/25 09:33 63 19 92 01/23/25 09:30 193/67 H 01/23/25 09:27 70 23 92 01/23/25 09:19 173/67 H 01/23/25 09:15 70 16 95 01/23/25 09:10 61 185/83 H 01/23/25 09:06 65 26 H 100 01/23/25 09:00 185/83 H 01/23/25 08:54 52 L 19 100 01/23/25 08:46 187/70 H 01/23/25 08:45 66 21 95 01/23/25 08:38 Nasal Cannula 01/23/25 08:30 81 23 95 01/23/25 08:30 180/129 H 01/23/25 08:20 66 20 95 Nasal Cannula 01/23/25 08:09 72 20 96 01/23/25 08:01 176/74 H 01/23/25 08:00 63 01/23/25 08:00 Nasal Cannula 01/23/25 07:48 78 17 95 01/23/25 07:31 161/93 H 01/23/25 07:01 184/72 H 01/23/25 06:48 72 20 95 01/23/25 06:30 187/70 H 01/23/25 06:30 79 19 94 01/23/25 06:03 58 L 26 H 95 01/23/25 06:00 195/80 H 01/23/25 06:00 195/80 H 01/23/25 05:45 61 17 95 01/23/25 05:32 177/39 H 01/23/25 05:12 70 17 93 01/23/25 05:03 78 22 92 01/23/25 05:01 186/69 H 01/23/25 05:01 186/69 H 01/23/25 04:39 81 17 93 01/23/25 04:30 171/66 H 01/23/25 04:30 171/66 H 01/23/25 04:30 74 19 94 01/23/25 04:15 60 22 94 01/23/25 04:01 182/60 H 01/23/25 04:01 182/60 H 01/23/25 04:01 182/60 H 01/23/25 03:33 66 16 92 01/23/25 03:30 191/74 H 01/23/25 03:27 53 L 23 95 01/23/25 03:03 67 24 94 01/23/25 03:00 184/69 H 01/23/25 03:00 184/69 H 01/23/25 03:00 184/69 H 01/23/25 02:57 63 27 H 93 01/23/25 02:33 61 18 94 01/23/25 02:30 189/76 H 01/23/25 02:09 65 23 93 01/23/25 01:30 78 18 93 01/23/25 01:30 180/87 H 01/23/25 01:30 180/87 H 01/23/25 01:30 180/87 H 01/23/25 01:12 69 19 96 01/23/25 01:00 182/69 H 01/23/25 00:52 69 180/70 H 01/23/25 00:49 180/70 H 01/23/25 00:49 180/70 H 01/23/25 00:42 63 14 01/23/25 00:37 Nasal Cannula, Ambu-Bag 01/23/25 00:36 63 21 96 01/23/25 00:34 176/82 H 01/23/25 00:34 176/82 H 01/23/25 00:34 176/82 H 01/23/25 00:34 176/82 H 01/23/25 00:34 176/82 H 01/23/25 00:33 78 19 91 01/23/25 00:30 78 18 97 01/23/25 00:30 72 160/91 H O2 Flow Rate 01/23/25 11:35 4 01/23/25 11:33 01/23/25 11:11 01/23/25 11:09 01/23/25 10:48 01/23/25 10:32 01/23/25 10:11 01/23/25 10:03 4 01/23/25 09:50 01/23/25 09:47 01/23/25 09:42 01/23/25 09:33 01/23/25 09:30 01/23/25 09:27 01/23/25 09:19 01/23/25 09:15 01/23/25 09:10 01/23/25 09:06 01/23/25 09:00 01/23/25 08:54 01/23/25 08:46 01/23/25 08:45 01/23/25 08:38 2 01/23/25 08:30 01/23/25 08:30 01/23/25 08:20 4 01/23/25 08:09 01/23/25 08:01 01/23/25 08:00 01/23/25 08:00 01/23/25 07:48 01/23/25 07:31 01/23/25 07:01 01/23/25 06:48 01/23/25 06:30 01/23/25 06:30 01/23/25 06:03 01/23/25 06:00 01/23/25 06:00 01/23/25 05:45 01/23/25 05:32 01/23/25 05:12 01/23/25 05:03 01/23/25 05:01 01/23/25 05:01 01/23/25 04:39 01/23/25 04:30 01/23/25 04:30 01/23/25 04:30 01/23/25 04:15 01/23/25 04:01 01/23/25 04:01 01/23/25 04:01 01/23/25 03:33 01/23/25 03:30 01/23/25 03:27 01/23/25 03:03 01/23/25 03:00 01/23/25 03:00 01/23/25 03:00 01/23/25 02:57 01/23/25 02:33 01/23/25 02:30 01/23/25 02:09 01/23/25 01:30 01/23/25 01:30 01/23/25 01:30 01/23/25 01:30 01/23/25 01:12 01/23/25 01:00 01/23/25 00:52 01/23/25 00:49 01/23/25 00:49 01/23/25 00:42 01/23/25 00:37 4 01/23/25 00:36 01/23/25 00:34 01/23/25 00:34 01/23/25 00:34 01/23/25 00:34 01/23/25 00:34 01/23/25 00:33 01/23/25 00:30 01/23/25 00:30 Laboratory Results 01/23/25 01/22/25 01/22/25 Range/Units 04:21 23:57 18:20 WBC (4.8-10.8) K/ul RBC (4.20-5.40) M/uL Hgb (12.0-16.0) g/dl Hct (37.0-47.0) % MCV (80.0-100.0) fL MCH (25.0-34.0) pg MCHC (32.0-36.0) g/dL RDW Std Deviation (36.4-46.3) fL RDW Coeff of Rosemarie (11.5-14.5) % Plt Count (130-400) K/uL MPV (9.4-12.4) fL Immature Gran % (Auto) % Neut % (Auto) % Lymph % (Auto) % [place] % (Auto) % Eos % (Auto) % Baso % (Auto) % Neut # (Auto) (1.40-6.50) K/uL Lymph # (Auto) (1.20-3.40) K/uL [place] # (Auto) (0.11-0.59) K/uL Eos # (Auto) (0.00-0.50) K/uL Baso # (Auto) (0.00-0.20) K/uL Immature Gran # (Auto) (0.01-0.20) K/uL PT (9.0-12.0) Seconds INR (0.9-1.1) APTT (21-31) Seconds PTT Ratio VBG pH (7.36-7.41) VBG pCO2 (38-50) mmHg VBG pO2 mmHg VBG HCO3 mmol/L VBG O2 Saturation % VBG Base Excess mEq/L Sodium 141 (136-145) mmol/L Potassium 3.9 (3.5-5.1) mmol/L Chloride 102 (98-107) mmol/L Carbon Dioxide 33 H (21-32) mmol/L Anion Gap 6 (3-11) BUN 14 (6-23) mg/dl Creatinine 0.77 (0.6-1.2) mg/dl Est Cr Clr Drug Dosing 60.4 ml/min eGFR 83.97 BUN/Creatinine Ratio 18.2 (10-20) Glucose 98 (70-99(Fasting)) mg/dl POC Glucose 116 H 116 H (70-99) mg/dl Estimat Average Glucose mg/dl Hemoglobin A1c (4.5-5.6) % Lactate (0.4-2.0) mmol/L Calcium 9.4 (8.6-10.3) mg/dl Phosphorus 2.6 D (2.5-4.9) mg/dl Magnesium 1.6 L (1.7-2.4) mg/dl Total Bilirubin (0.2-1.0) mg/dl AST (13-39) U/L ALT (7-52) U/L Alkaline Phosphatase (34-104) U/L Ammonia (18-72) umol/L Total Creatine Kinase (26-192) U/L Troponin I High Sens (0-14) pg/ml Total Protein (6.0-8.3) gm/dl Albumin (3.4-5.0) gm/dl Globulin (2.5-4.0) gm/dl Albumin/Globulin Ratio (0.9-2) Triglycerides (0-150) mg/dl Cholesterol (0-200) mg/dl LDL Cholesterol, Calc mg/dl VLDL Cholesterol, Calc (0-30) mg/dl HDL Cholesterol mg/dl Cholesterol/HDL Ratio (0-5) Procalcitonin (0-0.5) ng/ml TSH (0.300-4.500) uIu/ml Urine Color Urine Appearance (Clear) Urine pH (4.5-7.5) Ur Specific [place] (1.000-1.030) Urine Protein (Negative) Urine Glucose (UA) (Negative) Urine Ketones (Negative) Urine Blood (Negative) Urine Nitrite (Negative) Urine Bilirubin (Negative) Urine Urobilinogen (Negative) Ur Leukocyte Esterase (Negative) Urine WBC (Auto) (0-5) /hpf Urine RBC (Auto) (0-2) /hpf U Hyaline Cast (Auto) (0-2) /lpf U Epithel Cells (Auto) (0-2) /hpf Urine Bacteria (Auto) (None Seen) Urine Yeast (None Prsent) Fluid Comment CSF Appearance CSF Color Xanthrochromic CSF WBC (0-5) CSF RBC (0) CSF Cell Count Tube # CSF Chemistry Tube # CSF Glucose (40-70) mg/dl CSF Lactate CSF Total Protein (15-45) mg/dl CSF C.neoform/gat PCR (NotDetected) CSF CMV DNA (PCR) (NotDetected) CSF Enterovirus (PCR) (NotDetected) CSF E. coli K1 (PCR) (NotDetected) CSF H. influenzae (PCR) (NotDetected) CSF HSV I (PCR) (NotDetected) CSF HSV II (PCR) (NotDetected) CSF HHV 6 (PCR) (NotDetected) CSF L.monocytogenes PCR (NotDetected) CSF N. meningitidis PCR (NotDetected) CSF Parechovirus (PCR) (NotDetected) CSF S. agalactiae (PCR) (NotDetected) CSF S. pneumoniae (PCR) (NotDetected) CSF VZV DNA (PCR) (NotDetected) Nasal Screen MRSA (PCR) (Negative) Adenovirus (PCR) (NotDetected) B. pertussis DNA (PCR) (NotDetected) B.parapertussis DNA PCR (NotDetected) C. pneumoniae DNA (PCR) (NotDetected) Coronavirus OC43 (PCR) (NotDetected) Coronavirus HKU1 (PCR) (NotDetected) Coronavirus 229E (PCR) (NotDetected) SARS-CoV-2 (PCR) (NotDetected) Coronavirus NL63 (PCR) (NotDetected) Human Metapneumovir PCR (NotDetected) Influenza Type A (PCR) (NotDetected) Influenza Type B (PCR) (NotDetected) M. pneumoniae (PCR) (NotDetected) Parainfluenza 1 (PCR) (NotDetected) Parainfluenza 2 (PCR) (NotDetected) Parainfluenza 3 (PCR) (NotDetected) Parainfluenza 4 (PCR) (NotDetected) RSV (PCR) (NotDetected) Entero/Rhino (PCR) (NotDetected) Blood Type Antibody Screen 01/22/25 01/22/25 01/22/25 Range/Units 14:46 08:54 04:50 WBC 18.98 H (4.8-10.8) K/ul RBC 4.73 (4.20-5.40) M/uL Hgb 13.8 (12.0-16.0) g/dl Hct 42.1 (37.0-47.0) % MCV 89.0 (80.0-100.0) fL MCH 29.2 (25.0-34.0) pg MCHC 32.8 (32.0-36.0) g/dL RDW Std Deviation 43.3 (36.4-46.3) fL RDW Coeff of Rosemarie 13.2 (11.5-14.5) % Plt Count 182 (130-400) K/uL MPV 11.1 (9.4-12.4) fL Immature Gran % (Auto) 0.5 % Neut % (Auto) 77.4 % Lymph % (Auto) 13.6 % [place] % (Auto) 8.3 % Eos % (Auto) 0.0 % Baso % (Auto) 0.2 % Neut # (Auto) 14.68 H (1.40-6.50) K/uL Lymph # (Auto) 2.59 (1.20-3.40) K/uL [place] # (Auto) 1.58 H (0.11-0.59) K/uL Eos # (Auto) 0.00 (0.00-0.50) K/uL Baso # (Auto) 0.03 (0.00-0.20) K/uL Immature Gran # (Auto) 0.10 (0.01-0.20) K/uL PT (9.0-12.0) Seconds INR (0.9-1.1) APTT (21-31) Seconds PTT Ratio VBG pH (7.36-7.41) VBG pCO2 (38-50) mmHg VBG pO2 mmHg VBG HCO3 mmol/L VBG O2 Saturation % VBG Base Excess mEq/L Sodium 142 (136-145) mmol/L Potassium 3.6 (3.5-5.1) mmol/L Chloride 101 (98-107) mmol/L Carbon Dioxide 32 (21-32) mmol/L Anion Gap 9 (3-11) BUN 14 (6-23) mg/dl Creatinine 0.95 (0.6-1.2) mg/dl Est Cr Clr Drug Dosing 48.9 ml/min eGFR 65.26 BUN/Creatinine Ratio 14.7 (10-20) Glucose 120 H (70-99(Fasting)) mg/dl POC Glucose 131 H (70-99) mg/dl Estimat Average Glucose 91 mg/dl Hemoglobin A1c 4.8 (4.5-5.6) % Lactate (0.4-2.0) mmol/L Calcium 9.9 (8.6-10.3) mg/dl Phosphorus 3.8 (2.5-4.9) mg/dl Magnesium 2.3 (1.7-2.4) mg/dl Total Bilirubin (0.2-1.0) mg/dl AST (13-39) U/L ALT (7-52) U/L Alkaline Phosphatase (34-104) U/L Ammonia 33.0 (18-72) umol/L Total Creatine Kinase (26-192) U/L Troponin I High Sens 144.5 H* D (0-14) pg/ml Total Protein (6.0-8.3) gm/dl Albumin (3.4-5.0) gm/dl Globulin (2.5-4.0) gm/dl Albumin/Globulin Ratio (0.9-2) Triglycerides 151 H (0-150) mg/dl Cholesterol 150 (0-200) mg/dl LDL Cholesterol, Calc 75 mg/dl VLDL Cholesterol, Calc 30 (0-30) mg/dl HDL Cholesterol 45 mg/dl Cholesterol/HDL Ratio 3.3 (0-5) Procalcitonin (0-0.5) ng/ml TSH 1.059 (0.300-4.500) uIu/ml Urine Color Urine Appearance (Clear) Urine pH (4.5-7.5) Ur Specific [place] (1.000-1.030) Urine Protein (Negative) Urine Glucose (UA) (Negative) Urine Ketones (Negative) Urine Blood (Negative) Urine Nitrite (Negative) Urine Bilirubin (Negative) Urine Urobilinogen (Negative) Ur Leukocyte Esterase (Negative) Urine WBC (Auto) (0-5) /hpf Urine RBC (Auto) (0-2) /hpf U Hyaline Cast (Auto) (0-2) /lpf U Epithel Cells (Auto) (0-2) /hpf Urine Bacteria (Auto) (None Seen) Urine Yeast (None Prsent) Fluid Comment CSF Appearance CSF Color Xanthrochromic CSF WBC (0-5) CSF RBC (0) CSF Cell Count Tube # CSF Chemistry Tube # CSF Glucose (40-70) mg/dl CSF Lactate CSF Total Protein (15-45) mg/dl CSF C.neoform/gat PCR (NotDetected) CSF CMV DNA (PCR) (NotDetected) CSF Enterovirus (PCR) (NotDetected) CSF E. coli K1 (PCR) (NotDetected) CSF H. influenzae (PCR) (NotDetected) CSF HSV I (PCR) (NotDetected) CSF HSV II (PCR) (NotDetected) CSF HHV 6 (PCR) (NotDetected) CSF L.monocytogenes PCR (NotDetected) CSF N. meningitidis PCR (NotDetected) CSF Parechovirus (PCR) (NotDetected) CSF S. agalactiae (PCR) (NotDetected) CSF S. pneumoniae (PCR) (NotDetected) CSF VZV DNA (PCR) (NotDetected) Nasal Screen MRSA (PCR) (Negative) Adenovirus (PCR) (NotDetected) B. pertussis DNA (PCR) (NotDetected) B.parapertussis DNA PCR (NotDetected) C. pneumoniae DNA (PCR) (NotDetected) Coronavirus OC43 (PCR) (NotDetected) Coronavirus HKU1 (PCR) (NotDetected) Coronavirus 229E (PCR) (NotDetected) SARS-CoV-2 (PCR) (NotDetected) Coronavirus NL63 (PCR) (NotDetected) Human Metapneumovir PCR (NotDetected) Influenza Type A (PCR) (NotDetected) Influenza Type B (PCR) (NotDetected) M. pneumoniae (PCR) (NotDetected) Parainfluenza 1 (PCR) (NotDetected) Parainfluenza 2 (PCR) (NotDetected) Parainfluenza 3 (PCR) (NotDetected) Parainfluenza 4 (PCR) (NotDetected) RSV (PCR) (NotDetected) Entero/Rhino (PCR) (NotDetected) Blood Type Antibody Screen 01/22/25 01/21/25 01/21/25 Range/Units 00:19 Unknown 23:27 WBC (4.8-10.8) K/ul RBC (4.20-5.40) M/uL Hgb (12.0-16.0) g/dl Hct (37.0-47.0) % MCV (80.0-100.0) fL MCH (25.0-34.0) pg MCHC (32.0-36.0) g/dL RDW Std Deviation (36.4-46.3) fL RDW Coeff of Rosemarie (11.5-14.5) % Plt Count (130-400) K/uL MPV (9.4-12.4) fL Immature Gran % (Auto) % Neut % (Auto) % Lymph % (Auto) % [place] % (Auto) % Eos % (Auto) % Baso % (Auto) % Neut # (Auto) (1.40-6.50) K/uL Lymph # (Auto) (1.20-3.40) K/uL [place] # (Auto) (0.11-0.59) K/uL Eos # (Auto) (0.00-0.50) K/uL Baso # (Auto) (0.00-0.20) K/uL Immature Gran # (Auto) (0.01-0.20) K/uL PT (9.0-12.0) Seconds INR (0.9-1.1) APTT (21-31) Seconds PTT Ratio VBG pH 7.40 (7.36-7.41) VBG pCO2 47 (38-50) mmHg VBG pO2 29 mmHg VBG HCO3 29 mmol/L VBG O2 Saturation < 60.0 % VBG Base Excess 3.5 mEq/L Sodium (136-145) mmol/L Potassium (3.5-5.1) mmol/L Chloride (98-107) mmol/L Carbon Dioxide (21-32) mmol/L Anion Gap (3-11) BUN (6-23) mg/dl Creatinine (0.6-1.2) mg/dl Est Cr Clr Drug Dosing ml/min eGFR BUN/Creatinine Ratio (10-20) Glucose 116 H (70-99(Fasting)) mg/dl POC Glucose 128 H (70-99) mg/dl Estimat Average Glucose mg/dl Hemoglobin A1c (4.5-5.6) % Lactate (0.4-2.0) mmol/L Calcium (8.6-10.3) mg/dl Phosphorus (2.5-4.9) mg/dl Magnesium (1.7-2.4) mg/dl Total Bilirubin (0.2-1.0) mg/dl AST (13-39) U/L ALT (7-52) U/L Alkaline Phosphatase (34-104) U/L Ammonia (18-72) umol/L Total Creatine Kinase (26-192) U/L Troponin I High Sens 191.4 H* D (0-14) pg/ml Total Protein (6.0-8.3) gm/dl Albumin (3.4-5.0) gm/dl Globulin (2.5-4.0) gm/dl Albumin/Globulin Ratio (0.9-2) Triglycerides (0-150) mg/dl Cholesterol (0-200) mg/dl LDL Cholesterol, Calc mg/dl VLDL Cholesterol, Calc (0-30) mg/dl HDL Cholesterol mg/dl Cholesterol/HDL Ratio (0-5) Procalcitonin (0-0.5) ng/ml TSH (0.300-4.500) uIu/ml Urine Color Urine Appearance (Clear) Urine pH (4.5-7.5) Ur Specific [place] (1.000-1.030) Urine Protein (Negative) Urine Glucose (UA) (Negative) Urine Ketones (Negative) Urine Blood (Negative) Urine Nitrite (Negative) Urine Bilirubin (Negative) Urine Urobilinogen (Negative) Ur Leukocyte Esterase (Negative) Urine WBC (Auto) (0-5) /hpf Urine RBC (Auto) (0-2) /hpf U Hyaline Cast (Auto) (0-2) /lpf U Epithel Cells (Auto) (0-2) /hpf Urine Bacteria (Auto) (None Seen) Urine Yeast (None Prsent) Fluid Comment CSF Appearance CSF Color Xanthrochromic CSF WBC (0-5) CSF RBC (0) CSF Cell Count Tube # CSF Chemistry Tube # CSF Glucose (40-70) mg/dl CSF Lactate CSF Total Protein (15-45) mg/dl CSF C.neoform/gat PCR (NotDetected) CSF CMV DNA (PCR) (NotDetected) CSF Enterovirus (PCR) (NotDetected) CSF E. coli K1 (PCR) (NotDetected) CSF H. influenzae (PCR) (NotDetected) CSF HSV I (PCR) (NotDetected) CSF HSV II (PCR) (NotDetected) CSF HHV 6 (PCR) (NotDetected) CSF L.monocytogenes PCR (NotDetected) CSF N. meningitidis PCR (NotDetected) CSF Parechovirus (PCR) (NotDetected) CSF S. agalactiae (PCR) (NotDetected) CSF S. pneumoniae (PCR) (NotDetected) CSF VZV DNA (PCR) (NotDetected) Nasal Screen MRSA (PCR) Negative (Negative) Adenovirus (PCR) (NotDetected) B. pertussis DNA (PCR) (NotDetected) B.parapertussis DNA PCR (NotDetected) C. pneumoniae DNA (PCR) (NotDetected) Coronavirus OC43 (PCR) (NotDetected) Coronavirus HKU1 (PCR) (NotDetected) Coronavirus 229E (PCR) (NotDetected) SARS-CoV-2 (PCR) (NotDetected) Coronavirus NL63 (PCR) (NotDetected) Human Metapneumovir PCR (NotDetected) Influenza Type A (PCR) (NotDetected) Influenza Type B (PCR) (NotDetected) M. pneumoniae (PCR) (NotDetected) Parainfluenza 1 (PCR) (NotDetected) Parainfluenza 2 (PCR) (NotDetected) Parainfluenza 3 (PCR) (NotDetected) Parainfluenza 4 (PCR) (NotDetected) RSV (PCR) (NotDetected) Entero/Rhino (PCR) (NotDetected) Blood Type Antibody Screen 01/21/25 01/21/25 01/21/25 Range/Units 23:20 21:47 20:00 WBC (4.8-10.8) K/ul RBC (4.20-5.40) M/uL Hgb (12.0-16.0) g/dl Hct (37.0-47.0) % MCV (80.0-100.0) fL MCH (25.0-34.0) pg MCHC (32.0-36.0) g/dL RDW Std Deviation (36.4-46.3) fL RDW Coeff of Rosemarie (11.5-14.5) % Plt Count (130-400) K/uL MPV (9.4-12.4) fL Immature Gran % (Auto) % Neut % (Auto) % Lymph % (Auto) % [place] % (Auto) % Eos % (Auto) % Baso % (Auto) % Neut # (Auto) (1.40-6.50) K/uL Lymph # (Auto) (1.20-3.40) K/uL [place] # (Auto) (0.11-0.59) K/uL Eos # (Auto) (0.00-0.50) K/uL Baso # (Auto) (0.00-0.20) K/uL Immature Gran # (Auto) (0.01-0.20) K/uL PT (9.0-12.0) Seconds INR (0.9-1.1) APTT (21-31) Seconds PTT Ratio VBG pH (7.36-7.41) VBG pCO2 (38-50) mmHg VBG pO2 mmHg VBG HCO3 mmol/L VBG O2 Saturation % VBG Base Excess mEq/L Sodium (136-145) mmol/L Potassium (3.5-5.1) mmol/L Chloride (98-107) mmol/L Carbon Dioxide (21-32) mmol/L Anion Gap (3-11) BUN (6-23) mg/dl Creatinine (0.6-1.2) mg/dl Est Cr Clr Drug Dosing ml/min eGFR BUN/Creatinine Ratio (10-20) Glucose (70-99(Fasting)) mg/dl POC Glucose 130 H (70-99) mg/dl Estimat Average Glucose mg/dl Hemoglobin A1c (4.5-5.6) % Lactate (0.4-2.0) mmol/L Calcium (8.6-10.3) mg/dl Phosphorus (2.5-4.9) mg/dl Magnesium (1.7-2.4) mg/dl Total Bilirubin (0.2-1.0) mg/dl AST (13-39) U/L ALT (7-52) U/L Alkaline Phosphatase (34-104) U/L Ammonia (18-72) umol/L Total Creatine Kinase (26-192) U/L Troponin I High Sens (0-14) pg/ml Total Protein (6.0-8.3) gm/dl Albumin (3.4-5.0) gm/dl Globulin (2.5-4.0) gm/dl Albumin/Globulin Ratio (0.9-2) Triglycerides (0-150) mg/dl Cholesterol (0-200) mg/dl LDL Cholesterol, Calc mg/dl VLDL Cholesterol, Calc (0-30) mg/dl HDL Cholesterol mg/dl Cholesterol/HDL Ratio (0-5) Procalcitonin (0-0.5) ng/ml TSH (0.300-4.500) uIu/ml Urine Color Yellow Urine Appearance Cloudy A (Clear) Urine pH 6.0 (4.5-7.5) Ur Specific [place] 1.033 H (1.000-1.030) Urine Protein 3+ H (Negative) Urine Glucose (UA) Negative (Negative) Urine Ketones Negative (Negative) Urine Blood 2+ H (Negative) Urine Nitrite Negative (Negative) Urine Bilirubin Negative (Negative) Urine Urobilinogen Negative (Negative) Ur Leukocyte Esterase 2+ H (Negative) Urine WBC (Auto) >50 H (0-5) /hpf Urine RBC (Auto) 3-5 H (0-2) /hpf U Hyaline Cast (Auto) 0-2 (0-2) /lpf U Epithel Cells (Auto) 0-2 (0-2) /hpf Urine Bacteria (Auto) 4+ H (None Seen) Urine Yeast Present A (None Prsent) Fluid Comment CSF Appearance Slightly Hazy CSF Color Colorless Xanthrochromic No xanthochromia CSF WBC 1 (0-5) CSF RBC 1250 (0) CSF Cell Count Tube # 3 CSF Chemistry Tube # 1 CSF Glucose 80 H (40-70) mg/dl CSF Lactate Pending CSF Total Protein 59.6 H (15-45) mg/dl CSF C.neoform/gat PCR Not Detected (NotDetected) CSF CMV DNA (PCR) Not Detected (NotDetected) CSF Enterovirus (PCR) Not Detected (NotDetected) CSF E. coli K1 (PCR) Not Detected (NotDetected) CSF H. influenzae (PCR) Not Detected (NotDetected) CSF HSV I (PCR) Not Detected (NotDetected) CSF HSV II (PCR) Not Detected (NotDetected) CSF HHV 6 (PCR) Not Detected (NotDetected) CSF L.monocytogenes PCR Not Detected (NotDetected) CSF N. meningitidis PCR Not Detected (NotDetected) CSF Parechovirus (PCR) Not Detected (NotDetected) CSF S. agalactiae (PCR) Not Detected (NotDetected) CSF S. pneumoniae (PCR) Not Detected (NotDetected) CSF VZV DNA (PCR) Not Detected (NotDetected) Nasal Screen MRSA (PCR) (Negative) Adenovirus (PCR) (NotDetected) B. pertussis DNA (PCR) (NotDetected) B.parapertussis DNA PCR (NotDetected) C. pneumoniae DNA (PCR) (NotDetected) Coronavirus OC43 (PCR) (NotDetected) Coronavirus HKU1 (PCR) (NotDetected) Coronavirus 229E (PCR) (NotDetected) SARS-CoV-2 (PCR) (NotDetected) Coronavirus NL63 (PCR) (NotDetected) Human Metapneumovir PCR (NotDetected) Influenza Type A (PCR) (NotDetected) Influenza Type B (PCR) (NotDetected) M. pneumoniae (PCR) (NotDetected) Parainfluenza 1 (PCR) (NotDetected) Parainfluenza 2 (PCR) (NotDetected) Parainfluenza 3 (PCR) (NotDetected) Parainfluenza 4 (PCR) (NotDetected) RSV (PCR) (NotDetected) Entero/Rhino (PCR) (NotDetected) Blood Type Antibody Screen 01/21/25 01/21/25 01/21/25 Range/Units 17:49 14:51 14:50 WBC 16.24 H (4.8-10.8) K/ul RBC 4.89 (4.20-5.40) M/uL Hgb 14.2 (12.0-16.0) g/dl Hct 44.0 (37.0-47.0) % MCV 90.0 (80.0-100.0) fL MCH 29.0 (25.0-34.0) pg MCHC 32.3 (32.0-36.0) g/dL RDW Std Deviation 44.0 (36.4-46.3) fL RDW Coeff of Rosemarie 13.2 (11.5-14.5) % Plt Count 181 (130-400) K/uL MPV 11.0 (9.4-12.4) fL Immature Gran % (Auto) 0.4 % Neut % (Auto) 91.0 % Lymph % (Auto) 5.0 % [place] % (Auto) 3.5 % Eos % (Auto) 0.0 % Baso % (Auto) 0.1 % Neut # (Auto) 14.78 H (1.40-6.50) K/uL Lymph # (Auto) 0.81 L (1.20-3.40) K/uL [place] # (Auto) 0.57 (0.11-0.59) K/uL Eos # (Auto) 0.00 (0.00-0.50) K/uL Baso # (Auto) 0.02 (0.00-0.20) K/uL Immature Gran # (Auto) 0.06 (0.01-0.20) K/uL PT 10.9 (9.0-12.0) Seconds INR 1.0 (0.9-1.1) APTT 22 (21-31) Seconds PTT Ratio 0.8 VBG pH 7.27 L 7.26 L (7.36-7.41) VBG pCO2 64 H 59 H (38-50) mmHg VBG pO2 67 43 mmHg VBG HCO3 29 27 mmol/L VBG O2 Saturation 92.8 67.6 % VBG Base Excess 0.9 -1.7 mEq/L Sodium 139 (136-145) mmol/L Potassium 3.8 (3.5-5.1) mmol/L Chloride 101 (98-107) mmol/L Carbon Dioxide 28 (21-32) mmol/L Anion Gap 10 (3-11) BUN 11 (6-23) mg/dl Creatinine 1.00 (0.6-1.2) mg/dl Est Cr Clr Drug Dosing 50.9 ml/min eGFR 61.36 BUN/Creatinine Ratio 11.0 (10-20) Glucose 111 H (70-99(Fasting)) mg/dl POC Glucose (70-99) mg/dl Estimat Average Glucose mg/dl Hemoglobin A1c (4.5-5.6) % Lactate 1.3 4.7 H* (0.4-2.0) mmol/L Calcium 9.7 (8.6-10.3) mg/dl Phosphorus (2.5-4.9) mg/dl Magnesium 1.7 (1.7-2.4) mg/dl Total Bilirubin 0.5 (0.2-1.0) mg/dl AST 18 (13-39) U/L ALT 8 (7-52) U/L Alkaline Phosphatase 115 H (34-104) U/L Ammonia (18-72) umol/L Total Creatine Kinase 231 H (26-192) U/L Troponin I High Sens 132.5 H* D 39.6 H (0-14) pg/ml Total Protein 7.0 (6.0-8.3) gm/dl Albumin 3.9 (3.4-5.0) gm/dl Globulin 3.1 (2.5-4.0) gm/dl Albumin/Globulin Ratio 1.3 (0.9-2) Triglycerides (0-150) mg/dl Cholesterol (0-200) mg/dl LDL Cholesterol, Calc mg/dl VLDL Cholesterol, Calc (0-30) mg/dl HDL Cholesterol mg/dl Cholesterol/HDL Ratio (0-5) Procalcitonin 0.02 (0-0.5) ng/ml TSH (0.300-4.500) uIu/ml Urine Color Urine Appearance (Clear) Urine pH (4.5-7.5) Ur Specific [place] (1.000-1.030) Urine Protein (Negative) Urine Glucose (UA) (Negative) Urine Ketones (Negative) Urine Blood (Negative) Urine Nitrite (Negative) Urine Bilirubin (Negative) Urine Urobilinogen (Negative) Ur Leukocyte Esterase (Negative) Urine WBC (Auto) (0-5) /hpf Urine RBC (Auto) (0-2) /hpf U Hyaline Cast (Auto) (0-2) /lpf U Epithel Cells (Auto) (0-2) /hpf Urine Bacteria (Auto) (None Seen) Urine Yeast (None Prsent) Fluid Comment CSF Appearance CSF Color Xanthrochromic CSF WBC (0-5) CSF RBC (0) CSF Cell Count Tube # CSF Chemistry Tube # CSF Glucose (40-70) mg/dl CSF Lactate CSF Total Protein (15-45) mg/dl CSF C.neoform/gat PCR (NotDetected) CSF CMV DNA (PCR) (NotDetected) CSF Enterovirus (PCR) (NotDetected) CSF E. coli K1 (PCR) (NotDetected) CSF H. influenzae (PCR) (NotDetected) CSF HSV I (PCR) (NotDetected) CSF HSV II (PCR) (NotDetected) CSF HHV 6 (PCR) (NotDetected) CSF L.monocytogenes PCR (NotDetected) CSF N. meningitidis PCR (NotDetected) CSF Parechovirus (PCR) (NotDetected) CSF S. agalactiae (PCR) (NotDetected) CSF S. pneumoniae (PCR) (NotDetected) CSF VZV DNA (PCR) (NotDetected) Nasal Screen MRSA (PCR) (Negative) Adenovirus (PCR) Not Detected (NotDetected) B. pertussis DNA (PCR) Not Detected (NotDetected) B.parapertussis DNA PCR Not Detected (NotDetected) C. pneumoniae DNA (PCR) Not Detected (NotDetected) Coronavirus OC43 (PCR) Not Detected (NotDetected) Coronavirus HKU1 (PCR) Not Detected (NotDetected) Coronavirus 229E (PCR) Not Detected (NotDetected) SARS-CoV-2 (PCR) Not Detected (NotDetected) Coronavirus NL63 (PCR) Not Detected (NotDetected) Human Metapneumovir PCR Not Detected (NotDetected) Influenza Type A (PCR) Not Detected (NotDetected) Influenza Type B (PCR) Not Detected (NotDetected) M. pneumoniae (PCR) Not Detected (NotDetected) Parainfluenza 1 (PCR) Not Detected (NotDetected) Parainfluenza 2 (PCR) Not Detected (NotDetected) Parainfluenza 3 (PCR) Not Detected (NotDetected) Parainfluenza 4 (PCR) Not Detected (NotDetected) RSV (PCR) Not Detected (NotDetected) Entero/Rhino (PCR) Not Detected (NotDetected) Blood Type B Positive Antibody Screen NEGATIVE Diagnostic Findings Chest X-Ray 01/21/25 00:00 XR chest 1V portable CLINICAL HISTORY: neuro deficit, acute stroke suspected COMPARISON STUDY: 02/06/2024 FINDINGS: Single view portable chest demonstrates no significant interval change allowing for technical differences. There is no focal airspace opacity or pleural effusion. There is no pneumothorax. The heart and pulmonary vascularity are unremarkable. IMPRESSION: Stable exam; no acute process ACT 112: Negative or not required by law. Electronically signed by: Arielle Johnson M.D. 01/21/2025 3:[address] 01/21/25 14:20 CT head/brain wo con CLINICAL HISTORY: Stroke alert. TECHNIQUE: Multiple axial CT images of the head were obtained without contrast. Sagittal and coronal reconstructions were done. A dose lowering technique was utilized adhering to the principles of ALARA. CT DOSE: 547.75 mGy.cm COMPARISON: None FINDINGS: There is no intra-axial or extra-axial fluid collection, hemorrhage, or mass. There is an area of encephalomalacia in the right posterior parietal lobe without mass effect. It has appearance of an old stroke. The ventricles and sulci are age-appropriate with no midline shift. The bone windows are negative. IMPRESSION: Right posterior parietal lobe encephalomalacia having the appearance of an old or late subacute stroke due to the lack of any surrounding edema or mass effect. This could be confirmed with an MRI in the appropriate clinical content. No evidence of hemorrhage. ACT 112: Negative or not required by law. The above report was generated using voice recognition software. It may contain grammatical, syntax or spelling errors. Electronically signed by: Arielle Johnson M.D. 01/21/2025 2:33 PM Head CTA 01/21/25 14:21 CTA ANGIOGRAPHY OF THE HEAD CLINICAL HISTORY: neuro deficit, acute stroke suspected. Syncope. COMPARISON STUDY: MRI of the brain October 31, 2019. TECHNIQUE: Helical axial images of the head were obtained following uneventful intravenous administration of 115 cc of Optiray. Sagittal and coronal reconstructions were viewed as well as maximal intensity projections on an independent 3-D workstation. Automated exposure control was utilized for the study. A dose lowering technique was utilized adhering to the principles of ALARA. FINDINGS: Please note that the head CT will be reported separately. No acute intracranial hemorrhage, midline shift or mass effect is present. Ventricular system is unremarkable. Basal cisterns are patent. A focus of encephalomalacia within the right parietal lobe is new since MRI of October 31, 2009. This favors an old infarct. The bilateral M1, M2, A1 and A2 segments are patent. There is moderate calcified atherosclerotic plaque within the cavernous carotids which results in mild stenosis. No vessel occlusion is identified within the intracranial circulation. The left vertebral artery is dominant. Basilar artery is patent. There is persistence of the left posterior cerebral artery. IMPRESSION: No intracranial vessel occlusion. No intracranial aneurysm. ACT 112: Negative or not required by law. Electronically signed by: Garrick Hernández M.D. 01/21/2025 2:47 PM Neck CTA 01/21/25 14:21 CT angio neck with con CLINICAL HISTORY: neuro deficit, acute stroke suspected. COMPARISON STUDY: Chest CT of 08/12/2024 TECHNIQUE: Following the IV administration of 115 of Optiray, CT angiogram of the neck was performed from the aortic arch to the skull base. Images are reviewed in the axial, sagittal, and coronal planes. 3-D MIPS images are created and assessed. IV contrast was administered without complication. All measurements were calculated based on NASCET criteria. A dose lowering technique was utilized adhering to the principles of ALARA. CT DOSE: 445.57 mGy.cm FINDINGS: Suspicious pulmonary nodules at the left lung apex are stable. Please see the prior chest CT report. There are scattered atherosclerotic calcifications. There are carotid bulb calcifications. No significant narrowing or occlusion seen at the common or internal carotid arteries bilaterally. There is mild narrowing at the origin of the vertebral arteries bilaterally. No significant narrowing or occlusion seen at the vertebral arteries. Basilar artery visualized portion is patent. There is a stable tiny nodule at the left thyroid lobe. There is moderate lower cervical degenerative disc disease. IMPRESSION: Diffuse atherosclerotic calcification with no significant arterial narrowing or occlusion seen at the neck. ACT 112: Negative or not required by law. The above report was generated using voice recognition software. It may contain grammatical, syntax or spelling errors. Electronically signed by: Ayo Carver M.D. 01/21/2025 2:48 PM Brain MRI 01/22/25 08:15 MRI OF THE BRAIN COMBO CLINICAL HISTORY: Altered mental status. Unresponsive. COMPARISON STUDY: MRI of the brain October 31, 2009. Head CT and CTA of the head January 31, 2025. TECHNIQUE: MRI of the brain was performed utilizing various T1 and T2-weighted sequences in the axial, sagittal, and coronal planes. Contrast-enhanced sequences were acquired following the administration of 6 cc of Gadavist. FINDINGS: This exam is mildly compromised by artifact. A focus of encephalomalacia within the right parietal lobe represents an old infarct. There is restricted diffusion within the right insular cortex as well as additional portions of the right temporal lobe and right parietal lobe. Corresponding hypointensity is noted on the ADC map. There is also apparent mild restricted diffusion within the right thalamus. The thin cut coronal T2 sequence demonstrates corresponding gyral swelling with T2 hyperintensity. There is no mass effect. There is a punctate 3 mm T1 hyperintense focus within the right basal ganglia on axial T1-weighted sequence image 13 of 23. No abnormal enhancement is identified. The basal cisterns are patent. There are no extra- axial collections. Flow-voids for the major intracranial vessels are present. White matter T2 hyperintense foci suggest small vessel disease. IMPRESSION: 1. Moderate size focus of restricted diffusion within the cortex of the right temporal and parietal lobes with corresponding hypointensity on the ADC map and gyral swelling on the coronal T2 sequence. No significant mass effect. An acute infarct is favored. Although less likely, other etiologies such as encephalitis cannot be completely excluded given apparent restricted diffusion within the right thalamus. Findings could be correlated with CSF analysis from recent lumbar puncture. 2. Punctate T1 hyperintense focus within the right basal ganglia. This is of questionable significance although trace hemorrhage cannot be excluded. Short- term follow-up head CT could be obtained. 3. No intracranial mass or pathologic enhancement. 4. Old right parietal lobe infarct. ACT 112: Negative or not required by law. Electronically signed by: Garrick Hernández M.D. 01/22/2025 1:12 PM PG Care Time/CCT Total # of Minutes Spent Total Time Spent: 25 Total Time Spent with Patient: Total time spent is greater than 50% in coordination of care (as documented) at patient's floor/unit and/or counseling patient: Coding [place] [address] SUB INP/OBS CARE 1/25MIN Patient Type Established History Comprehensive Exam Problem Focused Medical Decision Making Moderate Complexity Diagnoses Weakness generalized R53.1 Left hemiplegia G81.94 Palliative care by specialist Z51.5
--- NOTE | 2025-01-23 15:58 | XCELERA ---
[id number]
[2025-01-24 05:00] LABS: Basophils # (auto) 0.03 K/uL (0.00-0.20); Basophils % (auto) 0.2 %; Hematocrit (blood only) 36.8 % (37.0-47.0); Hemoglobin 12.4 g/dl (12.0-16.0); Immature Granulocytes # (auto) 0.17 K/uL (0.01-0.20); Immature Granulocytes % (auto) 0.9 %; Lymphocytes # (auto) 1.98 K/uL (1.20-3.40); Lymphocytes % (auto) 10.2 %; Mean Corpuscular Hemoglobin 29.2 pg (25.0-34.0); Mean Corpuscular Hgb Conc 33.7 g/dL (32.0-36.0); Mean Corpuscular Volume 86.8 fL (80.0-100.0); Mean Platelet Volume 11.7 fL (9.4-12.4); Monocytes # (auto) 1.33 K/uL (0.11-0.59); Monocytes % (auto) 6.8 %; Neutrophils # (auto) 15.92 K/uL (1.40-6.50); Neutrophils % (auto) 81.9 %; Platelet Count 157 K/uL (130-400); RDW Coefficient of Variation 13.2 % (11.5-14.5); RDW Standard Deviation 41.7 fL (36.4-46.3); Red Blood Count 4.24 M/uL (4.20-5.40); White Blood Count 19.43 K/ul (4.8-10.8)
[2025-01-24 05:12] LABS: BUN Creatinine Ratio 23.1 (10-20); Calcium 9.3 mg/dl (8.6-10.3); Magnesium 1.8 mg/dl (1.7-2.4); Phosphorus 2.3 mg/dl (2.5-4.9); Potassium 3.5 mmol/L (3.5-5.1)
--- NOTE | 2025-01-24 08:18 | XRay Report ---
XR chest 1V portable CLINICAL HISTORY: ?pulm edema COMPARISON STUDY: 01/21/2025 FINDINGS: Heart size and pulmonary vasculature are normal. No effusion, consolidation, or pneumothora x seen. IMPRESSION: Stable exam. ACT 112: Negative or not required by law. Electronically signed by: Ayo Carver M.D. 01/24/2025 8:17 AM
[2025-01-24] MEDS: POT PHOSPHATE MONOBASIC W/ SOD TAB PO SCH (08:22)
[2025-01-24] MEDS: ASPIRIN 81 MG ECTAB PO SCH (08:22)
[2025-01-24] MEDS: hydroCHLOROthiazide 25 MG TAB PO SCH (08:22)
[2025-01-24] MEDS ORDERED: ALBUTEROL HFA 8 GM INHALER INH PRN (13:00)
[2025-01-24] MEDS ORDERED: guaiFENesin 600 MG TABCR PO PRN (13:00)
--- NOTE | 2025-01-24 13:06 | Hospitalist Progress Note ---
Date of Service January 24, 2025 Assessment & Plan (1) Seizure-like activity: (2) CVA (cerebral vascular accident): Plan 69-year-old female who was found down and unresponsive with concern for seizure- like activity last known well 2-3 days prior who was transported to the ER. Suspected to have a parietal CVA with resulting seizure. Patient also had a leukocytosis and fever suspected to be due to UTI but for which meningitis was within the differential and LP was obtained. She was admitted to the ICU overnight, did not show further seizure-like activity following Keppra load. Patient is suspected overall to have sustained a CVA Right temporal/parietal/thalamic stroke with additional possible right basal ganglier/pontine CVA. No history of A-fib. No occlusion was seen on CTA. Patient is suspected to have had a severe event which was likely worsened by global anoxic injury due to both seizure and underlying hypoxic hypercapnic respiratory failure. Workup for encephalitis has been unremarkable. #Subacute CVA CThead shows right posterior parietal lobe encephalomalacia and possible late subacute CVA. Patient's last known well was 01/19/2025, little over 2 days prior to admission CTA head/neck with diffuse atherosclerotic calcification without acute occlusion/narrowing - MRI: Moderate size restricted diffusion in the right temporal and parietal lobes. Punctate T1 hyperintense focus of the right basal ganglia. Trace hemorrhage is not excluded. Short-term follow-up could be obtained. No mass effect. Old right parietal lobe infarct Reviewed with neurology. Encephalitis is less likely especially given presentation and LP. Suspect that this is all ischemic/stroke pathology. Was switched to DAPT therapy once she passed speech eval, continue this for 3 weeks and then switch to Plavix monotherapy Past speech evaluation and is tolerating her diet well Did have some resistant difficult to control hypertension initially with multiple dose of labetalol being limited by bradycardia. Adequate control at bedside assessment on 01/24 on oral agents #Seizure Provoked in the setting of CVA, no prior history of seizures Keppra loaded, continue 500 mg IV twice daily Lorazepam 2 mg IV for acute seizure-like activity Acute hypoxic, hypercapnic respiratory failure, history of COPD, tobacco use 01/24 developed a thicker more congested cough. Denies colored sputum production. Chest x-ray is stable, no effusion/consolidation/pneumothorax seen. On exam lungs are coarse. Procalcitonin ordered. Patient has been on Rocephin however given worsening respiratory symptoms, risk of aspiration event, and uptrending leukocytosis will convert to Augmentin for expanded coverage. MRSA nare was negative. Home inhalers resumed Incentive spirometer added Guaifenesin added Leukocytosis, suspected UTI With leukocytosis of 16.24, afebrile Continue Rocephin Follow UCx LP results as noted. CSF culture preliminarily with no growth to date. Blood cultures preliminarily with no growth to date. UCx positive for pansensitive Klebsiella. Troponin elevation Troponin peaked at 191, downtrending on recheck EKG: Quality tracing but nonspecific changes, no territorial ST/T wave changes, QT prolonged at 481 Suspect demand Echo with bubble study shows no shunt, LVEF 55 to 60%. #CODE STATUS/goals of care DNR/DNI Seen by palliative care. If she acutely declines, move to HUMAN SERVICE TECHNICIAN. Patient is clinically progressing, eating and drinking well. Targeting placement to encompass, will require off possible placement available on 01/26 Admission and Anticipated Discharge Date Admission Date: January 21, 2025 Subjective Seen at the bedside with her sister present. She is sitting up in the chair eating breakfast. Has not had any aspiration or difficulty swallowing although had spilled her drink once or twice due to difficulty moving her hand. Does have a cough nonproductive. No shortness of breath but remains on 2 L nasal cannula. Has not regained any use of her left arm. Is able to shuffle a bit when working with PT with the left side although does not flex on the hip or ankles dorsiflex/plantarflex on command. She reports her left hand is completely numb even when she massages it. Denies chest pain chest pressure Physical Exam Physical Exam: General: A&Ox3. NAD. Cooperative. HEENT: Vision and hearing grossly intact Pulm: Diminished, coarse. Symmetrical chest rise Cardiac: RRR, -mrg. Radial pulses intact and symmetrical. Abdominal: Nontender, nondistended, soft. BS present. Extremities: Remains with no activation of strength in the left upper extremity. Does shift left lower extremity somewhat on command although does not flex variously on the hip on command has been able to shuffle somewhat with physical therapy. Right communications tower climber strength right hip flexion right ankle dorsiflexion/plan tarflexion are all intact with full strength, sensation to soft touch is intact in the right hand does not endorse any sensation in the left hand. Results & Data Results & Data Vital Signs (Past 12 Hours) Vital Signs Temp Pulse Pulse Resp BP BP Pulse Ox 01/24/25 11:38 36.7 C 68 16 132/73 94 01/24/25 07:47 36.4 C L 18 94 01/24/25 07:47 64 164/78 H 01/24/25 07:46 67 01/24/25 07:14 67 198/84 H 01/24/25 06:18 177/68 H 01/24/25 01:04 66 O2 Del Method O2 Flow Rate 01/24/25 11:38 Nasal Cannula 2 01/24/25 07:47 Nasal Cannula 3 01/24/25 07:47 01/24/25 07:46 01/24/25 07:14 01/24/25 06:18 01/24/25 01:04 PG Care Time/CCT Total # of Minutes Spent Total Time Spent with Patient: Total time spent is greater than 50% in coordination of care (as documented) at patient's floor/unit and/or counseling patient: Coding Level of Care Code 21925 SUB INP/OBS CARE 3/50MIN Diagnoses Seizure-like activity R56.9 CVA (cerebral vascular accident) I63.9
[2025-01-24] MEDS: AMOXICILLIN/CLAVULANATE 875 MG TAB PO SCH (17:23)
[2025-01-24] MEDS ORDERED: ATORVASTATIN 10 MG TAB PO SCH (21:00)
[2025-01-25 06:47] LABS: Basophils # (auto) 0.03 K/uL (0.00-0.20); Basophils % (auto) 0.1 %; Hematocrit (blood only) 36.2 % (37.0-47.0); Hemoglobin 11.8 g/dl (12.0-16.0); Immature Granulocytes # (auto) 0.21 K/uL (0.01-0.20); Immature Granulocytes % (auto) 0.9 %; Lymphocytes # (auto) 1.97 K/uL (1.20-3.40); Lymphocytes % (auto) 8.4 %; Mean Corpuscular Hemoglobin 28.6 pg (25.0-34.0); Mean Corpuscular Hgb Conc 32.6 g/dL (32.0-36.0); Mean Corpuscular Volume 87.7 fL (80.0-100.0); Mean Platelet Volume 12.4 fL (9.4-12.4); Monocytes # (auto) 1.58 K/uL (0.11-0.59); Monocytes % (auto) 6.7 %; Neutrophils # (auto) 19.68 K/uL (1.40-6.50); Neutrophils % (auto) 83.9 %; Nucleated RBC # (auto) 0.02 K/uL (0.00-0.12); Nucleated RBC % (auto) 0.1 %; Platelet Count 195 K/uL (130-400); RDW Coefficient of Variation 13.2 % (11.5-14.5); RDW Standard Deviation 42.4 fL (36.4-46.3); Red Blood Count 4.13 M/uL (4.20-5.40); White Blood Count 23.47 K/ul (4.8-10.8)
[2025-01-25 06:58] LABS: BUN Creatinine Ratio 31.3 (10-20); Calcium 9.5 mg/dl (8.6-10.3); Creatinine Clr Calc Pharmacy 58.1 ml/min; Magnesium 1.7 mg/dl (1.7-2.4); Phosphorus 2.9 mg/dl (2.5-4.9); Potassium 2.9 mmol/L (3.5-5.1)
[2025-01-25] MEDS ORDERED: NON-FORMULARY MEDICATION (Fluticasone-Umeclidin-Vilanter [Trelegy Ellipta] 100-62.5-25 mcg INH SCH (09:00)
[2025-01-25] MEDS: OPTIRAY 320 100ml IV ONE (09:15)
[2025-01-25] MEDS: 4.5GM X1 IV STA (09:37)
[2025-01-25] MEDS ORDERED: ONDANSETRON INJ 2 MG/ML 2 ML VIAL IV PRN ×2 (09:44→15:52)
[2025-01-25] MEDS: PIPERACILLIN/TAZOBACTAM 4.5 GM/100 ML BAG IV SCH ×2 (09:50→14:12)
--- NOTE | 2025-01-25 09:58 | CT Scan Report ---
CT chest diagnostic wo con CT DOSE: 1208.09 mGy.cm CLINICAL HISTORY: hypoxia, aspiration, progressive leukocytosis. TECHNIQUE: Multiaxial CT images of the chest were performed without contrast. A dose lowering techni que was utilized adhering to the principles of ALARA. COMPARISON STUDY: 08/12/2024 CT and chest x-ray yesterday FINDINGS: There is severe emphysema. There is bronchiectasis, moderate at the left lower lobe, otherw ise mild. There are secretions in the left lower lobe bronchi with some mucous plugging, grossly stab le. There is an interval small area of reticular and patchy groundglass opacity posterior right lower lobe consistent with early pneumonia. No other pulmonary consolidation or pleural effusion. There ar e a few stable scattered pulmonary nodules, largest is the bandlike and nodular opacity at the left u pper lobe series 6 image 63 measuring 1.8 cm greatest axial dimension, stable. No interval significan t pulmonary nodule seen. There is an interval mildly enlarged subcarinal lymph node measuring 2 cm. N o other enlarged adenopathy seen. No pericardial effusion. There are diffuse coronary artery and aort ic calcifications. No acute osseous findings. IMPRESSION: 1. Early right lower lobe pneumonia. 2. Severe emphysema. Stable pulmonary nodules. No pleural effusion. 3. Interval mildly enlarged subcarinal lymph node, likely reactive. 4. At a minimum, follow-up chest CT recommended in 6 months. 5. Otherwise as described. ACT 112: Positive. There are findings on this exam that require communication between the performing entity and the patient following Patient Test Result Information Act ([place] Act 112) guidelines. Electronically signed by: Ayo Carver M.D. 01/25/2025 9:55 AM
--- NOTE | 2025-01-25 10:15 | CT Scan Report ---
ABDOMEN AND PELVIS CT WITH IV CONTRAST HISTORY: abd pain, fall, worsened n/v TECHNIQUE: Multiaxial CT images of the abdomen and pelvis were performed following the IV administrat ion of 90 cc of Optiray, A dose lowering technique was utilized adhering to the principles of ALARA. COMPARISON STUDY: None FINDINGS: ABDOMEN: Stomach is prominently distended with fluid. Duodenum is distended with fluid. Transition zo ne is at the duodenum where it crosses the midline. There is patchy hypodensity at the majority of th e right hepatic lobe with morphology suggesting infarction or decreased arterial flow. Gallbladder is grossly unremarkable. There is decreased enhancement of the majority of the spleen suggesting infarc tion or decreased arterial flow. There is severe diffuse atherosclerotic calcification at the aorta a nd its branches with celiac artery and SMA stenosis. Pancreas is unremarkable. There are small bilate ral adrenal nodules, 1.6 cm on the left and 1.1 cm on the right. There is atrophy of the right kidney with right renal artery stenosis. No significant atrophy at the left kidney. There is mild cortical scarring. There is a tiny cyst. No hydronephrosis. No abdominal aortic aneurysm. Pelvis: Temple catheter is present and the urinary bladder is empty. Uterus is either extremely diminu tive or absent. No adnexal mass seen. There is trace low pelvic free fluid. There is mild sigmoid div erticulosis. No acute diverticulitis. There is no significant retained stool. Other than the gastric distention, no bowel obstruction seen. There is a mild right psoas intramuscular hematoma with mild a djacent soft tissue stranding/inflammation. There is mild likely reactive inflammation at the adjacen t descending colon. Femoral to femoral arterial bypass graft is patent. No enlarged adenopathy seen. Osseous structures: There is mild lumbar degenerative disc disease. There are moderate degenerative c hanges at the hips. IMPRESSION: 1. Fluid distention of the stomach and duodenum with transition zone at the duodenum as it crosses th e midline. Findings can be seen in the setting of SMA syndrome. 2. Severe atherosclerosis with stenosis at the celiac artery, SMA, and right renal artery. 3. Atrophy of the right kidney. 4. Decreased enhancement at the right hepatic lobe and majority of the spleen suggesting decreased ar terial flow or early infarction. 5. [id number] right psoas hematoma with no active bleeding seen. 6. Otherwise as described. ACT 112: Positive. There are findings on this exam that require communication between the performing entity and the patient following Patient Test Result Information Act ([place] Act 112) guidelines. The above report was generated using voice recognition software. It may contain grammatical, syntax o r spelling errors. Electronically signed by: Ayo Carver M.D. 01/25/2025 10:13 AM
[2025-01-25] MEDS: PROCHLORPERAZINE 5 MG in SYRINGE 4 ML IV PRN (10:32)
[2025-01-25] MEDS: UMECLIDINIUM/VILANTEROL 62.5/25MCG 7 PUFFS/INHALER INH SCH (11:08)
[2025-01-25] MEDS: POTASSIUM CHLORIDE / WTR 10 MEQ/100 ML PLCT IV SCH (11:22)
[2025-01-25] MEDS: POTASSIUM CHLORIDE CRTAB 20 MEQ TABCR PO STA (11:45)
[2025-01-25] MEDS ORDERED: Heparin IV Adult Wt-Based Low-Dose *NO* INITIAL Bolus Protocol IV SCH (11:45)
[2025-01-25] MEDS: allopurinoL 100 MG TAB PO SCH (11:45)
[2025-01-25] MEDS: CHOLECALCIFEROL 125 MCG (5,000 UNITS) TAB PO SCH (11:46)
[2025-01-25] MEDS: FLUTICASONE FUROATE 100MCG 14 PUFFS/INHALER INH SCH (11:46)
[2025-01-25] MEDS: LACTATED RINGER'S 1,000 ML IV ONE ×2 (12:02→15:54)
[2025-01-25] MEDS: LIDOCAINE VISCOUS 2% 15 ML UDC MT ONE (13:54)
[2025-01-25] MEDS: PLASMA-LYTE A 1,000 ML IV ONE (14:30)
--- NOTE | 2025-01-25 14:30 | Hospitalist Progress Note ---
Date of Service January 25, 2025 Assessment & Plan (1) Seizure-like activity: (2) CVA (cerebral vascular accident): Plan 69-year-old female who was found down and unresponsive with concern for seizure- like activity last known well 2-3 days prior who was transported to the ER. Suspected to have a parietal CVA with resulting seizure. Patient also had a leukocytosis and fever suspected to be due to UTI but for which meningitis was within the differential and LP was obtained. She was admitted to the ICU overnight, did not show further seizure-like activity following Keppra load. Patient is suspected overall to have sustained a CVA Right temporal/parietal/thalamic stroke with additional possible right basal ganglier/pontine CVA. No history of A-fib. No occlusion was seen on CTA. Patient is suspected to have had a severe event which was likely worsened by global anoxic injury due to both seizure and underlying hypoxic hypercapnic respiratory failure. Workup for encephalitis has been unremarkable. CARPORT ERECTOR - See Advance Planning Note - Moved to CARPORT ERECTOR Continue morphine as needed for pain or air hunger Ativan as needed for anxiety Glycopyrrolate as needed for secretions Maintain NGT to LIS due to significant benefit to her nausea/vomiting. Patient may have this removed at her discretion if this becomes more uncomfortable Continue Keppra twice daily IV Antibiotics/fluids/heparin all discontinued per discussion with family Anoxic event Patient with evidence of multiorgan anoxic injury following admission for stroke evaluation. Suspected to have had an anoxic injury while not on oxygen ?causing collapse vs initial stroke then complicated by seizure activity down for prolonged period of time with hypoxia as low as the 70s. Initially worked up for stroke with left-sided deficits however subsequently has shown evidence of anoxic injury to the liver, kidney, spleen, and SMA territory GI tract. 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 CT was obtained which showed fluid distention of the stomach and duodenum with transition zone at the duodenum suspicious for SMA territory disease. Additional SMA, right renal artery severe atherosclerosis seen. Atrophic right kidney is noted. Decreased enhancement of the right hepatic lobe and majority of the spleen suggesting decreased arterial flow early infarction is seen. Mild to right psoas hematoma no active bleeding seen - Patient's lactate had been normal, with adequate maps, and she had not been tachycardic. Repeat lactate obtained following CT, this was mildly elevated, received +LR of bolus with additional fluids running for electrolyte repletion, repeat 2.6. Additional fluids ordered and heparinization pending, subsequently discontinued on discussion with family after moving to [employer]PORT E[employer] - NGT attempt for decompression limited by poor tolerance and vomiting, and subsequent epistaxis. subsequent attempt successful decompression of around 600 cc of dark fluid. Will maintain NGT to low intermittent suction for patient comfort given that this has clinically improved her nausea. May remove this at any point for comfort #Subacute CVA CThead shows right posterior parietal lobe encephalomalacia and possible late subacute CVA. Patient's last known well was 01/19/2025, little over 2 days prior to admission CTA head/neck with diffuse atherosclerotic calcification without acute occlusion/narrowing - MRI: Moderate size restricted diffusion in the right temporal and parietal lobes. Punctate T1 hyperintense focus of the right basal ganglia. Trace hemorrhage is not excluded. Short-term follow-up could be obtained. No mass effect. Old right parietal lobe infarct Reviewed with neurology. Encephalitis is less likely especially given presentation and LP. Suspect that this is all ischemic/stroke pathology. CARPORT ERECTOR, oral medications discontinued #Seizure Provoked in the setting of CVA, no prior history of seizures Keppra loaded, continue 500 mg IV twice daily. Continued antiepileptics is consistent with comfort goals of care Lorazepam 2 mg IV for acute seizure-like activity Acute hypoxic, hypercapnic respiratory failure, history of COPD, tobacco use CTchest without acute pneumonia or aspiration Morphine if needed for air hunger, may use nasal cannula oxygen as needed for comfort Admission and Anticipated Discharge Date Admission Date: January 21, 2025 Subjective See advance planning note, multiple events throughout the day including developm ent of nausea/vomiting and subsequent goals of care discussion. No fevers or chills. No cough. Was short of breath following an episode of emesis with initial NGT placement. Subsequent NGT decompressed for over 600 cc of dark emesis Physical Exam Physical Exam: General: Somnolent. Oriented to name and place. Waxing and waning mentation throughout the day HEENT: Atraumatic, normocephalic. Vision and hearing grossly intact. On subsequent reevaluation NGT is in place Pulm: Diminished but clear symmetrical chest rise. No increased work of breathing. No respiratory distress. Cardiac: RRR, -mrg. Radial pulses intact and symmetrical. Abdominal: Focally tender at the epigastrium. No rebound or involuntary guarding Results & Data Results & Data Vital Signs (Past 12 Hours) Vital Signs Temp Pulse Pulse Resp BP Pulse Ox O2 Del Method 01/25/25 11:18 36.5 C 62 18 155/65 H 93 Room Air 01/25/25 07:30 Nasal Cannula 01/25/25 07:08 70 01/25/25 06:56 36.4 C L 77 18 161/62 H 95 Nasal Cannula 01/25/25 03:04 36.6 C 71 18 165/71 H 93 Nasal Cannula O2 Flow Rate 01/25/25 11:18 01/25/25 07:30 2 01/25/25 07:08 01/25/25 06:56 2 01/25/25 03:04 2 PG Care Time/CCT Total # of Minutes Spent Total Time Spent with Patient: Total time spent is greater than 50% in coordination of care (as documented) at patient's floor/unit and/or counseling patient: Coding Level of Care Code 97779 SUB INP/OBS CARE 3/50MIN Diagnoses Seizure-like activity R56.9 CVA (cerebral vascular accident) I63.9
--- NOTE | 2025-01-25 14:46 | XRay Report ---
EXAMINATION: X-ray KUB/abdomen 1 view CLINICAL HISTORY: NG tube placement PRIORS: None TECHNIQUE: Single frontal view abdomen FINDINGS: Nasogastric tube is present with distal tip terminating in the stomach, possibly the pylorus or antrum. Left kidney and expiratory phase with contrast in the renal pelvis. No dilated loops of bowel. No air-fluid levels. No acute osseous abnormality. IMPRESSION: Nasogastric tube with distal tip in the stomach, pylorus or antrum region. Electronically signed by Tammy Alamo 01-25-2025 2:45 PM
--- NOTE | 2025-01-25 15:14 | Advance Care Plan Prog Note ---
Advanced Care Planning Note Date of Discussion January 25, 2025 ACP Discussion Diagnoses requiring ACP discussion: Multiorgan dysfunction, mesenteric insufficiency, CVA, splenic infarct, renal infarct A [id number] discussion with the patient and sisters with sister Oriana assisting in communication with Hilda regarding the patient's advanced care planning took place during this hospitalization on the above date. The discussion included the explanation and discussion of advance directives and associated forms/documents, as well as the patient's current code status. We also discussed at length the patient's medical conditions (both acute and chronic), general prognosis, treatment options, and goals of care. Clinical Update: On morning assessment Hilda was there was progressive nausea and vomiting. CT was obtained which showed fluid distention of the stomach and duodenum with transition zone at the duodenum suspicious for SMA territory disease Additional SMA, right renal artery severe atherosclerosis seen Atrophic right kidney is noted. Decreased enhancement of the right hepatic lobe and majority of the spleen suggesting decreased arterial flow early infarction is seen Mild to right psoas hematoma no active bleeding seen - Patient's lactate had been normal, with adequate maps, and she had not been tachycardic. Repeat lactate obtained following CT, this was mildly elevated, received +LR of bolus with additional fluids running for electrolyte repletion, repeat 2.6. NGT attempt for decompression limited by poor tolerance and vomiting, and subsequent epistaxis. subsequent attempt successful decompression of around 600 cc of dark fluid. Suspect her overall picture of prolonged hypoxia with seizure activity combined with diffuse arterial disease led to anoxic injury of multiple organs. Nausea/vomiting due to distention of stomach from fluid with SMA territory disease Family Discussion: Discussed with family extensively given patient expressing that she would want to move to [facility] if she were to continue to decline on palliative care consultation previously. Now with worsening GI symptoms, and findings on CT above did revisit goals of care. Lactate began to rise despite fluids and supportive care Meeting was held between Hilda and her sisters. Oriana was present at the bedside and helped assist with discussion with Hilda. Hilda would not want surgical intervention, and her and her family are familiar with this as they have had family members that underwent similar procedures. She would not want transfer to consider a tertiary care level team with support to include advanced vascular surgery and tertiary surgical services. Previously had discussed with palliative care that hilda has been independent throughout her life, and would not want a limited quality of life where her independence was compromised. Hilda and family were clear that they do not wish for any surgical intervention or transfer where the support service would be available. Given this did discuss potential for comfort measures versus continuing limited medical goal interventions including NGT, fluids, antibiotics, and heparinization were discussed. On shared decision making given her clinical deterioration Hilda and her family do not wish to pursue any further medical interventions and would like to move comfort measures. I also note that the quality of life she has already had due to the stroke alone was not what she would have wanted. Hilda is able to participate in a limited fashion in this conversation, and does send that she does not want surgery and would like to just be kept comfortable knowing she is likely to pass. This is consistent with their prior plan on 01/22 when discussed with palliative care. They wish to continue treatments only that contribute to her direct comfort and quality of life, and would like to discontinue all other treatments not contributing to this including antibiotics, IV fluids, and heparin. Patient moved [place] [facility] and switched to comfort measures. Should she be stable enough to transfer for to home hospice could consider this at that time however given deterioration increasing symptoms throughout the morning she is not appropriate for transfer at this time. Porter does report a family and extended discussion regarding goals of care as documented above taking approximately a total of 50 minutes. Status Resuscitation Status DNR/DNI No Resuscitation Total Time I spent a total of 50 minutes was spent on this discussion, including counseling, answering questions, and completing, if any, pertinent advanced care planning forms/documents.
[2025-01-25] MEDS ORDERED: MoRPHine SULFATE 2 MG/ML CARP IV PRN (15:52)
[2025-01-25] MEDS ORDERED: MoRPHine SULFATE 10 MG/0.5 ML UDP PO PRN (15:52)
[2025-01-25] MEDS ORDERED: GLYCOPYRROLATE 0.2 MG/ML VIAL IV PRN (15:52)
[2025-01-25] MEDS: HEPARIN 25000 UNIT/500 ML D5W 25,000 UNITS/500 ML BAG IV SCH (15:54)
--- NOTE | 2025-01-26 14:02 | Hospitalist Progress Note ---
Date of Service January 26, 2025 Assessment & Plan (1) Seizure-like activity: (2) CVA (cerebral vascular accident): Plan 69-year-old female who was found down and unresponsive with concern for seizure- like activity last known well 2-3 days prior who was transported to the ER. Suspected to have a parietal CVA with resulting seizure. Patient also had a leukocytosis and fever suspected to be due to UTI but for which meningitis was within the differential and LP was obtained. She was admitted to the ICU overnight, did not show further seizure-like activity following Keppra load. Patient is suspected overall to have sustained a CVA Right temporal/parietal/thalamic stroke with additional possible right basal ganglier/pontine CVA. No history of A-fib. No occlusion was seen on CTA. Patient is suspected to have had a severe event which was likely worsened by global anoxic injury due to both seizure and underlying hypoxic hypercapnic respiratory failure. Workup for encephalitis has been unremarkable. 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 If doing well --> remove. If recurrent nausea/vomiting --> leave in place and target GIP Anoxic event Patient with evidence of multiorgan anoxic injury following admission for stroke evaluation. Suspected to have had an anoxic injury while not on oxygen ?causing collapse vs initial stroke then complicated by seizure activity down for prolonged period of time with hypoxia as low as the 70s. Initially worked up for stroke with left-sided deficits however subsequently has shown evidence of anoxic injury to the liver, kidney, spleen, and SMA territory GI tract. 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 NGT as noted #Subacute CVA CThead shows right posterior parietal lobe encephalomalacia and possible late subacute CVA. Patient's last known well was 01/19/2025, little over 2 days prior to admission CTA head/neck with diffuse atherosclerotic calcification without acute occlusion/narrowing - MRI: Moderate size restricted diffusion in the right temporal and parietal lobes. Punctate T1 hyperintense focus of the right basal ganglia. Trace hemorrhage is not excluded. Short-term follow-up could be obtained. No mass effect. Old right parietal lobe infarct Reviewed with neurology. Encephalitis is less likely especially given presentation and LP. Suspect that this is all ischemic/stroke pathology. TIPPLE MECHANIC, oral medications discontinued #Seizure Provoked in the setting of CVA, no prior history of seizures Keppra loaded, continue 500 mg IV twice daily. Continued antiepileptics is consistent with comfort goals of care Lorazepam 2 mg IV for acute seizure-like activity Acute hypoxic, hypercapnic respiratory failure, history of COPD, tobacco use CTchest without acute pneumonia or aspiration Morphine IV if needed for air hunger, may use nasal cannula oxygen as needed for comfort Admission and Anticipated Discharge Date Admission Date: January 21, 2025 Subjective Was seen at the bedside today. Mentioned similar to prior, but very somnolent to day. NGT draining, initially sips/chips --> liquid diet for pleasure although most being suctioned out. Plan to clamp and trial clears tomorrow. Reviewed plan w/ pts sister Oriana at bedside. No additional quesitons/concerns at tiem of visit Afebrile. 1L NC. 1200cc gastric drainage/24hrs, although is allowed liquids for comfort. Physical Exam Physical Exam: General: Somnolent. Awakens easily. Oriented to name and place but falls back asleep easily and reports she has started at time of visit. HEENT: Atraumatic, normocephalic. Vision and hearing grossly intact. NGT in place draining dark material Pulm: Diminished but clear symmetrical chest rise. No increased work of breathing. No respiratory distress. Cardiac: RRR, -mrg. Radial pulses intact and symmetrical. Abdominal: mild epigastic TTP. On reeval no pain, soft. Results & Data Results & Data Vital Signs (Past 12 Hours) Vital Signs O2 Del Method O2 Flow Rate 01/26/25 07:29 Nasal Cannula 4 PG Care Time/CCT Total # of Minutes Spent Total Time Spent with Patient: Total time spent is greater than 50% in coordination of care (as documented) at patient's floor/unit and/or counseling patient: Coding Level of Care Code 64847 SUB INP/OBS CARE 3/50MIN Diagnoses Seizure-like activity R56.9 CVA (cerebral vascular accident) I63.9
--- NOTE | 2025-01-26 16:25 | Palliative Care Progress Note ---
Date of Service January 26, 2025 Assessment & Plan (1) Palliative care by specialist: Plan: Palliative care will continue to follow for ongoing EOL pt care and family support. (2) Weakness generalized: (3) Comfort measures only status: Plan: Assessed pt at bedside, she was transitioned to MEDICAL BILLING MANAGER on 01/25/25. Pt has had minimal requirements for PRN medications, GIP hospice evaluation pending. She has required venting NGT for comfort and continues to have large amount of bilious drainage. Lengthy discussions held today with pt's HCPOA/sister concerning weighing the benefit of venting NGT to relieve abd distention vs. the discomfort imposed by having an NGT in place at end of life. Per CM, the pt cannot be discharge to [facility] with NGT in place even for hospice care. Discussed with HCPOA that we could monitor NGT drainage overnight with plan to clamp tube in morning and reassess need for NGT in afternoon if pt tolerates it clamped. Attending Dr Buenrostro in agreement with plan. (4) Need for comfort care: Plan: EOL Symptom manamgement: Pain/dyspnea/tachypnea morphine 2mg IVP PRN [id number] Consider titratable morphine drip if pt requires >3 PRN doses in under two consecutive hours. Nausea/vomitting zofran 4mg IVP q4h PRN Agitation ativan 0.5mg IVP q4h PRN Hyperactive delirium haldol 5mg IVP q6h PRN Secretions - if repositioning not effective robinul 0.4mg IV q4h PRN atropine SL 3 drops Q1h PRN Nursing care: Discontinue all medications not directed towards comfort. Detether pt from IV tubing, monitor cables, and check vitals once per shift. Please continue HFNC and titrate down as able for patient comfort. Use medications above PRN for dyspnea/tachypnea and do not increase oxygen once titrated down. Assess q1h for pain/dyspnea and treat accordingly. Plan see above Admission and Anticipated Discharge Date Admission Date: January 21, 2025 Subjective Assessed pt at bedside, She was transitioned to MEDICAL BILLING MANAGER on 01/25/25. Pt is unresponsive to verbal and gentle tactile stimuli, did not attempt to awaken in concert with comfort directed care. She appears comfortable, pale skin, extremities warm, well perfused. Respiratory effort increased, rate 24/min with no periods of apnea. Sister/HCPOA at bedside. Review of Systems Review of Systems: All systems reviewed & are unremarkable except as noted in Subjective Physical Exam Physical Exam: General- pleasantly confused, not in distress, on 4L NC O2 Head- atraumatic/normocephalic Eyes- PERRL, EOMI, anicteric ENT- oropharynx clear, MMM Neck- supple, no JVD, no adenopathy, no thyromegaly; carotids +2/2, Lungs- b/l rales and rhonchi, good air entry BL Heart- normal rate, regular rhythm; no murmur, no gallop, no rub appreciated Abdomen- normal bowel sounds, distended, firm, +tender, no masses or hepatosplenomegaly Extremities- no pretibial edema, no calf tenderness; peripheral pulses intact Neuro- pt oriented to person only, follows few simple commands Skin- warm & dry Results & Data Vital Signs (Past 12 Hours) Vital Signs Pulse Ox O2 Del Method O2 Flow Rate 01/26/25 14:21 95 Nasal Cannula 1 01/26/25 07:29 Nasal Cannula 4 Laboratory Results No further labs or diagnostics in concert with comfort directed care. Diagnostic Findings No further labs or diagnostics in concert with comfort directed care. Medications Administered Current Inpatient Medications Glycopyrrolate (Glycopyrrolate 0.2 Mg/Ml Vial) 0.4 mg IV Q4H PRN PRN Reason: Rattling Secretions or Pulm Congestion Stop: 02/24/25 15:51 Levetiracetam (Levetiracetam 500 Mg/5 Ml Vial) 500 mg IV Q12H [place] Stop: 02/21/25 05:59 Last Admin: 01/26/25 06:09 Dose: 500 mg Lorazepam (Lorazepam 2 Mg/1 Ml Vial) 0.5 mg IV Q4H PRN PRN Reason: Anxiety/Agitation Stop: 02/24/25 15:51 Morphine Sulfate (Morphine Sulfate 2 Mg/Ml Carp) 2 mg IV Q30min PRN PRN Reason: Pain or Respiratory Distress Stop: 02/08/25 15:51 Ondansetron HCl (Ondansetron Inj 2 Mg/Ml 2 Ml Vial) 4 mg IV Q4H PRN PRN Reason: Nausea &/or Vomiting Stop: 02/24/25 15:51 PG Care Time/CCT Total # of Minutes Spent Total Time Spent with Patient: Total time spent is greater than 50% in coordination of care (as documented) at patient's floor/unit and/or counseling patient: Advanced Care Planning 22852 Advanced Care Planning 30 Min Coding [place] [address] SUB INP/OBS CARE 11/08MIN Patient Type Established History Problem Focused Exam Problem Focused Medical Decision Making Low Complexity Diagnoses Palliative care by specialist Z51.5 Weakness generalized R53.1 Comfort measures only status Z51.5 Need for comfort care Additional Codes Advanced Care Planning - 19719 Advanced Care Planning 30 Min: [id number] Advanced Care Planning 30 Min ([id number])
--- NOTE | 2025-01-27 10:46 | Palliative Care Progress Note ---
Date of Service January 27, 2025 Assessment & Plan (1) Palliative care by specialist: Plan: Palliative care will continue to follow for ongoing EOL pt care and family support. (2) Weakness generalized: (3) Comfort measures only status: Plan: Assessed pt at bedside, she was transitioned to KEY CUTTER on 01/25/25. Pt has had minimal requirements for PRN medications, GIP hospice evaluation pending. She has required venting NGT for comfort which has been clamped since 5am. Will continue to monitor response throughout day and reevaluate need for NGT in afternoon. Attending Dr Buenrostro in agreement with plan. (4) Need for comfort care: Plan: EOL Symptom manamgement: Pain/dyspnea/tachypnea morphine 2mg IVP PRN [id number] Consider titratable morphine drip if pt requires >3 PRN doses in under two consecutive hours. Nausea/vomitting zofran 4mg IVP q4h PRN Agitation ativan 0.5mg IVP q4h PRN Hyperactive delirium haldol 5mg IVP q6h PRN Secretions - if repositioning not effective robinul 0.4mg IV q4h PRN atropine SL 3 drops Q1h PRN Nursing care: Discontinue all medications not directed towards comfort. Detether pt from IV tubing, monitor cables, and check vitals once per shift. Please continue HFNC and titrate down as able for patient comfort. Use medications above PRN for dyspnea/tachypnea and do not increase oxygen once titrated down. Assess q1h for pain/dyspnea and treat accordingly. Plan see above Admission and Anticipated Discharge Date Admission Date: January 21, 2025 Subjective Assessed pt at bedside, She was transitioned to KEY CUTTER on 01/25/25. Pt is awake and alert and denies any discomfort aside from feeling tired, respiratory effort normal, NAD on RA. Her NGT was clamped at 5am and she has since had breakfast (liquid diet) and some drinks, which she tolerated well. Sister/HCPOA at bedside. Review of Systems Review of Systems: All systems reviewed & are unremarkable except as noted in Subjective Physical Exam Physical Exam: General- pleasantly confused, not in distress, on 4L NC O2 Head- atraumatic/normocephalic Eyes- PERRL, EOMI, anicteric ENT- oropharynx clear, MMM Neck- supple, no JVD, no adenopathy, no thyromegaly; carotids +2/2, Lungs- b/l rales and rhonchi, good air entry BL Heart- normal rate, regular rhythm; no murmur, no gallop, no rub appreciated Abdomen- normal bowel sounds, distended, firm, +tender, no masses or hepatosplenomegaly Extremities- no pretibial edema, no calf tenderness; peripheral pulses intact Neuro- pt oriented to person only, follows few simple commands Skin- warm & dry Results & Data Vital Signs (Past 12 Hours) Vital Signs Temp Pulse Resp BP Pulse Ox O2 Del Method O2 Flow Rate 01/27/25 07:30 Nasal Cannula 2 01/27/25 02:28 36.6 C 79 20 164/67 H 92 Nasal Cannula 2 Laboratory Results No further labs or diagnostics in concert with comfort directed care. Diagnostic Findings No further labs or diagnostics in concert with comfort directed care. Medications Administered Current Inpatient Medications Glycopyrrolate (Glycopyrrolate 0.2 Mg/Ml Vial) 0.4 mg IV Q4H PRN PRN Reason: Rattling Secretions or Pulm Congestion Stop: 02/24/25 15:51 Levetiracetam (Levetiracetam 500 Mg/5 Ml Vial) 500 mg IV Q12H [place] Stop: 02/21/25 05:59 Last Admin: 01/27/25 05:16 Dose: 500 mg Lorazepam (Lorazepam 2 Mg/1 Ml Vial) 0.5 mg IV Q4H PRN PRN Reason: Anxiety/Agitation Stop: 02/24/25 15:51 Morphine Sulfate (Morphine Sulfate 10 Mg/0.5 Ml Udp) 5 mg PO Q3H PRN PRN Reason: Pain or Respiratory Distress Stop: 02/08/25 15:51 Morphine Sulfate (Morphine Sulfate 2 Mg/Ml Carp) 2 mg IV Q30M PRN PRN Reason: Pain or Respiratory Distress Stop: 02/08/25 15:51 Ondansetron HCl (Ondansetron Inj 2 Mg/Ml 2 Ml Vial) 4 mg IV Q4H PRN PRN Reason: Nausea &/or Vomiting Stop: 02/24/25 15:51 PG Care Time/CCT Total # of Minutes Spent Total Time Spent with Patient: Total time spent is greater than 50% in coordination of care (as documented) at patient's floor/unit and/or counseling patient: Coding [place] [address] SUB INP/OBS CARE 2/35MIN Patient Type Established History Problem Focused Exam Problem Focused Medical Decision Making Moderate Complexity Diagnoses Palliative care by specialist Z51.5 Weakness generalized R53.1 Comfort measures only status Z51.5 Need for comfort care
[2025-01-27] MEDS: LORazepam 2 MG/1 ML VIAL IV PRN (12:38)
--- NOTE | 2025-01-27 17:19 | Hospitalist Progress Note ---
Date of Service January 27, 2025 Assessment & Plan (1) Seizure-like activity: (2) CVA (cerebral vascular accident): Plan 69-year-old female who was found down and unresponsive with concern for seizure- like activity last known well 2-3 days prior who was transported to the ER. Suspected to have a parietal CVA with resulting seizure. Patient also had a leukocytosis and fever suspected to be due to UTI but for which meningitis was within the differential and LP was obtained. She was admitted to the ICU overnight, did not show further seizure-like activity following Keppra load. Patient is suspected overall to have sustained a CVA Right temporal/parietal/thalamic stroke with additional possible right basal ganglier/pontine CVA. No history of A-fib. No occlusion was seen on CTA. Patient is suspected to have had a severe event which was likely worsened by global anoxic injury due to both seizure and underlying hypoxic hypercapnic respiratory failure. BEAN SNIPPER - See Advance Planning Note - Moved to BEAN SNIPPER Continue morphine as needed for pain or air hunger Ativan as needed for anxiety Glycopyrrolate as needed for secretions Continue Keppra twice daily IV Antibiotics/fluids/heparin all discontinued per discussion with family NGT clamped morning of 01/27. Tolerated breakfast well however subsequently with diminished appetite and feeling of bloating in her stomach. Will continue to follow if she develops worsening discomfort, nausea, or vomiting resume NGT to [facility] and track output Remains afebrile, no pain #Subacute CVA CThead shows right posterior parietal lobe encephalomalacia and possible late subacute CVA. Patient's last known well was 01/19/2025, little over 2 days prior to admission CTA head/neck with diffuse atherosclerotic calcification without acute occlusion/narrowing - MRI: Moderate size restricted diffusion in the right temporal and parietal lobes. Punctate T1 hyperintense focus of the right basal ganglia. Trace hemorrhage is not excluded. Short-term follow-up could be obtained. No mass effect. Old right parietal lobe infarct Reviewed with neurology. Encephalitis is less likely especially given presentation and LP. Suspect that this is all ischemic/stroke pathology. BEAN SNIPPER, oral medications discontinued 01/27 did have some return of play reader strength and elbow flexion in the left arm although very weak and unable to lift her upper or lower extremity off the bed Anoxic event Patient with evidence of multiorgan anoxic injury following admission for stroke evaluation. Suspected to have had an anoxic injury while not on oxygen ?causing collapse vs initial stroke then complicated by seizure activity down for prolonged period of time with hypoxia as low as the 70s. Initially worked up for stroke with left-sided deficits however subsequently has shown evidence of anoxic injury to the liver, kidney, spleen, and SMA territory GI tract. 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 NGT as noted #Seizure Provoked in the setting of CVA, no prior history of seizures Keppra loaded, continue 500 mg IV twice daily. Continued antiepileptics is consistent with comfort goals of care Lorazepam 2 mg IV for acute seizure-like activity Acute hypoxic, hypercapnic respiratory failure, history of COPD, tobacco use CTchest without acute pneumonia or aspiration Morphine IV if needed for air hunger, may use nasal cannula oxygen as needed for comfort Admission and Anticipated Discharge Date Admission Date: January 21, 2025 Subjective Seen at the bedside. More tired from prior. Has had some improved use of her left arm. NG was clamped at 5 AM and had breakfast with no nausea vomiting however subsequent to this she feels she has a diminishing appetite. Does endorse feeling some abdominal fullness although no pain Physical Exam Physical Exam: General: Somnolent. Awakens easily before going back to sleep HEENT: Atraumatic, normocephalic. Vision and hearing grossly intact. NGT clamped Pulm: symmetrical chest rise. No increased work of breathing. No respiratory distress. Cardiac: RRR, -mrg. Radial pulses intact and symmetrical. Abdominal: Endorses some fullness and discomfort on epigastric tenderness to palpation. No abdominal guarding/rigidity Results & Data Results & Data Vital Signs (Past 12 Hours) Vital Signs O2 Del Method O2 Flow Rate 01/27/25 07:30 Nasal Cannula 2 PG Care Time/CCT Total # of Minutes Spent Total Time Spent with Patient: Total time spent is greater than 50% in coordination of care (as documented) at patient's floor/unit and/or counseling patient: Coding Level of Care Code 05633 SUB INP/OBS CARE 2/35MIN Diagnoses Seizure-like activity R56.9 CVA (cerebral vascular accident) I63.9
[2025-01-28 06:16] VITALS: BP 189/77; PULSE 66; RESP 18; TEMP 97.5; O2SAT 97
--- NOTE | 2025-01-28 10:33 | Palliative Care Progress Note ---
Date of Service January 28, 2025 Assessment & Plan (1) Palliative care by specialist: Plan: Palliative care will continue to follow for ongoing EOL pt care and family support. (2) Weakness generalized: (3) Comfort measures only status: Plan: Assessed pt at bedside, she was transitioned to TRAINING CONSULTANT on 01/25/25. Pt has had minimal requirements for PRN medications, GIP hospice evaluation pending. She has required venting NGT for comfort for which she has failed a clamping trial due to abdominal distention/fullness. NGT now on LIS and pt pending evaluation for GIP hospice, CM aware. Attending Dr Hopson in agreement with plan. (4) Need for comfort care: Plan: EOL Symptom manamgement: Pain/dyspnea/tachypnea morphine 2mg IVP PRN [id number] Consider titratable morphine drip if pt requires >3 PRN doses in under two consecutive hours. Nausea/vomitting zofran 4mg IVP q4h PRN Agitation ativan 0.5mg IVP q4h PRN Hyperactive delirium haldol 5mg IVP q6h PRN Secretions - if repositioning not effective robinul 0.4mg IV q4h PRN atropine SL 3 drops Q1h PRN Nursing care: Discontinue all medications not directed towards comfort. Detether pt from IV tubing, monitor cables, and check vitals once per shift. Please continue HFNC and titrate down as able for patient comfort. Use medications above PRN for dyspnea/tachypnea and do not increase oxygen once titrated down. Assess q1h for pain/dyspnea and treat accordingly. Plan see above Admission and Anticipated Discharge Date Admission Date: January 21, 2025 Subjective Assessed pt at bedside, She was transitioned to TRAINING CONSULTANT on 01/25/25. Pt is awake and alert, oriented to person only and pleasantly communicative. Respiratory effort normal, NAD on RA. Overnight she c/o feeling full and some nausea so NGT was placed back to low intermittent suction. She has tolerated NGT to LIS well. Her sister is at bedside. Review of Systems Review of Systems: All systems reviewed & are unremarkable except as noted in Subjective Physical Exam Physical Exam: General- pleasantly confused, not in distress, on 4L NC O2 Head- atraumatic/normocephalic Eyes- PERRL, EOMI, anicteric ENT- oropharynx clear, MMM Neck- supple, no JVD, no adenopathy, no thyromegaly; carotids +2/2, Lungs- b/l rales and rhonchi, good air entry BL Heart- normal rate, regular rhythm; no murmur, no gallop, no rub appreciated Abdomen- NGT to LIS draining dark green liquid, normal bowel sounds, distended, semi-firm, +tender, no masses or hepatosplenomegaly Extremities- no pretibial edema, no calf tenderness; peripheral pulses intact Neuro- pt oriented to person only, follows few simple commands Skin- warm & dry Results & Data Vital Signs (Past 12 Hours) Vital Signs Temp Pulse Resp BP Pulse Ox O2 Del Method O2 Flow Rate 01/28/25 09:33 Nasal Cannula 3 01/28/25 06:15 36.4 C L 66 18 189/77 H 97 Nasal Cannula Laboratory Results No further labs or diagnostics in concert with comfort directed care. Diagnostic Findings No further labs or diagnostics in concert with comfort directed care. Medications Administered Current Inpatient Medications Glycopyrrolate (Glycopyrrolate 0.2 Mg/Ml Vial) 0.4 mg IV Q4H PRN PRN Reason: Rattling Secretions or Pulm Congestion Stop: 02/24/25 15:51 Levetiracetam (Levetiracetam 500 Mg/5 Ml Vial) 500 mg IV Q12H [place] Stop: 02/21/25 05:59 Last Admin: 01/28/25 06:17 Dose: 500 mg Lorazepam (Lorazepam 2 Mg/1 Ml Vial) 0.5 mg IV Q4H PRN PRN Reason: Anxiety/Agitation Stop: 02/24/25 15:51 Last Admin: 01/27/25 12:38 Dose: 0.5 mg Morphine Sulfate (Morphine Sulfate 10 Mg/0.5 Ml Udp) 5 mg PO Q3H PRN PRN Reason: Pain or Respiratory Distress Stop: 02/08/25 15:51 Morphine Sulfate (Morphine Sulfate 2 Mg/Ml Carp) 2 mg IV Q30M PRN PRN Reason: Pain or Respiratory Distress Stop: 02/08/25 15:51 Ondansetron HCl (Ondansetron Inj 2 Mg/Ml 2 Ml Vial) 4 mg IV Q4H PRN PRN Reason: Nausea &/or Vomiting Stop: 05/13/25 15:51 PG Care Time/CCT Total # of Minutes Spent Total Time Spent with Patient: Total time spent is greater than 50% in coordination of care (as documented) at patient's floor/unit and/or counseling patient: Coding [place] [address] SUB INP/OBS CARE 2/35MIN Patient Type Established History Problem Focused Exam Problem Focused Medical Decision Making Low Complexity Diagnoses Palliative care by specialist Z51.5 Weakness generalized R53.1 Comfort measures only status Z51.5 Need for comfort care
--- NOTE | 2025-01-28 19:53 | Hospitalist Progress Note ---
Date of Service January 28, 2025 Assessment & Plan (1) Seizure-like activity: (2) CVA (cerebral vascular accident): Plan 69-year-old female who was found down and unresponsive with concern for seizure- like activity last known well 2-3 days prior who was transported to the ER. Suspected to have a parietal CVA with resulting seizure. Patient also had a leukocytosis and fever suspected to be due to UTI but for which meningitis was within the differential and LP was obtained. She was admitted to the ICU overnight, did not show further seizure-like activity following Keppra load. Patient is suspected overall to have sustained a CVA Right temporal/parietal/thalamic stroke with additional possible right basal ganglier/pontine CVA. No history of A-fib. No occlusion was seen on CTA. Patient is suspected to have had a severe event which was likely worsened by global anoxic injury due to both seizure and underlying hypoxic hypercapnic respiratory failure. BOX INSPECTOR - See Advance Planning Note - Moved to BOX INSPECTOR Continue morphine as needed for pain or air hunger Ativan as needed for anxiety Glycopyrrolate as needed for secretions Continue Keppra twice daily IV Antibiotics/fluids/heparin all discontinued per discussion with family --Failed trial of clamping NGT 01/27, continue LIS Remains afebrile, no pain #Subacute CVA CThead shows right posterior parietal lobe encephalomalacia and possible late subacute CVA. Patient's last known well was 01/19/2025, little over 2 days prior to admission CTA head/neck with diffuse atherosclerotic calcification without acute occlusion/narrowing - MRI: Moderate size restricted diffusion in the right temporal and parietal l obes. Punctate T1 hyperintense focus of the right basal ganglia. Trace hemorrhage is not excluded. Short-term follow-up could be obtained. No mass effect. Old right parietal lobe infarct Reviewed with neurology. Encephalitis is less likely especially given presentation and LP. Suspect that this is all ischemic/stroke pathology. BOX INSPECTOR, oral medications discontinued 01/28 improved LUE and LLE strength Anoxic event Patient with evidence of multiorgan anoxic injury following admission for stroke evaluation. Suspected to have had an anoxic injury while not on oxygen ?causing collapse vs initial stroke then complicated by seizure activity down for prolonged period of time with hypoxia as low as the 70s. Initially worked up for stroke with left-sided deficits however subsequently has shown evidence of anoxic injury to the liver, kidney, spleen, and SMA territory GI tract. 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 NGT as noted #Seizure Provoked in the setting of CVA, no prior history of seizures Keppra loaded, continue 500 mg IV twice daily. Continued antiepileptics is consistent with comfort goals of care Lorazepam 2 mg IV for acute seizure-like activity Acute hypoxic, hypercapnic respiratory failure, history of COPD, tobacco use CTchest without acute pneumonia or aspiration Morphine IV if needed for air hunger, may use nasal cannula oxygen as needed for comfort Admission and Anticipated Discharge Date Admission Date: January 21, 2025 Subjective Failed trial of clamping NG and advancing diet yesterday Awake in room, family not present NGT to LIS Denies nausea or abdominal pain Says her left arm feels heavy Has some movement over her LUE and LLE at this point Physical Exam Physical Exam: Last 24h vitals reviewed GEN: no acute distress, sitting in bed HEENT: pupils equal, sclerae anicteric, moist MM, NG tube in place RESP: normal WOB, CTAB CV: reg no mrg ABD: soft/nt/nd +BT SKIN: warm and dry, no generalized rashes NEURO: AOx self and can report immediate symptoms but not oriented to situation. dysconjugate gaze tracks me visually anita. left facial droop and LUE and LLE w eakness present but has antigravity Results & Data Results & Data Vital Signs (Past 12 Hours) Vital Signs O2 Del Method O2 Flow Rate 01/28/25 09:33 Nasal Cannula 3 PG Care Time/CCT Total # of Minutes Spent Total Time Spent with Patient: Total time spent is greater than 50% in coordination of care (as documented) at patient's floor/unit and/or counseling patient: Coding Level of Care Code 48692 SUB INP/OBS CARE 2/35MIN Diagnoses Seizure-like activity R56.9 CVA (cerebral vascular accident) I63.9
--- NOTE | 2025-01-29 13:22 | Palliative Care Progress Note ---
Date of Service January 29, 2025 Assessment & Plan (1) Palliative care by specialist: Plan: Palliative care will continue to follow for ongoing EOL pt care and family support. Anticipatory guidance offered. Discussed changes pt may move through in the dying process including but not limited to sleeping more, disorientation when awake, restlessness, diminished senses/inability to respond to stimulus although ability to be aware of them remains intact longer, and changes in body temperatures, skin changes/mottling/cyanosis, respiratory pattern changes, and oral secretions. Family verbalized understanding. The goal is to assure a peaceful . (2) Weakness generalized: (3) Comfort measures only status: Plan: Assessed pt at bedside, she was transitioned to MACHINE LEARNING INTERN on 01/25/25. Pt has had minimal requirements for PRN medications. Family unable to provide required care at home for ongoing hospice and per CM, there are no SNF options with indwelling NGT. She has required venting NGT for comfort for which she has failed a clamping trial due to abdominal distention/fullness. NGT now on LIS and pt pending evaluation for [facility] hospice, CM aware. Attending Dr Hopson in agreement with plan. (4) Need for comfort care: Plan: EOL Symptom manamgement: Pain/dyspnea/tachypnea morphine 2mg IVP PRN [id number] Consider titratable morphine drip if pt requires >3 PRN doses in under two consecutive hours. Nausea/vomitting zofran 4mg IVP q4h PRN Agitation ativan 0.5mg IVP q4h PRN Hyperactive delirium haldol 5mg IVP q6h PRN Secretions - if repositioning not effective robinul 0.4mg IV q4h PRN atropine SL 3 drops Q1h PRN Nursing care: Discontinue all medications not directed towards comfort. Detether pt from IV tubing, monitor cables, and check vitals once per shift. Please continue HFNC and titrate down as able for patient comfort. Use medications above PRN for dyspnea/tachypnea and do not increase oxygen once titrated down. Assess q1h for pain/dyspnea and treat accordingly. Plan see above Admission and Anticipated Discharge Date Admission Date: January 21, 2025 Subjective Assessed pt at bedside, She was transitioned to MACHINE LEARNING INTERN on 01/25/25 and has minimal requirements for comfort. Pt is awake and alert, oriented to person only and pleasantly communicative. Respiratory effort normal, NAD on RA. NGT remains in place to low intermittent suction draining large amounts of dark green liquid. Pt continues to tolerate NGT to LIS well. Pt denies any physical discomfort but does c/o anxiety due to not being able to go home. Her sister is at bedside. Review of Systems Review of Systems: All systems reviewed & are unremarkable except as noted in Subjective Physical Exam Physical Exam: General- pleasantly confused, not in distress, on 4L NC O2 Head- atraumatic/normocephalic Eyes- PERRL, EOMI, anicteric ENT- oropharynx clear, MMM Neck- supple, no JVD, no adenopathy, no thyromegaly; carotids +2/2, Lungs- b/l rales and rhonchi, good air entry BL Heart- normal rate, regular rhythm; no murmur, no gallop, no rub appreciated Abdomen- NGT to LIS draining dark green liquid, normal bowel sounds, distended, semi-firm, +tender, no masses or hepatosplenomegaly Extremities- no pretibial edema, no calf tenderness; peripheral pulses intact Neuro- pt oriented to person only, follows few simple commands Skin- warm & dry Results & Data Vital Signs (Past 12 Hours) Vital Signs Temp 36.4 C L 01/28/25 06:15 Pulse 66 01/28/25 06:15 Resp 18 01/28/25 06:15 BP 189/77 H 01/28/25 06:15 Pulse Ox 97 01/28/25 06:15 O2 Del Method Nasal Cannula 01/28/25 21:18 O2 Flow Rate 3 01/28/25 21:18 Intake & Output 01/28/25 01/29/25 01/29/25 18:59 06:59 18:59 Intake Total 750 / 990 240 / 990 Output Total 800 / 1100 300 / 1100 1500 / 1500 Balance -50 / -110 -60 / -110 -1500 / -1500 Intake: Oral 750 / 990 240 / 990 Output: Emesis 800 / 800 Urine Amount (Catheter) 300 / 300 Temple/Indwelling 300 / 300 Gastric Drainage 1500 / 1500 Left Nare 1500 / 1500 Laboratory Results No further labs or diagnostics in concert with comfort directed care. Diagnostic Findings No further labs or diagnostics in concert with comfort directed care. Medications Administered Current Inpatient Medications Glycopyrrolate (Glycopyrrolate 0.2 Mg/Ml Vial) 0.4 mg IV Q4H PRN PRN Reason: Rattling Secretions or Pulm Congestion Stop: 02/24/25 15:51 Levetiracetam (Levetiracetam 500 Mg/5 Ml Vial) 500 mg IV Q12H [place] Stop: 02/21/25 05:59 Last Admin: 01/29/25 06:12 Dose: 500 mg Lorazepam (Lorazepam 2 Mg/1 Ml Vial) 0.5 mg IV Q4H PRN PRN Reason: Anxiety/Agitation Stop: 02/24/25 15:51 Last Admin: 01/29/25 09:47 Dose: 0.5 mg Morphine Sulfate (Morphine Sulfate 10 Mg/0.5 Ml Udp) 5 mg PO Q3H PRN PRN Reason: Pain or Respiratory Distress Stop: 02/08/25 15:51 Morphine Sulfate (Morphine Sulfate 2 Mg/Ml Carp) 2 mg IV Q30M PRN PRN Reason: Pain or Respiratory Distress Stop: 02/08/25 15:51 Ondansetron HCl (Ondansetron Inj 2 Mg/Ml 2 Ml Vial) 4 mg IV Q4H PRN PRN Reason: Nausea &/or Vomiting Stop: 02/24/25 15:51 PG Care Time/CCT Total # of Minutes Spent Total Time Spent with Patient: Total time spent is greater than 50% in coordination of care (as documented) at patient's floor/unit and/or counseling patient: Coding [place] [address] SUB INP/OBS CARE 2/35MIN Patient Type Established History Problem Focused Exam Problem Focused Medical Decision Making Low Complexity Diagnoses Palliative care by specialist Z51.5 Weakness generalized R53.1 Comfort measures only status Z51.5 Need for comfort care
--- NOTE | 2025-01-29 14:54 | Hospitalist Progress Note ---
Date of Service January 29, 2025 Assessment & Plan (1) Seizure-like activity: (2) CVA (cerebral vascular accident): Plan 69-year-old female who was found down and unresponsive with concern for seizure- like activity last known well 2-3 days prior who was transported to the ER. Suspected to have a parietal CVA with resulting seizure. Patient also had a leukocytosis and fever suspected to be due to UTI but for which meningitis was within the differential and LP was obtained. She was admitted to the ICU overnight, did not show further seizure-like activity following Keppra load. Patient is suspected overall to have sustained a CVA Right temporal/parietal/thalamic stroke with additional possible right basal ganglier/pontine CVA. No history of A-fib. No occlusion was seen on CTA. Patient is suspected to have had a severe event which was likely worsened by global anoxic injury due to both seizure and underlying hypoxic hypercapnic respiratory failure. comfort measures Continue morphine as needed for pain or air hunger Ativan as needed for anxiety. added 1 mg lorazepam sublingual at at bedtime to help with nighttime anxiety and sleep --Failed trial of clamping NGT 01/27, continue LIS Remains afebrile, no pain -- tolerating recreational diet #Subacute CVA CThead shows right posterior parietal lobe encephalomalacia and possible late subacute CVA. Patient's last known well was 01/19/2025, little over 2 days prior to admission CTA head/neck with diffuse atherosclerotic calcification without acute occlusion/narrowing - MRI: Moderate size restricted diffusion in the right temporal and parietal lobes. Punctate T1 hyperintense focus of the right basal ganglia. Trace hemorrhage is not excluded. Short-term follow-up could be obtained. No mass effect. Old right parietal lobe infarct Reviewed with neurology. Encephalitis is less likely especially given presentation and LP. Suspect that this is all ischemic/stroke pathology. 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 Suspected to have had an anoxic injury while not on oxygen ?causing collapse vs initial stroke then complicated by seizure activity down for prolonged period of time with hypoxia as low as the 70s. Initially worked up for stroke with left-sided deficits however subsequently has shown evidence of anoxic injury to the liver, kidney, spleen, and SMA territory GI tract. 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 Continued antiepileptics is consistent with comfort goals of care Lorazepam 2 mg IV for acute seizure-like activity Acute hypoxic, hypercapnic respiratory failure, history of COPD, tobacco use CTchest without acute pneumonia or aspiration Morphine IV if needed for air hunger, may use nasal cannula oxygen as needed for comfort Admission and Anticipated Discharge Date Admission Date: January 21, 2025 Julius Carver is awake, her sister and daughter are at the bedside, she ate some breakfast and lunch without nausea or emesis however NG tube still to low intermittent suction she feels like her stomach is full denies any pain at this time she is having a significant amount of anxiety and difficulty sleeping at night, she responded well to 0.5 mg IV lorazepam for anxiety this morning Physical Exam Physical Exam: Last 24h vitals reviewed GEN: awake and sitting up in bed HEENT: pupils equal, sclerae anicteric, moist MM, NG tube in place RESP: normal WOB, CTAB CV: reg no mrg ABD: soft/nt/ mildly distended NG tube sounds SKIN: warm and dry, no generalized rashes NEURO: AOx self and can report immediate symptoms but not oriented to situation. dysconjugate gaze tracks me visually anita. left facial droop and LUE and LLE weakness present but has antigravity - relatively unchanged since yesterday PG Care Time/CCT Total # of Minutes Spent Total Time Spent with Patient: Total time spent is greater than 50% in coordination of care (as documented) at patient's floor/unit and/or counseling patient: Coding Level of Care Code 59410 SUB INP/OBS CARE 2/35MIN Diagnoses Seizure-like activity R56.9 CVA (cerebral vascular accident) I63.9
[2025-01-29] MEDS: MoRPHine SULFATE 2 MG/ML CARP IV PRN (17:10)
[2025-01-29] MEDS: LORazepam 1 MG TAB SL SCH (21:43)
--- NOTE | 2025-01-30 13:22 | Palliative Care Progress Note ---
Date of Service January 30, 2025 Assessment & Plan (1) Palliative care by specialist: Plan: Palliative care will continue to follow for ongoing EOL pt care and family support. Anticipatory guidance reinforced. Discussed changes pt may move through in the dying process including but not limited to sleeping more, disorientation when awake, restlessness, diminished senses/inability to respond to stimulus although ability to be aware of them remains intact longer, and changes in body temperatures, skin changes/mottling/cyanosis, respiratory pattern changes, and oral secretions. Family verbalized understanding. The goal is to assure a peaceful . (2) Weakness generalized: (3) Comfort measures only status: Plan: Assessed pt at bedside, she was transitioned to RETURN TO FACTORY CLERK on 01/25/25. Pt has had minimal requirements for PRN medications. Family unable to provide required care at home for ongoing hospice and per CM, there are no SNF options with indwelling NGT. She has required venting NGT for comfort for which she has failed a clamping trial due to abdominal distention/fullness. NGT now on LIS and pt pending evaluation for [facility] hosp[facility], CM aware. Attending Dr Hopson in agreement with plan. (4) Need for comfort care: Plan: EOL Symptom manamgement: Pain/dyspnea/tachypnea morphine 2mg IVP PRN [id number] Consider titratable morphine drip if pt requires >3 PRN doses in under two consecutive hours. Nausea/vomitting zofran 4mg IVP q4h PRN Agitation ativan 0.5mg IVP q4h PRN Hyperactive delirium haldol 5mg IVP q6h PRN Secretions - if repositioning not effective robinul 0.4mg IV q4h PRN atropine SL 3 drops Q1h PRN Nursing care: Discontinue all medications not directed towards comfort. Detether pt from IV tubing, monitor cables, and check vitals once per shift. Please continue HFNC and titrate down as able for patient comfort. Use medications above PRN for dyspnea/tachypnea and do not increase oxygen once titrated down. Assess q1h for pain/dyspnea and treat accordingly. Plan see above Admission and Anticipated Discharge Date Admission Date: January 21, 2025 Subjective Assessed pt at bedside, She was transitioned to RETURN TO FACTORY CLERK on 01/25/25 and has minimal requirements for comfort. Pt is sleeping soundly, did not attempt to awaken in concert with comfort directed care. Respiratory effort normal, NAD on RA. NGT remains in place to low intermittent suction draining large amounts of dark green-brown liquid. Pt continues to tolerate NGT to LIS well. Her sister is at bedside, anticipatory guidance reinforced. Review of Systems Review of Systems: Unobtainable due to cognitive status Physical Exam Physical Exam: General- Pt is sleeping soundly, did not attempt to awaken in concert with comfort directed care. Head- atraumatic/normocephalic Eyes- PERRL, EOMI, anicteric ENT- oropharynx clear, MMM Neck- supple, no JVD, no adenopathy, no thyromegaly; carotids +2/2, Lungs- b/l rales and rhonchi, good air entry BL Heart- normal rate, regular rhythm; no murmur, no gallop, no rub appreciated Abdomen- NGT to LIS draining dark green liquid, normal bowel sounds, distended, semi-firm, +tender, no masses or hepatosplenomegaly Extremities- no pretibial edema, no calf tenderness; peripheral pulses intact Neuro- Pt is sleeping soundly, did not attempt to awaken in concert with comfort directed care. Skin- warm & dry Results & Data Vital Signs (Past 12 Hours) Vital Signs O2 Del Method O2 Flow Rate 01/30/25 07:45 Nasal Cannula 3 Laboratory Results No further labs or diagnostics in concert with comfort directed care. Diagnostic Findings No further labs or diagnostics in concert with comfort directed care. Medications Administered Current Inpatient Medications Glycopyrrolate (Glycopyrrolate 0.2 Mg/Ml Vial) 0.4 mg IV Q4H PRN PRN Reason: Rattling Secretions or Pulm Congestion Stop: 02/24/25 15:51 Levetiracetam (Levetiracetam 500 Mg/5 Ml Vial) 500 mg IV Q12H [place] Stop: 02/21/25 05:59 Last Admin: 01/30/25 05:57 Dose: 500 mg Lorazepam (Lorazepam 2 Mg/1 Ml Vial) 0.5 mg IV Q4H PRN PRN Reason: Anxiety/Agitation Stop: 02/24/25 15:51 Last Admin: 01/29/25 14:48 Dose: 0.5 mg Lorazepam (Lorazepam 1 Mg Tab) 1 mg SL HS [place] Stop: 02/28/25 20:59 Last Admin: 01/29/25 21:43 Dose: 1 mg Morphine Sulfate (Morphine Sulfate 10 Mg/0.5 Ml Udp) 5 mg PO Q3H PRN PRN Reason: Pain or Respiratory Distress Stop: 02/08/25 15:51 Morphine Sulfate (Morphine Sulfate 2 Mg/Ml Carp) 2 mg IV Q30M PRN PRN Reason: Pain or Respiratory Distress Stop: 02/08/25 15:51 Last Admin: 01/30/25 13:15 Dose: 2 mg Ondansetron HCl (Ondansetron Inj 2 Mg/Ml 2 Ml Vial) 4 mg IV Q4H PRN PRN Reason: Nausea &/or Vomiting Stop: 02/24/25 15:51 PG Care Time/CCT Total # of Minutes Spent Total Time Spent with Patient: Total time spent is greater than 50% in coordination of care (as documented) at patient's floor/unit and/or counseling patient: C[place] [address] SUB INP/OBS CARE 11/08MIN Patient Type Established History Problem Focused Exam Problem Focused Medical Decision Making Low Complexity Diagnoses Palliative care by specialist Z51.5 Weakness generalized R53.1 Comfort measures only status Z51.5 Need for comfort care
--- NOTE | 2025-01-30 18:22 | Hospitalist Progress Note ---
Date of Service January 30, 2025 Assessment & Plan (1) Seizure-like activity: (2) CVA (cerebral vascular accident): Plan 69-year-old female who was found down and unresponsive with concern for seizure- like activity last known well 2-3 days prior who was transported to the ER. Suspected to have a parietal CVA with resulting seizure. Patient also had a leukocytosis and fever suspected to be due to UTI but for which meningitis was within the differential and LP was obtained. She was admitted to the ICU overnight, did not show further seizure-like activity following Keppra load. Patient is suspected overall to have sustained a CVA Right temporal/parietal/thalamic stroke with additional possible right basal ganglier/pontine CVA. No history of A-fib. No occlusion was seen on CTA. Patient is suspected to have had a severe event which was likely worsened by global anoxic injury due to both seizure and underlying hypoxic hypercapnic respiratory failure. comfort measures Continue morphine as needed for pain or air hunger - has required increase in IV morphine today for abdominal pain Ativan as needed for anxiety. added 1 mg lorazepam sublingual at at bedtime to help with nighttime anxiety and sleep --Failed trial of clamping NGT 01/27, continue LIS - massive output from NG tube this morning currently sips of liquids for comfort #Subacute CVA CThead shows right posterior parietal lobe encephalomalacia and possible late subacute CVA. Patient's last known well was 01/19/2025, little over 2 days prior to admission CTA head/neck with diffuse atherosclerotic calcification without acute occlusion/narrowing - MRI: Moderate size restricted diffusion in the right temporal and parietal lobes. Punctate T1 hyperintense focus of the right basal ganglia. Trace hemorrhage is not excluded. Short-term follow-up could be obtained. No mass effect. Old right parietal lobe infarct Reviewed with neurology. Encephalitis is less likely especially given presentation and LP. Suspect that this is all ischemic/stroke pathology. 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 Suspected to have had an anoxic injury while not on oxygen ?causing collapse vs initial stroke then complicated by seizure activity down for prolonged period of time with hypoxia as low as the 70s. Initially worked up for stroke with left-sided deficits however subsequently has shown evidence of anoxic injury to the liver, kidney, spleen, and SMA territory GI tract. 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 Continued antiepileptics is consistent with comfort goals of care Lorazepam 2 mg IV for acute seizure-like activity Acute hypoxic, hypercapnic respiratory failure, history of COPD, tobacco use CTchest without acute pneumonia or aspiration Morphine IV if needed for air hunger, may use nasal cannula oxygen as needed for comfort I updated Wen's sister at bedside today Admission and Anticipated Discharge Date Admission Date: January 21, 2025 Subjective Wen is currently a bit sleepy after receiving a dose of morphine, her symptoms have increased with respect to her abdomen she is now having abdominal pain and has had copious output from her NG tube this morning pain did improve after 2 x 2 mg doses of morphine today she denied any nausea, she is sipping liquids but not eating food today Physical Exam Physical Exam: Last 24h vitals reviewed GEN: reclining in bed and sleepy HEENT: pupils equal, sclerae anicteric, moist MM, NG tube in place - drainage canister is full and RN stated this is at least the second time she is emptying it today RESP: normal WOB, CTAB CV: reg no mrg ABD: more tender to palpation mid abdomen, mildly distended,NG tube sounds SKIN: warm and dry, no generalized rashes NEURO: sleepy opens eyes said 1-2 words dysconjugate gaze tracks me visually anita. left facial droop and LUE and LLE weakness present but has antigravity Results & Data Results & Data Vital Signs (Past 12 Hours) Vital Signs O2 Del Method O2 Flow Rate 01/30/25 07:45 Nasal Cannula 3 PG Care Time/CCT Total # of Minutes Spent Total Time Spent with Patient: Total time spent is greater than 50% in coordination of care (as documented) at patient's floor/unit and/or counseling patient: Coding Level of Care Code 18403 SUB INP/OBS CARE 2/35MIN Diagnoses Seizure-like activity R56.9 CVA (cerebral vascular accident) I63.9
--- NOTE | 2025-01-31 03:51 | Death Pronouncement Note ---
Date of Service January 31, 2025 Pronouncement Note Admission Date Admission Date: January 21, 2025 Contributing Factors (1) Seizure-like activity: (2) CVA (cerebral vascular accident): Summary Additional details: I was called to pronounce the of Wen Yarbrough ( 1955) by Marisol Ryder on 01/31/2025 Upon entering the room, patient was found to be in a terminal state. They were unresponsive to, and did not withdrawal from, verbal or tactile stimuli. They were unresponsive to corneal, pupillary, and oculocephalic reflexes. On cardiopulmonary exam, they were found to be without detectable carotid pulses, and without spontaneous heart tones or respirations. Time of was pronounced by me on 01/31/2025 at 0341. Attending physician was notified was notified. Next of kin was notified by myself. Signed: Hernan Miles DO Additional Data Attending physician: Arpita Hopson MD
--- NOTE | 2025-01-31 18:56 | Discharge Summary ---
Discharge Summary Date of Service January 31, 2025 Principal Dx & Hospital Course #1 = Principal Diagnosis (1) Seizure-like activity: (2) CVA (cerebral vascular accident): Plan 69-year-old female who was found down and unresponsive with concern for seizure- like activity last known well 2-3 days prior who was transported to the ER. Suspected to have a parietal CVA with resulting seizure. Patient also had a leukocytosis and fever suspected to be due to UTI but for which meningitis was within the differential and LP was obtained which was negative. She was admitted to the ICU overnight, did not show further seizure-like activity following Keppra load. Patient is suspected overall to have sustained a CVA Right temporal/parietal/thalamic stroke with additional possible right basal ganglier/pontine CVA. No history of A-fib. No occlusion was seen on CTA. She presented outside of the window for thrombolytics. She had a global anoxic injury due to both seizure and underlying hypoxic hypercapnic respiratory failure. 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 She transitioned to comfort measures. Ultimately the stroke symptoms did improve and she had antigravity strength on the left side. Bowel ischemia did not improve, however, and she had continued abdominal pain and she was unable to tolerate removal of NG tube. She clinically worsened 01/30 with increased abdominal pain and copious NG tube output. She early the following morning. Diagnoses treated this admission: Subacute CVA, seizure related to stroke right posterior parietal lobe encephalomalacia and possible late subacute CVA. Anoxic event Patient with evidence of multiorgan anoxic injury following admission for stroke evaluation. Suspected to have had an anoxic injury while not on oxygen ?causing collapse vs initial stroke then complicated by seizure activity down for prolonged period of time with hypoxia as low as the 70s. Initially worked up for stroke with left-sided deficits however subsequently has shown evidence of anoxic injury to the liver, kidney, spleen, and SMA territory GI tract. Ischemic bowel, SMA syndrome Underlying mesenteric vascular disease Acute hypoxic, hypercapnic respiratory failure, history of COPD, tobacco use CTchest without acute pneumonia or aspiration Admission HPI Per Admitting Provider Wen is a 69-year-old female with PMH of COPD, alpha 1 antitrypsin deficiency, gout, HTN, HLD, tobacco use, and PAD s/p femoral-femoral bypass surgery. She presented via EMS on 01/21 following an unresponsive episode. Patient lives alone. She is currently nonverbal, and does not respond to commands or questions. History is provided by patient's sisters Cassia and Valery at the bedside. Last known well: Patient responded to a family group chat yesterday on 01/20 at 1330. Normally, their family has dinner every night, and the patient responded to her family group chat that she "could not make it, because she was working". This text was coherent. Patient sister, who lives across the street, went over to check on her today as she was not responding to her calls, and found the patient lying on her bathroom floor on her back. The patient was unresponsive, and her head was shaking/jerking. She was also foaming at the mouth. No loss of urinary continence or tongue biting. Patient sister called 911, and when they got her up into a recliner, her breathing worsened. Patient does use up on oxygen as needed, and so her sister put her on supplemental oxygen. No prior history of seizures or strokes. Patient was made a stroke alert on ED arrival. Per family, they had a grandfather who had a stroke, but no family history of seizures. Patient was hypoxic at 78% on room air on arrival; SpO2 is now 100% on 10L nonrebreather. ED course: NSS 1500 mL IV Labetalol 5 mg IV Lorazepam 2 mg IV Unable to obtain ROS at this time. Discharge Plan Discharge Items Patient Disposition: Other Date/Time: 01/31/25 03:41 Hospital Stay Data Consultations 01/21/25 16:53 ED Decision to Admit Stat 01/21/25 17:04 Consult Neurology Routine 01/21/25 21:23 Consult Jewel Stringer Routine 01/22/25 14:57 Consult Palliative Care Routine Diagnostic Imagining Performed 01/21/25 14:[address] [CT head/brain wo con] Stat 01/21/25 14:21 CT angio head w con Stat CT angio neck with con Stat 01/22/25 08:15 MRI Brain [MR brain wo/w con] Routine 01/25/25 08:32 CT Abd and Pelvis [CT abd pelvis IV con only] Urgent CT chest diagnostic wo con Routine Total Time Total Time Spent Total Time Spent (In Minutes): <30 Coding Level of Care Code 93343 IN/OBS DISCH 30 MIN/LESS Diagnoses Seizure-like activity R56.9 CVA (cerebral vascular accident) I63.9
== END 2025-01-31 04:54 | disposition expired | DRG 64 ==
LOC: SUATTDRO → MERGE 13:58 → ED 13:58 → SUATTDRO 19:46 → 1E 19:46 → 2S 01-24 18:00 → 3W 01-29 15:12